=== PATIENT | female | born 1970 | race Hispanic/Latino ===

== ENCOUNTER 2017-01-06 12:18 | Emergency (ER) | payer MEDICAID ==
[2017-01-06 12:19] VITALS: BMI 35.2
[2017-01-06] MEDS ORDERED: Albuterol-Ipratrop 3 mg / 0.5 (3 ml) UD INH STA ×3 (13:53→16:44)
--- NOTE | 2017-01-06 13:58 | ED PDOC ---
HPI: Asthma Time Seen by Provider: 01/06/17 12:54 Chief Complaint (Nursing): Cough, Cold, Congestion History Per: Patient History/Exam Limitations: no limitations Onset/Duration Of Symptoms: Gradual Current Symptoms Are (Timing): Still Present Associated Symptoms: Dyspnea, Cough. denies: Fever, Hives, Chest Pain Severity: Moderate Additional History Per: Patient Additional Complaint(s): ED for evaluation of wheezing x a few days. Using spiriva and ventolin inhaler with minimal relief. Patient taking antibiotic for bronchitis. Patient c/o feeling dizzy no cp ot stauffer Past Medical History Reviewed: Historical Data, Nursing Documentation, Vital Signs Vital Signs: Last Vital Signs Temp 98.0 F 01/06/17 12:42 Pulse 81 01/06/17 12:42 Resp 16 01/06/17 12:42 BP 126/69 01/06/17 12:42 Pulse Ox 98 01/06/17 12:42 - Medical History PMH: Anxiety, Asthma, Bronchitis, CAD, Depression, Gastritis, GERD, Hypercholesterolemia, Migraine, Personality Disorder, Chronic Pain Denies: Chronic Kidney Disease - Family History Family History: States: Unknown Family Hx - Living Arrangements Living Arrangements: With Family - Social History Current smoker - smoking cessation education provided: No - Immunization History Hx Tetanus Toxoid Vaccination: No - Home Medications Home Medications: Ambulatory Orders Medication Instructions Recorded Lorazepam 1 mg PO DAILY #20 tab 05/21/14 Albuterol 0.5% [Albuterol 0.5% 2.5 mg IH Q6H PRN #3 neb 01/28/15 Inhal Bryanna (2.5 mg/0.5 ml) UD] Albuterol HFA [Ventolin HFA 90 2 puff IH Q4H #1 puff 12/08/15 mcg/actuation (8 g)] Albuterol 0.5% [Albuterol 0.5% 2.5 mg IH BID 03/26/16 Inhal Bryanna (2.5 mg/0.5 ml) UD] Aspirin [Adult Low Dose Aspirin EC] 81 mg PO DAILY 03/26/16 Cholecalciferol (Vitamin D3) 2,000 unit PO DAILY 03/26/16 [Vitamin D] Esomeprazole Magnesium [Nexium] 40 mg PO DAILY 03/26/16 Fexofenadine/Pseudoephedrine 1 each PO DAILY 06/29/16 [Yarelis-D 12 Hour Tablet] Ibuprofen [Motrin] 600 mg PO DAILY 03/26/16 Lorazepam 1 mg PO Q4 03/26/16 Montelukast [Singulair] 10 mg PO DAILY 03/26/16 Tiotropium [Spiriva] 18 mcg IH DAILY 03/26/16 Venlafaxine [Effexor XR] 150 mg PO DAILY 03/26/16 traZODone [trazODONE HYDROCHLORIDE] 50 mg PO HS 03/26/16 Ibuprofen [Motrin] 600 mg PO Q6H PRN #20 tab 04/12/16 Permethrin 5% [Permethrin] 5 g TP PRN PRN #1 tube 04/12/16 Cephalexin [cephalexin] 500 mg PO BID #20 cap 06/29/16 Ibuprofen [Motrin] 400 mg PO Q6 #30 tab 06/29/16 Methylprednisolone [Medrol Dose 4 mg PO DAILY #21 mg 06/29/16 Pack (21 tabs)] Amoxicillin 500 mg PO TID #15 tablet 07/26/16 Ibuprofen [Motrin Tab] 600 mg PO Q8 PRN #21 07/26/16 LORazepam [Ativan] 1 mg PO DAILY #5 tab 07/26/16 Albuterol 0.5% [Albuterol 0.5% 2.5 mg IH Q6H PRN #3 neb 10/25/16 Inhal Bryanna (2.5 mg/0.5 ml) UD] Montelukast [Singulair] 10 mg PO DAILY 5 Days 10/25/16 Tiotropium [place] [Spiriva 2.5 mcg IH DAILY PRN 5 Days 10/25/16 Respimat] predniSONE [predniSONE Tab] 20 mg PO BID 5 Days 10/25/16 Azithromycin [Zithromax] 250 mg PO DAILY #6 tab 10/30/16 Benzonatate 200 mg PO TID PRN #20 capsule 10/30/16 Albuterol HFA [Ventolin HFA 90 2 puff IH Q4 PRN #1 unit 11/05/16 mcg/actuation (8 g)] Benzonatate [Tessalon Perles] 100 mg PO TID PRN #20 cap 11/05/16 Methylprednisolone [Medrol Dose 4 mg PO DAILY #1 packet 11/05/16 Pack (21 tabs)] Triamcinolone Acetonide [Nasacort 1 spray NS DAILY #1 unit 11/05/16 Allergy 24Hr] Benzonatate [Tessalon Perle] 100 mg PO TID PRN #15 capsule 11/14/16 Ondansetron ODT [Zofran ODT] 4 mg PO Q6 PRN #16 odt 11/14/16 Oseltamivir [Tamiflu] 75 mg PO BID #9 cap 11/14/16 Albuterol HFA [Ventolin HFA 90 2 puff IH Q6 #200 puff 11/25/16 mcg/actuation (8 g)] Benzonatate [Tessalon Perles] 100 mg PO TID #20 sgl 11/25/16 Amoxicillin/Clavulanate [Augmentin 1 tab PO BID #20 tab 11/27/16 875 MG-125 MG] Benzonatate [Tessalon Perles] 200 mg PO TID #30 tab 11/27/16 Ibuprofen [Motrin] 600 mg PO BID #20 tab 11/27/16 Ibuprofen [Motrin] 600 mg PO Q6 #20 tab 12/08/16 Albuterol HFA [Ventolin HFA 90 2 puff IH [id number] PRN #1 bottle 12/20/16 mcg/actuation (8 g)] Amoxicillin/Clavulanate [Augmentin 1 tab PO BID #19 tab 12/20/16 875 MG-125 MG] Benzonatate [Tessalon Perle] 100 mg PO BID #12 capsule 12/20/16 - Allergies Allergies/Adverse Reactions: Allergies Allergy/AdvReac Type Severity Reaction Status Date / Time clarithromycin [From Biaxin] Allergy ANAPHYLAXIS Verified 01/06/17 12:42 cyclobenzaprine HCl Allergy RASH Verified 01/06/17 12:42 [From Flexeril] hydroxyzine HCl Allergy RASH Verified 01/06/17 12:42 [From Vistaril] hydroxyzine pamoate Allergy RASH Verified 01/06/17 12:42 [From Vistaril] latex Allergy RASH Verified 01/06/17 12:42 Sulfa (Sulfonamide Allergy RASH Verified 01/06/17 12:42 Antibiotics) bacitracin AdvReac RASH Verified 01/06/17 12:42 levofloxacin [From Levaquin] AdvReac VOMITING Verified 01/06/17 12:42 Review of Systems ROS Statement: Except As Marked, All Systems Reviewed And Found Negative Constitutional: Negative for: Fever, Chills Cardiovascular: Negative for: Chest Pain Respiratory: Positive for: Cough, Sputum (yellow), Wheezing. Negative for: Shortness of Breath Gastrointestinal: Negative for: Nausea, Vomiting, Abdominal Pain Physical Exam - Reviewed Nursing Documentation Reviewed: Yes Vital Signs Reviewed: Yes - Physical Exam Appears: Positive for: Well, No Acute Distress Head Exam: Positive for: ATRAUMATIC, NORMAL INSPECTION, NORMOCEPHALIC Eye Exam: Positive for: Normal appearance Neck: Positive for: Normal, Painless ROM, Supple Cardiovascular/Chest: Positive for: Regular Rate, Rhythm, Chest Non Tender. Negative for: Edema, Gallop, Murmur, Bradycardia, Tachycardia, Irregularly Irregular Respiratory: Positive for: Wheezing (mod scattered). Negative for: Decreased Breath Sounds, Accessory Muscle Use, Crackles, Rales, Rhonchi, Stridor, Respiratory Distress, Plerual Rub Pulses-Radial (L): 2+ Pulses-Radial (R): 2+ Gastrointestinal/Abdominal: Positive for: Normal Exam, Bowel Sounds, Soft. Negative for: Tenderness Extremity: Positive for: Normal ROM. Negative for: Tenderness, Pedal Edema, Calf Tenderness, Deformity, Swelling Neurologic/Psych: Positive for: Alert, cat hooker II-XII, Oriented, Mood/Affect (calm) , Gait (steady). Negative for: Motor/Sensory Deficits - Laboratory Results Result Diagrams: 01/06/17 14:40 01/06/17 14:40 - ECG ECG: Positive for: Interpreted By Al ECG Rhythm: Positive for: Normal QRS, Normal ST Segment, Sinus Rhythm. Negative for: ST/T Changes Interpretation Of Abn EKG: rate of 72, no evidence of ischemia O2 Sat by Pulse Oximetry: 98 Pulse Ox Interpretation: Normal - Radiology X-Ray: Interpreted by Al X-Ray Interpretation: No Acute Disease - Progress ED Course And Treament: moderate wheezing pt refused iv solumedrol will admit to fp Re-evaluation Time: 17:19 Condition: Improved Nebulizer Treatments/Peak Flow - Duonebs Number of Bronchodilator Doses given?: 3 - Steroid Treatment Steroid: Oral - Clinical Response Clinical Response: Improved Disposition - Clinical Impression Clinical Impression: Status asthmaticus - Patient ED Disposition Is Patient to be Admitted: Yes Counseled Patient/Family Regarding: Studies Performed, Diagnosis - Disposition Disposition Time: 17:20 Condition: STABLE - Pt Status Changed To: Hospital Disposition Of: Inpatient - Admit Certification Admit to Inpatient:: After my assessment, the patient will require hospitalization for at least two midnights. This is because of the severity of symptoms shown, intensity of services needed, and/or the medical risk in this patient being treated as an outpatient. - POA Present On Arrival: None
[2017-01-06] MEDS ORDERED: Albuterol-Ipratrop 3 mg / 0.5 (3 ml) UD ONE ×3 (14:21→16:49)
[2017-01-06 14:58] LABS: BASO # 0.1 K/uL (0.0-0.2); BASO % 2.2 % (0.0-2.0); EOS # 0.3 K/uL (0.0-0.7); EOS % 4.7 % (0.0-4.0); HEMATOCRIT 35.6 % (34.0-47.0); LYMPH # 2.5 K/uL (1.0-4.3); LYMPH % 42.6 % (20.0-40.0); MEAN CELL VOLUME 91.2 fl (81.0-99.0); MEAN CORPUSCULAR HEMOGLOBIN 30.1 pg (27.0-31.0); MEAN PLATELET VOLUME 8.1 fl (7.2-11.7); MONO # 0.5 K/uL (0.0-0.8); MONO % 7.9 % (0.0-10.0); NEUT # 2.5 K/uL (1.8-7.0); NEUT % 42.6 % (50.0-75.0); NRBC % 0.2 % (0.0-0.0); RED CELL DISTRIBUTION WIDTH 13.5 % (11.5-14.5); WHITE BLOOD COUNT 5.9 K/uL (4.8-10.8)
[2017-01-06 15:07] LABS: ALB/GLOB RATIO 1.1 (1.0-2.1); ALKALINE PHOSPHATASE 70 U/L (38-126); ALT/SGPT 18 U/L (9-52); AST/SGOT 34 U/L (14-36); BILIRUBIN,TOTAL 0.6 mg/dl (0.2-1.3); BLOOD UREA NITROGEN 14 mg/dl (7-17); CALCIUM 8.9 mg/dL (8.4-10.2); CARBON DIOXIDE 26 mmol/L (22-30); CHLORIDE 106 mmol/L (98-107); GFR AFRICAN-AMERICAN > 60; GLUCOSE,RANDOM 141 mg/dL (65-105); POTASSIUM 4.2 MMOL/L (3.6-5.0); SODIUM 144 mmol/l (132-148)
--- NOTE | 2017-01-06 15:20 | RAD ---
PROCEDURE: CHEST RADIOGRAPH, 1 VIEW HISTORY: sob COMPARISON: 12/20/2016 FINDINGS: LUNGS: Clear. PLEURA: No pneumothorax or pleural fluid seen. CARDIOVASCULAR: Normal. OSSEOUS STRUCTURES: No significant abnormalities. VISUALIZED UPPER ABDOMEN: Normal. OTHER FINDINGS: None. IMPRESSION: No active disease.
[2017-01-06 17:46] VITALS: BP 140/76; PULSE 78; RESP 18; TEMP 98; O2SAT 97
--- NOTE | 2017-01-06 20:05 | CARD ---
APPROVED REPORT EKG Measurement Heart [id number] <Conclusion> Normal sinus rhythm Normal ECG
== END 2017-01-06 17:48 | disposition left against medical advice (07) ==
LOC: H.ER 12:18 → UNDOADMIN 17:09 → H.ERHOLD 17:09 → UNDODISIN 17:40 → H.ER 17:48
DX: J45.902 Unspecified asthma with status asthmaticus (principal); F17.210 Nicotine dependence, cigarettes, uncomplicated; I25.10 Atherosclerotic heart disease of native coronary artery without angina pectoris; E78.00 Pure hypercholesterolemia, unspecified; Z79.82 Long term (current) use of aspirin

== ENCOUNTER 2017-01-29 09:43 | Emergency (ER) | payer MEDICAID ==
[2017-01-29 09:44] VITALS: BMI 36.3
--- NOTE | 2017-01-29 10:14 | ED PDOC ---
Lower Extremity Pain/Injury Time Seen by Provider: 01/29/17 09:58 Chief Complaint (Nursing): Lower Extremity Problem/Injury Chief Complaint (Provider): Lower Extremity Problem/Injury History Per: Patient History/Exam Limitations: no limitations Onset/Duration Of Symptoms: Days Additional Complaint(s): Patient is a 46 year old female who presents to ED for xray results. Patient was evaluated in ED yesterday, xrays performed but signed out AMA prior to receiving results. Notes ongoing left knee pain but denies any new symptoms. Past Medical History Reviewed: Historical Data, Nursing Documentation, Vital Signs - Medical History PMH: Anxiety, Asthma, Bronchitis, CAD, Depression, Gastritis, GERD, Hypercholesterolemia, Migraine, Personality Disorder, Chronic Pain Denies: Chronic Kidney Disease - Surgical History Surgical History: No Surg Hx - Family History Family History: States: Unknown Family Hx - Living Arrangements Living Arrangements: With Family - Social History Current smoker - smoking cessation education provided: Yes - Immunization History Hx Tetanus Toxoid Vaccination: No - Home Medications Home Medications: Ambulatory Orders Medication Instructions Recorded Lorazepam 1 mg PO DAILY #20 tab 05/21/14 Albuterol 0.5% [Albuterol 0.5% 2.5 mg IH Q6H PRN #3 neb 01/28/15 Inhal Bryanna (2.5 mg/0.5 ml) UD] Albuterol HFA [Ventolin HFA 90 2 puff IH Q4H #1 puff 12/08/15 mcg/actuation (8 g)] Albuterol 0.5% [Albuterol 0.5% 2.5 mg IH BID 03/26/16 Inhal Bryanna (2.5 mg/0.5 ml) UD] Aspirin [Adult Low Dose Aspirin EC] 81 mg PO DAILY 03/26/16 Cholecalciferol (Vitamin D3) 2,000 unit PO DAILY 03/26/16 [Vitamin D] Esomeprazole Magnesium [Nexium] 40 mg PO DAILY 03/26/16 Fexofenadine/Pseudoephedrine 1 each PO DAILY 03/26/16 [Yarelis-D 12 Hour Tablet] Ibuprofen [Motrin] 600 mg PO DAILY 03/26/16 Lorazepam 1 mg PO Q4 03/26/16 Montelukast [Singulair] 10 mg PO DAILY 03/26/16 Tiotropium [Spiriva] 18 mcg IH DAILY 03/26/16 Venlafaxine [Effexor XR] 150 mg PO DAILY 03/26/16 traZODone [trazODONE HYDROCHLORIDE] 50 mg PO HS 03/26/16 Ibuprofen [Motrin] 600 mg PO Q6H PRN #20 tab 04/12/16 Permethrin 5% [Permethrin] 5 g TP PRN PRN #1 tube 04/12/16 Cephalexin [cephalexin] 500 mg PO BID #20 cap 06/29/16 Ibuprofen [Motrin] 400 mg PO Q6 #30 tab 06/29/16 Methylprednisolone [Medrol Dose 4 mg PO DAILY #21 mg 06/29/16 Pack (21 tabs)] Amoxicillin 500 mg PO TID #15 tablet 07/26/16 Ibuprofen [Motrin Tab] 600 mg PO Q8 PRN #21 07/26/16 LORazepam [Ativan] 1 mg PO DAILY #5 tab 07/26/16 Albuterol 0.5% [Albuterol 0.5% 2.5 mg IH Q6H PRN #3 neb 10/25/16 Inhal [place]anna (2.5 mg/0.5 ml) UD] Montelukast [Singulair] 10 mg PO DAILY 5 Days 10/25/16 Tiotropium [place] [Spiriva 2.5 mcg IH DAILY PRN 5 Days 10/25/16 Respimat] predniSONE [predniSONE Tab] 20 mg PO BID 5 Days 10/25/16 Azithromycin [Zithromax] 250 mg PO DAILY #6 tab 10/30/16 Benzonatate 200 mg PO TID PRN #20 capsule 10/30/16 Albuterol HFA [Ventolin HFA 90 2 puff IH Q4 PRN #1 unit 11/05/16 mcg/actuation (8 g)] Benzonatate [Tessalon Perles] 100 mg PO TID PRN #20 cap 11/05/16 Methylprednisolone [Medrol Dose 4 mg PO DAILY #1 packet 11/05/16 Pack (21 tabs)] Triamcinolone Acetonide [Nasacort 1 spray NS DAILY #1 unit 11/05/16 Allergy 24Hr] Benzonatate [Tessalon Perle] 100 mg PO TID PRN #15 capsule 11/14/16 Ondansetron ODT [Zofran ODT] 4 mg PO Q6 PRN #16 odt 11/14/16 Oseltamivir [Tamiflu] 75 mg PO BID #9 cap 11/14/16 Albuterol HFA [Ventolin HFA 90 2 puff IH Q6 #200 puff 11/25/16 mcg/actuation (8 g)] Benzonatate [Tessalon Perles] 100 mg PO TID #20 sgl 11/25/16 Amoxicillin/Clavulanate [Augmentin 1 tab PO BID #20 tab 11/27/16 875 MG-125 MG] Benzonatate [Tessalon Perles] 200 mg PO TID #30 tab 11/27/16 Ibuprofen [Motrin] 600 mg PO BID #20 tab 11/27/16 Ibuprofen [Motrin] 600 mg PO Q6 #20 tab 12/08/16 Albuterol HFA [Ventolin HFA 90 2 puff IH [id number] PRN #1 bottle 12/20/16 mcg/actuation (8 g)] Amoxicillin/Clavulanate [Augmentin 1 tab PO BID #19 tab 12/20/16 875 MG-125 MG] Benzonatate [Tessalon Perle] 100 mg PO BID #12 capsule 12/20/16 Albuterol 0.083% [Albuterol 3 ml IH QID PRN #60 neb 01/06/17 Sulfate 3 Ml] Albuterol HFA [Ventolin HFA 90 2 puff IH [id number] PRN #60 puff 01/06/17 mcg/actuation (8 g)] Benzonatate [Tessalon Perles] 100 mg PO TID PRN #30 sgl 01/06/17 predniSONE [predniSONE Tab] 40 mg PO DAILY 4 Days 01/06/17 Clotrimazole 1% Cream [Lotrimin 1% 15 applic EXT BID #1 tube 01/27/17 CREAM] Ibuprofen [Motrin Tab] 600 mg PO Q6 PRN #15 tab 01/27/17 Compr.stocking,Knee,Reg,X-Lrg 1 each MC DAILY #2 each 01/29/17 [T.e.d. Anti-Embolism Stocking] - Allergies Allergies/Adverse Reactions: Allergies Allergy/AdvReac Type Severity Reaction Status Date / Time clarithromycin [From Biaxin] Allergy ANAPHYLAXIS Verified 01/28/17 09:31 cyclobenzaprine HCl Allergy RASH Verified 01/28/17 09:31 [From Flexeril] hydroxyzine HCl Allergy RASH Verified 01/28/17 09:31 [From Vistaril] hydroxyzine pamoate Allergy RASH Verified 01/28/17 09:31 [From Vistaril] latex Allergy RASH Verified 01/28/17 09:31 Sulfa (Sulfonamide Allergy RASH Verified 01/28/17 09:31 Antibiotics) bacitracin AdvReac RASH Verified 01/28/17 09:31 levofloxacin [From Levaquin] AdvReac VOMITING Verified 01/28/17 09:31 Review of Systems ROS Statement: Except As Marked, All Systems Reviewed And Found Negative Constitutional: Negative for: Fever, Weakness Respiratory: Negative for: Shortness of Breath Musculoskeletal: Positive for: Leg Pain. Negative for: Arm Pain, Foot Pain Skin: Negative for: Rash Neurological: Negative for: Weakness, Numbness Physical Exam - Reviewed Nursing Documentation Reviewed: Yes Vital Signs Reviewed: Yes - Physical Exam Appears: Positive for: Non-toxic, No Acute Distress Skin: Positive for: Normal Color, Warm Eye Exam: Positive for: Normal appearance Neck: Positive for: Normal Extremity: Positive for: Normal ROM, Tenderness (mild to left knee ), Pedal Edema (bilateral lower extremities ). Negative for: Calf Tenderness Neurologic/Psych: Positive for: Alert, Oriented Medical Decision Making Medical Decision Making: Time: 957 Initial impression: Acute on chronic knee pain Initial plan: Xray results: (+) degenerative joint disease James wrap placed on knee, discussed the importance of following up with the clinic. Prescription provided for compression socks as well. Scribe Attestation: Documented by Gabi Miramontes acting as a scribe for Toby Yañez DO MD Scribe Attestation: All medical record entries made by the Scribe were at my direction and personally dictated by me. I have reviewed the chart and agree that the record accurately reflects my personal performance of the history, physical exam, medical decision making, and the department course for this patient. I have also personally directed, reviewed, and agree with the discharge instructions and disposition. Disposition - Clinical Impression Clinical Impression: Arthritis of knee, Leg edema - Patient ED Disposition Is Patient to be Admitted: No Counseled Patient/Family Regarding: Studies Performed, Diagnosis - Disposition Referrals: Ender Geiger III, MD [Staff Provider] - Disposition: Routine/Home Disposition Time: 11:05 Condition: STABLE Prescriptions: Compr.stocking,Knee,Reg,X-Lrg [T.e.d. Anti-Embolism Stocking] 1 each MC DAILY # 2 each Instructions: Leg Edema (ED), Knee Pain (ED), Arthritis (ED)
== END 2017-01-29 11:09 | disposition home or self-care (01) ==
LOC: H.ER 09:43
DX: R60.0 Localized edema (principal); M17.9 Osteoarthritis of knee, unspecified; G89.29 Other chronic pain; E78.00 Pure hypercholesterolemia, unspecified; F41.9 Anxiety disorder, unspecified; I25.10 Atherosclerotic heart disease of native coronary artery without angina pectoris; K21.9 Gastro-esophageal reflux disease without esophagitis; Z79.82 Long term (current) use of aspirin; J45.909 Unspecified asthma, uncomplicated

== ENCOUNTER 2017-04-28 11:38 | Emergency (ER) | payer MEDICAID ==
[2017-04-28 11:39] VITALS: BMI 36.3
[2017-04-28 11:46] VITALS: BP 129/95; PULSE 106; RESP 18; TEMP 98.1; O2SAT 98
--- NOTE | 2017-04-28 13:21 | ED PDOC ---
Lower Extremity Pain/Injury Time Seen by Provider: 04/28/17 12:35 Chief Complaint (Nursing): Lower Extremity Problem/Injury Chief Complaint (Provider): Bilateral Leg Pain History Per: Patient History/Exam Limitations: no limitations Onset/Duration Of Symptoms: Days (x2 weeks) Current Symptoms Are (Timing): Still Present Additional Complaint(s): Jennifer Tariq is a 46 year old female that presents to the ED with a chief complaint of bilateral knee pain. Patient reports that she has a history of rheumatoid arthritis and has constant pain in her left knee, but reports that her right knee pain came as a result of a fall down a flight of stairs that occurred two weeks ago. Past Medical History Vital Signs: Last Vital Signs Temp 98.1 F 04/28/17 11:43 Pulse 106 H 04/28/17 11:43 Resp 18 04/28/17 11:43 BP 129/95 H 04/28/17 11:43 Pulse Ox 98 04/28/17 11:43 - Medical History PMH: Anxiety, Arthritis (rheumatoid), Asthma, Bronchitis, CAD, Depression, Gastritis, GERD, Hypercholesterolemia, Migraine, Personality Disorder, Chronic Pain Denies: Chronic Kidney Disease - Family History Family History: States: Unknown Family Hx - Immunization History Hx Tetanus Toxoid Vaccination: No - Home Medications Home Medications: Ambulatory Orders Medication Instructions Recorded Lorazepam 1 mg PO DAILY #20 tab 05/21/14 Albuterol 0.5% [Albuterol 0.5% 2.5 mg IH Q6H PRN #3 neb 01/28/15 Inhal [place]anna (2.5 mg/0.5 ml) UD] Albuterol HFA [Ventolin HFA 90 2 puff IH Q4H #1 puff 12/08/15 mcg/actuation (8 g)] Albuterol 0.5% [Albuterol 0.5% 2.5 mg IH BID 03/26/16 Inhal [place] (2.5 mg/0.5 ml) UD] Aspirin [Adult Low Dose Aspirin EC] 81 mg PO DAILY 03/26/16 Cholecalciferol (Vitamin D3) 2,000 unit PO DAILY 03/26/16 [Vitamin D] Esomeprazole Magnesium [Nexium] 40 mg PO DAILY 03/26/16 Fexofenadine/Pseudoephedrine 1 each PO DAILY 03/26/16 [Yarelis-D 12 Hour Tablet] Ibuprofen [Motrin] 600 mg PO DAILY 03/26/16 Lorazepam 1 mg PO Q4 03/26/16 Montelukast [Singulair] 10 mg PO DAILY 03/26/16 Tiotropium [Spiriva] 18 mcg IH DAILY 03/26/16 Venlafaxine [Effexor XR] 150 mg PO DAILY 03/26/16 traZODone [trazODONE HYDROCHLORIDE] 50 mg PO HS 03/26/16 Ibuprofen [Motrin] 600 mg PO Q6H PRN #20 tab 04/12/16 Permethrin 5% [Permethrin] 5 g TP PRN PRN #1 tube 04/12/16 Cephalexin [cephalexin] 500 mg PO BID #20 cap 06/29/16 Ibuprofen [Motrin] 400 mg PO Q6 #30 tab 06/29/16 Methylprednisolone [Medrol Dose 4 mg PO DAILY #21 mg 06/29/16 Pack (21 tabs)] Amoxicillin 500 mg PO TID #15 tablet 07/26/16 Ibuprofen [Motrin Tab] 600 mg PO Q8 PRN #21 07/26/16 LORazepam [Ativan] 1 mg PO DAILY #5 tab 07/26/16 Albuterol 0.5% [Albuterol 0.5% 2.5 mg IH Q6H PRN #3 neb 10/25/16 Inhal [place]anna (2.5 mg/0.5 ml) UD] Montelukast [Singulair] 10 mg PO DAILY 5 Days 10/25/16 Tiotropium [place] [Spiriva 2.5 mcg IH DAILY PRN 5 Days 10/25/16 Respimat] predniSONE [predniSONE Tab] 20 mg PO BID 5 Days 10/25/16 Azithromycin [Zithromax] 250 mg PO DAILY #6 tab 10/30/16 Benzonatate 200 mg PO TID PRN #20 capsule 10/30/16 Albuterol HFA [Ventolin HFA 90 2 puff IH Q4 PRN #1 unit 11/05/16 mcg/actuation (8 g)] Benzonatate [Tessalon Perles] 100 mg PO TID PRN #20 cap 11/05/16 Methylprednisolone [Medrol Dose 4 mg PO DAILY #1 packet 11/05/16 Pack (21 tabs)] Triamcinolone Acetonide [Nasacort 1 spray NS DAILY #1 unit 11/05/16 Allergy 24Hr] Benzonatate [Tessalon Perle] 100 mg PO TID PRN #15 capsule 11/14/16 Ondansetron ODT [Zofran ODT] 4 mg PO Q6 PRN #16 odt 11/14/16 Oseltamivir [Tamiflu] 75 mg PO BID #9 cap 11/14/16 Albuterol HFA [Ventolin HFA 90 2 puff IH Q6 #200 puff 11/25/16 mcg/actuation (8 g)] Benzonatate [Tessalon Perles] 100 mg PO TID #20 sgl 11/25/16 Amoxicillin/Clavulanate [Augmentin 1 tab PO BID #20 tab 11/27/16 875 MG-125 MG] Benzonatate [Tessalon Perles] 200 mg PO TID #30 tab 11/27/16 Ibuprofen [Motrin] 600 mg PO BID #20 tab 11/27/16 Ibuprofen [Motrin] 600 mg PO Q6 #20 tab 12/08/16 Albuterol HFA [Ventolin HFA 90 2 puff IH [id number] PRN #1 bottle 12/20/16 mcg/actuation (8 g)] Amoxicillin/Clavulanate [Augmentin 1 tab PO BID #19 tab 12/20/16 875 MG-125 MG] Benzonatate [Tessalon Perle] 100 mg PO BID #12 capsule 12/20/16 Albuterol 0.083% [Albuterol 3 ml IH QID PRN #60 neb 01/06/17 Sulfate 3 Ml] Albuterol HFA [Ventolin HFA 90 2 puff IH [id number] PRN #60 puff 01/06/17 mcg/actuation (8 g)] Benzonatate [Tessalon Perles] 100 mg PO TID PRN #30 sgl 01/06/17 predniSONE [predniSONE Tab] 40 mg PO DAILY 4 Days 01/06/17 Clotrimazole 1% Cream [Lotrimin 1% 15 applic EXT BID #1 tube 01/27/17 CREAM] Ibuprofen [Motrin Tab] 600 mg PO Q6 PRN #15 tab 01/27/17 Compr.stocking,Knee,Reg,X-Lrg 1 each MC DAILY #2 each 01/29/17 [T.e.d. Anti-Embolism Stocking] - Allergies Allergies/Adverse Reactions: Allergies Allergy/AdvReac Type Severity Reaction Status Date / Time clarithromycin [From Biaxin] Allergy ANAPHYLAXIS Verified 01/28/17 09:31 cyclobenzaprine HCl Allergy RASH Verified 01/28/17 09:31 [From Flexeril] hydroxyzine HCl Allergy RASH Verified 01/28/17 09:31 [From Vistaril] hydroxyzine pamoate Allergy RASH Verified 01/28/17 09:31 [From Vistaril] latex Allergy RASH Verified 01/28/17 09:31 Sulfa (Sulfonamide Allergy RASH Verified 01/28/17 09:31 Antibiotics) bacitracin AdvReac RASH Verified 01/28/17 09:31 levofloxacin [From Levaquin] AdvReac VOMITING Verified 01/28/17 09:31 Review of Systems Musculoskeletal: Positive for: Leg Pain (b/l knee pain) Physical Exam - Reviewed Nursing Documentation Reviewed: Yes Vital Signs Reviewed: Yes - Physical Exam Appears: Positive for: Non-toxic, No Acute Distress Head Exam: Positive for: ATRAUMATIC, NORMOCEPHALIC Skin: Positive for: Normal Color, Warm Pulses-Dorsalis Pedis (L): 2+ Pulses-Dorsalis Pedis (R): 2+ Pulses-Post. Tibialis (L): 2+ Pulses-Post. Tibialis (R): 2+ Extremity: Positive for: Tenderness (TTP bilateral knees), Other (fading ecchymosis present on anterior right knee and b/l shins) Neurologic/Psych: Positive for: Alert, Oriented. Negative for: Motor/Sensory Deficits - ECG O2 Sat by Pulse Oximetry: 98 (RA) Pulse Ox Interpretation: Normal - Progress ED Course And Treament: pateint left prior to xrys. Medical Decision Making Medical Decision Making: Impression: Bilateral Knee Pain Plan: * X-Ray Knees Bilateral * Reevaluation Scribe Attestation: Documented by Maribel Benson, acting as a scribe for Lianne Gonzalez PA-C. Provider Scribe Attestation: All medical record entries made by the Scribe were at my direction and personally dictated by me. I have reviewed the chart and agree that the record accurately reflects my personal performance of the history, physical exam, medical decision making, and the department course for this patient. I have also personally directed, reviewed, and agree with the discharge instructions and disposition. Disposition - Clinical Impression Clinical Impression: Knee injury - Patient ED Disposition Is Patient to be Admitted: No - Disposition Disposition: Left W/O Treatment Disposition Time: 13:33 Condition: FAIR Forms: wiMAN ([place])
== END 2017-04-28 14:11 | disposition home or self-care (01) ==
LOC: H.ER 11:38
DX: M25.569 Pain in unspecified knee (principal); E78.00 Pure hypercholesterolemia, unspecified; F41.9 Anxiety disorder, unspecified

== ENCOUNTER 2017-06-13 12:21 | Emergency (ER) | payer MEDICAID ==
[2017-06-13 12:22] VITALS: BMI 36.3
[2017-06-13 12:35] VITALS: BP 122/60; RESP 18; TEMP 98.6; O2SAT 100
--- NOTE | 2017-06-13 12:55 | ED PDOC ---
Lower Extremity Pain/Injury Time Seen by Provider: 06/13/17 12:36 Chief Complaint (Nursing): Lower Extremity Problem/Injury Chief Complaint (Provider): Lower Extremity Problem/Injury History Per: Patient History/Exam Limitations: no limitations Onset/Duration Of Symptoms: Days (x2 months) Current Symptoms Are (Timing): Still Present Additional Complaint(s): Jennifer Tariq is a 46 year old female presenting to the ED for an evaluation of an injury to both of her knees when she tripped and fell 2 months prior to arrival. The patient states experiencing swelling to bilateral knees and a painful numbing sensation to the patella of her right knee since then. She reports not seeking medical attention until today. The patient denies radiation of pain, fever, or calf pain. PMD: Provider TBRizwana Past Medical History Reviewed: Historical Data, Nursing Documentation, Vital Signs Vital Signs: Last Vital Signs Temp 98.6 F 06/13/17 12:32 Pulse 96 H 06/13/17 12:32 Resp 18 06/13/17 12:32 BP 122/60 06/13/17 12:32 Pulse Ox 100 06/13/17 12:32 - Medical History PMH: Anxiety, Arthritis (rheumatoid), Asthma, Bronchitis, CAD, Depression, Gastritis, GERD, Hypercholesterolemia, Migraine, Personality Disorder, Chronic Pain Denies: Chronic Kidney Disease - Family History Family History: States: No Known Family Hx - Social History Current smoker - smoking cessation education provided: Yes Alcohol: None Drugs: Prescription medications (hx of pain pill abuse (currently taking suboxone)) - Immunization History Hx Tetanus Toxoid Vaccination: No - Home Medications Home Medications: Ambulatory Orders Medication Instructions Recorded Lorazepam 1 mg PO DAILY #20 tab 05/21/14 Albuterol 0.5% [Albuterol 0.5% 2.5 mg IH Q6H PRN #3 neb 01/28/15 Inhal Bryanna (2.5 mg/0.5 ml) UD] Albuterol HFA [Ventolin HFA 90 2 puff IH Q4H #1 puff 12/08/15 mcg/actuation (8 g)] Albuterol 0.5% [Albuterol 0.5% 2.5 mg IH BID 03/26/16 Inhal Bryanna (2.5 mg/0.5 ml) UD] Aspirin [Adult Low Dose Aspirin EC] 81 mg PO DAILY 03/26/16 Cholecalciferol (Vitamin D3) 2,000 unit PO DAILY 03/26/16 [Vitamin D] Esomeprazole Magnesium [Nexium] 40 mg PO DAILY 03/26/16 Fexofenadine/Pseudoephedrine 1 each PO DAILY 03/26/16 [Yarelis-D 12 Hour Tablet] Ibuprofen [Motrin] 600 mg PO DAILY 03/26/16 Lorazepam 1 mg PO Q4 03/26/16 Montelukast [Singulair] 10 mg PO DAILY 03/26/16 Tiotropium [Spiriva] 18 mcg IH DAILY 03/26/16 Venlafaxine [Effexor XR] 150 mg PO DAILY 03/26/16 traZODone [trazODONE HYDROCHLORIDE] 50 mg PO HS 03/26/16 Ibuprofen [Motrin] 600 mg PO Q6H PRN #20 tab 04/12/16 Permethrin 5% [Permethrin] 5 g TP PRN PRN #1 tube 04/12/16 Cephalexin [cephalexin] 500 mg PO BID #20 cap 06/29/16 Ibuprofen [Motrin] 400 mg PO Q6 #30 tab 06/29/16 Methylprednisolone [Medrol Dose 4 mg PO DAILY #21 mg 06/29/16 Pack (21 tabs)] Amoxicillin 500 mg PO TID #15 tablet 07/26/16 Ibuprofen [Motrin Tab] 600 mg PO Q8 PRN #21 07/26/16 LORazepam [Ativan] 1 mg PO DAILY #5 tab 07/26/16 Albuterol 0.5% [Albuterol 0.5% 2.5 mg IH Q6H PRN #3 neb 10/25/16 Inhal Bryanna (2.5 mg/0.5 ml) UD] Montelukast [Singulair] 10 mg PO DAILY 5 Days 10/25/16 Tiotropium [place] [Spiriva 2.5 mcg IH DAILY PRN 5 Days 10/25/16 Respimat] predniSONE [predniSONE Tab] 20 mg PO BID 5 Days 10/25/16 Azithromycin [Zithromax] 250 mg PO DAILY #6 tab 10/30/16 Benzonatate 200 mg PO TID PRN #20 capsule 10/30/16 Albuterol HFA [Ventolin HFA 90 2 puff IH Q4 PRN #1 unit 11/05/16 mcg/actuation (8 g)] Benzonatate [Tessalon Perles] 100 mg PO TID PRN #20 cap 11/05/16 Methylprednisolone [Medrol Dose 4 mg PO DAILY #1 packet 11/05/16 Pack (21 tabs)] Triamcinolone Acetonide [Nasacort 1 spray NS DAILY #1 unit 11/05/16 Allergy 24Hr] Benzonatate [Tessalon Perle] 100 mg PO TID PRN #15 capsule 11/14/16 Ondansetron ODT [Zofran ODT] 4 mg PO Q6 PRN #16 odt 11/14/16 Oseltamivir [Tamiflu] 75 mg PO BID #9 cap 11/14/16 Albuterol HFA [Ventolin HFA 90 2 puff IH Q6 #200 puff 11/25/16 mcg/actuation (8 g)] Benzonatate [Tessalon Perles] 100 mg PO TID #20 sgl 11/25/16 Amoxicillin/Clavulanate [Augmentin 1 tab PO BID #20 tab 11/27/16 875 MG-125 MG] Benzonatate [Tessalon Perles] 200 mg PO TID #30 tab 11/27/16 Ibuprofen [Motrin] 600 mg PO BID #20 tab 11/27/16 Ibuprofen [Motrin] 600 mg PO Q6 #20 tab 12/08/16 Albuterol HFA [Ventolin HFA 90 2 puff IH [id number] PRN #1 bottle 12/20/16 mcg/actuation (8 g)] Amoxicillin/Clavulanate [Augmentin 1 tab PO BID #19 tab 12/20/16 875 MG-125 MG] Benzonatate [Tessalon Perle] 100 mg PO BID #12 capsule 12/20/16 Albuterol 0.083% [Albuterol 3 ml IH QID PRN #60 neb 01/06/17 Sulfate 3 Ml] Albuterol HFA [Ventolin HFA 90 2 puff IH [id number] PRN #60 puff 01/06/17 mcg/actuation (8 g)] Benzonatate [Tessalon Perles] 100 mg PO TID PRN #30 sgl 01/06/17 predniSONE [predniSONE Tab] 40 mg PO DAILY 4 Days 01/06/17 Clotrimazole 1% Cream [Lotrimin 1% 15 applic EXT BID #1 tube 01/27/17 CREAM] Ibuprofen [Motrin Tab] 600 mg PO Q6 PRN #15 tab 01/27/17 Compr.stocking,Knee,Reg,X-Lrg 1 each MC DAILY #2 each 01/29/17 [T.e.d. Anti-Embolism Stocking] Meloxicam [Mobic] 1 - 2 tab PO DAILY PRN #15 tab 06/13/17 - Allergies Allergies/Adverse Reactions: Allergies Allergy/AdvReac Type Severity Reaction Status Date / Time clarithromycin [From Biaxin] Allergy ANAPHYLAXIS Verified 01/28/17 09:31 cyclobenzaprine HCl Allergy RASH Verified 01/28/17 09:31 [From Flexeril] hydroxyzine HCl Allergy RASH Verified 01/28/17 09:31 [From Vistaril] hydroxyzine pamoate Allergy RASH Verified 01/28/17 09:31 [From Vistaril] latex Allergy RASH Verified 01/28/17 09:31 Sulfa (Sulfonamide Allergy RASH Verified 01/28/17 09:31 Antibiotics) bacitracin AdvReac RASH Verified 01/28/17 09:31 levofloxacin [From Levaquin] AdvReac VOMITING Verified 01/28/17 09:31 Review of Systems ROS Statement: Except As Marked, All Systems Reviewed And Found Negative Constitutional: Negative for: Fever Musculoskeletal: Positive for: Leg Pain (and bilateral knee swelling). Negative for: Other (no radiation of bilateral knee pain and no calf pain) Neurological: Positive for: Numbness (numbing sensation to right patella ) Physical Exam - Reviewed Nursing Documentation Reviewed: Yes Vital Signs Reviewed: Yes - Physical Exam Appears: Positive for: No Acute Distress Head Exam: Positive for: ATRAUMATIC, NORMOCEPHALIC Skin: Positive for: Normal Color. Negative for: Rash Pulses-Dorsalis Pedis (L): 2+ Pulses-Dorsalis Pedis (R): 2+ Back: Positive for: Normal Inspection Extremity: Positive for: Normal ROM (to bilateral knees), Tenderness (minimal tenderness to bilateral knees), Swelling (minimal swelling to left knee and to right knee ), Other (mild crepitus to right knee). Negative for: Calf Tenderness (bilaterally) Neurologic/Psych: Positive for: Alert, Oriented (x3) - ECG O2 Sat by Pulse Oximetry: 100 (RA) Pulse Ox Interpretation: Normal - Radiology X-Ray: Interpreted by Me (Knee x-rays b/l) X-Ray Interpretation: No Acute Disease - Progress ED Course And Treament: F/U with Dr. Beach for further evaluation. Medical Decision Making Medical Decision Making: Time: 12:36 Impression: Lower Extremity Problem/Injury Plan: * [RAD] Knee 3 Views LT * [RAD] Knee 3 Views RT * Motrin Tab 800 mg PO * Reevaluation Scribe Attestation: Documented by Vicki Diaz, acting as a scribe for Deyvi Huynh PA-C. Provider Scribe Attestation: All medical record entries made by the Scribe were at my direction and personally dictated by me. I have reviewed the chart and agree that the record accurately reflects my personal performance of the history, physical exam, medical decision making, and the department course for this patient. I have also personally directed, reviewed, and agree with the discharge instructions and disposition. Disposition - Clinical Impression Clinical Impression: Knee pain - Patient ED Disposition Is Patient to be Admitted: No - Disposition Referrals: Melonie Beach MD [Staff Provider] - [facility] [Outside] Disposition: Routine/Home Disposition Time: 13:06 Condition: STABLE Prescriptions: Meloxicam [Mobic] 1 - 2 tab PO DAILY PRN #15 tab PRN Reason: pain Instructions: Knee Pain (ED), RICE Therapy (ED) Forms: [facility] (Mauritian)
--- NOTE | 2017-06-13 13:03 | RAD ---
HISTORY: trauma COMPARISON: No prior FINDINGS: BONES: Normal. No fracture. JOINTS: Mild arthrosis of the left medial compartment. SOFT TISSUE: Normal. OTHER FINDINGS: None . IMPRESSION: Mild arthrosis of the left medial compartment.
--- NOTE | 2017-06-13 13:03 | RAD ---
PROCEDURE: Right Knee Radiographs. HISTORY: trauma COMPARISON: None. FINDINGS: BONES: Normal. No fracture. JOINTS: Normal. No osteoarthritis. JOINT EFFUSION: None. OTHER FINDINGS: None. IMPRESSION: Normal radiographs of the right knee.
[2017-06-13 13:19] VITALS: PULSE 84
== END 2017-06-13 13:18 | disposition home or self-care (01) ==
LOC: H.ER 12:21
DX: M25.569 Pain in unspecified knee (principal); E78.00 Pure hypercholesterolemia, unspecified; F32.9 Major depressive disorder, single episode, unspecified; F41.9 Anxiety disorder, unspecified; G89.29 Other chronic pain; I25.10 Atherosclerotic heart disease of native coronary artery without angina pectoris; K21.9 Gastro-esophageal reflux disease without esophagitis; M06.9 Rheumatoid arthritis, unspecified; Z79.82 Long term (current) use of aspirin

== ENCOUNTER 2017-07-14 16:01 | Emergency (ER) | payer MEDICAID ==
[2017-07-14 16:02] VITALS: BMI 36.3
[2017-07-14 17:00] VITALS: BP 145/82; PULSE 100; RESP 18; TEMP 99; O2SAT 99
--- NOTE | 2017-07-14 17:21 | ED PDOC ---
Lower Extremity Pain/Injury Time Seen by Provider: 07/14/17 17:05 Chief Complaint (Nursing): Lower Extremity Problem/Injury Chief Complaint (Provider): Right foot pain History Per: Patient History/Exam Limitations: no limitations Onset/Duration Of Symptoms: Hrs (x10) Current Symptoms Are (Timing): Still Present Additional Complaint(s): Jennifer is a 47 y/o female who presents to the ED complaining of right foot pain and swelling, onset approximately 10 hours ago. She states that while walking on some rocks, she fell and injured the right foot. Patient took Motrin this morning with minimal pain relief. Denies ankle pain. No weakness, numbness, or tingling. PMD: None Past Medical History Reviewed: Historical Data, Nursing Documentation, Vital Signs Vital Signs: Last Vital Signs Temp 99 F 07/14/17 16:58 Pulse 100 H 07/14/17 16:58 Resp 18 07/14/17 16:58 BP 145/82 07/14/17 16:58 Pulse Ox 99 07/14/17 16:58 - Medical History PMH: Anxiety, Arthritis (rheumatoid), Asthma, Bronchitis, CAD, Depression, Gastritis, GERD, Hypercholesterolemia, Migraine, Personality Disorder, Chronic Pain - Surgical History Surgical History: No Surg Hx - Family History Family History: States: No Known Family Hx - Living Arrangements Living Arrangements: Other (non-domiciled) - Social History Current smoker - smoking cessation education provided: Yes Alcohol: None Drugs: Denies - Home Medications Home Medications: Ambulatory Orders Medication Instructions Recorded Lorazepam 1 mg PO DAILY #20 tab 05/21/14 Albuterol 0.5% [Albuterol 0.5% 2.5 mg IH Q6H PRN #3 neb 01/28/15 Inhal Bryanna (2.5 mg/0.5 ml) UD] Albuterol HFA [Ventolin HFA 90 2 puff IH Q4H #1 puff 12/08/15 mcg/actuation (8 g)] Albuterol 0.5% [Albuterol 0.5% 2.5 mg IH BID 03/26/16 Inhal Bryanna (2.5 mg/0.5 ml) UD] Aspirin [Adult Low Dose Aspirin EC] 81 mg PO DAILY 03/26/16 Cholecalciferol (Vitamin D3) 2,000 unit PO DAILY 03/26/16 [Vitamin D] Esomeprazole Magnesium [Nexium] 40 mg PO DAILY 03/26/16 Fexofenadine/Pseudoephedrine 1 each PO DAILY 03/26/16 [Yarelis-D 12 Hour Tablet] Ibuprofen [Motrin] 600 mg PO DAILY 03/26/16 Lorazepam 1 mg PO Q4 03/26/16 Montelukast [Singulair] 10 mg PO DAILY 03/26/16 Tiotropium [Spiriva] 18 mcg IH DAILY 03/26/16 Venlafaxine [Effexor XR] 150 mg PO DAILY 03/26/16 traZODone [trazODONE HYDROCHLORIDE] 50 mg PO HS 03/26/16 Ibuprofen [Motrin] 600 mg PO Q6H PRN #20 tab 04/12/16 Permethrin 5% [Permethrin] 5 g TP PRN PRN #1 tube 04/12/16 Cephalexin [cephalexin] 500 mg PO BID #20 cap 06/29/16 Ibuprofen [Motrin] 400 mg PO Q6 #30 tab 06/29/16 Methylprednisolone [Medrol Dose 4 mg PO DAILY #21 mg 06/29/16 Pack (21 tabs)] Amoxicillin 500 mg PO TID #15 tablet 07/26/16 Ibuprofen [Motrin Tab] 600 mg PO Q8 PRN #21 07/26/16 LORazepam [Ativan] 1 mg PO DAILY #5 tab 07/26/16 Albuterol 0.5% [Albuterol 0.5% 2.5 mg IH Q6H PRN #3 neb 10/25/16 Inhal Bryanna (2.5 mg/0.5 ml) UD] Montelukast [Singulair] 10 mg PO DAILY 5 Days tab 10/25/16 Tiotropium [place] [Spiriva 2.5 mcg IH DAILY PRN 5 Days ml 10/25/16 Respimat] predniSONE [predniSONE Tab] 20 mg PO BID 5 Days tab 10/25/16 Azithromycin [Zithromax] 250 mg PO DAILY #6 tab 10/30/16 Benzonatate 200 mg PO TID PRN #20 capsule 10/30/16 Albuterol HFA [Ventolin HFA 90 2 puff IH Q4 PRN #1 unit 11/05/16 mcg/actuation (8 g)] Benzonatate [Tessalon Perles] 100 mg PO TID PRN #20 cap 11/05/16 Methylprednisolone [Medrol Dose 4 mg PO DAILY #1 packet 11/05/16 Pack (21 tabs)] Triamcinolone Acetonide [Nasacort 1 spray NS DAILY #1 unit 11/05/16 Allergy 24Hr] Benzonatate [Tessalon Perle] 100 mg PO TID PRN #15 capsule 11/14/16 Ondansetron ODT [Zofran ODT] 4 mg PO Q6 PRN #16 odt 11/14/16 Oseltamivir [Tamiflu] 75 mg PO BID #9 cap 11/14/16 Albuterol HFA [Ventolin HFA 90 2 puff IH Q6 #200 puff 11/25/16 mcg/actuation (8 g)] Benzonatate [Tessalon Perles] 100 mg PO TID #20 sgl 11/25/16 Amoxicillin/Clavulanate [Augmentin 1 tab PO BID #20 tab 11/27/16 875 MG-125 MG] Benzonatate [Tessalon Perles] 200 mg PO TID #30 tab 11/27/16 Ibuprofen [Motrin] 600 mg PO BID #20 tab 11/27/16 Ibuprofen [Motrin] 600 mg PO Q6 #20 tab 12/08/16 Albuterol HFA [Ventolin HFA 90 2 puff IH [id number] PRN #1 bottle 12/20/16 mcg/actuation (8 g)] Amoxicillin/Clavulanate [Augmentin 1 tab PO BID #19 tab 12/20/16 875 MG-125 MG] Benzonatate [Tessalon Perle] 100 mg PO BID #12 capsule 12/20/16 Albuterol 0.083% [Albuterol 3 ml IH QID PRN #60 neb 01/06/17 Sulfate 3 Ml] Albuterol HFA [Ventolin HFA 90 2 puff IH [id number] PRN #60 puff 01/06/17 mcg/actuation (8 g)] Benzonatate [Tessalon Perles] 100 mg PO TID PRN #30 sgl 01/06/17 predniSONE [predniSONE Tab] 40 mg PO DAILY 4 Days tab 01/06/17 Clotrimazole 1% Cream [Lotrimin 1% 15 applic EXT BID #1 tube 01/27/17 CREAM] Ibuprofen [Motrin Tab] 600 mg PO Q6 PRN #15 tab 01/27/17 Compr.stocking,Knee,Reg,X-Lrg 1 each MC DAILY #2 each 01/29/17 [T.e.d. Anti-Embolism Stocking] Meloxicam [Mobic] 1 - 2 tab PO DAILY PRN #15 tab 06/13/17 Ibuprofen [Motrin] 600 mg PO Q6 PRN #20 tab 07/14/17 - Allergies Allergies/Adverse Reactions: Allergies Allergy/AdvReac Type Severity Reaction Status Date / Time clarithromycin [From Biaxin] Allergy ANAPHYLAXIS Verified 01/28/17 09:31 cyclobenzaprine HCl Allergy RASH Verified 01/28/17 09:31 [From Flexeril] hydroxyzine HCl Allergy RASH Verified 01/28/17 09:31 [From Vistaril] hydroxyzine pamoate Allergy RASH Verified 01/28/17 09:31 [From Vistaril] latex Allergy RASH Verified 01/28/17 09:31 Sulfa (Sulfonamide Allergy RASH Verified 01/28/17 09:31 Antibiotics) bacitracin AdvReac RASH Verified 01/28/17 09:31 levofloxacin [From Levaquin] AdvReac VOMITING Verified 01/28/17 09:31 Review of Systems ROS Statement: Except As Marked, All Systems Reviewed And Found Negative Musculoskeletal: Positive for: Other (right foot injury) Neurological: Negative for: Weakness, Numbness Physical Exam - Reviewed Nursing Documentation Reviewed: Yes Vital Signs Reviewed: Yes - Physical Exam Appears: Positive for: Well, Non-toxic, No Acute Distress Head Exam: Positive for: ATRAUMATIC, NORMAL INSPECTION, NORMOCEPHALIC Skin: Positive for: Normal Color. Negative for: Rash Eye Exam: Positive for: Normal appearance Extremity: Positive for: Normal ROM, Tenderness (to the heel of right foot, with mild swelling and no ecchymosis). Negative for: Deformity Neurologic/Psych: Positive for: Alert, Oriented, Gait (steady) - ECG O2 Sat by Pulse Oximetry: 99 (RA) Pulse Ox Interpretation: Normal - Other Rad X-Ray Right Foot X-Ray: Viewed By Me, Read By Radiologist X-Ray Interpretation: No fx, no dis Medical Decision Making Medical Decision Making: Time: 17:18 Initial Plan: --Pending X-Ray Right Foot --Given Motrin 600 mg PO Patient is aware of x-ray results, all questions answered. Crutches given. Patient referred to podiatry clinic for follow-up, Motrin prescription provided. Scribe Attestation: Documented by Edelmira Xie, acting as a scribe for Mackenzie Shahid PA-C Provider Scribe Attestation: All medical record entries made by the Scribe were at my direction and personally dictated by me. I have reviewed the chart and agree that the record accurately reflects my personal performance of the history, physical exam, medical decision making, and the department course for this patient. I have also personally directed, reviewed, and agree with the discharge instructions and disposition. Procedures - Splinting Location: right foot Pre-Made Type: jayden wrap, ortho shoe Pre-Proc Neuro Vasc Exam: normal Post-Proc Neuro Vasc Exam: normal Disposition - Clinical Impression Clinical Impression: Foot sprain - Patient ED Disposition Is Patient to be Admitted: No Counseled Patient/Family Regarding: Diagnosis, Need For Followup, Rx Given - Disposition Referrals: Podiatry Clinic [Outside] Disposition: Routine/Home Disposition Time: 18:19 Condition: STABLE Additional Instructions: Ice and elevate affected area. Take prescription meds as directed as needed for pain. Follow-up with podiatry clinic. Prescriptions: Ibuprofen [Motrin] 600 mg PO Q6 PRN #20 tab PRN Reason: Pain, Moderate (4-7) Instructions: Crutch Instructions (ED), Foot Contusion (ED), Foot Sprain (ED) Forms: [employer] ([place])
--- NOTE | 2017-07-14 17:57 | RAD ---
PROCEDURE: Right Foot Radiographs. HISTORY: trauma COMPARISON: None. FINDINGS: BONES: Normal. No fracture. JOINTS: Normal. SOFT TISSUES: Normal. OTHER FINDINGS: None. IMPRESSION: No acute findings related to/accounting for the clinical presentation. Please note: No preliminary report/ innterpretation of this examination provided by emergency department personnel.
== END 2017-07-14 18:37 | disposition home or self-care (01) ==
LOC: H.ER 16:01
DX: S93.601A Unspecified sprain of right foot, initial encounter (principal); X50.9XXA Other and unspecified overexertion or strenuous movements or postures, initial encounter; Y92.89 Other specified places as the place of occurrence of the external cause; E78.00 Pure hypercholesterolemia, unspecified

== ENCOUNTER 2017-07-20 12:56 | Emergency (ER) | payer MEDICAID ==
[2017-07-20 12:56] VITALS: BMI 36.3
[2017-07-20 13:03] VITALS: BP 124/82; PULSE 99; RESP 18; TEMP 99.3; O2SAT 97
[2017-07-20] MEDS ORDERED: Albuterol 0.083% Inhal Sol (2.5 mg/3 mL) UD INH STA (13:57)
[2017-07-20] MEDS ORDERED: Albuterol-Ipratrop 3 mg / 0.5 (3 ml) UD INH STA ×2 (13:58→13:59)
--- NOTE | 2017-07-20 14:06 | ED PDOC ---
HPI: CCC, URI, Sore Throat Time Seen by Provider: 07/20/17 13:00 Chief Complaint (Nursing): Cough, Cold, Congestion Chief Complaint (Provider): Cough and congestion History Per: Patient History/Exam Limitations: no limitations Onset/Duration Of Symptoms: Days (x 2 weeks) Current Symptoms Are (Timing): Still Present Additional Complaint(s): Jennifer is a 47 year old with a past medical history of asthma, who presents to the ED complaining of cough and congestion for 2 weeks. Cough is productive of phlegm. No fever or chest pain. PMD: Skip Mark MD Past Medical History Reviewed: Historical Data, Nursing Documentation, Vital Signs Vital Signs: Last Vital Signs Temp 99.3 F 07/20/17 13:00 Pulse 99 H 07/20/17 13:00 Resp 18 07/20/17 13:00 BP 124/82 07/20/17 13:00 Pulse Ox 97 07/20/17 14:59 - Medical History PMH: Anxiety, Arthritis (rheumatoid), Asthma, Bronchitis, CAD, Depression, Gastritis, GERD, Hypercholesterolemia, Migraine, Personality Disorder, Chronic Pain Denies: Chronic Kidney Disease - Family History Family History: States: Unknown Family Hx - Social History Current smoker - smoking cessation education provided: Yes Alcohol: None Drugs: Denies - Immunization History Hx Tetanus Toxoid Vaccination: No - Home Medications Home Medications: Ambulatory Orders Medication Instructions Recorded Lorazepam 1 mg PO DAILY #20 tab 05/21/14 Albuterol 0.5% [Albuterol 0.5% 2.5 mg IH Q6H PRN #3 neb 01/28/15 Inhal Bryanna (2.5 mg/0.5 ml) UD] Albuterol HFA [Ventolin HFA 90 2 puff IH Q4H #1 puff 12/08/15 mcg/actuation (8 g)] Albuterol 0.5% [Albuterol 0.5% 2.5 mg IH BID 03/26/16 Inhal Bryanna (2.5 mg/0.5 ml) UD] Aspirin [Adult Low Dose Aspirin EC] 81 mg PO DAILY 03/26/16 Cholecalciferol (Vitamin D3) 2,000 unit PO DAILY 03/26/16 [Vitamin D] Esomeprazole Magnesium [Nexium] 40 mg PO DAILY 03/26/16 Fexofenadine/Pseudoephedrine 1 each PO DAILY 03/26/16 [Yarelis-D 12 Hour Tablet] Ibuprofen [Motrin] 600 mg PO DAILY 03/26/16 Lorazepam 1 mg PO Q4 03/26/16 Montelukast [Singulair] 10 mg PO DAILY 03/26/16 Tiotropium [Spiriva] 18 mcg IH DAILY 03/26/16 Venlafaxine [Effexor XR] 150 mg PO DAILY 03/26/16 traZODone [trazODONE HYDROCHLORIDE] 50 mg PO HS 03/26/16 Ibuprofen [Motrin] 600 mg PO Q6H PRN #20 tab 04/12/16 Permethrin 5% [Permethrin] 5 g TP PRN PRN #1 tube 04/12/16 Cephalexin [cephalexin] 500 mg PO BID #20 cap 06/29/16 Ibuprofen [Motrin] 400 mg PO Q6 #30 tab 06/29/16 Methylprednisolone [Medrol Dose 4 mg PO DAILY #21 mg 06/29/16 Pack (21 tabs)] Amoxicillin 500 mg PO TID #15 tablet 07/26/16 Ibuprofen [Motrin Tab] 600 mg PO Q8 PRN #21 07/26/16 LORazepam [Ativan] 1 mg PO DAILY #5 tab 07/26/16 Albuterol 0.5% [Albuterol 0.5% 2.5 mg IH Q6H PRN #3 neb 10/25/16 Inhal Bryanna (2.5 mg/0.5 ml) UD] Montelukast [Singulair] 10 mg PO DAILY 5 Days tab 10/25/16 Tiotropium [place] [Spiriva 2.5 mcg IH DAILY PRN 5 Days ml 10/25/16 Respimat] predniSONE [predniSONE Tab] 20 mg PO BID 5 Days tab 10/25/16 Azithromycin [Zithromax] 250 mg PO DAILY #6 tab 10/30/16 Benzonatate 200 mg PO TID PRN #20 capsule 10/30/16 Albuterol HFA [Ventolin HFA 90 2 puff IH Q4 PRN #1 unit 11/05/16 mcg/actuation (8 g)] Benzonatate [Tessalon Perles] 100 mg PO TID PRN #20 cap 11/05/16 Methylprednisolone [Medrol Dose 4 mg PO DAILY #1 packet 11/05/16 Pack (21 tabs)] Triamcinolone Acetonide [Nasacort 1 spray NS DAILY #1 unit 11/05/16 Allergy 24Hr] Benzonatate [Tessalon Perle] 100 mg PO TID PRN #15 capsule 11/14/16 Ondansetron ODT [Zofran ODT] 4 mg PO Q6 PRN #16 odt 11/14/16 Oseltamivir [Tamiflu] 75 mg PO BID #9 cap 11/14/16 Albuterol HFA [Ventolin HFA 90 2 puff IH Q6 #200 puff 11/25/16 mcg/actuation (8 g)] Benzonatate [Tessalon Perles] 100 mg PO TID #20 sgl 11/25/16 Amoxicillin/Clavulanate [Augmentin 1 tab PO BID #20 tab 11/27/16 875 MG-125 MG] Benzonatate [Tessalon Perles] 200 mg PO TID #30 tab 11/27/16 Ibuprofen [Motrin] 600 mg PO BID #20 tab 11/27/16 Ibuprofen [Motrin] 600 mg PO Q6 #20 tab 12/08/16 Albuterol HFA [Ventolin HFA 90 2 puff IH [id number] PRN #1 bottle 12/20/16 mcg/actuation (8 g)] Amoxicillin/Clavulanate [Augmentin 1 tab PO BID #19 tab 12/20/16 875 MG-125 MG] Benzonatate [Tessalon Perle] 100 mg PO BID #12 capsule 12/20/16 Albuterol 0.083% [Albuterol 3 ml IH QID PRN #60 neb 01/06/17 Sulfate 3 Ml] Albuterol HFA [Ventolin HFA 90 2 puff IH [id number] PRN #60 puff 01/06/17 mcg/actuation (8 g)] Benzonatate [Tessalon Perles] 100 mg PO TID PRN #30 sgl 01/06/17 predniSONE [predniSONE Tab] 40 mg PO DAILY 4 Days tab 01/06/17 Clotrimazole 1% Cream [Lotrimin 1% 15 applic EXT BID #1 tube 01/27/17 CREAM] Ibuprofen [Motrin Tab] 600 mg PO Q6 PRN #15 tab 01/27/17 Compr.stocking,Knee,Reg,X-Lrg 1 each MC DAILY #2 each 01/29/17 [T.e.d. Anti-Embolism Stocking] Meloxicam [Mobic] 1 - 2 tab PO DAILY PRN #15 tab 06/13/17 Ibuprofen [Motrin] 600 mg PO Q6 PRN #20 tab 07/14/17 Albuterol HFA [Ventolin HFA 90 1 puff IH BID PRN #1 unit 07/20/17 mcg/actuation (8 g)] Azithromycin 250 mg PO DAILY #6 tab 07/20/17 - Allergies Allergies/Adverse Reactions: Allergies Allergy/AdvReac Type Severity Reaction Status Date / Time clarithromycin [From Biaxin] Allergy ANAPHYLAXIS Verified 01/28/17 09:31 cyclobenzaprine HCl Allergy RASH Verified 01/28/17 09:31 [From Flexeril] hydroxyzine HCl Allergy RASH Verified 01/28/17 09:31 [From Vistaril] hydroxyzine pamoate Allergy RASH Verified 01/28/17 09:31 [From Vistaril] latex Allergy RASH Verified 01/28/17 09:31 Sulfa (Sulfonamide Allergy RASH Verified 01/28/17 09:31 Antibiotics) bacitracin AdvReac RASH Verified 01/28/17 09:31 levofloxacin [From Levaquin] AdvReac VOMITING Verified 01/28/17 09:31 Review of Systems ROS Statement: Except As Marked, All Systems Reviewed And Found Negative Constitutional: Negative for: Fever ENT: Positive for: Nose Congestion Respiratory: Positive for: Cough, Sputum Physical Exam - Reviewed Nursing Documentation Reviewed: Yes Vital Signs Reviewed: Yes - Physical Exam Appears: Positive for: Non-toxic, No Acute Distress Head Exam: Positive for: ATRAUMATIC, NORMAL INSPECTION, NORMOCEPHALIC Skin: Positive for: Normal Color, Warm, Dry Eye Exam: Positive for: Normal appearance Neck: Positive for: Normal Respiratory: Positive for: Rhonchi (Diffuse), Wheezing (Diffuse) Neurologic/Psych: Positive for: Alert, Oriented - ECG O2 Sat by Pulse Oximetry: 97 (RA) Pulse Ox Interpretation: Normal Medical Decision Making Medical Decision Making: Time: 13:53 Initial Plan: --Duoneb 3 ml INH x2 --Peak Flow pre/post treatment --Chest X-Ray --Pending reevaluation Patient reports improvement in symptoms after medications given. Chest X-Ray shows no acute findings. Patient is stable for discharge home. There is agreement to discharge plan. Return if symptoms persist or worsen. Scribe Attestation: Documented by Edelmira Xie, acting as a scribe for Rajni Edwards PA-C Provider Scribe Attestation: All medical record entries made by the Scribe were at my direction and personally dictated by me. I have reviewed the chart and agree that the record accurately reflects my personal performance of the history, physical exam, medical decision making, and the department course for this patient. I have also personally directed, reviewed, and agree with the discharge instructions and disposition. Disposition - Clinical Impression Clinical Impression: Acute bronchitis - Patient ED Disposition Is Patient to be Admitted: No Counseled Patient/Family Regarding: Diagnosis, Need For Followup, Rx Given - Disposition Disposition: Routine/Home Disposition Time: 15:07 Condition: GOOD Prescriptions: Albuterol HFA [Ventolin HFA 90 mcg/actuation (8 g)] 1 puff IH BID PRN #1 unit PRN Reason: Wheezing Azithromycin 250 mg PO DAILY #6 tab Instructions: Acute Bronchitis (ED) Forms: [employer] (Eth[place]ian)
[2017-07-20] MEDS ORDERED: Albuterol 0.083% Inhal Sol (2.5 mg/3 mL) UD ONE (14:14)
--- NOTE | 2017-07-20 15:58 | RAD ---
HISTORY: cough x 2 weeks COMPARISON: 01/06/2017 TECHNIQUE: Chest PA and lateral FINDINGS: LUNGS: No active pulmonary disease. PLEURA: No significant pleural effusion identified. No pneumothorax apparent. CARDIOVASCULAR: Normal. OSSEOUS STRUCTURES: No significant abnormalities. VISUALIZED UPPER ABDOMEN: Normal. OTHER FINDINGS: None. IMPRESSION: No active disease.
== END 2017-07-20 15:34 | disposition home or self-care (01) ==
LOC: H.ER 12:56
DX: J20.9 Acute bronchitis, unspecified (principal); E78.00 Pure hypercholesterolemia, unspecified; F17.200 Nicotine dependence, unspecified, uncomplicated; F32.9 Major depressive disorder, single episode, unspecified; F41.9 Anxiety disorder, unspecified; G89.29 Other chronic pain; I25.10 Atherosclerotic heart disease of native coronary artery without angina pectoris; J45.909 Unspecified asthma, uncomplicated; K21.9 Gastro-esophageal reflux disease without esophagitis; M06.9 Rheumatoid arthritis, unspecified; Z79.82 Long term (current) use of aspirin

== ENCOUNTER 2017-07-22 11:40 | Emergency (ER) | payer MEDICAID ==
[2017-07-22 11:40] VITALS: BMI 36.3
[2017-07-22 11:55] VITALS: RESP 20
[2017-07-22] MEDS ORDERED: Albuterol-Ipratrop 3 mg / 0.5 (3 ml) UD INH STA ×3 (12:00→14:55)
[2017-07-22] MEDS ORDERED: DiphenhydrAMINE 50 mg/ml Inj IVP STA (12:01)
[2017-07-22] MEDS ORDERED: DiphenhydrAMINE 50 mg/ml Inj ONE (12:11)
[2017-07-22] MEDS ORDERED: Albuterol-Ipratrop 3 mg / 0.5 (3 ml) UD ONE ×2 (12:12→13:38)
--- NOTE | 2017-07-22 12:28 | ED PDOC ---
HPI: Allergic Reaction Time Seen by Provider: 07/22/17 11:56 Chief Complaint (Nursing): Allergic Reaction History Per: Patient History/Exam Limitations: no limitations Onset/Duration Of Symptoms: Days (1), Gradual Current Symptoms Are (Timing): Still Present Possible Cause: Medication (augmentin) Associated Symptoms: Skin Rash, Dyspnea. denies: Trouble Swallowing, Dizziness , Itching Home/EMS Treatment: None Severity: Mild Additional History Per: Patient Additional Complaint(s): states hx of asthma in the past Past Medical History Reviewed: Historical Data, Nursing Documentation, Vital Signs Vital Signs: Last Vital Signs Temp 98.2 F 07/22/17 11:51 Pulse 78 07/22/17 11:51 Resp 20 07/22/17 11:51 BP 124/62 07/22/17 11:51 Pulse Ox 98 07/22/17 11:51 - Medical History PMH: Anxiety, Arthritis (rheumatoid), Asthma, Bronchitis, CAD, Depression, Gastritis, GERD, Hypercholesterolemia, Migraine, Personality Disorder, Chronic Pain Denies: Chronic Kidney Disease - Family History Family History: States: Unknown Family Hx - Living Arrangements Living Arrangements: With Family - Social History Current smoker - smoking cessation education provided: No - Immunization History Hx Tetanus Toxoid Vaccination: No - Home Medications Home Medications: Ambulatory Orders Medication Instructions Recorded Lorazepam 1 mg PO DAILY #20 tab 05/21/14 Albuterol 0.5% [Albuterol 0.5% 2.5 mg IH Q6H PRN #3 neb 01/28/15 Inhal Bryanna (2.5 mg/0.5 ml) UD] Albuterol HFA [Ventolin HFA 90 2 puff IH Q4H #1 puff 12/08/15 mcg/actuation (8 g)] Albuterol 0.5% [Albuterol 0.5% 2.5 mg IH BID 03/26/16 Inhal Bryanna (2.5 mg/0.5 ml) UD] Aspirin [Adult Low Dose Aspirin EC] 81 mg PO DAILY 03/26/16 Cholecalciferol (Vitamin D3) 2,000 unit PO DAILY 03/26/16 [Vitamin D] Esomeprazole Magnesium [Nexium] 40 mg PO DAILY 03/26/16 Fexofenadine/Pseudoephedrine 1 each PO DAILY 03/26/16 [Yarelis-D 12 Hour Tablet] Ibuprofen [Motrin] 600 mg PO DAILY 03/26/16 Lorazepam 1 mg PO Q4 03/26/16 Montelukast [Singulair] 10 mg PO DAILY 03/26/16 Tiotropium [Spiriva] 18 mcg IH DAILY 03/26/16 Venlafaxine [Effexor XR] 150 mg PO DAILY 03/26/16 traZODone [trazODONE HYDROCHLORIDE] 50 mg PO HS 03/26/16 Ibuprofen [Motrin] 600 mg PO Q6H PRN #20 tab 04/12/16 Permethrin 5% [Permethrin] 5 g TP PRN PRN #1 tube 04/12/16 Cephalexin [cephalexin] 500 mg PO BID #20 cap 06/29/16 Ibuprofen [Motrin] 400 mg PO Q6 #30 tab 06/29/16 Methylprednisolone [Medrol Dose 4 mg PO DAILY #21 mg 06/29/16 Pack (21 tabs)] Amoxicillin 500 mg PO TID #15 tablet 07/26/16 Ibuprofen [Motrin Tab] 600 mg PO Q8 PRN #21 07/26/16 LORazepam [Ativan] 1 mg PO DAILY #5 tab 07/26/16 Albuterol 0.5% [Albuterol 0.5% 2.5 mg IH Q6H PRN #3 neb 10/25/16 Inhal Bryanna (2.5 mg/0.5 ml) UD] Montelukast [Singulair] 10 mg PO DAILY 5 Days tab 10/25/16 Tiotropium [place] [Spiriva 2.5 mcg IH DAILY PRN 5 Days ml 10/25/16 Respimat] predniSONE [predniSONE Tab] 20 mg PO BID 5 Days tab 10/25/16 Azithromycin [Zithromax] 250 mg PO DAILY #6 tab 10/30/16 Benzonatate 200 mg PO TID PRN #20 capsule 10/30/16 Albuterol HFA [Ventolin HFA 90 2 puff IH Q4 PRN #1 unit 11/05/16 mcg/actuation (8 g)] Benzonatate [Tessalon Perles] 100 mg PO TID PRN #20 cap 11/05/16 Methylprednisolone [Medrol Dose 4 mg PO DAILY #1 packet 11/05/16 Pack (21 tabs)] Triamcinolone Acetonide [Nasacort 1 spray NS DAILY #1 unit 11/05/16 Allergy 24Hr] Benzonatate [Tessalon Perle] 100 mg PO TID PRN #15 capsule 11/14/16 Ondansetron ODT [Zofran ODT] 4 mg PO Q6 PRN #16 odt 11/14/16 Oseltamivir [Tamiflu] 75 mg PO BID #9 cap 11/14/16 Albuterol HFA [Ventolin HFA 90 2 puff IH Q6 #200 puff 11/25/16 mcg/actuation (8 g)] Benzonatate [Tessalon Perles] 100 mg PO TID #20 sgl 11/25/16 Amoxicillin/Clavulanate [Augmentin 1 tab PO BID #20 tab 11/27/16 875 MG-125 MG] Benzonatate [Tessalon Perles] 200 mg PO TID #30 tab 11/27/16 Ibuprofen [Motrin] 600 mg PO BID #20 tab 11/27/16 Ibuprofen [Motrin] 600 mg PO Q6 #20 tab 12/08/16 Albuterol HFA [Ventolin HFA 90 2 puff IH [id number] PRN #1 bottle 12/20/16 mcg/actuation (8 g)] Amoxicillin/Clavulanate [Augmentin 1 tab PO BID #19 tab 12/20/16 875 MG-125 MG] Benzonatate [Tessalon Perle] 100 mg PO BID #12 capsule 12/20/16 Albuterol 0.083% [Albuterol 3 ml IH QID PRN #60 neb 01/06/17 Sulfate 3 Ml] Albuterol HFA [Ventolin HFA 90 2 puff IH [id number] PRN #60 puff 01/06/17 mcg/actuation (8 g)] Benzonatate [Tessalon Perles] 100 mg PO TID PRN #30 sgl 01/06/17 predniSONE [predniSONE Tab] 40 mg PO DAILY 4 Days tab 01/06/17 Clotrimazole 1% Cream [Lotrimin 1% 15 applic EXT BID #1 tube 01/27/17 CREAM] Ibuprofen [Motrin Tab] 600 mg PO Q6 PRN #15 tab 01/27/17 Compr.stocking,Knee,Reg,X-Lrg 1 each MC DAILY #2 each 01/29/17 [T.e.d. Anti-Embolism Stocking] Meloxicam [Mobic] 1 - 2 tab PO DAILY PRN #15 tab 06/13/17 Ibuprofen [Motrin] 600 mg PO Q6 PRN #20 tab 07/14/17 Albuterol HFA [Ventolin HFA 90 1 puff IH BID PRN #1 unit 07/20/17 mcg/actuation (8 g)] Amoxicillin/Clavulanate [Augmentin 1 tab PO BID #20 tab 07/20/17 875 MG-125 MG] Azithromycin 250 mg PO DAILY #6 tab 07/20/17 Albuterol HFA [Ventolin HFA 90 2 puff IH [id number] PRN #60 puff 07/22/17 mcg/actuation (8 g)] predniSONE [predniSONE Tab] 40 mg PO DAILY #6 tab 07/22/17 - Allergies Allergies/Adverse Reactions: Allergies Allergy/AdvReac Type Severity Reaction Status Date / Time clarithromycin [From Biaxin] Allergy ANAPHYLAXIS Verified 07/22/17 11:51 cyclobenzaprine HCl Allergy RASH Verified 07/22/17 11:51 [From Flexeril] hydroxyzine HCl Allergy RASH Verified 07/22/17 11:51 [From Vistaril] hydroxyzine pamoate Allergy RASH Verified 07/22/17 11:51 [From Vistaril] latex Allergy RASH Verified 07/22/17 11:51 Sulfa (Sulfonamide Allergy RASH Verified 07/22/17 11:51 Antibiotics) bacitracin AdvReac RASH Verified 07/22/17 11:51 levofloxacin [From Levaquin] AdvReac VOMITING Verified 07/22/17 11:51 Review of Systems ROS Statement: Except As Marked, All Systems Reviewed And Found Negative Constitutional: Negative for: Fever, Chills Cardiovascular: Negative for: Chest Pain, Palpitations Respiratory: Positive for: Cough, Shortness of Breath, Wheezing Gastrointestinal: Negative for: Nausea, Vomiting, Abdominal Pain, Diarrhea Skin: Positive for: Rash Neurological: Negative for: Weakness, Numbness, Altered Mental Status Physical Exam - Reviewed Nursing Documentation Reviewed: Yes Vital Signs Reviewed: Yes - Physical Exam Appears: Positive for: No Acute Distress, Uncomfortable Head Exam: Positive for: ATRAUMATIC, NORMAL INSPECTION, NORMOCEPHALIC Skin: Positive for: Rash (erythema to forehead and face) Eye Exam: Positive for: Normal appearance, EOMI, PERRL ENT: Positive for: Pharynx Is (clear,mmm). Negative for: Nasal Congestion, Pharyngeal Erythema, Tonsillar Exudate, Tonsillar Swelling Neck: Positive for: Normal, Painless ROM, Supple. Negative for: Decreased ROM, Limited ROM, Trachea Midline Cardiovascular/Chest: Positive for: Regular Rate, Rhythm, Chest Non Tender. Negative for: Edema, Gallop, Murmur, Bradycardia, Tachycardia Respiratory: Positive for: Normal Breath Sounds. Negative for: Decreased Breath Sounds, Accessory Muscle Use, Crackles, Rales, Rhonchi, Stridor, Wheezing , Respiratory Distress Pulses-Radial (L): 2+ Pulses-Radial (R): 2+ Gastrointestinal/Abdominal: Positive for: Normal Exam, Bowel Sounds, Soft. Negative for: Tenderness Back: Positive for: Normal Inspection. Negative for: L CVA Tenderness, R CVA Tenderness Extremity: Positive for: Normal ROM. 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 Negative for: Motor/Sensory Deficits - Laboratory Results Result Diagrams: 07/22/17 13:37 07/22/17 13:37 - ECG ECG: Positive for: Interpreted By Me ECG Rhythm: Positive for: Normal QRS, Normal ST Segment, Sinus Rhythm. Negative for: ST/T Changes Interpretation Of Abn EKG: rate of 77, no evidence of ischemia O2 Sat by Pulse Oximetry: 98 Pulse Ox Interpretation: Normal - Radiology X-Ray: Interpreted by [place] X-Ray Interpretation: No Acute Disease - Progress ED Course And Treament: sx markedly improved after dubnebs rash resolved. advise albuterol and prednisone. pt agree's with plan and leaves in good spirits. Re-evaluation Time: 15:20 Condition: Improved Disposition - Clinical Impression Clinical Impression: Allergic reaction, COPD with acute exacerbation - Patient ED Disposition Is Patient to be Admitted: No Counseled Patient/Family Regarding: Diagnosis, Need For Followup, Rx Given - Disposition Referrals: [facility] [Outside] (2 to 3 days) Disposition: Routine/Home Disposition Time: 15:38 Condition: GOOD Prescriptions: Albuterol HFA [Ventolin HFA 90 mcg/actuation (8 g)] 2 puff IH [id number] PRN #60 puff PRN Reason: Cough predniSONE [predniSONE Tab] 40 mg PO DAILY #6 tab Instructions: COPD (Chronic Obstructive Pulmonary Disease) (ED), Urticaria (ED) Forms: [employer] (Greenlandic)
[2017-07-22 13:44] LABS: BASO # 0.1 K/uL (0.0-0.2); BASO % 1.1 % (0.0-2.0); EOS # 0.3 K/uL (0.0-0.7); EOS % 5.8 % (0.0-4.0); HEMATOCRIT 34.8 % (34.0-47.0); LYMPH # 1.9 K/uL (1.0-4.3); LYMPH % 32.1 % (20.0-40.0); MEAN CELL VOLUME 90.2 fl (81.0-99.0); MEAN CORPUSCULAR HEMOGLOBIN 30.5 pg (27.0-31.0); MEAN CORPUSCULAR HGB CONC 33.8 g/dL (33.0-37.0); MEAN PLATELET VOLUME 8.1 fl (7.2-11.7); MONO # 0.6 K/uL (0.0-0.8); MONO % 9.6 % (0.0-10.0); NEUT # 3.1 K/uL (1.8-7.0); NEUT % 51.4 % (50.0-75.0); NRBC % 0.2 % (0.0-0.0); RED CELL DISTRIBUTION WIDTH 12.9 % (11.5-14.5); WHITE BLOOD COUNT 5.9 K/uL (4.8-10.8)
--- NOTE | 2017-07-22 13:59 | RAD ---
PROCEDURE: CHEST RADIOGRAPH, 1 VIEW HISTORY: Shortness of breath COMPARISON: 07/20/2017 FINDINGS: LUNGS: Clear. PLEURA: No pneumothorax or pleural fluid seen. CARDIOVASCULAR: Normal. OSSEOUS STRUCTURES: No significant abnormalities. VISUALIZED UPPER ABDOMEN: Normal. OTHER FINDINGS: None. IMPRESSION: No active disease. No acute/significant interval changes. Please note: No preliminary interpretation of this examination rendered by emergency department personnel (Physician and/or PA declined to provide preliminary report of their findings/ observations).
[2017-07-22 14:01] LABS: ALB/GLOB RATIO 1.1 (1.0-2.1); ALKALINE PHOSPHATASE 65 U/L (38-126); ALT/SGPT 44 U/L (9-52); AST/SGOT 40 U/L (14-36); BILIRUBIN,TOTAL 0.6 mg/dl (0.2-1.3); BLOOD UREA NITROGEN 15 mg/dl (7-17); CALCIUM 9.1 mg/dL (8.4-10.2); CARBON DIOXIDE 28 mmol/L (22-30); CHLORIDE 107 mmol/L (98-107); GFR AFRICAN-AMERICAN > 60; GLUCOSE,RANDOM 88 mg/dL (65-105); POTASSIUM 4.5 MMOL/L (3.6-5.0); SODIUM 143 mmol/l (132-148); TOTAL PROTEIN 7.5 G/DL (6.3-8.2)
[2017-07-22 15:43] LABS: PARTIAL THROMBOPLASTIN TIME 29.5 Seconds (25.6-37.1)
[2017-07-22 16:05] VITALS: BP 119/75; PULSE 73; TEMP 98.9; O2SAT 95
== END 2017-07-22 16:15 | disposition home or self-care (01) ==
LOC: H.ER 11:40
DX: J44.1 Chronic obstructive pulmonary disease with (acute) exacerbation (principal); E78.00 Pure hypercholesterolemia, unspecified; F32.9 Major depressive disorder, single episode, unspecified; F41.9 Anxiety disorder, unspecified; G89.29 Other chronic pain; I25.10 Atherosclerotic heart disease of native coronary artery without angina pectoris; K21.9 Gastro-esophageal reflux disease without esophagitis; M06.9 Rheumatoid arthritis, unspecified; Z79.82 Long term (current) use of aspirin
CPT/HCPCS: 71010; 80053; 81025; 84484; 85025; 85610; 85730; 96374; 96375; 99282; J1200; J2930

== ENCOUNTER 2017-08-19 08:16 | Emergency (ER) | payer MEDICAID ==
[2017-08-19 08:21] VITALS: BP 112/76; PULSE 86; RESP 20; TEMP 98.5; O2SAT 96; BMI 33.6
--- NOTE | 2017-08-19 09:32 | ED PDOC ---
HPI: General Adult Chief Complaint (Nursing): Cough, Cold, Congestion Chief Complaint (Provider): Foot Pain/Cough History Per: Patient History/Exam Limitations: no limitations Additional Complaint(s): Jennifer Tariq is a 47 year old female with a history of asthma that presents to the ED with a chief complaint of right foot pain that she has been experiencing for the past 7 weeks, as well as a cough that she has been experiencing for the past 4 days. Patient reports that she sustained a foot injury 7 weeks ago after slipping, and that she came to the ED immediately after and had an X-Ray performed, which was negative. However, her pain has not resolved and her appointment will her medical office secretary will be on 09/09/17, which she feels is too far in the future for her to delay treatment; patient has been treating pain with Motrin. In regards to cough, patient reports that she has been experiencing for the past 4 days associated with yellow phlegm. She also states that she has a fever two days ago that has since resolved. Patient reports that her is sick. Flu vaccine UTD. Of Note: Patient uses Advair twice daily and has Ventolin for her emergency inhaler, which she reports she last used yesterday. Additional requests a refill of her Prilosec rx. PMD: Dr. Mark Past Medical History Reviewed: Historical Data, Nursing Documentation, Vital Signs Vital Signs: Last Vital Signs Temp 98.5 F 08/19/17 08:20 Pulse 86 08/19/17 08:20 Resp 20 08/19/17 08:20 BP 112/76 08/19/17 08:20 Pulse Ox 96 08/19/17 09:42 - Medical History PMH: Anxiety, Arthritis (rheumatoid), Asthma, Bronchitis, CAD, Depression, Gastritis, GERD, Hypercholesterolemia, Migraine, Personality Disorder, Chronic Pain Denies: Chronic Kidney Disease - Family History Family History: States: Unknown Family Hx - Social History Current smoker - smoking cessation education provided: Yes - Immunization History Hx Tetanus Toxoid Vaccination: No Hx Influenza Vaccination: Yes - Home Medications Home Medications: Ambulatory Orders Medication Instructions Recorded Lorazepam 1 mg PO DAILY #20 tab 05/21/14 Albuterol 0.5% [Albuterol 0.5% 2.5 mg IH Q6H PRN #3 neb 01/28/15 Inhal Bryanna (2.5 mg/0.5 ml) UD] Albuterol HFA [Ventolin HFA 90 2 puff IH Q4H #1 puff 12/08/15 mcg/actuation (8 g)] Albuterol 0.5% [Albuterol 0.5% 2.5 mg IH BID 03/26/16 Inhal Bryanna (2.5 mg/0.5 ml) UD] Aspirin [Adult Low Dose Aspirin EC] 81 mg PO DAILY 03/26/16 Cholecalciferol (Vitamin D3) 2,000 unit PO DAILY 03/26/16 [Vitamin D] Esomeprazole Magnesium [Nexium] 40 mg PO DAILY 03/26/16 Fexofenadine/Pseudoephedrine 1 each PO DAILY 03/26/16 [Yarelis-D 12 Hour Tablet] Ibuprofen [Motrin] 600 mg PO DAILY 03/26/16 Lorazepam 1 mg PO Q4 03/26/16 Montelukast [Singulair] 10 mg PO DAILY 03/26/16 Tiotropium [Spiriva] 18 mcg IH DAILY 03/26/16 Venlafaxine [Effexor XR] 150 mg PO DAILY 03/26/16 traZODone [trazODONE HYDROCHLORIDE] 50 mg PO HS 03/26/16 Ibuprofen [Motrin] 600 mg PO Q6H PRN #20 tab 04/12/16 Permethrin 5% [Permethrin] 5 g TP PRN PRN #1 tube 04/12/16 Cephalexin [cephalexin] 500 mg PO BID #20 cap 06/29/16 Ibuprofen [Motrin] 400 mg PO Q6 #30 tab 06/29/16 Methylprednisolone [Medrol Dose 4 mg PO DAILY #21 mg 06/29/16 Pack (21 tabs)] Amoxicillin 500 mg PO TID #15 tablet 07/26/16 Ibuprofen [Motrin Tab] 600 mg PO Q8 PRN #21 07/26/16 LORazepam [Ativan] 1 mg PO DAILY #5 tab 07/26/16 Albuterol 0.5% [Albuterol 0.5% 2.5 mg IH Q6H PRN #3 neb 10/25/16 Inhal Bryanna (2.5 mg/0.5 ml) UD] Montelukast [Singulair] 10 mg PO DAILY 5 Days tab 10/25/16 Tiotropium [place] [Spiriva 2.5 mcg IH DAILY PRN 5 Days ml 10/25/16 Respimat] predniSONE [predniSONE Tab] 20 mg PO BID 5 Days tab 10/25/16 Azithromycin [Zithromax] 250 mg PO DAILY #6 tab 10/30/16 Benzonatate 200 mg PO TID PRN #20 capsule 10/30/16 Albuterol HFA [Ventolin HFA 90 2 puff IH Q4 PRN #1 unit 11/05/16 mcg/actuation (8 g)] Benzonatate [Tessalon Perles] 100 mg PO TID PRN #20 cap 11/05/16 Methylprednisolone [Medrol Dose 4 mg PO DAILY #1 packet 11/05/16 Pack (21 tabs)] Triamcinolone Acetonide [Nasacort 1 spray NS DAILY #1 unit 11/05/16 Allergy 24Hr] Benzonatate [Tessalon Perle] 100 mg PO TID PRN #15 capsule 11/14/16 Ondansetron ODT [Zofran ODT] 4 mg PO Q6 PRN #16 odt 11/14/16 Oseltamivir [Tamiflu] 75 mg PO BID #9 cap 11/14/16 Albuterol HFA [Ventolin HFA 90 2 puff IH Q6 #200 puff 11/25/16 mcg/actuation (8 g)] Benzonatate [Tessalon Perles] 100 mg PO TID #20 sgl 11/25/16 Amoxicillin/Clavulanate [Augmentin 1 tab PO BID #20 tab 11/27/16 875 MG-125 MG] Benzonatate [Tessalon Perles] 200 mg PO TID #30 tab 11/27/16 Ibuprofen [Motrin] 600 mg PO BID #20 tab 11/27/16 Ibuprofen [Motrin] 600 mg PO Q6 #20 tab 12/08/16 Albuterol HFA [Ventolin HFA 90 2 puff IH [id number] PRN #1 bottle 12/20/16 mcg/actuation (8 g)] Amoxicillin/Clavulanate [Augmentin 1 tab PO BID #19 tab 12/20/16 875 MG-125 MG] Benzonatate [Tessalon Perle] 100 mg PO BID #12 capsule 12/20/16 Albuterol 0.083% [Albuterol 3 ml IH QID PRN #60 neb 01/06/17 Sulfate 3 Ml] Albuterol HFA [Ventolin HFA 90 2 puff IH [id number] PRN #60 puff 01/06/17 mcg/actuation (8 g)] Benzonatate [Tessalon Perles] 100 mg PO TID PRN #30 sgl 01/06/17 predniSONE [predniSONE Tab] 40 mg PO DAILY 4 Days tab 01/06/17 Clotrimazole 1% Cream [Lotrimin 1% 15 applic EXT BID #1 tube 01/27/17 CREAM] Ibuprofen [Motrin Tab] 600 mg PO Q6 PRN #15 tab 01/27/17 Compr.stocking,Knee,Reg,X-Lrg 1 each MC DAILY #2 each 01/29/17 [T.e.d. Anti-Embolism Stocking] Meloxicam [Mobic] 1 - 2 tab PO DAILY PRN #15 tab 06/13/17 Ibuprofen [Motrin] 600 mg PO Q6 PRN #20 tab 07/14/17 Albuterol HFA [Ventolin HFA 90 1 puff IH BID PRN #1 unit 07/20/17 mcg/actuation (8 g)] Amoxicillin/Clavulanate [Augmentin 1 tab PO BID #20 tab 07/20/17 875 MG-125 MG] Azithromycin 250 mg PO DAILY #6 tab 07/20/17 Albuterol HFA [Ventolin HFA 90 2 puff IH [id number] PRN #60 puff 07/22/17 mcg/actuation (8 g)] predniSONE [predniSONE Tab] 40 mg PO DAILY #6 tab 07/22/17 Albuterol HFA [Ventolin HFA 90 2 puff IH Q4H #1 puff 08/06/17 mcg/actuation (8 g)] Amoxicillin [Amoxil 500 mg Cap] 500 mg PO Q8 #30 cap 08/06/17 Ibuprofen [Motrin Tab] 600 mg PO Q8H PRN #30 tab 08/19/17 Omeprazole 40 mg PO DAILY #20 capsule. 08/19/17 - Allergies Allergies/Adverse Reactions: Allergies Allergy/AdvReac Type Severity Reaction Status Date / Time azithromycin Allergy RASH Verified 08/06/17 08:42 clarithromycin [From Biaxin] Allergy ANAPHYLAXIS Verified 07/22/17 11:51 cyclobenzaprine HCl Allergy RASH Verified 07/22/17 11:51 [From Flexeril] hydroxyzine HCl Allergy RASH Verified 07/22/17 11:51 [From Vistaril] hydroxyzine pamoate Allergy RASH Verified 07/22/17 11:51 [From Vistaril] latex Allergy RASH Verified 07/22/17 11:51 Sulfa (Sulfonamide Allergy RASH Verified 07/22/17 11:51 Antibiotics) bacitracin AdvReac RASH Verified 07/22/17 11:51 levofloxacin [From Levaquin] AdvReac VOMITING Verified 07/22/17 11:51 Review of Systems Respiratory: Positive for: Cough (productive) Musculoskeletal: Positive for: Foot Pain (right foot) Physical Exam - Reviewed Nursing Documentation Reviewed: Yes Vital Signs Reviewed: Yes - Physical Exam Appears: Positive for: Non-toxic, No Acute Distress Head Exam: Positive for: ATRAUMATIC, NORMOCEPHALIC Skin: Positive for: Normal Color, Warm Eye Exam: Positive for: Normal appearance, EOMI, PERRL ENT: Positive for: Normal ENT Inspection. Negative for: Pharyngeal Erythema Neck: Positive for: Normal, Supple Cardiovascular/Chest: Positive for: Regular Rate, Rhythm. Negative for: Murmur Respiratory: Positive for: Wheezing (b/l). Negative for: Normal Breath Sounds ( b/l prolonged expiratory phase) Pulses-Dorsalis Pedis (L): 2+ Pulses-Dorsalis Pedis (R): 2+ Extremity: Positive for: Tenderness (TTP bottom of plantar fascia of right foot) , Other (High arch with associated tightness of right foot.) Neurologic/Psych: Positive for: Alert, Oriented. Negative for: Motor/Sensory Deficits - ECG O2 Sat by Pulse Oximetry: 96 (RA) Pulse Ox Interpretation: Normal Medical Decision Making Medical Decision Making: Impression: URI/Foot Pain Plan: * Chest X-Ray * Duoneb 3 ml INH * Peak Flow Pre/Post Tx * Reevaluation Scribe Attestation: Documented by Maribel Benson, acting as a scribe for Sanjana Jain MD. Provider Scribe Attestation: All medical record entries made by the Scribe were at my direction and personally dictated by me. I have reviewed the chart and agree that the record accurately reflects my personal performance of the history, physical exam, medical decision making, and the department course for this patient. I have also personally directed, reviewed, and agree with the discharge instructions and disposition. Disposition - Clinical Impression Clinical Impression: Common cold - Patient ED Disposition Is Patient to be Admitted: No Doctor Will See Patient In The: Office Counseled Patient/Family Regarding: Diagnosis, Need For Followup, Rx Given - Disposition Referrals: Skip Mark DO [Family Provider] - Disposition: Routine/Home Disposition Time: 10:00 Condition: IMPROVED Prescriptions: Ibuprofen [Motrin Tab] 600 mg PO Q8H PRN #30 tab PRN Reason: Pain, Moderate (4-7) Omeprazole 40 mg PO DAILY #20 capsule. Instructions: Arthralgia (ED) Forms: [facility] (Khmer) - POA Present On Arrival: None
[2017-08-19] MEDS: Albuterol-Ipratrop 3 mg / 0.5 (3 ml) UD INH STA (09:34)
--- NOTE | 2017-08-19 09:37 | RAD ---
HISTORY: productive cough with fever COMPARISON: 08/06/2017 TECHNIQUE: Chest PA and lateral FINDINGS: LUNGS: No active pulmonary disease. PLEURA: No significant pleural effusion identified. No pneumothorax apparent. CARDIOVASCULAR: Normal. OSSEOUS STRUCTURES: No significant abnormalities. VISUALIZED UPPER ABDOMEN: Normal. OTHER FINDINGS: None. IMPRESSION: No active disease. Specifically no pulmonary consolidative infiltrate appreciated
== END 2017-08-19 11:04 | disposition home or self-care (01) ==
LOC: H.ER 08:16
DX: J00 Acute nasopharyngitis [common cold] (principal); R05 Cough; M79.671 Pain in right foot; J45.909 Unspecified asthma, uncomplicated; E78.00 Pure hypercholesterolemia, unspecified; F32.9 Major depressive disorder, single episode, unspecified; F41.9 Anxiety disorder, unspecified; G89.29 Other chronic pain; M06.9 Rheumatoid arthritis, unspecified; Z79.82 Long term (current) use of aspirin

== ENCOUNTER 2017-08-21 08:33 | Emergency (ER) | payer MEDICAID ==
[2017-08-21 08:33] VITALS: BMI 33.6
[2017-08-21 08:51] VITALS: BP 123/47; PULSE 74; RESP 16; TEMP 98.5; O2SAT 100
--- NOTE | 2017-08-21 09:12 | ED PDOC ---
HPI: Eye Injury/Pain Time Seen by Provider: 08/21/17 08:57 Chief Complaint (Nursing): Eye Problem Chief Complaint (Provider): Eye Problem History Per: Patient History/Exam Limitations: no limitations Onset/Duration Of Symptoms: Days (x1) Current Symptoms Are (Timing): Still Present Additional Complaint(s): Jennifer is a 47 y/o female who presents to the ED complaining of swelling to the left eye lid, upon waking up this morning. Denies any associated itchiness, redness, eye pain, foreign body sensation, vision changes or blurry vision, headache, dizziness, chest pain, shortness of breath, sore throat, or congestion. She reports having a cough on and off for 1 month, but is asymptomatic currently. No known injury or trauma to the eye. Patient states she had a sty once last year which resolved on its own. Took Motrin 600 mg 1 hour prior to arrival. PMD: [facility] Past Medical History Reviewed: Historical Data, Nursing Documentation, Vital Signs Vital Signs: Last Vital Signs Temp 98.5 F 08/21/17 08:47 Pulse 74 08/21/17 08:47 Resp 16 08/21/17 08:47 BP 123/47 L 08/21/17 08:47 Pulse Ox 100 08/21/17 08:47 - Medical History PMH: Anxiety, Arthritis, Asthma, Bronchitis, Depression, Migraine, Personality Disorder, Rheumatoid Arthritis, Chronic Pain Denies: Chronic Kidney Disease - Surgical History Other surgeries: D&C, Colonoscopy - Family History Family History: States: Unknown Family Hx - Social History Current smoker - smoking cessation education provided: Yes Alcohol: None Drugs: Other - Immunization History Hx Tetanus Toxoid Vaccination: No Hx Influenza Vaccination: Yes - Home Medications Home Medications: Ambulatory Orders Medication Instructions Recorded Lorazepam 1 mg PO DAILY #20 tab 05/21/14 Albuterol 0.5% [Albuterol 0.5% 2.5 mg IH Q6H PRN #3 neb 01/28/15 Inhal Bryanna (2.5 mg/0.5 ml) UD] Albuterol HFA [Ventolin HFA 90 2 puff IH Q4H #1 puff 12/08/15 mcg/actuation (8 g)] Albuterol 0.5% [Albuterol 0.5% 2.5 mg IH BID 03/26/16 Inhal Bryanna (2.5 mg/0.5 ml) UD] Aspirin [Adult Low Dose Aspirin EC] 81 mg PO DAILY 03/26/16 Cholecalciferol (Vitamin D3) 2,000 unit PO DAILY 03/26/16 [Vitamin D] Esomeprazole Magnesium [Nexium] 40 mg PO DAILY 03/26/16 Fexofenadine/Pseudoephedrine 1 each PO DAILY 03/26/16 [Yarelis-D 12 Hour Tablet] Ibuprofen [Motrin] 600 mg PO DAILY 03/26/16 Lorazepam 1 mg PO Q4 03/26/16 Montelukast [Singulair] 10 mg PO DAILY 03/26/16 Tiotropium [Spiriva] 18 mcg IH DAILY 03/26/16 Venlafaxine [Effexor XR] 150 mg PO DAILY 03/26/16 traZODone [trazODONE HYDROCHLORIDE] 50 mg PO HS 03/26/16 Ibuprofen [Motrin] 600 mg PO Q6H PRN #20 tab 04/12/16 Permethrin 5% [Permethrin] 5 g TP PRN PRN #1 tube 04/12/16 Cephalexin [cephalexin] 500 mg PO BID #20 cap 06/29/16 Ibuprofen [Motrin] 400 mg PO Q6 #30 tab 06/29/16 Methylprednisolone [Medrol Dose 4 mg PO DAILY #21 mg 06/29/16 Pack (21 tabs)] Amoxicillin 500 mg PO TID #15 tablet 07/26/16 Ibuprofen [Motrin Tab] 600 mg PO Q8 PRN #21 07/26/16 LORazepam [Ativan] 1 mg PO DAILY #5 tab 07/26/16 Albuterol 0.5% [Albuterol 0.5% 2.5 mg IH Q6H PRN #3 neb 10/25/16 Inhal Bryanna (2.5 mg/0.5 ml) UD] Montelukast [Singulair] 10 mg PO DAILY 5 Days tab 10/25/16 Tiotropium [place] [Spiriva 2.5 mcg IH DAILY PRN 5 Days ml 10/25/16 Respimat] predniSONE [predniSONE Tab] 20 mg PO BID 5 Days tab 10/25/16 Azithromycin [Zithromax] 250 mg PO DAILY #6 tab 10/30/16 Benzonatate 200 mg PO TID PRN #20 capsule 10/30/16 Albuterol HFA [Ventolin HFA 90 2 puff IH Q4 PRN #1 unit 11/05/16 mcg/actuation (8 g)] Benzonatate [Tessalon Perles] 100 mg PO TID PRN #20 cap 11/05/16 Methylprednisolone [Medrol Dose 4 mg PO DAILY #1 packet 11/05/16 Pack (21 tabs)] Triamcinolone Acetonide [Nasacort 1 spray NS DAILY #1 unit 11/05/16 Allergy 24Hr] Benzonatate [Tessalon Perle] 100 mg PO TID PRN #15 capsule 11/14/16 Ondansetron ODT [Zofran ODT] 4 mg PO Q6 PRN #16 odt 11/14/16 Oseltamivir [Tamiflu] 75 mg PO BID #9 cap 11/14/16 Albuterol HFA [Ventolin HFA 90 2 puff IH Q6 #200 puff 11/25/16 mcg/actuation (8 g)] Benzonatate [Tessalon Perles] 100 mg PO TID #20 sgl 11/25/16 Amoxicillin/Clavulanate [Augmentin 1 tab PO BID #20 tab 11/27/16 875 MG-125 MG] Benzonatate [Tessalon Perles] 200 mg PO TID #30 tab 11/27/16 Ibuprofen [Motrin] 600 mg PO BID #20 tab 11/27/16 Ibuprofen [Motrin] 600 mg PO Q6 #20 tab 12/08/16 Albuterol HFA [Ventolin HFA 90 2 puff IH [id number] PRN #1 bottle 12/20/16 mcg/actuation (8 g)] Amoxicillin/Clavulanate [Augmentin 1 tab PO BID #19 tab 12/20/16 875 MG-125 MG] Benzonatate [Tessalon Perle] 100 mg PO BID #12 capsule 12/20/16 Albuterol 0.083% [Albuterol 3 ml IH QID PRN #60 neb 01/06/17 Sulfate 3 Ml] Albuterol HFA [Ventolin HFA 90 2 puff IH [id number] PRN #60 puff 01/06/17 mcg/actuation (8 g)] Benzonatate [Tessalon Perles] 100 mg PO TID PRN #30 sgl 01/06/17 predniSONE [predniSONE Tab] 40 mg PO DAILY 4 Days tab 01/06/17 Clotrimazole 1% Cream [Lotrimin 1% 15 applic EXT BID #1 tube 01/27/17 CREAM] Ibuprofen [Motrin Tab] 600 mg PO Q6 PRN #15 tab 01/27/17 Compr.stocking,Knee,Reg,X-Lrg 1 each MC DAILY #2 each 01/29/17 [T.e.d. Anti-Embolism Stocking] Meloxicam [Mobic] 1 - 2 tab PO DAILY PRN #15 tab 06/13/17 Ibuprofen [Motrin] 600 mg PO Q6 PRN #20 tab 07/14/17 Albuterol HFA [Ventolin HFA 90 1 puff IH BID PRN #1 unit 07/20/17 mcg/actuation (8 g)] Amoxicillin/Clavulanate [Augmentin 1 tab PO BID #20 tab 07/20/17 875 MG-125 MG] Azithromycin 250 mg PO DAILY #6 tab 07/20/17 Albuterol HFA [Ventolin HFA 90 2 puff IH [id number] PRN #60 puff 07/22/17 mcg/actuation (8 g)] predniSONE [predniSONE Tab] 40 mg PO DAILY #6 tab 07/22/17 Albuterol HFA [Ventolin HFA 90 2 puff IH Q4H #1 puff 08/06/17 mcg/actuation (8 g)] Amoxicillin [Amoxil 500 mg Cap] 500 mg PO Q8 #30 cap 08/06/17 Ibuprofen [Motrin Tab] 600 mg PO Q8H PRN #30 tab 08/19/17 Omeprazole 40 mg PO DAILY #20 capsule. 08/19/17 - Allergies Allergies/Adverse Reactions: Allergies Allergy/AdvReac Type Severity Reaction Status Date / Time azithromycin Allergy RASH Verified 08/06/17 08:42 clarithromycin [From Biaxin] Allergy ANAPHYLAXIS Verified 07/22/17 11:51 cyclobenzaprine HCl Allergy RASH Verified 07/22/17 11:51 [From Flexeril] latex Allergy RASH Verified 07/22/17 11:51 Sulfa (Sulfonamide Allergy RASH Verified 07/22/17 11:51 Antibiotics) bacitracin AdvReac RASH Verified 07/22/17 11:51 Review of Systems Constitutional: Negative for: Fever, Chills Eyes: Positive for: Eyelid Inflammation. Negative for: Pain, Vision Change, Conjunctivae Inflammation, Redness, Other (foreign body) Cardiovascular: Negative for: Chest Pain Respiratory: Negative for: Cough, Shortness of Breath Neurological: Negative for: Weakness, Numbness, Headache, Dizziness Physical Exam - Reviewed Nursing Documentation Reviewed: Yes Vital Signs Reviewed: Yes - Physical Exam Appears: Positive for: Non-toxic, No Acute Distress Head Exam: Positive for: ATRAUMATIC, NORMAL INSPECTION, NORMOCEPHALIC Skin: Positive for: Normal Color, Warm, Dry. Negative for: Rash Eye Exam: Positive for: Normal appearance, EOMI, PERRL, Other (Mild tenderness to left upper medial eyelid, no swelling noted; no foreign body ). Negative for : Periorbital swelling, Periorbital tenderness, Conjunctival injection, Scleral icterus ENT: Positive for: Normal ENT Inspection Neck: Positive for: Normal, Painless ROM, Supple Cardiovascular/Chest: Positive for: Regular Rate, Rhythm Respiratory: Positive for: Normal Breath Sounds Neurologic/Psych: Positive for: Alert, Oriented (x3) - ECG O2 Sat by Pulse Oximetry: 100 (RA) Pulse Ox Interpretation: Normal - Progress ED Course And Treament: 933: Stable. AAOx3. Pain free. Tolerated PO. Medical Decision Making Medical Decision Making: Clinical Impression: Sty Time: 9:06 Initial Plan: Upon provider evaluation patient is medically stable, and requires no further treatment in the ED at this time. Patient will be discharged home, instructed to continue Motrin and apply warm compress. Counseling was provided and all questions were answered regarding diagnosis and need for follow up with PMD. There is agreement to discharge plan. Return if symptoms persist or worsen. Scribe Attestation: Documented by Edelmira Xie, acting as a scribe for Thee Dunn MD Provider Scribe Attestation: All medical record entries made by the Scribe were at my direction and personally dictated by me. I have reviewed the chart and agree that the record accurately reflects my personal performance of the history, physical exam, medical decision making, and the department course for this patient. I have also personally directed, reviewed, and agree with the discharge instructions and disposition. Disposition - Clinical Impression Clinical Impression: Sty - Patient ED Disposition Is Patient to be Admitted: No Counseled Patient/Family Regarding: Diagnosis, Need For Followup - Disposition Referrals: [facility] [Outside] - 08/24/17 Disposition: Routine/Home Disposition Time: 09:06 Condition: STABLE Additional Instructions: Return if not better in 3 days. Use warm compresses to the eye area for 5 days. Instructions: Mili (ED) Forms: [facility] (Armenian)
== END 2017-08-21 09:24 | disposition home or self-care (01) ==
LOC: H.ER 08:33
DX: H00.024 Hordeolum internum left upper eyelid (principal); F32.9 Major depressive disorder, single episode, unspecified; F41.9 Anxiety disorder, unspecified; G89.29 Other chronic pain; J45.909 Unspecified asthma, uncomplicated; M06.9 Rheumatoid arthritis, unspecified; Z79.82 Long term (current) use of aspirin

== ENCOUNTER 2017-08-22 10:10 | Emergency (ER) | payer MEDICAID ==
[2017-08-22 10:10] VITALS: BMI 33.6
--- NOTE | 2017-08-22 11:20 | ED PDOC ---
HPI: General Adult Time Seen by Provider: 08/22/17 10:17 Chief Complaint (Nursing): Med Refill History Per: Patient Additional Complaint(s): Pt. requesting refill for fluticasone, singulair, prilosec, and mucinex. Offers no complaints at this time. Pt. does not have an appointment with Dr. Mark ( PMD) till next month. Past Medical History Reviewed: Historical Data, Nursing Documentation, Vital Signs Vital Signs: Last Vital Signs Temp 97.5 F L 08/22/17 10:17 Pulse 73 08/22/17 10:17 Resp 16 08/22/17 10:17 BP 98/38 L 08/22/17 10:17 Pulse Ox 96 08/22/17 10:17 - Medical History PMH: Anxiety, Arthritis, Asthma, Bronchitis, CAD, Depression, Gastritis, GERD, Hypercholesterolemia, Migraine, Personality Disorder, Rheumatoid Arthritis, Chronic Pain Denies: Chronic Kidney Disease - Family History Family History: States: No Known Family Hx - Immunization History Hx Tetanus Toxoid Vaccination: No Hx Influenza Vaccination: Yes - Home Medications Home Medications: Ambulatory Orders Medication Instructions Recorded Lorazepam 1 mg PO DAILY #20 tab 05/21/14 Albuterol 0.5% [Albuterol 0.5% 2.5 mg IH Q6H PRN #3 neb 01/28/15 Inhal Bryanna (2.5 mg/0.5 ml) UD] Albuterol HFA [Ventolin HFA 90 2 puff IH Q4H #1 puff 12/08/15 mcg/actuation (8 g)] Albuterol 0.5% [Albuterol 0.5% 2.5 mg IH BID 03/26/16 Inhal Bryanna (2.5 mg/0.5 ml) UD] Aspirin [Adult Low Dose Aspirin EC] 81 mg PO DAILY 03/26/16 Cholecalciferol (Vitamin D3) 2,000 unit PO DAILY 03/26/16 [Vitamin D] Esomeprazole Magnesium [Nexium] 40 mg PO DAILY 03/26/16 Fexofenadine/Pseudoephedrine 1 each PO DAILY 03/26/16 [Yarelis-D 12 Hour Tablet] Ibuprofen [Motrin] 600 mg PO DAILY 03/26/16 Lorazepam 1 mg PO Q4 03/26/16 Montelukast [Singulair] 10 mg PO DAILY 03/26/16 Tiotropium [Spiriva] 18 mcg IH DAILY 03/26/16 Venlafaxine [Effexor XR] 150 mg PO DAILY 03/26/16 traZODone [trazODONE HYDROCHLORIDE] 50 mg PO HS 03/26/16 Ibuprofen [Motrin] 600 mg PO Q6H PRN #20 tab 04/12/16 Permethrin 5% [Permethrin] 5 g TP PRN PRN #1 tube 04/12/16 Cephalexin [cephalexin] 500 mg PO BID #20 cap 06/29/16 Ibuprofen [Motrin] 400 mg PO Q6 #30 tab 06/29/16 Methylprednisolone [Medrol Dose 4 mg PO DAILY #21 mg 06/29/16 Pack (21 tabs)] Amoxicillin 500 mg PO TID #15 tablet 07/26/16 Ibuprofen [Motrin Tab] 600 mg PO Q8 PRN #21 07/26/16 LORazepam [Ativan] 1 mg PO DAILY #5 tab 07/26/16 Albuterol 0.5% [Albuterol 0.5% 2.5 mg IH Q6H PRN #3 neb 10/25/16 Inhal Bryanna (2.5 mg/0.5 ml) UD] Montelukast [Singulair] 10 mg PO DAILY 5 Days tab 10/25/16 Tiotropium [place] [Spiriva 2.5 mcg IH DAILY PRN 5 Days ml 10/25/16 Respimat] predniSONE [predniSONE Tab] 20 mg PO BID 5 Days tab 10/25/16 Azithromycin [Zithromax] 250 mg PO DAILY #6 tab 10/30/16 Benzonatate 200 mg PO TID PRN #20 capsule 10/30/16 Albuterol HFA [Ventolin HFA 90 2 puff IH Q4 PRN #1 unit 11/05/16 mcg/actuation (8 g)] Benzonatate [Tessalon Perles] 100 mg PO TID PRN #20 cap 11/05/16 Methylprednisolone [Medrol Dose 4 mg PO DAILY #1 packet 11/05/16 Pack (21 tabs)] Triamcinolone Acetonide [Nasacort 1 spray NS DAILY #1 unit 11/05/16 Allergy 24Hr] Benzonatate [Tessalon Perle] 100 mg PO TID PRN #15 capsule 11/14/16 Ondansetron ODT [Zofran ODT] 4 mg PO Q6 PRN #16 odt 11/14/16 Oseltamivir [Tamiflu] 75 mg PO BID #9 cap 11/14/16 Albuterol HFA [Ventolin HFA 90 2 puff IH Q6 #200 puff 11/25/16 mcg/actuation (8 g)] Benzonatate [Tessalon Perles] 100 mg PO TID #20 sgl 11/25/16 Amoxicillin/Clavulanate [Augmentin 1 tab PO BID #20 tab 11/27/16 875 MG-125 MG] Benzonatate [Tessalon Perles] 200 mg PO TID #30 tab 11/27/16 Ibuprofen [Motrin] 600 mg PO BID #20 tab 11/27/16 Ibuprofen [Motrin] 600 mg PO Q6 #20 tab 12/08/16 Albuterol HFA [Ventolin HFA 90 2 puff IH [id number] PRN #1 bottle 12/20/16 mcg/actuation (8 g)] Amoxicillin/Clavulanate [Augmentin 1 tab PO BID #19 tab 12/20/16 875 MG-125 MG] Benzonatate [Tessalon Perle] 100 mg PO BID #12 capsule 12/20/16 Albuterol 0.083% [Albuterol 3 ml IH QID PRN #60 neb 01/06/17 Sulfate 3 Ml] Albuterol HFA [Ventolin HFA 90 2 puff IH [id number] PRN #60 puff 01/06/17 mcg/actuation (8 g)] Benzonatate [Tessalon Perles] 100 mg PO TID PRN #30 sgl 01/06/17 predniSONE [predniSONE Tab] 40 mg PO DAILY 4 Days tab 01/06/17 Clotrimazole 1% Cream [Lotrimin 1% 15 applic EXT BID #1 tube 01/27/17 CREAM] Ibuprofen [Motrin Tab] 600 mg PO Q6 PRN #15 tab 01/27/17 Compr.stocking,Knee,Reg,X-Lrg 1 each MC DAILY #2 each 01/29/17 [T.e.d. Anti-Embolism Stocking] Meloxicam [Mobic] 1 - 2 tab PO DAILY PRN #15 tab 06/13/17 Ibuprofen [Motrin] 600 mg PO Q6 PRN #20 tab 07/14/17 Albuterol HFA [Ventolin HFA 90 1 puff IH BID PRN #1 unit 07/20/17 mcg/actuation (8 g)] Amoxicillin/Clavulanate [Augmentin 1 tab PO BID #20 tab 07/20/17 875 MG-125 MG] Azithromycin 250 mg PO DAILY #6 tab 07/20/17 Albuterol HFA [Ventolin HFA 90 2 puff IH [id number] PRN #60 puff 07/22/17 mcg/actuation (8 g)] predniSONE [predniSONE Tab] 40 mg PO DAILY #6 tab 07/22/17 Albuterol HFA [Ventolin HFA 90 2 puff IH Q4H #1 puff 08/06/17 mcg/actuation (8 g)] Amoxicillin [Amoxil 500 mg Cap] 500 mg PO Q8 #30 cap 08/06/17 Ibuprofen [Motrin Tab] 600 mg PO Q8H PRN #30 tab 08/19/17 Omeprazole 40 mg PO DAILY #20 capsule. 08/19/17 Fluticasone/Salmeterol 250/50 1 puff IH DAILY #1 each 08/22/17 [Advair Diskus 250/50] Montelukast [Singulair] 10 mg PO DAILY #30 tab 08/22/17 Omeprazole Magnesium [Prilosec Otc] 40 mg PO DAILY #30 tablet. 08/22/17 guaiFENesin/Dextromethorphan 1 tab PO Q8 PRN #15 tab 08/22/17 [guaiFENesin/DM 600-30 mg] - Allergies Allergies/Adverse Reactions: Allergies Allergy/AdvReac Type Severity Reaction Status Date / Time azithromycin Allergy RASH Verified 08/06/17 08:42 clarithromycin [From Biaxin] Allergy ANAPHYLAXIS Verified 07/22/17 11:51 cyclobenzaprine HCl Allergy RASH Verified 07/22/17 11:51 [From Flexeril] latex Allergy RASH Verified 07/22/17 11:51 Sulfa (Sulfonamide Allergy RASH Verified 07/22/17 11:51 Antibiotics) bacitracin AdvReac RASH Verified 07/22/17 11:51 Review of Systems ROS Statement: Except As Marked, All Systems Reviewed And Found Negative Physical Exam - Physical Exam Appears: Positive for: Well, Non-toxic, No Acute Distress Head Exam: Positive for: ATRAUMATIC, NORMAL INSPECTION, NORMOCEPHALIC Skin: Positive for: Normal Color, Warm. Negative for: Rash Eye Exam: Positive for: Normal appearance ENT: Positive for: Normal ENT Inspection Neck: Positive for: Normal, Painless ROM Cardiovascular/Chest: Positive for: Regular Rate, Rhythm Respiratory: Positive for: CNT, Normal Breath Sounds Neurologic/Psych: Positive for: Alert, Oriented - ECG O2 Sat by Pulse Oximetry: 96 Disposition - Clinical Impression Clinical Impression: Medication refill - Patient ED Disposition Is Patient to be Admitted: No - Disposition Referrals: [facility] [Outside] Disposition: Routine/Home Disposition Time: 11:05 Condition: STABLE Prescriptions: Fluticasone/Salmeterol 250/50 [Advair Diskus 250/50] 1 puff IH DAILY #1 each guaiFENesin/Dextromethorphan [guaiFENesin/DM 600-30 mg] 1 tab PO Q8 PRN #15 tab PRN Reason: cough/congestion Montelukast [Singulair] 10 mg PO DAILY #30 tab Omeprazole Magnesium [Prilosec Otc] 40 mg PO DAILY #30 tablet. Instructions: Medicine Refill (ED) Print Language: MAORI
[2017-08-22 11:27] VITALS: PULSE 75; RESP 17
[2017-08-22 11:34] VITALS: BP 113/75; TEMP 98; O2SAT 98
== END 2017-08-22 11:37 | disposition home or self-care (01) ==
LOC: H.ER 10:10
DX: Z76.0 Encounter for issue of repeat prescription (principal)

== ENCOUNTER 2017-09-02 12:08 | Emergency (ER) | payer MEDICAID ==
[2017-09-02 12:08] VITALS: BMI 33.6
[2017-09-02] MEDS ORDERED: Albuterol-Ipratrop 3 mg / 0.5 (3 ml) UD INH STA ×4 (12:22→12:49)
[2017-09-02] MEDS ORDERED: Albuterol-Ipratrop 3 mg / 0.5 (3 ml) UD ONE ×3 (12:28→12:57)
--- NOTE | 2017-09-02 12:43 | ED PDOC ---
HPI: General Adult Time Seen by Provider: 09/02/17 12:21 Chief Complaint (Nursing): Cough, Cold, Congestion Chief Complaint (Provider): Cough, Cold, Congestion History Per: Patient Additional Complaint(s): Jennifer is a 47 year old female with a past medical history of asthma who presents to the Emergency Department complaining of coughing 3 days ago. Patient states she has been coughing with yellow sputum production. Patient reports body aches , rhinorrhea, night sweat and subjective fever. Admits to taking Albuterol and Advair. States no know sick contacts. PMD: [facility] Past Medical History Reviewed: Historical Data, Nursing Documentation, Vital Signs - Medical History PMH: Anxiety, Arthritis, Asthma, Bronchitis, CAD, Depression, Gastritis, GERD, Hypercholesterolemia, Migraine, Personality Disorder, Rheumatoid Arthritis, Chronic Pain Denies: Chronic Kidney Disease - Surgical History Other surgeries: D&C, Colonscopy - Family History Family History: States: No Known Family Hx - Immunization History Hx Tetanus Toxoid Vaccination: No Hx Influenza Vaccination: Yes - Home Medications Home Medications: Ambulatory Orders Medication Instructions Recorded Lorazepam 1 mg PO DAILY #20 tab 05/21/14 Albuterol 0.5% [Albuterol 0.5% 2.5 mg IH Q6H PRN #3 neb 01/28/15 Inhal Bryanna (2.5 mg/0.5 ml) UD] Albuterol HFA [Ventolin HFA 90 2 puff IH Q4H #1 puff 12/08/15 mcg/actuation (8 g)] Albuterol 0.5% [Albuterol 0.5% 2.5 mg IH BID 03/26/16 Inhal Bryanna (2.5 mg/0.5 ml) UD] Aspirin [Adult Low Dose Aspirin EC] 81 mg PO DAILY 03/26/16 Cholecalciferol (Vitamin D3) 2,000 unit PO DAILY 03/26/16 [Vitamin D] Esomeprazole Magnesium [Nexium] 40 mg PO DAILY 03/26/16 Fexofenadine/Pseudoephedrine 1 each PO DAILY 03/26/16 [Yarelis-D 12 Hour Tablet] Ibuprofen [Motrin] 600 mg PO DAILY 03/26/16 Lorazepam 1 mg PO Q4 03/26/16 Montelukast [Singulair] 10 mg PO DAILY 03/26/16 Tiotropium [Spiriva] 18 mcg IH DAILY 03/26/16 Venlafaxine [Effexor XR] 150 mg PO DAILY 03/26/16 traZODone [trazODONE HYDROCHLORIDE] 50 mg PO HS 03/26/16 Ibuprofen [Motrin] 600 mg PO Q6H PRN #20 tab 04/12/16 Permethrin 5% [Permethrin] 5 g TP PRN PRN #1 tube 04/12/16 Cephalexin [cephalexin] 500 mg PO BID #20 cap 06/29/16 Ibuprofen [Motrin] 400 mg PO Q6 #30 tab 06/29/16 Methylprednisolone [Medrol Dose 4 mg PO DAILY #21 mg 06/29/16 Pack (21 tabs)] Amoxicillin 500 mg PO TID #15 tablet 07/26/16 Ibuprofen [Motrin Tab] 600 mg PO Q8 PRN #21 07/26/16 LORazepam [Ativan] 1 mg PO DAILY #5 tab 07/26/16 Albuterol 0.5% [Albuterol 0.5% 2.5 mg IH Q6H PRN #3 neb 10/25/16 Inhal Bryanna (2.5 mg/0.5 ml) UD] Montelukast [Singulair] 10 mg PO DAILY 5 Days tab 10/25/16 Tiotropium [place] [Spiriva 2.5 mcg IH DAILY PRN 5 Days ml 10/25/16 Respimat] predniSONE [predniSONE Tab] 20 mg PO BID 5 Days tab 10/25/16 Azithromycin [Zithromax] 250 mg PO DAILY #6 tab 10/30/16 Benzonatate 200 mg PO TID PRN #20 capsule 10/30/16 Albuterol HFA [Ventolin HFA 90 2 puff IH Q4 PRN #1 unit 11/05/16 mcg/actuation (8 g)] Benzonatate [Tessalon Perles] 100 mg PO TID PRN #20 cap 11/05/16 Methylprednisolone [Medrol Dose 4 mg PO DAILY #1 packet 11/05/16 Pack (21 tabs)] Triamcinolone Acetonide [Nasacort 1 spray NS DAILY #1 unit 11/05/16 Allergy 24Hr] Benzonatate [Tessalon Perle] 100 mg PO TID PRN #15 capsule 11/14/16 Ondansetron ODT [Zofran ODT] 4 mg PO Q6 PRN #16 odt 11/14/16 Oseltamivir [Tamiflu] 75 mg PO BID #9 cap 11/14/16 Albuterol HFA [Ventolin HFA 90 2 puff IH Q6 #200 puff 11/25/16 mcg/actuation (8 g)] Benzonatate [Tessalon Perles] 100 mg PO TID #20 sgl 11/25/16 Amoxicillin/Clavulanate [Augmentin 1 tab PO BID #20 tab 11/27/16 875 MG-125 MG] Benzonatate [Tessalon Perles] 200 mg PO TID #30 tab 11/27/16 Ibuprofen [Motrin] 600 mg PO BID #20 tab 11/27/16 Ibuprofen [Motrin] 600 mg PO Q6 #20 tab 12/08/16 Albuterol HFA [Ventolin HFA 90 2 puff IH [id number] PRN #1 bottle 12/20/16 mcg/actuation (8 g)] Amoxicillin/Clavulanate [Augmentin 1 tab PO BID #19 tab 12/20/16 875 MG-125 MG] Benzonatate [Tessalon Perle] 100 mg PO BID #12 capsule 12/20/16 Albuterol 0.083% [Albuterol 3 ml IH QID PRN #60 neb 01/06/17 Sulfate 3 Ml] Albuterol HFA [Ventolin HFA 90 2 puff IH [id number] PRN #60 puff 01/06/17 mcg/actuation (8 g)] Benzonatate [Tessalon Perles] 100 mg PO TID PRN #30 sgl 01/06/17 predniSONE [predniSONE Tab] 40 mg PO DAILY 4 Days tab 01/06/17 Clotrimazole 1% Cream [Lotrimin 1% 15 applic EXT BID #1 tube 01/27/17 CREAM] Ibuprofen [Motrin Tab] 600 mg PO Q6 PRN #15 tab 01/27/17 Compr.stocking,Knee,Reg,X-Lrg 1 each MC DAILY #2 each 01/29/17 [T.e.d. Anti-Embolism Stocking] Meloxicam [Mobic] 1 - 2 tab PO DAILY PRN #15 tab 06/13/17 Ibuprofen [Motrin] 600 mg PO Q6 PRN #20 tab 07/14/17 Albuterol HFA [Ventolin HFA 90 1 puff IH BID PRN #1 unit 07/20/17 mcg/actuation (8 g)] Amoxicillin/Clavulanate [Augmentin 1 tab PO BID #20 tab 07/20/17 875 MG-125 MG] Azithromycin 250 mg PO DAILY #6 tab 07/20/17 Albuterol HFA [Ventolin HFA 90 2 puff IH [id number] PRN #60 puff 07/22/17 mcg/actuation (8 g)] predniSONE [predniSONE Tab] 40 mg PO DAILY #6 tab 07/22/17 Albuterol HFA [Ventolin HFA 90 2 puff IH Q4H #1 puff 08/06/17 mcg/actuation (8 g)] Amoxicillin [Amoxil 500 mg Cap] 500 mg PO Q8 #30 cap 08/06/17 Ibuprofen [Motrin Tab] 600 mg PO Q8H PRN #30 tab 08/19/17 Omeprazole 40 mg PO DAILY #20 capsule. 08/19/17 Fluticasone/Salmeterol 250/50 1 puff IH DAILY #1 each 08/22/17 [Advair Diskus 250/50] Montelukast [Singulair] 10 mg PO DAILY #30 tab 08/22/17 Omeprazole Magnesium [Prilosec Otc] 40 mg PO DAILY #30 tablet. 08/22/17 guaiFENesin/Dextromethorphan 1 tab PO Q8 PRN #15 tab 08/22/17 [guaiFENesin/DM 600-30 mg] Albuterol HFA [Ventolin HFA 90 2 puff IH Q6 #200 puff 09/02/17 mcg/actuation (8 g)] Levofloxacin [Levaquin] 500 mg PO BID #14 tablet 09/02/17 predniSONE [predniSONE Tab] 20 mg PO BID #8 tab 09/02/17 - Allergies Allergies/Adverse Reactions: Allergies Allergy/AdvReac Type Severity Reaction Status Date / Time azithromycin Allergy RASH Verified 08/06/17 08:42 clarithromycin [From Biaxin] Allergy ANAPHYLAXIS Verified 07/22/17 11:51 cyclobenzaprine HCl Allergy RASH Verified 07/22/17 11:51 [From Flexeril] latex Allergy RASH Verified 07/22/17 11:51 Sulfa (Sulfonamide Allergy RASH Verified 07/22/17 11:51 Antibiotics) bacitracin AdvReac RASH Verified 07/22/17 11:51 Review of Systems ROS Statement: Except As Marked, All Systems Reviewed And Found Negative Constitutional: Positive for: Fever (Subjective), Sweats (Night), Other (Body aches) Respiratory: Positive for: Cough, Sputum (Yellow sputum production), Other ( Rhinorrhea) Physical Exam - Reviewed Nursing Documentation Reviewed: Yes Vital Signs Reviewed: Yes - Physical Exam Appears: Positive for: Non-toxic Head Exam: Positive for: ATRAUMATIC, NORMAL INSPECTION, NORMOCEPHALIC ENT: Positive for: Normal ENT Inspection Neck: Positive for: Normal, Supple Cardiovascular/Chest: Positive for: Regular Rate, Rhythm Respiratory: Positive for: Crackles, Wheezing (Diffused), Other (Mild labor breathing) Neurologic/Psych: Positive for: Alert, Oriented (x 3), Other (Able to speak full sentences) Medical Decision Making Medical Decision Making: Time: 12:22 Impressions: Pneumonia, Asthma Exacerbating Plan: - Chest X-Ray - Duoneb 3 mg/0.5 mg (3ml) UD - PredniSONE tab - Nebulizer Treatment - Peak Flow Pre/Post TX Time: 12:31 - Peak Flow Pre/Post TX Time: 12:49 - Peak Flow Pre/Post TX PT with somewhat improved -states she feels better, breathing less labored. pt will be d/c with f.u with levaquin abx and prednisone PO with f.u with clinic. advised to make appt for this [place]. Scribe Attestation: Documented by Benjamin Campos, acting as a scribe for Aparna Holland PA-C Provider Scribe Attestation: All medical record entries made by the Scribe were at my direction and personally dictated by me. I have reviewed the chart and agree that the record accurately reflects my personal performance of the history, physical exam, medical decision making, and the department course for this patient. I have also personally directed, reviewed, and agree with the discharge instructions and disposition. Disposition - Clinical Impression Clinical Impression: Asthma exacerbation, Upper respiratory infection - Patient ED Disposition Is Patient to be Admitted: No Counseled Patient/Family Regarding: Studies Performed, Diagnosis, Need For Followup, Rx Given - Disposition Disposition: Routine/Home Disposition Time: 13:36 Condition: STABLE Prescriptions: Albuterol HFA [Ventolin HFA 90 mcg/actuation (8 g)] 2 puff IH Q6 #200 puff Levofloxacin [Levaquin] 500 mg PO BID #14 tablet predniSONE [predniSONE Tab] 20 mg PO BID #8 tab Instructions: Upper Respiratory Infection (ED) Forms: [facility] (Georgian)
--- NOTE | 2017-09-02 13:38 | RAD ---
HISTORY: cough COMPARISON: None available TECHNIQUE: Chest PA and lateral FINDINGS: Examination limited by habitus. LUNGS: No focal consolidation. Please note that chest x-ray has limited sensitivity for the detection of pulmonary masses. PLEURA: No significant pleural effusion identified. No definite pneumothorax . CARDIOVASCULAR: The cardiomediastinal silhouette appears within normal limits of size. OSSEOUS STRUCTURES: No acute osseous abnormality identified. VISUALIZED UPPER ABDOMEN: Unremarkable. OTHER FINDINGS: None. IMPRESSION: No focal consolidation, significant pleural effusion, or definite pneumothorax identified.
[2017-09-02 13:39] VITALS: BP 112/58; PULSE 71; RESP 18; TEMP 98.6; O2SAT 96
== END 2017-09-02 13:55 | disposition home or self-care (01) ==
LOC: H.ER 12:08
DX: J45.901 Unspecified asthma with (acute) exacerbation (principal); J06.9 Acute upper respiratory infection, unspecified; E78.00 Pure hypercholesterolemia, unspecified; F32.9 Major depressive disorder, single episode, unspecified; F41.9 Anxiety disorder, unspecified; Z79.82 Long term (current) use of aspirin; I25.10 Atherosclerotic heart disease of native coronary artery without angina pectoris

== ENCOUNTER 2017-09-17 12:09 | Emergency (ER) | payer MEDICAID ==
[2017-09-17 12:09] VITALS: BMI 33.6
[2017-09-17 12:18] VITALS: BP 120/61; PULSE 95; RESP 16; TEMP 96.7; O2SAT 100
[2017-09-17] MEDS ORDERED: Albuterol-Ipratrop 3 mg / 0.5 (3 ml) UD INH STA ×2 (12:23→12:25)
--- NOTE | 2017-09-17 12:35 | ED PDOC ---
HPI: General Adult Time Seen by Provider: 09/17/17 12:23 Chief Complaint (Nursing): Cough, Cold, Congestion Chief Complaint (Provider): Congestion History Per: Patient History/Exam Limitations: no limitations Onset/Duration Of Symptoms: Persistent Current Symptoms Are (Timing): Still Present Recently: Seen In ED Additional Complaint(s): 47 year old female presents to ED with complaints of persistent congestion and has a past medical history relevant for asthma and bronchitis. Patient notes that she was discharged from [facility] with Advair pump and that it has not mitigated her symptoms. Reports that she is smoking less. Patient admits to missing an appointment with PCP x9 days ago but states that she will reschedule. Patient requests her medication be changed from Advair to Symbicort , as she has received that medication in the past and had positive results. PCP: Dr. Mark Past Medical History Reviewed: Historical Data, Nursing Documentation, Vital Signs Vital Signs: Last Vital Signs Temp 96.7 F L 09/17/17 12:16 Pulse 95 H 09/17/17 12:16 Resp 16 09/17/17 12:16 BP 120/61 09/17/17 12:16 Pulse Ox 100 09/17/17 13:03 - Medical History PMH: Anxiety, Arthritis, Asthma, Bronchitis, CAD, Depression, Gastritis, GERD, Hypercholesterolemia, Migraine, Personality Disorder, Rheumatoid Arthritis, Chronic Pain Denies: Chronic Kidney Disease - Family History Family History: States: No Known Family Hx - Social History Current smoker - smoking cessation education provided: Yes Ex-Smoker (has not smoked in the last 12 months): No - Immunization History Hx Tetanus Toxoid Vaccination: No Hx Influenza Vaccination: Yes - Home Medications Home Medications: Ambulatory Orders Medication Instructions Recorded Lorazepam 1 mg PO DAILY #20 tab 05/21/14 Albuterol 0.5% [Albuterol 0.5% 2.5 mg IH Q6H PRN #3 neb 01/28/15 Inhal Bryanna (2.5 mg/0.5 ml) UD] Albuterol HFA [Ventolin HFA 90 2 puff IH Q4H #1 puff 12/08/15 mcg/actuation (8 g)] Albuterol 0.5% [Albuterol 0.5% 2.5 mg IH BID 03/26/16 Inhal Bryanna (2.5 mg/0.5 ml) UD] Aspirin [Adult Low Dose Aspirin EC] 81 mg PO DAILY 03/26/16 Cholecalciferol (Vitamin D3) 2,000 unit PO DAILY 03/26/16 [Vitamin D] Esomeprazole Magnesium [Nexium] 40 mg PO DAILY 03/26/16 Fexofenadine/Pseudoephedrine 1 each PO DAILY 03/26/16 [Yarelis-D 12 Hour Tablet] Ibuprofen [Motrin] 600 mg PO DAILY 03/26/16 Lorazepam 1 mg PO Q4 03/26/16 Montelukast [Singulair] 10 mg PO DAILY 03/26/16 Tiotropium [Spiriva] 18 mcg IH DAILY 03/26/16 Venlafaxine [Effexor XR] 150 mg PO DAILY 03/26/16 traZODone [trazODONE HYDROCHLORIDE] 50 mg PO HS 03/26/16 Ibuprofen [Motrin] 600 mg PO Q6H PRN #20 tab 04/12/16 Permethrin 5% [Permethrin] 5 g TP PRN PRN #1 tube 04/12/16 Cephalexin [cephalexin] 500 mg PO BID #20 cap 06/29/16 Ibuprofen [Motrin] 400 mg PO Q6 #30 tab 06/29/16 Methylprednisolone [Medrol Dose 4 mg PO DAILY #21 mg 06/29/16 Pack (21 tabs)] Amoxicillin 500 mg PO TID #15 tablet 07/26/16 Ibuprofen [Motrin Tab] 600 mg PO Q8 PRN #21 07/26/16 LORazepam [Ativan] 1 mg PO DAILY #5 tab 07/26/16 Albuterol 0.5% [Albuterol 0.5% 2.5 mg IH Q6H PRN #3 neb 10/25/16 Inhal Bryanna (2.5 mg/0.5 ml) UD] Montelukast [Singulair] 10 mg PO DAILY 5 Days tab 10/25/16 Tiotropium [place] [Spiriva 2.5 mcg IH DAILY PRN 5 Days ml 10/25/16 Respimat] predniSONE [predniSONE Tab] 20 mg PO BID 5 Days tab 10/25/16 Azithromycin [Zithromax] 250 mg PO DAILY #6 tab 10/30/16 Benzonatate 200 mg PO TID PRN #20 capsule 10/30/16 Albuterol HFA [Ventolin HFA 90 2 puff IH Q4 PRN #1 unit 11/05/16 mcg/actuation (8 g)] Benzonatate [Tessalon Perles] 100 mg PO TID PRN #20 cap 11/05/16 Methylprednisolone [Medrol Dose 4 mg PO DAILY #1 packet 11/05/16 Pack (21 tabs)] Triamcinolone Acetonide [Nasacort 1 spray NS DAILY #1 unit 11/05/16 Allergy 24Hr] Benzonatate [Tessalon Perle] 100 mg PO TID PRN #15 capsule 11/14/16 Ondansetron ODT [Zofran ODT] 4 mg PO Q6 PRN #16 odt 11/14/16 Oseltamivir [Tamiflu] 75 mg PO BID #9 cap 11/14/16 Albuterol HFA [Ventolin HFA 90 2 puff IH Q6 #200 puff 11/25/16 mcg/actuation (8 g)] Benzonatate [Tessalon Perles] 100 mg PO TID #20 sgl 11/25/16 Amoxicillin/Clavulanate [Augmentin 1 tab PO BID #20 tab 11/27/16 875 MG-125 MG] Benzonatate [Tessalon Perles] 200 mg PO TID #30 tab 11/27/16 Ibuprofen [Motrin] 600 mg PO BID #20 tab 11/27/16 Ibuprofen [Motrin] 600 mg PO Q6 #20 tab 12/08/16 Albuterol HFA [Ventolin HFA 90 2 puff IH [id number] PRN #1 bottle 12/20/16 mcg/actuation (8 g)] Amoxicillin/Clavulanate [Augmentin 1 tab PO BID #19 tab 12/20/16 875 MG-125 MG] Benzonatate [Tessalon Perle] 100 mg PO BID #12 capsule 12/20/16 Albuterol 0.083% [Albuterol 3 ml IH QID PRN #60 neb 01/06/17 Sulfate 3 Ml] Albuterol HFA [Ventolin HFA 90 2 puff IH [id number] PRN #60 puff 01/06/17 mcg/actuation (8 g)] Benzonatate [Tessalon Perles] 100 mg PO TID PRN #30 sgl 01/06/17 predniSONE [predniSONE Tab] 40 mg PO DAILY 4 Days tab 01/06/17 Clotrimazole 1% Cream [Lotrimin 1% 15 applic EXT BID #1 tube 01/27/17 CREAM] Ibuprofen [Motrin Tab] 600 mg PO Q6 PRN #15 tab 01/27/17 Compr.stocking,Knee,Reg,X-Lrg 1 each MC DAILY #2 each 01/29/17 [T.e.d. Anti-Embolism Stocking] Meloxicam [Mobic] 1 - 2 tab PO DAILY PRN #15 tab 06/13/17 Ibuprofen [Motrin] 600 mg PO Q6 PRN #20 tab 07/14/17 Albuterol HFA [Ventolin HFA 90 1 puff IH BID PRN #1 unit 07/20/17 mcg/actuation (8 g)] Amoxicillin/Clavulanate [Augmentin 1 tab PO BID #20 tab 07/20/17 875 MG-125 MG] Azithromycin 250 mg PO DAILY #6 tab 07/20/17 Albuterol HFA [Ventolin HFA 90 2 puff IH [id number] PRN #60 puff 07/22/17 mcg/actuation (8 g)] predniSONE [predniSONE Tab] 40 mg PO DAILY #6 tab 07/22/17 Albuterol HFA [Ventolin HFA 90 2 puff IH Q4H #1 puff 08/06/17 mcg/actuation (8 g)] Amoxicillin [Amoxil 500 mg Cap] 500 mg PO Q8 #30 cap 08/06/17 Ibuprofen [Motrin Tab] 600 mg PO Q8H PRN #30 tab 08/19/17 Omeprazole 40 mg PO DAILY #20 capsule. 08/19/17 Fluticasone/Salmeterol 250/50 1 puff IH DAILY #1 each 08/22/17 [Advair Diskus 250/50] Montelukast [Singulair] 10 mg PO DAILY #30 tab 08/22/17 Omeprazole Magnesium [Prilosec Otc] 40 mg PO DAILY #30 tablet. 08/22/17 guaiFENesin/Dextromethorphan 1 tab PO Q8 PRN #15 tab 08/22/17 [guaiFENesin/DM 600-30 mg] Albuterol HFA [Ventolin HFA 90 2 puff IH Q6 #200 puff 09/02/17 mcg/actuation (8 g)] Levofloxacin [Levaquin] 500 mg PO BID #14 tablet 09/02/17 predniSONE [predniSONE Tab] 20 mg PO BID #8 tab 09/02/17 Budesonide/Formoterol Fumarate 1 - 2 gm IH BID #1 hfa.aer.ad 09/17/17 [Symbicort 80-4.5 Mcg Inhaler] Dextromethorphan Polistirex 30 mg PO BID #80 megan.er.12h 09/17/17 [Delsym] Oseltamivir Phosphate [Tamiflu] 75 mg PO BID #10 capsule 09/17/17 - Allergies Allergies/Adverse Reactions: Allergies Allergy/AdvReac Type Severity Reaction Status Date / Time azithromycin Allergy RASH Verified 08/06/17 08:42 clarithromycin [From Biaxin] Allergy ANAPHYLAXIS Verified 07/22/17 11:51 cyclobenzaprine HCl Allergy RASH Verified 07/22/17 11:51 [From Flexeril] latex Allergy RASH Verified 07/22/17 11:51 Sulfa (Sulfonamide Allergy RASH Verified 07/22/17 11:51 Antibiotics) bacitracin AdvReac RASH Verified 07/22/17 11:51 Review of Systems ROS Statement: Except As Marked, All Systems Reviewed And Found Negative ENT: Positive for: Nose Congestion Physical Exam - Reviewed Nursing Documentation Reviewed: Yes Vital Signs Reviewed: Yes - Physical Exam Appears: Positive for: Non-toxic, No Acute Distress Skin: Positive for: Normal Color, Warm, Dry ENT: Positive for: Normal ENT Inspection, Pharynx Is (clear), TM Is/Are (clear) Neck: Positive for: Normal Respiratory: Positive for: Rales, Rhonchi, Wheezing. Negative for: Normal Breath Sounds, Respiratory Distress Lymphatic: Negative for: Adenopathy Neurologic/Psych: Positive for: Alert, Oriented. Negative for: Motor/Sensory Deficits - ECG O2 Sat by Pulse Oximetry: 100 (RA) Pulse Ox Interpretation: Normal Nebulizer Treatments/Peak Flow - Duonebs Number of Bronchodilator Doses given?: 3 - Steroid Treatment Steroid: Oral - Clinical Response Clinical Response: Improved Medical Decision Making Medical Decision Makin Initial impression: respiratory infection, asthma exacerbation Initial plan: * CXR * Duonebs 3mL INH x3 * Prednisone 60mg PO * Nebulizer Tx * Peak flow pre/post Tx x2 * Re-eval 1303 CXR: unchanged from previous. NAD. Scribe Attestation: Documented by Yessy Pal, acting as a scribe for Aparna Holland PA-C. Provider Scribe Attestation: All medical record entries made by the Scribe were at my direction and personally dictated by me. I have reviewed the chart and agree that the record accurately reflects my personal performance of the history, physical exam, medical decision making, and the department course for this patient. I have also personally directed, reviewed, and agree with the discharge instructions and disposition. Disposition - Clinical Impression Clinical Impression: Upper respiratory infection, Influenza-like symptoms, Asthma exacerbation - Patient ED Disposition Is Patient to be Admitted: No Counseled Patient/Family Regarding: Studies Performed, Diagnosis, Need For Followup, Rx Given - Disposition Disposition: Routine/Home Disposition Time: 13:43 Condition: IMPROVED Prescriptions: Budesonide/Formoterol Fumarate [Symbicort 80-4.5 Mcg Inhaler] 1 - 2 gm IH BID # 1 hfa.aer.ad Dextromethorphan Polistirex [Delsym] 30 mg PO BID #80 megan.er.12h Oseltamivir Phosphate [Tamiflu] 75 mg PO BID #10 capsule Instructions: Asthma (DC)
[2017-09-17] MEDS ORDERED: Albuterol-Ipratrop 3 mg / 0.5 (3 ml) UD ONE (12:40)
[2017-09-17] MEDS: Albuterol-Ipratrop 3 mg / 0.5 (3 ml) UD INH STA ×2 (12:52)
[2017-09-17] MEDS ORDERED: cefTRIAXone IV 1 gm in Dextros 50 ML IVPB STA (14:04)
[2017-09-17] MEDS ORDERED: Azithromycin 500 MG in Sodium Chloride 0.9% 250 ML IVPB STA (14:04)
[2017-09-17] MEDS ORDERED: Albuterol 0.083% Inhal Sol (2.5 mg/3 mL) UD INH STA (14:04)
[2017-09-17] MEDS ORDERED: MethylPREDNISolone 40 mg Vial IVP ONE (14:15)
[2017-09-17] MEDS ORDERED: MethylPREDNISolone 40 mg Vial ONE (14:28)
[2017-09-17] MEDS ORDERED: Albuterol 0.083% Inhal Sol (2.5 mg/3 mL) UD ONE (14:29)
[2017-09-17] MEDS ORDERED: cefTRIAXone IV 1 gm in Dextros 50 ML IVPB ONE (14:30)
[2017-09-17 14:39] LABS: BASO # 0.1 K/uL (0.0-0.2); BASO % 1.2 % (0.0-2.0); EOS # 0.3 K/uL (0.0-0.7); EOS % 3.5 % (0.0-4.0); HEMATOCRIT 38.9 % (34.0-47.0); LYMPH # 2.9 K/uL (1.0-4.3); LYMPH % 33.6 % (20.0-40.0); MEAN CELL VOLUME 88.8 fl (81.0-99.0); MEAN CORPUSCULAR HEMOGLOBIN 28.9 pg (27.0-31.0); MEAN CORPUSCULAR HGB CONC 32.5 g/dL (33.0-37.0); MONO # 0.7 K/uL (0.0-0.8); MONO % 8.2 % (0.0-10.0); NEUT # 4.5 K/uL (1.8-7.0); NEUT % 53.5 % (50.0-75.0); NRBC % 0.2 % (0.0-0.0); RED CELL DISTRIBUTION WIDTH 13.3 % (11.5-14.5); WHITE BLOOD COUNT 8.5 K/uL (4.8-10.8)
[2017-09-17 14:49] LABS: ALB/GLOB RATIO 1.1 (1.0-2.1); ALKALINE PHOSPHATASE 78 U/L (38-126); ALT/SGPT 38 U/L (9-52); AST/SGOT 22 U/L (14-36); BILIRUBIN,TOTAL 0.2 mg/dl (0.2-1.3); BLOOD UREA NITROGEN 17 mg/dl (7-17); CARBON DIOXIDE 27 mmol/L (22-30); CHLORIDE 106 mmol/L (98-107); GFR AFRICAN-AMERICAN > 60; GLUCOSE,RANDOM 112 mg/dL (65-105); POTASSIUM 4.1 MMOL/L (3.6-5.0); SODIUM 142 mmol/l (132-148)
--- NOTE | 2017-09-17 15:47 | RAD ---
HISTORY: cough COMPARISON: No prior. TECHNIQUE: Chest PA and lateral FINDINGS: LUNGS: No active pulmonary disease. PLEURA: No significant pleural effusion identified. No pneumothorax apparent. CARDIOVASCULAR: Normal. OSSEOUS STRUCTURES: No significant abnormalities. VISUALIZED UPPER ABDOMEN: Normal. OTHER FINDINGS: None. IMPRESSION: No interval acute cardiopulmonary disease appreciated.
== END 2017-09-17 16:19 | disposition left against medical advice (07) ==
LOC: H.ER 12:09
DX: J45.901 Unspecified asthma with (acute) exacerbation (principal); J06.9 Acute upper respiratory infection, unspecified; E78.00 Pure hypercholesterolemia, unspecified; F17.200 Nicotine dependence, unspecified, uncomplicated; F32.9 Major depressive disorder, single episode, unspecified; F41.9 Anxiety disorder, unspecified; G89.29 Other chronic pain; I25.10 Atherosclerotic heart disease of native coronary artery without angina pectoris; K21.9 Gastro-esophageal reflux disease without esophagitis; M06.9 Rheumatoid arthritis, unspecified; Z79.82 Long term (current) use of aspirin
CPT/HCPCS: 71020; 80053; 85025; 87040; 87804; 96374; 99281; J0696; J2920

== ENCOUNTER 2017-10-16 08:19 | Emergency (ER) | payer MEDICAID, OTHER ==
[2017-10-16 08:19] VITALS: BMI 33.6
[2017-10-16 08:24] VITALS: BP 135/62; PULSE 94; TEMP 98; O2SAT 97
[2017-10-16 08:34] VITALS: RESP 18
--- NOTE | 2017-10-16 08:37 | ED PDOC ---
Lower Extremity Pain/Injury Time Seen by Provider: 10/16/17 08:30 Chief Complaint (Nursing): Lower Extremity Problem/Injury History Per: Patient Current Symptoms Are (Timing): Still Present Severity: Moderate Pain Scale Rating Of: 3 Additional Complaint(s): Fell on left knee2 months ago and reinjured few weeks ago. Wiith pain and swelling left knee worse on ambulation Past Medical History Vital Signs: Last Vital Signs Temp 98.0 F 10/16/17 08:30 Pulse 94 H 10/16/17 08:30 Resp 18 10/16/17 08:30 BP 135/62 10/16/17 08:30 Pulse Ox 97 10/16/17 08:30 - Medical History PMH: Anxiety, Arthritis, Asthma, Bronchitis, CAD, Depression, Gastritis, GERD, Hypercholesterolemia, Migraine, Personality Disorder, Rheumatoid Arthritis, Chronic Pain Denies: Chronic Kidney Disease - Family History Family History: States: Unknown Family Hx - Immunization History Hx Tetanus Toxoid Vaccination: No Hx Influenza Vaccination: Yes - Home Medications Home Medications: Ambulatory Orders Medication Instructions Recorded Lorazepam 1 mg PO DAILY #20 tab 05/21/14 Albuterol 0.5% [Albuterol 0.5% 2.5 mg IH Q6H PRN #3 neb 01/28/15 Inhal Bryanna (2.5 mg/0.5 ml) UD] Albuterol HFA [Ventolin HFA 90 2 puff IH Q4H #1 puff 12/08/15 mcg/actuation (8 g)] Albuterol 0.5% [Albuterol 0.5% 2.5 mg IH BID 03/26/16 Inhal Bryanna (2.5 mg/0.5 ml) UD] Aspirin [Adult Low Dose Aspirin EC] 81 mg PO DAILY 03/26/16 Cholecalciferol (Vitamin D3) 2,000 unit PO DAILY 03/26/16 [Vitamin D] Esomeprazole Magnesium [Nexium] 40 mg PO DAILY 03/26/16 Fexofenadine/Pseudoephedrine 1 each PO DAILY 03/26/16 [Yarelis-D 12 Hour Tablet] Ibuprofen [Motrin] 600 mg PO DAILY 03/26/16 Lorazepam 1 mg PO Q4 03/26/16 Montelukast [Singulair] 10 mg PO DAILY 03/26/16 Tiotropium [Spiriva] 18 mcg IH DAILY 03/26/16 Venlafaxine [Effexor XR] 150 mg PO DAILY 03/26/16 traZODone [trazODONE HYDROCHLORIDE] 50 mg PO HS 03/26/16 Ibuprofen [Motrin] 600 mg PO Q6H PRN #20 tab 04/12/16 Permethrin 5% [Permethrin] 5 g TP PRN PRN #1 tube 04/12/16 Cephalexin [cephalexin] 500 mg PO BID #20 cap 06/29/16 Ibuprofen [Motrin] 400 mg PO Q6 #30 tab 06/29/16 Methylprednisolone [Medrol Dose 4 mg PO DAILY #21 mg 06/29/16 Pack (21 tabs)] Amoxicillin 500 mg PO TID #15 tablet 07/26/16 Ibuprofen [Motrin Tab] 600 mg PO Q8 PRN #21 07/26/16 LORazepam [Ativan] 1 mg PO DAILY #5 tab 07/26/16 Albuterol 0.5% [Albuterol 0.5% 2.5 mg IH Q6H PRN #3 neb 10/25/16 Inhal Bryanna (2.5 mg/0.5 ml) UD] Montelukast [Singulair] 10 mg PO DAILY 5 Days tab 10/25/16 Tiotropium [place] [Spiriva 2.5 mcg IH DAILY PRN 5 Days ml 10/25/16 Respimat] predniSONE [predniSONE Tab] 20 mg PO BID 5 Days tab 10/25/16 Azithromycin [Zithromax] 250 mg PO DAILY #6 tab 10/30/16 Benzonatate 200 mg PO TID PRN #20 capsule 10/30/16 Albuterol HFA [Ventolin HFA 90 2 puff IH Q4 PRN #1 unit 11/05/16 mcg/actuation (8 g)] Benzonatate [Tessalon Perles] 100 mg PO TID PRN #20 cap 11/05/16 Methylprednisolone [Medrol Dose 4 mg PO DAILY #1 packet 11/05/16 Pack (21 tabs)] Triamcinolone Acetonide [Nasacort 1 spray NS DAILY #1 unit 11/05/16 Allergy 24Hr] Benzonatate [Tessalon Perle] 100 mg PO TID PRN #15 capsule 11/14/16 Ondansetron ODT [Zofran ODT] 4 mg PO Q6 PRN #16 odt 11/14/16 Oseltamivir [Tamiflu] 75 mg PO BID #9 cap 11/14/16 Albuterol HFA [Ventolin HFA 90 2 puff IH Q6 #200 puff 11/25/16 mcg/actuation (8 g)] Benzonatate [Tessalon Perles] 100 mg PO TID #20 sgl 11/25/16 Amoxicillin/Clavulanate [Augmentin 1 tab PO BID #20 tab 11/27/16 875 MG-125 MG] Benzonatate [Tessalon Perles] 200 mg PO TID #30 tab 11/27/16 Ibuprofen [Motrin] 600 mg PO BID #20 tab 11/27/16 Ibuprofen [Motrin] 600 mg PO Q6 #20 tab 12/08/16 Albuterol HFA [Ventolin HFA 90 2 puff IH [id number] PRN #1 bottle 12/20/16 mcg/actuation (8 g)] Amoxicillin/Clavulanate [Augmentin 1 tab PO BID #19 tab 12/20/16 875 MG-125 MG] Benzonatate [Tessalon Perle] 100 mg PO BID #12 capsule 12/20/16 Albuterol 0.083% [Albuterol 3 ml IH QID PRN #60 neb 01/06/17 Sulfate 3 Ml] Albuterol HFA [Ventolin HFA 90 2 puff IH [id number] PRN #60 puff 01/06/17 mcg/actuation (8 g)] Benzonatate [Tessalon Perles] 100 mg PO TID PRN #30 sgl 01/06/17 predniSONE [predniSONE Tab] 40 mg PO DAILY 4 Days tab 01/06/17 Clotrimazole 1% Cream [Lotrimin 1% 15 applic EXT BID #1 tube 01/27/17 CREAM] Ibuprofen [Motrin Tab] 600 mg PO Q6 PRN #15 tab 01/27/17 Compr.stocking,Knee,Reg,X-Lrg 1 each MC DAILY #2 each 01/29/17 [T.e.d. Anti-Embolism Stocking] Meloxicam [Mobic] 1 - 2 tab PO DAILY PRN #15 tab 06/13/17 Ibuprofen [Motrin] 600 mg PO Q6 PRN #20 tab 07/14/17 Albuterol HFA [Ventolin HFA 90 1 puff IH BID PRN #1 unit 07/20/17 mcg/actuation (8 g)] Amoxicillin/Clavulanate [Augmentin 1 tab PO BID #20 tab 07/20/17 875 MG-125 MG] Azithromycin 250 mg PO DAILY #6 tab 07/20/17 Albuterol HFA [Ventolin HFA 90 2 puff IH [id number] PRN #60 puff 07/22/17 mcg/actuation (8 g)] predniSONE [predniSONE Tab] 40 mg PO DAILY #6 tab 07/22/17 Albuterol HFA [Ventolin HFA 90 2 puff IH Q4H #1 puff 08/06/17 mcg/actuation (8 g)] Amoxicillin [Amoxil 500 mg Cap] 500 mg PO Q8 #30 cap 08/06/17 Ibuprofen [Motrin Tab] 600 mg PO Q8H PRN #30 tab 08/19/17 Omeprazole 40 mg PO DAILY #20 capsule. 08/19/17 Fluticasone/Salmeterol 250/50 1 puff IH DAILY #1 each 08/22/17 [Advair Diskus 250/50] Montelukast [Singulair] 10 mg PO DAILY #30 tab 08/22/17 Omeprazole Magnesium [Prilosec Otc] 40 mg PO DAILY #30 tablet. 08/22/17 guaiFENesin/Dextromethorphan 1 tab PO Q8 PRN #15 tab 08/22/17 [guaiFENesin/DM 600-30 mg] Albuterol HFA [Ventolin HFA 90 2 puff IH Q6 #200 puff 09/02/17 mcg/actuation (8 g)] Levofloxacin [Levaquin] 500 mg PO BID #14 tablet 09/02/17 predniSONE [predniSONE Tab] 20 mg PO BID #8 tab 09/02/17 Budesonide/Formoterol Fumarate 1 - 2 gm IH BID #1 hfa.aer.ad 09/17/17 [Symbicort 80-4.5 Mcg Inhaler] Dextromethorphan Polistirex 30 mg PO BID #80 megan.er.12h 09/17/17 [Delsym] Omeprazole Magnesium [Prilosec Otc] 40 mg PO DAILY #30 tcp 09/17/17 Oseltamivir Phosphate [Tamiflu] 75 mg PO BID #10 capsule 09/17/17 Naproxen [Naprosyn] 500 mg PO Q12H #20 tab 10/16/17 traMADol [Ultram] 50 mg PO Q8 #10 tab 10/16/17 - Allergies Allergies/Adverse Reactions: Allergies Allergy/AdvReac Type Severity Reaction Status Date / Time azithromycin Allergy RASH Verified 10/16/17 08:29 cyclobenzaprine HCl Allergy RASH Verified 10/16/17 08:29 [From Flexeril] latex Allergy RASH Verified 10/16/17 08:29 Sulfa (Sulfonamide Allergy RASH Verified 10/16/17 08:29 Antibiotics) bacitracin AdvReac RASH Verified 10/16/17 08:29 Review of Systems Constitutional: Negative for: Fever Musculoskeletal: Positive for: Other (Knee pain and swelling) Skin: Negative for: Rash Neurological: Negative for: Weakness, Numbness Physical Exam - Physical Exam Appears: Positive for: Well, Non-toxic, No Acute Distress Extremity: Positive for: Normal ROM, Tenderness, Swelling (Mild swelling left knee). Negative for: Deformity Neurologic/Psych: Positive for: Alert, Oriented. Negative for: Motor/Sensory Deficits - ECG O2 Sat by Pulse Oximetry: 97 Disposition - Clinical Impression Clinical Impression: Knee sprain - Patient ED Disposition Is Patient to be Admitted: No Counseled Patient/Family Regarding: Studies Performed, Diagnosis, Need For Followup, Rx Given - Disposition Referrals: [facility] [Outside] Disposition: Routine/Home Disposition Time: 08:48 Condition: FAIR Prescriptions: Naproxen [Naprosyn] 500 mg PO Q12H #20 tab traMADol [Ultram] 50 mg PO Q8 #10 tab Instructions: Knee Sprain (ED) Forms: [employer] ([place])
--- NOTE | 2017-10-16 13:02 | RAD ---
PROCEDURE: Left Knee Radiographs. HISTORY: Pain. COMPARISON: None. FINDINGS: BONES: No acute fracture. JOINTS: Mild patellofemoral and medial tibial femoral compartment narrowing. JOINT EFFUSION: None. OTHER FINDINGS: None. IMPRESSION: No demonstrated fracture or dislocation. Mild degenerative changes.
== END 2017-10-16 09:30 | disposition home or self-care (01) ==
LOC: H.ER 08:19
DX: S83.92XA Sprain of unspecified site of left knee, initial encounter (principal); W19.XXXA Unspecified fall, initial encounter; Y92.89 Other specified places as the place of occurrence of the external cause; M17.12 Unilateral primary osteoarthritis, left knee

== ENCOUNTER 2017-11-26 07:41 | Emergency (ER) | payer MEDICAID, OTHER ==
[2017-11-26 07:47] VITALS: BP 134/83; PULSE 75; TEMP 97; O2SAT 95
[2017-11-26 07:48] VITALS: BMI 32.9
--- NOTE | 2017-11-26 09:04 | ED PDOC ---
HPI: CCC, URI, Sore Throat Time Seen by Provider: 11/26/17 08:42 Chief Complaint (Nursing): ENT Problem History Per: Patient Onset/Duration Of Symptoms: Other (x 1 week) Current Symptoms Are (Timing): Still Present Associated Symptoms: denies: Fever Additional Complaint(s): Ms. Rodriguez is a 47 year old female who presents to the emergency department with sore throat and cough for 1 week. Reports painful swallowing. No fever. (+) smoker. PMD: No Family Provider Past Medical History Reviewed: Historical Data, Nursing Documentation, Vital Signs Vital Signs: Last Vital Signs Temp 97 F L 11/26/17 07:46 Pulse 75 11/26/17 07:46 Resp BP 134/83 11/26/17 07:46 Pulse Ox 95 11/26/17 16:36 - Medical History PMH: Anxiety, Arthritis, Asthma, Bronchitis, CAD, Depression, Gastritis, GERD, Hypercholesterolemia, Migraine, Personality Disorder, Rheumatoid Arthritis, Chronic Pain Denies: Chronic Kidney Disease - Family History Family History: States: Unknown Family Hx - Immunization History Hx Tetanus Toxoid Vaccination: No Hx Influenza Vaccination: Yes - Home Medications Home Medications: Ambulatory Orders Medication Instructions Recorded Lorazepam 1 mg PO DAILY #20 tab 05/21/14 Albuterol 0.5% [Albuterol 0.5% 2.5 mg IH Q6H PRN #3 neb 01/28/15 Inhal Bryanna (2.5 mg/0.5 ml) UD] Albuterol HFA [Ventolin HFA 90 2 puff IH Q4H #1 puff 12/08/15 mcg/actuation (8 g)] Albuterol 0.5% [Albuterol 0.5% 2.5 mg IH BID 03/26/16 Inhal Bryanna (2.5 mg/0.5 ml) UD] Aspirin [Adult Low Dose Aspirin EC] 81 mg PO DAILY 03/26/16 Cholecalciferol (Vitamin D3) 2,000 unit PO DAILY 03/26/16 [Vitamin D] Esomeprazole Magnesium [Nexium] 40 mg PO DAILY 03/26/16 Fexofenadine/Pseudoephedrine 1 each PO DAILY 03/26/16 [Yarelis-D 12 Hour Tablet] Ibuprofen [Motrin] 600 mg PO DAILY 03/26/16 Lorazepam 1 mg PO Q4 03/26/16 Montelukast [Singulair] 10 mg PO DAILY 03/26/16 Tiotropium [Spiriva] 18 mcg IH DAILY 03/26/16 Venlafaxine [Effexor XR] 150 mg PO DAILY 03/26/16 traZODone [trazODONE HYDROCHLORIDE] 50 mg PO HS 03/26/16 Ibuprofen [Motrin] 600 mg PO Q6H PRN #20 tab 04/12/16 Permethrin 5% [Permethrin] 5 g TP PRN PRN #1 tube 04/12/16 Cephalexin [cephalexin] 500 mg PO BID #20 cap 06/29/16 Ibuprofen [Motrin] 400 mg PO Q6 #30 tab 06/29/16 Methylprednisolone [Medrol Dose 4 mg PO DAILY #21 mg 06/29/16 Pack (21 tabs)] Amoxicillin 500 mg PO TID #15 tablet 07/26/16 Ibuprofen [Motrin Tab] 600 mg PO Q8 PRN #21 07/26/16 LORazepam [Ativan] 1 mg PO DAILY #5 tab 07/26/16 Albuterol 0.5% [Albuterol 0.5% 2.5 mg IH Q6H PRN #3 neb 10/25/16 Inhal Bryanna (2.5 mg/0.5 ml) UD] Montelukast [Singulair] 10 mg PO DAILY 5 Days tab 10/25/16 Tiotropium [place] [Spiriva 2.5 mcg IH DAILY PRN 5 Days ml 10/25/16 Respimat] predniSONE [predniSONE Tab] 20 mg PO BID 5 Days tab 10/25/16 Azithromycin [Zithromax] 250 mg PO DAILY #6 tab 10/30/16 Benzonatate 200 mg PO TID PRN #20 capsule 10/30/16 Albuterol HFA [Ventolin HFA 90 2 puff IH Q4 PRN #1 unit 11/05/16 mcg/actuation (8 g)] Benzonatate [Tessalon Perles] 100 mg PO TID PRN #20 cap 11/05/16 Methylprednisolone [Medrol Dose 4 mg PO DAILY #1 packet 11/05/16 Pack (21 tabs)] Triamcinolone Acetonide [Nasacort 1 spray NS DAILY #1 unit 11/05/16 Allergy 24Hr] Benzonatate [Tessalon Perle] 100 mg PO TID PRN #15 capsule 11/14/16 Ondansetron ODT [Zofran ODT] 4 mg PO Q6 PRN #16 odt 11/14/16 Oseltamivir [Tamiflu] 75 mg PO BID #9 cap 11/14/16 Albuterol HFA [Ventolin HFA 90 2 puff IH Q6 #200 puff 11/25/16 mcg/actuation (8 g)] Benzonatate [Tessalon Perles] 100 mg PO TID #20 sgl 11/25/16 Amoxicillin/Clavulanate [Augmentin 1 tab PO BID #20 tab 11/27/16 875 MG-125 MG] Benzonatate [Tessalon Perles] 200 mg PO TID #30 tab 11/27/16 Ibuprofen [Motrin] 600 mg PO BID #20 tab 11/27/16 Ibuprofen [Motrin] 600 mg PO Q6 #20 tab 12/08/16 Albuterol HFA [Ventolin HFA 90 2 puff IH [id number] PRN #1 bottle 12/20/16 mcg/actuation (8 g)] Amoxicillin/Clavulanate [Augmentin 1 tab PO BID #19 tab 12/20/16 875 MG-125 MG] Benzonatate [Tessalon Perle] 100 mg PO BID #12 capsule 12/20/16 Albuterol 0.083% [Albuterol 3 ml IH QID PRN #60 neb 01/06/17 Sulfate 3 Ml] Albuterol HFA [Ventolin HFA 90 2 puff IH [id number] PRN #60 puff 01/06/17 mcg/actuation (8 g)] Benzonatate [Tessalon Perles] 100 mg PO TID PRN #30 sgl 01/06/17 predniSONE [predniSONE Tab] 40 mg PO DAILY 4 Days tab 01/06/17 Clotrimazole 1% Cream [Lotrimin 1% 15 applic EXT BID #1 tube 01/27/17 CREAM] Ibuprofen [Motrin Tab] 600 mg PO Q6 PRN #15 tab 01/27/17 Compr.stocking,Knee,Reg,X-Lrg 1 each MC DAILY #2 each 01/29/17 [T.e.d. Anti-Embolism Stocking] Meloxicam [Mobic] 1 - 2 tab PO DAILY PRN #15 tab 06/13/17 Ibuprofen [Motrin] 600 mg PO Q6 PRN #20 tab 07/14/17 Albuterol HFA [Ventolin HFA 90 1 puff IH BID PRN #1 unit 07/20/17 mcg/actuation (8 g)] Amoxicillin/Clavulanate [Augmentin 1 tab PO BID #20 tab 07/20/17 875 MG-125 MG] Azithromycin 250 mg PO DAILY #6 tab 07/20/17 Albuterol HFA [Ventolin HFA 90 2 puff IH [id number] PRN #60 puff 07/22/17 mcg/actuation (8 g)] predniSONE [predniSONE Tab] 40 mg PO DAILY #6 tab 07/22/17 Albuterol HFA [Ventolin HFA 90 2 puff IH Q4H #1 puff 08/06/17 mcg/actuation (8 g)] Amoxicillin [Amoxil 500 mg Cap] 500 mg PO Q8 #30 cap 08/06/17 Ibuprofen [Motrin Tab] 600 mg PO Q8H PRN #30 tab 08/19/17 Omeprazole 40 mg PO DAILY #20 capsule. 08/19/17 Fluticasone/Salmeterol 250/50 1 puff IH DAILY #1 each 08/22/17 [Advair Diskus 250/50] Montelukast [Singulair] 10 mg PO DAILY #30 tab 08/22/17 Omeprazole Magnesium [Prilosec Otc] 40 mg PO DAILY #30 tablet. 08/22/17 guaiFENesin/Dextromethorphan 1 tab PO Q8 PRN #15 tab 08/22/17 [guaiFENesin/DM 600-30 mg] Albuterol HFA [Ventolin HFA 90 2 puff IH Q6 #200 puff 09/02/17 mcg/actuation (8 g)] Levofloxacin [Levaquin] 500 mg PO BID #14 tablet 09/02/17 predniSONE [predniSONE Tab] 20 mg PO BID #8 tab 09/02/17 Budesonide/Formoterol Fumarate 1 - 2 gm IH BID #1 hfa.aer.ad 09/17/17 [Symbicort 80-4.5 Mcg Inhaler] Dextromethorphan Polistirex 30 mg PO BID #80 megan.er.12h 09/17/17 [Delsym] Omeprazole Magnesium [Prilosec Otc] 40 mg PO DAILY #30 tcp 09/17/17 Oseltamivir Phosphate [Tamiflu] 75 mg PO BID #10 capsule 09/17/17 Naproxen [Naprosyn] 500 mg PO Q12H #20 tab 10/16/17 traMADol [Ultram] 50 mg PO Q8 #10 tab 10/16/17 Albuterol HFA [Ventolin HFA 90 2 puff IH [id number] PRN #1 bottle 11/26/17 mcg/actuation (8 g)] Amoxicillin/Clavulanate [Augmentin 1 tab PO BID #14 tab 11/26/17 875 MG-125 MG] Fluticasone/Salmeterol 1 each IH DAILY #1 aer.pow.ba 11/26/17 [Fluticasone-Salmeterol 232-14] - Allergies Allergies/Adverse Reactions: Allergies Allergy/AdvReac Type Severity Reaction Status Date / Time azithromycin Allergy RASH Verified 11/26/17 08:05 cyclobenzaprine HCl Allergy RASH Verified 11/26/17 08:05 [From Flexeril] latex Allergy RASH Verified 11/26/17 08:05 Sulfa (Sulfonamide Allergy RASH Verified 11/26/17 08:05 Antibiotics) bacitracin AdvReac RASH Verified 11/26/17 08:05 Review of Systems ROS Statement: Except As Marked, All Systems Reviewed And Found Negative Constitutional: Negative for: Fever ENT: Positive for: Throat Pain, Other (Painful swallowing) Respiratory: Positive for: Cough Physical Exam - Reviewed Nursing Documentation Reviewed: Yes Vital Signs Reviewed: Yes - Physical Exam Appears: Positive for: Well (Speaking full sentences), Non-toxic Head Exam: Positive for: ATRAUMATIC, NORMAL INSPECTION, NORMOCEPHALIC Skin: Positive for: Normal Color, Warm, Dry Eye Exam: Positive for: Normal appearance, EOMI, PERRL ENT: Positive for: Normal ENT Inspection Neck: Positive for: Normal Cardiovascular/Chest: Positive for: Regular Rate, Rhythm Respiratory: Positive for: Normal Breath Sounds. Negative for: Accessory Muscle Use, Respiratory Distress Gastrointestinal/Abdominal: Positive for: Normal Exam Back: Positive for: Normal Inspection Extremity: Positive for: Normal ROM. Negative for: Deformity Neurologic/Psych: Positive for: Alert, hand picker II-XII, Oriented (x 3). Negative for : Motor/Sensory Deficits - Laboratory Results Urine POC: Negative - ECG O2 Sat by Pulse Oximetry: 95 (RA) Medical Decision Making Medical Decision Making: Time: :57 Impression(s): URI, Pharyngitis, Bronchitis Plan: - ED Urine - Chest X-Ray (-) ED Urine Time: : Chest X-Ray FINDINGS: LUNGS: No active pulmonary disease. PLEURA: No significant pleural effusion identified. No pneumothorax apparent. CARDIOVASCULAR: Normal. OSSEOUS STRUCTURES: No significant abnormalities. VISUALIZED UPPER ABDOMEN: Normal. OTHER FINDINGS: None. IMPRESSION: No active disease. Upon provider evaluation patient is medically stable, and requires no further treatment in the ED at this time. Patient will be discharged with Rx for Fluticasone-Salmeterol, Augmentin and Ventolin HFA. Counseling was provided and all questions were answered regarding diagnosis. There is agreement to discharge plan. Return if symptoms persist or worsen. Scribe Attestation: Documented by Benjamin Campos, acting as a scribe for Michelle Sands MD. Provider Scribe Attestation: All medical record entries made by the Scribe were at my direction and personally dictated by me. I have reviewed the chart and agree that the record accurately reflects my personal performance of the history, physical exam, medical decision making, and the department course for this patient. I have also personally directed, reviewed, and agree with the discharge instructions and disposition. Disposition - Clinical Impression Clinical Impression: URI (upper respiratory infection) - Patient ED Disposition Is Patient to be Admitted: No - Disposition Referrals: [facility] [Outside] Disposition: Routine/Home Disposition Time: 10:09 Condition: STABLE Prescriptions: Albuterol HFA [Ventolin HFA 90 mcg/actuation (8 g)] 2 puff IH [id number] PRN #1 bottle PRN Reason: Shortness Of Breath Amoxicillin/Clavulanate [Augmentin 875 MG-125 MG] 1 tab PO BID #14 tab Fluticasone/Salmeterol [Fluticasone-Salmeterol 232-14] 1 each IH DAILY #1 aer.bryson Instructions: Bacterial Upper Respiratory Infection, Adult Forms: [facility] ([place])
--- NOTE | 2017-11-26 09:59 | RAD ---
HISTORY: Cough COMPARISON: 09/17/2017 TECHNIQUE: Chest PA and lateral FINDINGS: LUNGS: No active pulmonary disease. PLEURA: No significant pleural effusion identified. No pneumothorax apparent. CARDIOVASCULAR: Normal. OSSEOUS STRUCTURES: No significant abnormalities. VISUALIZED UPPER ABDOMEN: Normal. OTHER FINDINGS: None. IMPRESSION: No active disease.
== END 2017-11-26 10:35 | disposition home or self-care (01) ==
LOC: H.ER 07:41
DX: J06.9 Acute upper respiratory infection, unspecified (principal); F17.210 Nicotine dependence, cigarettes, uncomplicated; E78.00 Pure hypercholesterolemia, unspecified; J45.909 Unspecified asthma, uncomplicated; I25.10 Atherosclerotic heart disease of native coronary artery without angina pectoris

== ENCOUNTER 2017-12-03 07:46 | Emergency (ER) | payer MEDICAID, SELFPAY ==
[2017-12-03 07:47] VITALS: BMI 32.9
[2017-12-03 08:14] VITALS: BP 126/68; PULSE 76; RESP 16; TEMP 97; O2SAT 97
--- NOTE | 2017-12-03 09:06 | ED PDOC ---
HPI: CCC, URI, Sore Throat Time Seen by Provider: 12/03/17 08:54 Chief Complaint (Nursing): ENT Problem Chief Complaint (Provider): ENT Problem History Per: Patient History/Exam Limitations: no limitations Onset/Duration Of Symptoms: Days (3) Additional Complaint(s): 47 year old female presents to the emergency department with a complaint of a sore throat and yellow sputum for a 3 days. States her threw away her antibiotics after taking it for 3 days. Denies fever or chills. Reports she has asthma and is a light smoker. Past Medical History Reviewed: Historical Data, Nursing Documentation, Vital Signs Vital Signs: Last Vital Signs Temp 97.0 F L 12/03/17 08:08 Pulse 76 12/03/17 08:08 Resp 16 12/03/17 08:08 BP 126/68 12/03/17 08:08 Pulse Ox 97 12/03/17 09:08 - Medical History PMH: Anxiety, Arthritis, Asthma, Bronchitis, CAD, Depression, Gastritis, GERD, Hypercholesterolemia, Migraine, Personality Disorder, Rheumatoid Arthritis, Chronic Pain Denies: Chronic Kidney Disease - Family History Family History: States: Unknown Family Hx - Immunization History Hx Tetanus Toxoid Vaccination: No Hx Influenza Vaccination: Yes - Home Medications Home Medications: Ambulatory Orders Medication Instructions Recorded Lorazepam 1 mg PO DAILY #20 tab 05/21/14 Albuterol 0.5% [Albuterol 0.5% 2.5 mg IH Q6H PRN #3 neb 01/28/15 Inhal Bryanna (2.5 mg/0.5 ml) UD] Albuterol HFA [Ventolin HFA 90 2 puff IH Q4H #1 puff 12/08/15 mcg/actuation (8 g)] Albuterol 0.5% [Albuterol 0.5% 2.5 mg IH BID 03/26/16 Inhal Bryanna (2.5 mg/0.5 ml) UD] Aspirin [Adult Low Dose Aspirin EC] 81 mg PO DAILY 03/26/16 Cholecalciferol (Vitamin D3) 2,000 unit PO DAILY 03/26/16 [Vitamin D] Esomeprazole Magnesium [Nexium] 40 mg PO DAILY 03/26/16 Fexofenadine/Pseudoephedrine 1 each PO DAILY 03/26/16 [Yarelis-D 12 Hour Tablet] Ibuprofen [Motrin] 600 mg PO DAILY 03/26/16 Lorazepam 1 mg PO Q4 03/26/16 Montelukast [Singulair] 10 mg PO DAILY 03/26/16 Tiotropium [Spiriva] 18 mcg IH DAILY 03/26/16 Venlafaxine [Effexor XR] 150 mg PO DAILY 03/26/16 traZODone [trazODONE HYDROCHLORIDE] 50 mg PO HS 03/26/16 Ibuprofen [Motrin] 600 mg PO Q6H PRN #20 tab 04/12/16 Permethrin 5% [Permethrin] 5 g TP PRN PRN #1 tube 04/12/16 Cephalexin [cephalexin] 500 mg PO BID #20 cap 06/29/16 Ibuprofen [Motrin] 400 mg PO Q6 #30 tab 06/29/16 Methylprednisolone [Medrol Dose 4 mg PO DAILY #21 mg 06/29/16 Pack (21 tabs)] Amoxicillin 500 mg PO TID #15 tablet 07/26/16 Ibuprofen [Motrin Tab] 600 mg PO Q8 PRN #21 07/26/16 LORazepam [Ativan] 1 mg PO DAILY #5 tab 07/26/16 Albuterol 0.5% [Albuterol 0.5% 2.5 mg IH Q6H PRN #3 neb 10/25/16 Inhal Bryanna (2.5 mg/0.5 ml) UD] Montelukast [Singulair] 10 mg PO DAILY 5 Days tab 10/25/16 Tiotropium [place] [Spiriva 2.5 mcg IH DAILY PRN 5 Days ml 10/25/16 Respimat] predniSONE [predniSONE Tab] 20 mg PO BID 5 Days tab 10/25/16 Azithromycin [Zithromax] 250 mg PO DAILY #6 tab 10/30/16 Benzonatate 200 mg PO TID PRN #20 capsule 10/30/16 Albuterol HFA [Ventolin HFA 90 2 puff IH Q4 PRN #1 unit 11/05/16 mcg/actuation (8 g)] Benzonatate [Tessalon Perles] 100 mg PO TID PRN #20 cap 11/05/16 Methylprednisolone [Medrol Dose 4 mg PO DAILY #1 packet 11/05/16 Pack (21 tabs)] Triamcinolone Acetonide [Nasacort 1 spray NS DAILY #1 unit 11/05/16 Allergy 24Hr] Benzonatate [Tessalon Perle] 100 mg PO TID PRN #15 capsule 11/14/16 Ondansetron ODT [Zofran ODT] 4 mg PO Q6 PRN #16 odt 11/14/16 Oseltamivir [Tamiflu] 75 mg PO BID #9 cap 11/14/16 Albuterol HFA [Ventolin HFA 90 2 puff IH Q6 #200 puff 11/25/16 mcg/actuation (8 g)] Benzonatate [Tessalon Perles] 100 mg PO TID #20 sgl 11/25/16 Amoxicillin/Clavulanate [Augmentin 1 tab PO BID #20 tab 11/27/16 875 MG-125 MG] Benzonatate [Tessalon Perles] 200 mg PO TID #30 tab 11/27/16 Ibuprofen [Motrin] 600 mg PO BID #20 tab 11/27/16 Ibuprofen [Motrin] 600 mg PO Q6 #20 tab 12/08/16 Albuterol HFA [Ventolin HFA 90 2 puff IH [id number] PRN #1 bottle 12/20/16 mcg/actuation (8 g)] Amoxicillin/Clavulanate [Augmentin 1 tab PO BID #19 tab 12/20/16 875 MG-125 MG] Benzonatate [Tessalon Perle] 100 mg PO BID #12 capsule 12/20/16 Albuterol 0.083% [Albuterol 3 ml IH QID PRN #60 neb 01/06/17 Sulfate 3 Ml] Albuterol HFA [Ventolin HFA 90 2 puff IH [id number] PRN #60 puff 01/06/17 mcg/actuation (8 g)] Benzonatate [Tessalon Perles] 100 mg PO TID PRN #30 sgl 01/06/17 predniSONE [predniSONE Tab] 40 mg PO DAILY 4 Days tab 01/06/17 Clotrimazole 1% Cream [Lotrimin 1% 15 applic EXT BID #1 tube 01/27/17 CREAM] Ibuprofen [Motrin Tab] 600 mg PO Q6 PRN #15 tab 01/27/17 Compr.stocking,Knee,Reg,X-Lrg 1 each MC DAILY #2 each 01/29/17 [T.e.d. Anti-Embolism Stocking] Meloxicam [Mobic] 1 - 2 tab PO DAILY PRN #15 tab 06/13/17 Ibuprofen [Motrin] 600 mg PO Q6 PRN #20 tab 07/14/17 Albuterol HFA [Ventolin HFA 90 1 puff IH BID PRN #1 unit 07/20/17 mcg/actuation (8 g)] Amoxicillin/Clavulanate [Augmentin 1 tab PO BID #20 tab 07/20/17 875 MG-125 MG] Azithromycin 250 mg PO DAILY #6 tab 07/20/17 Albuterol HFA [Ventolin HFA 90 2 puff IH [id number] PRN #60 puff 07/22/17 mcg/actuation (8 g)] predniSONE [predniSONE Tab] 40 mg PO DAILY #6 tab 07/22/17 Albuterol HFA [Ventolin HFA 90 2 puff IH Q4H #1 puff 08/06/17 mcg/actuation (8 g)] Amoxicillin [Amoxil 500 mg Cap] 500 mg PO Q8 #30 cap 08/06/17 Ibuprofen [Motrin Tab] 600 mg PO Q8H PRN #30 tab 08/19/17 Omeprazole 40 mg PO DAILY #20 capsule. 08/19/17 Fluticasone/Salmeterol 250/50 1 puff IH DAILY #1 each 08/22/17 [Advair Diskus 250/50] Montelukast [Singulair] 10 mg PO DAILY #30 tab 08/22/17 Omeprazole Magnesium [Prilosec Otc] 40 mg PO DAILY #30 tablet. 08/22/17 guaiFENesin/Dextromethorphan 1 tab PO Q8 PRN #15 tab 08/22/17 [guaiFENesin/DM 600-30 mg] Albuterol HFA [Ventolin HFA 90 2 puff IH Q6 #200 puff 09/02/17 mcg/actuation (8 g)] Levofloxacin [Levaquin] 500 mg PO BID #14 tablet 09/02/17 predniSONE [predniSONE Tab] 20 mg PO BID #8 tab 09/02/17 Budesonide/Formoterol Fumarate 1 - 2 gm IH BID #1 hfa.aer.ad 09/17/17 [Symbicort 80-4.5 Mcg Inhaler] Dextromethorphan Polistirex 30 mg PO BID #80 megan.er.12h 09/17/17 [Delsym] Omeprazole Magnesium [Prilosec Otc] 40 mg PO DAILY #30 tcp 09/17/17 Oseltamivir Phosphate [Tamiflu] 75 mg PO BID #10 capsule 09/17/17 Naproxen [Naprosyn] 500 mg PO Q12H #20 tab 10/16/17 traMADol [Ultram] 50 mg PO Q8 #10 tab 10/16/17 Albuterol HFA [Ventolin HFA 90 2 puff IH [id number] PRN #1 bottle 11/26/17 mcg/actuation (8 g)] Amoxicillin/Clavulanate [Augmentin 1 tab PO BID #14 tab 11/26/17 875 MG-125 MG] Fluticasone/Salmeterol 1 each IH DAILY #1 aer.pow.ba 11/26/17 [Fluticasone-Salmeterol 232-14] Loratadine [Claritin] 10 mg PO DAILY PRN #5 tab 12/03/17 - Allergies Allergies/Adverse Reactions: Allergies Allergy/AdvReac Type Severity Reaction Status Date / Time azithromycin Allergy RASH Verified 11/26/17 08:05 cyclobenzaprine HCl Allergy RASH Verified 11/26/17 08:05 [From Flexeril] latex Allergy RASH Verified 11/26/17 08:05 Sulfa (Sulfonamide Allergy RASH Verified 11/26/17 08:05 Antibiotics) bacitracin AdvReac RASH Verified 11/26/17 08:05 Review of Systems ROS Statement: Except As Marked, All Systems Reviewed And Found Negative (As per HPI, otherwise negative) Constitutional: Negative for: Fever, Chills ENT: Positive for: Throat Pain Respiratory: Positive for: Sputum (yellow) Physical Exam - Reviewed Nursing Documentation Reviewed: Yes Vital Signs Reviewed: Yes - Physical Exam Appears: Positive for: Well, No Acute Distress Head Exam: Positive for: NORMAL INSPECTION Skin: Positive for: Normal Color, Warm, Dry ENT: Positive for: Normal ENT Inspection, Pharynx Is (Clear). Negative for: Sinus Pain/Drainage, Nasal Congestion, Pharyngeal Erythema, Tonsillar Exudate, Tonsillar Swelling Cardiovascular/Chest: Positive for: Regular Rate, Rhythm. Negative for: Murmur Respiratory: Positive for: Normal Breath Sounds. Negative for: Accessory Muscle Use, Wheezing, Respiratory Distress Neurologic/Psych: Positive for: Alert, Oriented (x3) - ECG O2 Sat by Pulse Oximetry: 97 (RA) Pulse Ox Interpretation: Normal Medical Decision Making Medical Decision Making: Time: 899 Initial Impression: Upper respiratory infection Initial Plan: --Evaluation of patient Time: 904 --Patient is medically stable for discharge. Given Rx for Claritin 10 mg PO. Scribe Attestation: Documented by Soraya Buck, acting as a scribe for Michelle Sands MD. Provider Scribe Attestation: All medical record entries made by the Scribe were at my direction and personally dictated by me. I have reviewed the chart and agree that the record accurately reflects my personal performance of the history, physical exam, medical decision making, and the department course for this patient. I have also personally directed, reviewed, and agree with the discharge instructions and disposition. Disposition - Clinical Impression Clinical Impression: Upper respiratory infection - Patient ED Disposition Is Patient to be Admitted: No Counseled Patient/Family Regarding: Diagnosis, Need For Followup, Rx Given - Disposition Referrals: [facility] [Outside] Disposition: Routine/Home Disposition Time: 09:05 Condition: STABLE Prescriptions: Loratadine [Claritin] 10 mg PO DAILY PRN #5 tab PRN Reason: Allergy Symptoms Instructions: Viral Upper Respiratory Infection, Adult (DC) Forms: [employer] ([place])
== END 2017-12-03 09:31 | disposition home or self-care (01) ==
LOC: H.ER 07:46
DX: J06.9 Acute upper respiratory infection, unspecified (principal)

== ENCOUNTER 2018-02-02 07:56 | Emergency (ER) | payer MEDICAID ==
[2018-02-02 07:56] VITALS: BMI 32.9
[2018-02-02 08:02] VITALS: BP 122/74; PULSE 82; RESP 18; TEMP 98.7; O2SAT 96
--- NOTE | 2018-02-02 08:42 | ED PDOC ---
History of Present Illness History of Present Illness: Jennifer Tariq is a 47 year old female, with a past medical history of asthma, who presents to the emergency department complaining of productive cough, headache and congestion onset for x5 days. Patient reports a yellowish-green sputum. Patient has been taking Robitussin. She denies any fever, chills or shortness of breath. No further medical complaints. PMD: None provided. HPI: Influenza Time Seen by Provider: 02/02/18 08:04 Chief Complaint: Cough, Cold, Congestion Chief Complaint (Provider): Cough, congestion History Per: Patient Exam Limitations: no limitations Onset/Duration Of Symptoms: Days (x5) Symptoms include: cough, nasal congestion, other (headache). denies: fever, difficulty breathing Past Medical History Reviewed: Historical Data, Nursing Documentation, Vital Signs Vital Signs: Last Vital Signs Temp 98.7 F 02/02/18 08:01 Pulse 82 02/02/18 08:01 Resp 18 02/02/18 08:01 BP 122/74 02/02/18 08:01 Pulse Ox 96 02/02/18 08:01 - Medical History PMH: Anxiety, Arthritis, Asthma, Bronchitis, CAD, Depression, Gastritis, GERD, Hypercholesterolemia, Migraine, Personality Disorder, Rheumatoid Arthritis, Chronic Pain Denies: Chronic Kidney Disease - Surgical History Surgical History: No Surg Hx - Family History Family History: States: Unknown Family Hx - Social History Current smoker - smoking cessation education provided: Yes (Light smoker <10 cigarettes daily) - Immunization History Hx Tetanus Toxoid Vaccination: No Hx Influenza Vaccination: Yes - Home Medications Home Medications: Ambulatory Orders Medication Instructions Recorded Lorazepam 1 mg PO DAILY #20 tab 05/21/14 Albuterol 0.5% [Albuterol 0.5% 2.5 mg IH Q6H PRN #3 neb 01/28/15 Inhal Bryanna (2.5 mg/0.5 ml) UD] Albuterol HFA [Ventolin HFA 90 2 puff IH Q4H #1 puff 12/08/15 mcg/actuation (8 g)] Albuterol 0.5% [Albuterol 0.5% 2.5 mg IH BID 03/26/16 Inhal Bryanna (2.5 mg/0.5 ml) UD] Aspirin [Adult Low Dose Aspirin EC] 81 mg PO DAILY 03/26/16 Cholecalciferol (Vitamin D3) 2,000 unit PO DAILY 03/26/16 [Vitamin D] Esomeprazole Magnesium [Nexium] 40 mg PO DAILY 03/26/16 Fexofenadine/Pseudoephedrine 1 each PO DAILY 03/26/16 [Yarelis-D 12 Hour Tablet] Ibuprofen [Motrin] 600 mg PO DAILY 03/26/16 Lorazepam 1 mg PO Q4 03/26/16 Montelukast [Singulair] 10 mg PO DAILY 03/26/16 Tiotropium [Spiriva] 18 mcg IH DAILY 03/26/16 Venlafaxine [Effexor XR] 150 mg PO DAILY 03/26/16 traZODone [trazODONE HYDROCHLORIDE] 50 mg PO HS 03/26/16 Ibuprofen [Motrin] 600 mg PO Q6H PRN #20 tab 04/12/16 Permethrin 5% [Permethrin] 5 g TP PRN PRN #1 tube 04/12/16 Cephalexin [cephalexin] 500 mg PO BID #20 cap 06/29/16 Ibuprofen [Motrin] 400 mg PO Q6 #30 tab 06/29/16 Methylprednisolone [Medrol Dose 4 mg PO DAILY #21 mg 06/29/16 Pack (21 tabs)] Amoxicillin 500 mg PO TID #15 tablet 07/26/16 Ibuprofen [Motrin Tab] 600 mg PO Q8 PRN #21 07/26/16 LORazepam [Ativan] 1 mg PO DAILY #5 tab 07/26/16 Albuterol 0.5% [Albuterol 0.5% 2.5 mg IH Q6H PRN #3 neb 10/25/16 Inhal Bryanna (2.5 mg/0.5 ml) UD] Montelukast [Singulair] 10 mg PO DAILY 5 Days tab 10/25/16 Tiotropium [place] [Spiriva 2.5 mcg IH DAILY PRN 5 Days ml 10/25/16 Respimat] predniSONE [predniSONE Tab] 20 mg PO BID 5 Days tab 10/25/16 Azithromycin [Zithromax] 250 mg PO DAILY #6 tab 10/30/16 Benzonatate 200 mg PO TID PRN #20 capsule 10/30/16 Albuterol HFA [Ventolin HFA 90 2 puff IH Q4 PRN #1 unit 11/05/16 mcg/actuation (8 g)] Benzonatate [Tessalon Perles] 100 mg PO TID PRN #20 cap 11/05/16 Methylprednisolone [Medrol Dose 4 mg PO DAILY #1 packet 11/05/16 Pack (21 tabs)] Triamcinolone Acetonide [Nasacort 1 spray NS DAILY #1 unit 11/05/16 Allergy 24Hr] Benzonatate [Tessalon Perle] 100 mg PO TID PRN #15 capsule 11/14/16 Ondansetron ODT [Zofran ODT] 4 mg PO Q6 PRN #16 odt 11/14/16 Oseltamivir [Tamiflu] 75 mg PO BID #9 cap 11/14/16 Albuterol HFA [Ventolin HFA 90 2 puff IH Q6 #200 puff 11/25/16 mcg/actuation (8 g)] Benzonatate [Tessalon Perles] 100 mg PO TID #20 sgl 11/25/16 Amoxicillin/Clavulanate [Augmentin 1 tab PO BID #20 tab 11/27/16 875 MG-125 MG] Benzonatate [Tessalon Perles] 200 mg PO TID #30 tab 11/27/16 Ibuprofen [Motrin] 600 mg PO BID #20 tab 11/27/16 Ibuprofen [Motrin] 600 mg PO Q6 #20 tab 12/08/16 Albuterol HFA [Ventolin HFA 90 2 puff IH [id number] PRN #1 bottle 12/20/16 mcg/actuation (8 g)] Amoxicillin/Clavulanate [Augmentin 1 tab PO BID #19 tab 12/20/16 875 MG-125 MG] Benzonatate [Tessalon Perle] 100 mg PO BID #12 capsule 12/20/16 Albuterol 0.083% [Albuterol 3 ml IH QID PRN #60 neb 01/06/17 Sulfate 3 Ml] Albuterol HFA [Ventolin HFA 90 2 puff IH [id number] PRN #60 puff 01/06/17 mcg/actuation (8 g)] Benzonatate [Tessalon Perles] 100 mg PO TID PRN #30 sgl 01/06/17 predniSONE [predniSONE Tab] 40 mg PO DAILY 4 Days tab 01/06/17 Clotrimazole 1% Cream [Lotrimin 1% 15 applic EXT BID #1 tube 01/27/17 CREAM] Ibuprofen [Motrin Tab] 600 mg PO Q6 PRN #15 tab 01/27/17 Compr.stocking,Knee,Reg,X-Lrg 1 each MC DAILY #2 each 01/29/17 [T.e.d. Anti-Embolism Stocking] Meloxicam [Mobic] 1 - 2 tab PO DAILY PRN #15 tab 06/13/17 Ibuprofen [Motrin] 600 mg PO Q6 PRN #20 tab 07/14/17 Albuterol HFA [Ventolin HFA 90 1 puff IH BID PRN #1 unit 07/20/17 mcg/actuation (8 g)] Amoxicillin/Clavulanate [Augmentin 1 tab PO BID #20 tab 07/20/17 875 MG-125 MG] Azithromycin 250 mg PO DAILY #6 tab 07/20/17 Albuterol HFA [Ventolin HFA 90 2 puff IH [id number] PRN #60 puff 07/22/17 mcg/actuation (8 g)] predniSONE [predniSONE Tab] 40 mg PO DAILY #6 tab 07/22/17 Albuterol HFA [Ventolin HFA 90 2 puff IH Q4H #1 puff 08/06/17 mcg/actuation (8 g)] Amoxicillin [Amoxil 500 mg Cap] 500 mg PO Q8 #30 cap 08/06/17 Ibuprofen [Motrin Tab] 600 mg PO Q8H PRN #30 tab 08/19/17 Omeprazole 40 mg PO DAILY #20 capsule. 08/19/17 Fluticasone/Salmeterol 250/50 1 puff IH DAILY #1 each 08/22/17 [Advair Diskus 250/50] Montelukast [Singulair] 10 mg PO DAILY #30 tab 08/22/17 Omeprazole Magnesium [Prilosec Otc] 40 mg PO DAILY #30 tablet. 08/22/17 guaiFENesin/Dextromethorphan 1 tab PO Q8 PRN #15 tab 08/22/17 [guaiFENesin/DM 600-30 mg] Albuterol HFA [Ventolin HFA 90 2 puff IH Q6 #200 puff 09/02/17 mcg/actuation (8 g)] Levofloxacin [Levaquin] 500 mg PO BID #14 tablet 09/02/17 predniSONE [predniSONE Tab] 20 mg PO BID #8 tab 09/02/17 Budesonide/Formoterol Fumarate 1 - 2 gm IH BID #1 hfa.aer.ad 09/17/17 [Symbicort 80-4.5 Mcg Inhaler] Dextromethorphan Polistirex 30 mg PO BID #80 megan.er.12h 09/17/17 [Delsym] Omeprazole Magnesium [Prilosec Otc] 40 mg PO DAILY #30 tcp 09/17/17 Oseltamivir Phosphate [Tamiflu] 75 mg PO BID #10 capsule 09/17/17 Naproxen [Naprosyn] 500 mg PO Q12H #20 tab 10/16/17 traMADol [Ultram] 50 mg PO Q8 #10 tab 10/16/17 Albuterol HFA [Ventolin HFA 90 2 puff IH [id number] PRN #1 bottle 11/26/17 mcg/actuation (8 g)] Amoxicillin/Clavulanate [Augmentin 1 tab PO BID #14 tab 11/26/17 875 MG-125 MG] Fluticasone/Salmeterol 1 each IH DAILY #1 aer.pow.ba 11/26/17 [Fluticasone-Salmeterol 232-14] Loratadine [Claritin] 10 mg PO DAILY PRN #5 tab 12/03/17 Loratadine [Claritin] 10 mg PO DAILY #5 tab 02/02/18 - Allergies Allergies/Adverse Reactions: Allergies Allergy/AdvReac Type Severity Reaction Status Date / Time azithromycin Allergy RASH Verified 11/26/17 08:05 cyclobenzaprine HCl Allergy RASH Verified 11/26/17 08:05 [From Flexeril] latex Allergy RASH Verified 11/26/17 08:05 Sulfa (Sulfonamide Allergy RASH Verified 11/26/17 08:05 Antibiotics) bacitracin AdvReac RASH Verified 11/26/17 08:05 Review of Systems ROS Statement: Except As Marked, All Systems Reviewed And Found Negative Constitutional: Negative for: Fever, Chills ENT: Positive for: Nose Congestion Respiratory: Positive for: Cough. Negative for: Shortness of Breath Neurological: Positive for: Headache Physical Exam - Reviewed Nursing Documentation Reviewed: Yes Vital Signs Reviewed: Yes - Physical Exam Appears: Positive for: Non-toxic, No Acute Distress Head Exam: Positive for: ATRAUMATIC, NORMOCEPHALIC Skin: Positive for: Normal Color, Warm, Dry Eye Exam: Positive for: Normal appearance ENT: Positive for: Normal ENT Inspection Neck: Positive for: Painless ROM, Supple Cardiovascular/Chest: Positive for: Regular Rate, Rhythm. Negative for: Murmur Respiratory: Positive for: Normal Breath Sounds. Negative for: Respiratory Distress Gastrointestinal/Abdominal: Positive for: Normal Exam, Soft. Negative for: Tenderness Extremity: Positive for: Normal ROM (upper and lower extremities). Negative for : Deformity, Swelling Neurologic/Psych: Positive for: Alert, Oriented. Negative for: Motor/Sensory Deficits Medical Decision Making Medical Decision Making: Initial Impression: congestion Initial Plan: --Urine --Reevaluation Scribe Attestation: Documented by Sean Key, acting as a scribe for Michelle Sands MD Provider Scribe Attestation: All medical record entries made by the Scribe were at my direction and personally dictated by me. I have reviewed the chart and agree that the record accurately reflects my personal performance of the history, physical exam, medical decision making, and the department course for this patient. I have also personally directed, reviewed, and agree with the discharge instructions and disposition. - ECG O2 Sat by Pulse Oximetry: 96 Disposition - Clinical Impression Clinical Impression: URI (upper respiratory infection) - Disposition Referrals: [facility] [Outside] Condition: GOOD Prescriptions: Loratadine [Claritin] 10 mg PO DAILY #5 tab Instructions: Viral Upper Respiratory Infection, Adult (DC) Forms: [employer] (Kyrgyz)
== END 2018-02-02 08:52 | disposition home or self-care (01) ==
LOC: H.ER 07:56
DX: J06.9 Acute upper respiratory infection, unspecified (principal); J45.909 Unspecified asthma, uncomplicated; E78.00 Pure hypercholesterolemia, unspecified; F17.210 Nicotine dependence, cigarettes, uncomplicated; F32.9 Major depressive disorder, single episode, unspecified; F41.9 Anxiety disorder, unspecified; G89.29 Other chronic pain; I25.10 Atherosclerotic heart disease of native coronary artery without angina pectoris; K21.9 Gastro-esophageal reflux disease without esophagitis; M06.9 Rheumatoid arthritis, unspecified; Z79.82 Long term (current) use of aspirin

== ENCOUNTER 2018-03-12 07:45 | Emergency (ER) | payer MEDICAID ==
[2018-03-12 07:49] VITALS: BMI 43.3
[2018-03-12 07:51] VITALS: BP 110/62; PULSE 68; RESP 20; TEMP 98.4; O2SAT 97
--- NOTE | 2018-03-12 08:10 | ED PDOC ---
HPI: General Adult Time Seen by Provider: 03/12/18 07:55 Chief Complaint (Nursing): Med Refill Chief Complaint (Provider): Cough Onset/Duration Of Symptoms: Other (x2 weeks) Current Symptoms Are (Timing): Still Present Additional Complaint(s): 47 year old female, with a past medical history of asthma, presented to the ED complaining of a intermittent cough with yellow sputum with onset of 2 weeks. Patient also wants prescription refill. She states she took robitussin for the cough with no relief. Patient denies fever, SOB, and chills. Of note, patient has an appointment with her PCP during the 3rd week of March. PCP: none provided Past Medical History Reviewed: Historical Data, Nursing Documentation, Vital Signs Vital Signs: Last Vital Signs Temp 98.4 F 03/12/18 07:50 Pulse 68 03/12/18 07:50 Resp 20 03/12/18 07:50 BP 110/62 03/12/18 07:50 Pulse Ox 97 03/12/18 08:40 - Medical History PMH: Anxiety, Arthritis, Asthma, Bronchitis, CAD, Depression, Gastritis, GERD, HTN, Hypercholesterolemia, Migraine, Personality Disorder, Rheumatoid Arthritis , Chronic Pain Denies: Chronic Kidney Disease - Surgical History Surgical History: No Surg Hx, - Family History Family History: States: CAD, Other Other Family History: Asthma - Social History Current smoker - smoking cessation education provided: Yes Alcohol: None - Immunization History Hx Tetanus Toxoid Vaccination: No Hx Influenza Vaccination: Yes - Home Medications Home Medications: Ambulatory Orders Medication Instructions Recorded Lorazepam 1 mg PO DAILY #20 tab 05/21/14 Albuterol 0.5% [Albuterol 0.5% 2.5 mg IH Q6H PRN #3 neb 01/28/15 Inhal Bryanna (2.5 mg/0.5 ml) UD] Albuterol HFA [Ventolin HFA 90 2 puff IH Q4H #1 puff 12/08/15 mcg/actuation (8 g)] Albuterol 0.5% [Albuterol 0.5% 2.5 mg IH BID 03/26/16 Inhal Bryanna (2.5 mg/0.5 ml) UD] Aspirin [Adult Low Dose Aspirin EC] 81 mg PO DAILY 03/26/16 Cholecalciferol (Vitamin D3) 2,000 unit PO DAILY 03/26/16 [Vitamin D] Esomeprazole Magnesium [Nexium] 40 mg PO DAILY 03/26/16 Fexofenadine/Pseudoephedrine 1 each PO DAILY 03/26/16 [Yarelis-D 12 Hour Tablet] Ibuprofen [Motrin] 600 mg PO DAILY 03/26/16 Lorazepam 1 mg PO Q4 03/26/16 Montelukast [Singulair] 10 mg PO DAILY 03/26/16 Tiotropium [Spiriva] 18 mcg IH DAILY 03/26/16 Venlafaxine [Effexor XR] 150 mg PO DAILY 03/26/16 traZODone [trazODONE HYDROCHLORIDE] 50 mg PO HS 03/26/16 Ibuprofen [Motrin] 600 mg PO Q6H PRN #20 tab 04/12/16 Permethrin 5% [Permethrin] 5 g TP PRN PRN #1 tube 04/12/16 Cephalexin [cephalexin] 500 mg PO BID #20 cap 06/29/16 Ibuprofen [Motrin] 400 mg PO Q6 #30 tab 06/29/16 Methylprednisolone [Medrol Dose 4 mg PO DAILY #21 mg 06/29/16 Pack (21 tabs)] Amoxicillin 500 mg PO TID #15 tablet 07/26/16 Ibuprofen [Motrin Tab] 600 mg PO Q8 PRN #21 07/26/16 LORazepam [Ativan] 1 mg PO DAILY #5 tab 07/26/16 Albuterol 0.5% [Albuterol 0.5% 2.5 mg IH Q6H PRN #3 neb 10/25/16 Inhal Bryanna (2.5 mg/0.5 ml) UD] Montelukast [Singulair] 10 mg PO DAILY 5 Days tab 10/25/16 Tiotropium [place] [Spiriva 2.5 mcg IH DAILY PRN 5 Days ml 10/25/16 Respimat] predniSONE [predniSONE Tab] 20 mg PO BID 5 Days tab 10/25/16 Azithromycin [Zithromax] 250 mg PO DAILY #6 tab 10/30/16 Benzonatate 200 mg PO TID PRN #20 capsule 10/30/16 Albuterol HFA [Ventolin HFA 90 2 puff IH Q4 PRN #1 unit 11/05/16 mcg/actuation (8 g)] Benzonatate [Tessalon Perles] 100 mg PO TID PRN #20 cap 11/05/16 Methylprednisolone [Medrol Dose 4 mg PO DAILY #1 packet 11/05/16 Pack (21 tabs)] Triamcinolone Acetonide [Nasacort 1 spray NS DAILY #1 unit 11/05/16 Allergy 24Hr] Benzonatate [Tessalon Perle] 100 mg PO TID PRN #15 capsule 11/14/16 Ondansetron ODT [Zofran ODT] 4 mg PO Q6 PRN #16 odt 11/14/16 Oseltamivir [Tamiflu] 75 mg PO BID #9 cap 11/14/16 Albuterol HFA [Ventolin HFA 90 2 puff IH Q6 #200 puff 11/25/16 mcg/actuation (8 g)] Benzonatate [Tessalon Perles] 100 mg PO TID #20 sgl 11/25/16 Amoxicillin/Clavulanate [Augmentin 1 tab PO BID #20 tab 11/27/16 875 MG-125 MG] Benzonatate [Tessalon Perles] 200 mg PO TID #30 tab 11/27/16 Ibuprofen [Motrin] 600 mg PO BID #20 tab 11/27/16 Albuterol HFA [Ventolin HFA 90 2 puff IH [id number] PRN #1 bottle 12/20/16 mcg/actuation (8 g)] Amoxicillin/Clavulanate [Augmentin 1 tab PO BID #19 tab 12/20/16 875 MG-125 MG] Benzonatate [Tessalon Perle] 100 mg PO BID #12 capsule 12/20/16 Albuterol 0.083% [Albuterol 3 ml IH QID PRN #60 neb 01/06/17 Sulfate 3 Ml] Albuterol HFA [Ventolin HFA 90 2 puff IH [id number] PRN #60 puff 01/06/17 mcg/actuation (8 g)] Benzonatate [Tessalon Perles] 100 mg PO TID PRN #30 sgl 01/06/17 Clotrimazole 1% Cream [Lotrimin 1% 15 applic EXT BID #1 tube 01/27/17 CREAM] Ibuprofen [Motrin Tab] 600 mg PO Q6 PRN #15 tab 01/27/17 Compr.stocking,Knee,Reg,X-Lrg 1 each MC DAILY #2 each 01/29/17 [T.e.d. Anti-Embolism Stocking] Meloxicam [Mobic] 1 - 2 tab PO DAILY PRN #15 tab 06/13/17 Ibuprofen [Motrin] 600 mg PO Q6 PRN #20 tab 07/14/17 Albuterol HFA [Ventolin HFA 90 1 puff IH BID PRN #1 unit 07/20/17 mcg/actuation (8 g)] Amoxicillin/Clavulanate [Augmentin 1 tab PO BID #20 tab 07/20/17 875 MG-125 MG] Azithromycin 250 mg PO DAILY #6 tab 07/20/17 Albuterol HFA [Ventolin HFA 90 2 puff IH [id number] PRN #60 puff 07/22/17 mcg/actuation (8 g)] predniSONE [predniSONE Tab] 40 mg PO DAILY #6 tab 07/22/17 Albuterol HFA [Ventolin HFA 90 2 puff IH Q4H #1 puff 08/06/17 mcg/actuation (8 g)] Amoxicillin [Amoxil 500 mg Cap] 500 mg PO Q8 #30 cap 08/06/17 Ibuprofen [Motrin Tab] 600 mg PO Q8H PRN #30 tab 08/19/17 Montelukast [Singulair] 10 mg PO DAILY #30 tab 08/22/17 Omeprazole Magnesium [Prilosec Otc] 40 mg PO DAILY #30 tablet. 08/22/17 guaiFENesin/Dextromethorphan 1 tab PO Q8 PRN #15 tab 08/22/17 [guaiFENesin/DM 600-30 mg] Albuterol HFA [Ventolin HFA 90 2 puff IH Q6 #200 puff 09/02/17 mcg/actuation (8 g)] Levofloxacin [Levaquin] 500 mg PO BID #14 tablet 09/02/17 predniSONE [predniSONE Tab] 20 mg PO BID #8 tab 09/02/17 Budesonide/Formoterol Fumarate 1 - 2 gm IH BID #1 hfa.aer.ad 09/17/17 [Symbicort 80-4.5 Mcg Inhaler] Dextromethorphan Polistirex 30 mg PO BID #80 megan.er.12h 09/17/17 [Delsym] Omeprazole Magnesium [Prilosec Otc] 40 mg PO DAILY #30 tcp 09/17/17 Oseltamivir Phosphate [Tamiflu] 75 mg PO BID #10 capsule 09/17/17 Naproxen [Naprosyn] 500 mg PO Q12H #20 tab 10/16/17 traMADol [Ultram] 50 mg PO Q8 #10 tab 10/16/17 Albuterol HFA [Ventolin HFA 90 2 puff IH [id number] PRN #1 bottle 11/26/17 mcg/actuation (8 g)] Amoxicillin/Clavulanate [Augmentin 1 tab PO BID #14 tab 11/26/17 875 MG-125 MG] Fluticasone/Salmeterol 1 each IH DAILY #1 aer.pow.ba 11/26/17 [Fluticasone-Salmeterol 232-14] Loratadine [Claritin] 10 mg PO DAILY PRN #5 tab 12/03/17 Ibuprofen [Motrin] 600 mg PO Q6H PRN #20 tab 02/02/18 Loratadine [Claritin] 10 mg PO DAILY #5 tab 02/02/18 Polyethylene Glycol 3350 [Miralax] 1 tbs PO DAILY PRN #1 bottle 02/02/18 Fluticasone/Salmeterol 250/50 1 puff IH DAILY #1 each 02/09/18 [Advair Diskus 250/50] Ibuprofen [Motrin] 600 mg PO Q6 #20 tab 02/09/18 Omeprazole 40 mg PO DAILY #30 capsule. 02/09/18 predniSONE [predniSONE Tab] 40 mg PO DAILY 4 Days tab 02/09/18 Azithromycin [Zithromax] 250 mg PO DAILY #6 tab 03/12/18 Budesonide/Formoterol Fumarate 2 puff IH Q12H #1 hfa.aer.ad 03/12/18 [Symbicort 160-4.5 Mcg Inhaler] Ibuprofen [Motrin Tab] 600 mg PO TID PRN #30 tab 03/12/18 Omeprazole 40 mg PO DAILY #30 capsule. 03/12/18 - Allergies Allergies/Adverse Reactions: Allergies Allergy/AdvReac Type Severity Reaction Status Date / Time azithromycin Allergy RASH Verified 11/26/17 08:05 cyclobenzaprine HCl Allergy RASH Verified 11/26/17 08:05 [From Flexeril] latex Allergy RASH Verified 11/26/17 08:05 Sulfa (Sulfonamide Allergy RASH Verified 11/26/17 08:05 Antibiotics) bacitracin AdvReac RASH Verified 11/26/17 08:05 Review of Systems ROS Statement: Except As Marked, All Systems Reviewed And Found Negative Constitutional: Negative for: Fever, Chills Respiratory: Positive for: Cough (with yellow sputum). Negative for: Shortness of Breath Physical Exam - Reviewed Nursing Documentation Reviewed: Yes Vital Signs Reviewed: Yes - Physical Exam Appears: Positive for: Non-toxic, No Acute Distress Head Exam: Positive for: ATRAUMATIC, NORMOCEPHALIC Skin: Positive for: Normal Color, Warm, Dry Eye Exam: Positive for: Normal appearance Neck: Positive for: Normal, Painless ROM Cardiovascular/Chest: Positive for: Regular Rate, Rhythm. Negative for: Murmur Respiratory: Positive for: Normal Breath Sounds. Negative for: Wheezing, Respiratory Distress Extremity: Positive for: Normal ROM Neurologic/Psych: Positive for: Alert, Oriented. Negative for: Motor/Sensory Deficits - ECG O2 Sat by Pulse Oximetry: 97 (RA) Pulse Ox Interpretation: Normal Medical Decision Making Medical Decision Making: Initial Impression: Upper respiratory tract infection, bronchitis Initial Plan: Scribe Attestation: Documented by Edilberto Diaz acting as a scribe for Sanjana Jain MD. Provider Scribe Attestation: All medical record entries made by the Scribe were at my direction and personally dictated by me. I have reviewed the chart and agree that the record accurately reflects my personal performance of the history, physical exam, medical decision making, and the department course for this patient. I have also personally directed, reviewed, and agree with the discharge instructions and disposition. Patient not in distress. Due to history of smoking, asthma, prolonged cough and recent ER visit, will treat for atypical infection with macrolide antibiotic. Disposition - Clinical Impression Clinical Impression: Cough in adult - Patient ED Disposition Is Patient to be Admitted: No Doctor Will See Patient In The: Office Counseled Patient/Family Regarding: Diagnosis, Need For Followup, Rx Given - Disposition Referrals: Non [facility] Provider, [Primary Care Provider] - [facility] [Outside] Disposition: Routine/Home Disposition Time: 08:49 Condition: STABLE Prescriptions: Azithromycin [Zithromax] 250 mg PO DAILY #6 tab Budesonide/Formoterol Fumarate [Symbicort 160-4.5 Mcg Inhaler] 2 puff IH Q12H # 1 hfa.aer.ad Ibuprofen [Motrin Tab] 600 mg PO TID PRN #30 tab PRN Reason: Pain, Moderate (4-7) Omeprazole 40 mg PO DAILY #30 capsule. Instructions: Cough in Adults Forms: [facility] (Polish) - POA Present On Arrival: None
== END 2018-03-12 09:28 | disposition home or self-care (01) ==
LOC: H.ER 07:45 → SUPCPDRO 07:45 → H.ER 09:28
DX: R05 Cough (principal); I10 Essential (primary) hypertension; J45.909 Unspecified asthma, uncomplicated; Z76.0 Encounter for issue of repeat prescription; Z79.82 Long term (current) use of aspirin; Z82.49 Family history of ischemic heart disease and other diseases of the circulatory system; F17.200 Nicotine dependence, unspecified, uncomplicated; G89.29 Other chronic pain

== ENCOUNTER 2018-03-18 07:23 | Emergency (ER) | payer MEDICAID ==
[2018-03-18 07:26] VITALS: BMI 38.0
[2018-03-18 07:27] VITALS: BP 125/83; PULSE 72; RESP 16; TEMP 98.6; O2SAT 97
--- NOTE | 2018-03-18 09:49 | ED PDOC ---
HPI: General Adult Time Seen by Provider: 03/18/18 08:03 Chief Complaint (Nursing): Back Pain Chief Complaint (Provider): Neck Pain History Per: Patient History/Exam Limitations: no limitations Additional Complaint(s): 47 year old female with a history of asthma presents to the ED for evaluation of neck pain onset yesterday. Patient reports she didn't sleep right and now has right neck pain that worsens with movement. She states she took Motrin earlier that night with improvement. Patient denies headache, chest pain, abdominal pain, back pain or any other medical complaints. PMD: [facility] Past Medical History Vital Signs: Last Vital Signs Temp 98.6 F 03/18/18 07:26 Pulse 72 03/18/18 07:26 Resp 16 03/18/18 07:26 BP 125/83 03/18/18 07:26 Pulse Ox 97 03/18/18 10:44 - Medical History PMH: Anxiety, Arthritis, Asthma, Bronchitis, CAD, Depression, Gastritis, GERD, HTN, Hypercholesterolemia, Migraine, Personality Disorder, Rheumatoid Arthritis , Chronic Pain Denies: Chronic Kidney Disease - Surgical History Surgical History: - Family History Family History: States: Unknown Family Hx, CAD - Social History Current smoker - smoking cessation education provided: Yes Ex-Smoker (has not smoked in the last 12 months): No Alcohol: None - Immunization History Hx Tetanus Toxoid Vaccination: No Hx Influenza Vaccination: Yes - Home Medications Home Medications: Ambulatory Orders Medication Instructions Recorded Lorazepam 1 mg PO DAILY #20 tab 05/21/14 Albuterol 0.5% [Albuterol 0.5% 2.5 mg IH Q6H PRN #3 neb 01/28/15 Inhal Bryanna (2.5 mg/0.5 ml) UD] Albuterol HFA [Ventolin HFA 90 2 puff IH Q4H #1 puff 12/08/15 mcg/actuation (8 g)] Albuterol 0.5% [Albuterol 0.5% 2.5 mg IH BID 03/26/16 Inhal Bryanna (2.5 mg/0.5 ml) UD] Aspirin [Adult Low Dose Aspirin EC] 81 mg PO DAILY 03/26/16 Cholecalciferol (Vitamin D3) 2,000 unit PO DAILY 03/26/16 [Vitamin D] Esomeprazole Magnesium [Nexium] 40 mg PO DAILY 03/26/16 Fexofenadine/Pseudoephedrine 1 each PO DAILY 03/26/16 [Yarelis-D 12 Hour Tablet] Ibuprofen [Motrin] 600 mg PO DAILY 03/26/16 Lorazepam 1 mg PO Q4 03/26/16 Montelukast [Singulair] 10 mg PO DAILY 03/26/16 Tiotropium [Spiriva] 18 mcg IH DAILY 03/26/16 Venlafaxine [Effexor XR] 150 mg PO DAILY 03/26/16 traZODone [trazODONE HYDROCHLORIDE] 50 mg PO HS 03/26/16 Ibuprofen [Motrin] 600 mg PO Q6H PRN #20 tab 04/12/16 Permethrin 5% [Permethrin] 5 g TP PRN PRN #1 tube 04/12/16 Cephalexin [cephalexin] 500 mg PO BID #20 cap 06/29/16 Ibuprofen [Motrin] 400 mg PO Q6 #30 tab 06/29/16 Methylprednisolone [Medrol Dose 4 mg PO DAILY #21 mg 06/29/16 Pack (21 tabs)] Amoxicillin 500 mg PO TID #15 tablet 07/26/16 Ibuprofen [Motrin Tab] 600 mg PO Q8 PRN #21 07/26/16 LORazepam [Ativan] 1 mg PO DAILY #5 tab 07/26/16 Albuterol 0.5% [Albuterol 0.5% 2.5 mg IH Q6H PRN #3 neb 10/25/16 Inhal Bryanna (2.5 mg/0.5 ml) UD] Montelukast [Singulair] 10 mg PO DAILY 5 Days tab 10/25/16 Tiotropium [place] [Spiriva 2.5 mcg IH DAILY PRN 5 Days ml 10/25/16 Respimat] predniSONE [predniSONE Tab] 20 mg PO BID 5 Days tab 10/25/16 Azithromycin [Zithromax] 250 mg PO DAILY #6 tab 10/30/16 Benzonatate 200 mg PO TID PRN #20 capsule 10/30/16 Albuterol HFA [Ventolin HFA 90 2 puff IH Q4 PRN #1 unit 11/05/16 mcg/actuation (8 g)] Benzonatate [Tessalon Perles] 100 mg PO TID PRN #20 cap 11/05/16 Methylprednisolone [Medrol Dose 4 mg PO DAILY #1 packet 11/05/16 Pack (21 tabs)] Triamcinolone Acetonide [Nasacort 1 spray NS DAILY #1 unit 11/05/16 Allergy 24Hr] Benzonatate [Tessalon Perle] 100 mg PO TID PRN #15 capsule 11/14/16 Ondansetron ODT [Zofran ODT] 4 mg PO Q6 PRN #16 odt 11/14/16 Oseltamivir [Tamiflu] 75 mg PO BID #9 cap 11/14/16 Albuterol HFA [Ventolin HFA 90 2 puff IH Q6 #200 puff 11/25/16 mcg/actuation (8 g)] Benzonatate [Tessalon Perles] 100 mg PO TID #20 sgl 11/25/16 Amoxicillin/Clavulanate [Augmentin 1 tab PO BID #20 tab 11/27/16 875 MG-125 MG] Benzonatate [Tessalon Perles] 200 mg PO TID #30 tab 11/27/16 Ibuprofen [Motrin] 600 mg PO BID #20 tab 11/27/16 Albuterol HFA [Ventolin HFA 90 2 puff IH [id number] PRN #1 bottle 12/20/16 mcg/actuation (8 g)] Amoxicillin/Clavulanate [Augmentin 1 tab PO BID #19 tab 12/20/16 875 MG-125 MG] Benzonatate [Tessalon Perle] 100 mg PO BID #12 capsule 12/20/16 Albuterol 0.083% [Albuterol 3 ml IH QID PRN #60 neb 01/06/17 Sulfate 3 Ml] Albuterol HFA [Ventolin HFA 90 2 puff IH [id number] PRN #60 puff 01/06/17 mcg/actuation (8 g)] Benzonatate [Tessalon Perles] 100 mg PO TID PRN #30 sgl 01/06/17 Clotrimazole 1% Cream [Lotrimin 1% 15 applic EXT BID #1 tube 01/27/17 CREAM] Ibuprofen [Motrin Tab] 600 mg PO Q6 PRN #15 tab 01/27/17 Compr.stocking,Knee,Reg,X-Lrg 1 each MC DAILY #2 each 01/29/17 [T.e.d. Anti-Embolism Stocking] Meloxicam [Mobic] 1 - 2 tab PO DAILY PRN #15 tab 06/13/17 Ibuprofen [Motrin] 600 mg PO Q6 PRN #20 tab 07/14/17 Albuterol HFA [Ventolin HFA 90 1 puff IH BID PRN #1 unit 07/20/17 mcg/actuation (8 g)] Amoxicillin/Clavulanate [Augmentin 1 tab PO BID #20 tab 07/20/17 875 MG-125 MG] Azithromycin 250 mg PO DAILY #6 tab 07/20/17 Albuterol HFA [Ventolin HFA 90 2 puff IH [id number] PRN #60 puff 07/22/17 mcg/actuation (8 g)] predniSONE [predniSONE Tab] 40 mg PO DAILY #6 tab 07/22/17 Albuterol HFA [Ventolin HFA 90 2 puff IH Q4H #1 puff 08/06/17 mcg/actuation (8 g)] Amoxicillin [Amoxil 500 mg Cap] 500 mg PO Q8 #30 cap 08/06/17 Ibuprofen [Motrin Tab] 600 mg PO Q8H PRN #30 tab 08/19/17 Montelukast [Singulair] 10 mg PO DAILY #30 tab 08/22/17 Omeprazole Magnesium [Prilosec Otc] 40 mg PO DAILY #30 tablet. 08/22/17 guaiFENesin/Dextromethorphan 1 tab PO Q8 PRN #15 tab 08/22/17 [guaiFENesin/DM 600-30 mg] Albuterol HFA [Ventolin HFA 90 2 puff IH Q6 #200 puff 09/02/17 mcg/actuation (8 g)] Levofloxacin [Levaquin] 500 mg PO BID #14 tablet 09/02/17 predniSONE [predniSONE Tab] 20 mg PO BID #8 tab 09/02/17 Budesonide/Formoterol Fumarate 1 - 2 gm IH BID #1 hfa.aer.ad 09/17/17 [Symbicort 80-4.5 Mcg Inhaler] Dextromethorphan Polistirex 30 mg PO BID #80 megan.er.12h 09/17/17 [Delsym] Omeprazole Magnesium [Prilosec Otc] 40 mg PO DAILY #30 tcp 09/17/17 Oseltamivir Phosphate [Tamiflu] 75 mg PO BID #10 capsule 09/17/17 Naproxen [Naprosyn] 500 mg PO Q12H #20 tab 10/16/17 traMADol [Ultram] 50 mg PO Q8 #10 tab 10/16/17 Albuterol HFA [Ventolin HFA 90 2 puff IH [id number] PRN #1 bottle 11/26/17 mcg/actuation (8 g)] Amoxicillin/Clavulanate [Augmentin 1 tab PO BID #14 tab 11/26/17 875 MG-125 MG] Fluticasone/Salmeterol 1 each IH DAILY #1 aer.pow.ba 11/26/17 [Fluticasone-Salmeterol 232-14] Loratadine [Claritin] 10 mg PO DAILY PRN #5 tab 12/03/17 Ibuprofen [Motrin] 600 mg PO Q6H PRN #20 tab 02/02/18 Loratadine [Claritin] 10 mg PO DAILY #5 tab 02/02/18 Polyethylene Glycol 3350 [Miralax] 1 tbs PO DAILY PRN #1 bottle 02/02/18 Fluticasone/Salmeterol 250/50 1 puff IH DAILY #1 each 02/09/18 [Advair Diskus 250/50] Ibuprofen [Motrin] 600 mg PO Q6 #20 tab 02/09/18 Omeprazole 40 mg PO DAILY #30 capsule. 02/09/18 predniSONE [predniSONE Tab] 40 mg PO DAILY 4 Days tab 02/09/18 Budesonide/Formoterol Fumarate 2 puff IH Q12H #1 hfa.aer.ad 03/12/18 [Symbicort 160-4.5 Mcg Inhaler] Doxycycline Monohydrate 100 mg PO BID #14 capsule 03/12/18 Omeprazole 40 mg PO DAILY #30 capsule. 03/12/18 Ibuprofen [Motrin Tab] 600 mg PO TID PRN #30 tab 03/18/18 - Allergies Allergies/Adverse Reactions: Allergies Allergy/AdvReac Type Severity Reaction Status Date / Time azithromycin Allergy RASH Verified 03/18/18 07:29 cyclobenzaprine HCl Allergy RASH Verified 03/18/18 07:29 [From Flexeril] latex Allergy RASH Verified 03/18/18 07:29 Sulfa (Sulfonamide Allergy RASH Verified 03/18/18 07:29 Antibiotics) bacitracin AdvReac RASH Verified 03/18/18 07:29 Review of Systems ROS Statement: Except As Marked, All Systems Reviewed And Found Negative Musculoskeletal: Positive for: Neck Pain (right) Physical Exam - Reviewed Nursing Documentation Reviewed: Yes Vital Signs Reviewed: Yes - Physical Exam Appears: Positive for: Non-toxic, No Acute Distress Head Exam: Positive for: ATRAUMATIC, NORMAL INSPECTION, NORMOCEPHALIC Skin: Positive for: Normal Color, Warm, Dry Eye Exam: Positive for: EOMI, Normal appearance, PERRL Neck: Positive for: Normal, Painless ROM, Supple Neurologic/Psych: Positive for: Alert, Oriented (x3), Gait (steady). Negative for: Motor/Sensory Deficits - ECG O2 Sat by Pulse Oximetry: 97 (RA) Pulse Ox Interpretation: Normal Medical Decision Making Medical Decision Making: Time: 8:19 Initial Impression: Intial Plan: neck pain, neck spasm, and musculoskeletal pain --Motrin 80 mg PO Time: 9:46 --Re-evaluation. Patient feels better. She was prescribed Motrin. Discussed results and plan with patient who expresses understanding. Counseling was provided regarding the diagnosis and prognosis. All questions answered and there is agreement with the plan to discharge home with instructions. Patient stable for discharge. Return if symptoms persist or worsen. Scribe Attestation: Documented by Mar Diaz, acting as a scribe for Almas Herrmann MD Provider Scribe Attestation: All medical record entries made by the Scribe were at my direction and personally dictated by me. I have reviewed the chart and agree that the record accurately reflects my personal performance of the history, physical exam, medical decision making, and the department course for this patient. I have also personally directed, reviewed, and agree with the discharge instructions and disposition. Disposition - Clinical Impression Clinical Impression: Back pain, Neck pain - Disposition Referrals: [facility] [Outside] Disposition Time: 09:46 Condition: GOOD Additional Instructions: Follow up with your PCP in 2-3 days. Prescriptions: Ibuprofen [Motrin Tab] 600 mg PO TID PRN #30 tab PRN Reason: Pain, Moderate (4-7) Instructions: Neck Pain Forms: [employer] (American)
== END 2018-03-18 09:47 | disposition home or self-care (01) ==
LOC: H.ER 07:23
DX: M54.2 Cervicalgia (principal); M54.9 Dorsalgia, unspecified

== ENCOUNTER 2018-03-23 07:48 | Emergency (ER) | payer MEDICAID ==
[2018-03-23 07:49] VITALS: BMI 38.0
[2018-03-23] MEDS ORDERED: Dexamethasone 4 mg/1 ml IM ONE (08:24)
[2018-03-23 08:28] VITALS: TEMP 98.2
[2018-03-23] MEDS ORDERED: Dexamethasone 4 mg/1 ml ONE (08:34)
--- NOTE | 2018-03-23 08:59 | ED PDOC ---
Upper Extremity Pain/Injury Time Seen by Provider: 03/23/18 08:02 Chief Complaint (Nursing): Weakness/Neurological Deficit Chief Complaint (Provider): Neck pain and Right Arm Numbness History Per: Patient History/Exam Limitations: no limitations Onset/Duration Of Symptoms: Other (1 week) Current Symptoms Are (Timing): Still Present Quality: "Pain" Additional Complaint(s): 47 year old female with a history of asthma and arthritis presents to the ED complaining of neck pain and right arm numbness for one week. Patient states she slept in the "wrong way" one week ago and developed neck pain and numbness to the right upper arm. She is taking Motrin for the pain and states the medication does not help her asthma. Patient denies weakness, tingling, or any other complaints. PMD: [facility] Past Medical History Reviewed: Historical Data, Nursing Documentation, Vital Signs Vital Signs: Last Vital Signs Temp 98.2 F 03/23/18 08:17 Pulse 55 L 03/23/18 08:17 Resp 18 03/23/18 08:17 BP 129/74 03/23/18 08:17 Pulse Ox - Medical History PMH: Anxiety, Arthritis, Asthma, Bronchitis, CAD, Depression, Gastritis, GERD, HTN, Hypercholesterolemia, Migraine, Personality Disorder, Rheumatoid Arthritis , Chronic Pain Denies: Chronic Kidney Disease - Surgical History Surgical History: - Family History Family History: States: Unknown Family Hx, CAD - Social History Current smoker - smoking cessation education provided: Yes (Light Smoker < 10 Cigarettes Daily) Alcohol: None Drugs: Cannabis - Immunization History Hx Tetanus Toxoid Vaccination: No Hx Influenza Vaccination: Yes - Home Medications Home Medications: Ambulatory Orders Medication Instructions Recorded Lorazepam 1 mg PO DAILY #20 tab 05/21/14 Albuterol 0.5% [Albuterol 0.5% 2.5 mg IH Q6H PRN #3 neb 01/28/15 Inhal Bryanna (2.5 mg/0.5 ml) UD] Albuterol HFA [Ventolin HFA 90 2 puff IH Q4H #1 puff 12/08/15 mcg/actuation (8 g)] Albuterol 0.5% [Albuterol 0.5% 2.5 mg IH BID 03/26/16 Inhal Bryanna (2.5 mg/0.5 ml) UD] Aspirin [Adult Low Dose Aspirin EC] 81 mg PO DAILY 03/26/16 Cholecalciferol (Vitamin D3) 2,000 unit PO DAILY 03/26/16 [Vitamin D] Esomeprazole Magnesium [Nexium] 40 mg PO DAILY 03/26/16 Fexofenadine/Pseudoephedrine 1 each PO DAILY 03/26/16 [Yarelis-D 12 Hour Tablet] Ibuprofen [Motrin] 600 mg PO DAILY 03/26/16 Lorazepam 1 mg PO Q4 03/26/16 Montelukast [Singulair] 10 mg PO DAILY 03/26/16 Tiotropium [Spiriva] 18 mcg IH DAILY 03/26/16 Venlafaxine [Effexor XR] 150 mg PO DAILY 03/26/16 traZODone [trazODONE HYDROCHLORIDE] 50 mg PO HS 03/26/16 Ibuprofen [Motrin] 600 mg PO Q6H PRN #20 tab 04/12/16 Permethrin 5% [Permethrin] 5 g TP PRN PRN #1 tube 04/12/16 Cephalexin [cephalexin] 500 mg PO BID #20 cap 06/29/16 Ibuprofen [Motrin] 400 mg PO Q6 #30 tab 06/29/16 Methylprednisolone [Medrol Dose 4 mg PO DAILY #21 mg 06/29/16 Pack (21 tabs)] Amoxicillin 500 mg PO TID #15 tablet 07/26/16 Ibuprofen [Motrin Tab] 600 mg PO Q8 PRN #21 07/26/16 LORazepam [Ativan] 1 mg PO DAILY #5 tab 07/26/16 Albuterol 0.5% [Albuterol 0.5% 2.5 mg IH Q6H PRN #3 neb 10/25/16 Inhal Bryanna (2.5 mg/0.5 ml) UD] Montelukast [Singulair] 10 mg PO DAILY 5 Days tab 10/25/16 Tiotropium [place] [Spiriva 2.5 mcg IH DAILY PRN 5 Days ml 10/25/16 Respimat] predniSONE [predniSONE Tab] 20 mg PO BID 5 Days tab 10/25/16 Azithromycin [Zithromax] 250 mg PO DAILY #6 tab 10/30/16 Benzonatate 200 mg PO TID PRN #20 capsule 10/30/16 Albuterol HFA [Ventolin HFA 90 2 puff IH Q4 PRN #1 unit 11/05/16 mcg/actuation (8 g)] Benzonatate [Tessalon Perles] 100 mg PO TID PRN #20 cap 11/05/16 Methylprednisolone [Medrol Dose 4 mg PO DAILY #1 packet 11/05/16 Pack (21 tabs)] Triamcinolone Acetonide [Nasacort 1 spray NS DAILY #1 unit 11/05/16 Allergy 24Hr] Benzonatate [Tessalon Perle] 100 mg PO TID PRN #15 capsule 11/14/16 Ondansetron ODT [Zofran ODT] 4 mg PO Q6 PRN #16 odt 11/14/16 Oseltamivir [Tamiflu] 75 mg PO BID #9 cap 11/14/16 Albuterol HFA [Ventolin HFA 90 2 puff IH Q6 #200 puff 11/25/16 mcg/actuation (8 g)] Benzonatate [Tessalon Perles] 100 mg PO TID #20 sgl 11/25/16 Amoxicillin/Clavulanate [Augmentin 1 tab PO BID #20 tab 11/27/16 875 MG-125 MG] Benzonatate [Tessalon Perles] 200 mg PO TID #30 tab 11/27/16 Ibuprofen [Motrin] 600 mg PO BID #20 tab 11/27/16 Albuterol HFA [Ventolin HFA 90 2 puff IH [id number] PRN #1 bottle 12/20/16 mcg/actuation (8 g)] Amoxicillin/Clavulanate [Augmentin 1 tab PO BID #19 tab 12/20/16 875 MG-125 MG] Benzonatate [Tessalon Perle] 100 mg PO BID #12 capsule 12/20/16 Albuterol 0.083% [Albuterol 3 ml IH QID PRN #60 neb 01/06/17 Sulfate 3 Ml] Albuterol HFA [Ventolin HFA 90 2 puff IH [id number] PRN #60 puff 01/06/17 mcg/actuation (8 g)] Benzonatate [Tessalon Perles] 100 mg PO TID PRN #30 sgl 01/06/17 Clotrimazole 1% Cream [Lotrimin 1% 15 applic EXT BID #1 tube 01/27/17 CREAM] Ibuprofen [Motrin Tab] 600 mg PO Q6 PRN #15 tab 01/27/17 Compr.stocking,Knee,Reg,X-Lrg 1 each MC DAILY #2 each 01/29/17 [T.e.d. Anti-Embolism Stocking] Meloxicam [Mobic] 1 - 2 tab PO DAILY PRN #15 tab 06/13/17 Ibuprofen [Motrin] 600 mg PO Q6 PRN #20 tab 07/14/17 Albuterol HFA [Ventolin HFA 90 1 puff IH BID PRN #1 unit 07/20/17 mcg/actuation (8 g)] Amoxicillin/Clavulanate [Augmentin 1 tab PO BID #20 tab 07/20/17 875 MG-125 MG] Azithromycin 250 mg PO DAILY #6 tab 07/20/17 Albuterol HFA [Ventolin HFA 90 2 puff IH [id number] PRN #60 puff 07/22/17 mcg/actuation (8 g)] predniSONE [predniSONE Tab] 40 mg PO DAILY #6 tab 07/22/17 Albuterol HFA [Ventolin HFA 90 2 puff IH Q4H #1 puff 08/06/17 mcg/actuation (8 g)] Amoxicillin [Amoxil 500 mg Cap] 500 mg PO Q8 #30 cap 08/06/17 Ibuprofen [Motrin Tab] 600 mg PO Q8H PRN #30 tab 08/19/17 Montelukast [Singulair] 10 mg PO DAILY #30 tab 08/22/17 Omeprazole Magnesium [Prilosec Otc] 40 mg PO DAILY #30 tablet. 08/22/17 guaiFENesin/Dextromethorphan 1 tab PO Q8 PRN #15 tab 08/22/17 [guaiFENesin/DM 600-30 mg] Albuterol HFA [Ventolin HFA 90 2 puff IH Q6 #200 puff 09/02/17 mcg/actuation (8 g)] Levofloxacin [Levaquin] 500 mg PO BID #14 tablet 09/02/17 predniSONE [predniSONE Tab] 20 mg PO BID #8 tab 09/02/17 Budesonide/Formoterol Fumarate 1 - 2 gm IH BID #1 hfa.aer.ad 09/17/17 [Symbicort 80-4.5 Mcg Inhaler] Dextromethorphan Polistirex 30 mg PO BID #80 megan.er.12h 09/17/17 [Delsym] Omeprazole Magnesium [Prilosec Otc] 40 mg PO DAILY #30 tcp 09/17/17 Oseltamivir Phosphate [Tamiflu] 75 mg PO BID #10 capsule 09/17/17 Naproxen [Naprosyn] 500 mg PO Q12H #20 tab 10/16/17 traMADol [Ultram] 50 mg PO Q8 #10 tab 10/16/17 Albuterol HFA [Ventolin HFA 90 2 puff IH [id number] PRN #1 bottle 11/26/17 mcg/actuation (8 g)] Amoxicillin/Clavulanate [Augmentin 1 tab PO BID #14 tab 11/26/17 875 MG-125 MG] Fluticasone/Salmeterol 1 each IH DAILY #1 aer.pow.ba 11/26/17 [Fluticasone-Salmeterol 232-14] Loratadine [Claritin] 10 mg PO DAILY PRN #5 tab 12/03/17 Ibuprofen [Motrin] 600 mg PO Q6H PRN #20 tab 02/02/18 Loratadine [Claritin] 10 mg PO DAILY #5 tab 02/02/18 Polyethylene Glycol 3350 [Miralax] 1 tbs PO DAILY PRN #1 bottle 02/02/18 Fluticasone/Salmeterol 250/50 1 puff IH DAILY #1 each 02/09/18 [Advair Diskus 250/50] Ibuprofen [Motrin] 600 mg PO Q6 #20 tab 02/09/18 Omeprazole 40 mg PO DAILY #30 capsule. 02/09/18 predniSONE [predniSONE Tab] 40 mg PO DAILY 4 Days tab 02/09/18 Budesonide/Formoterol Fumarate 2 puff IH Q12H #1 hfa.aer.ad 03/12/18 [Symbicort 160-4.5 Mcg Inhaler] Doxycycline Monohydrate 100 mg PO BID #14 capsule 03/12/18 Omeprazole 40 mg PO DAILY #30 capsule. 03/12/18 Ibuprofen [Motrin Tab] 600 mg PO TID PRN #30 tab 03/18/18 Gabapentin 300 mg PO HS #30 capsule 03/23/18 Methylprednisolone [Medrol Dose 4 mg PO ASDIR #21 mg 03/23/18 Pack (21 tabs)] - Allergies Allergies/Adverse Reactions: Allergies Allergy/AdvReac Type Severity Reaction Status Date / Time azithromycin Allergy RASH Verified 03/18/18 07:29 cyclobenzaprine HCl Allergy RASH Verified 03/18/18 07:29 [From Flexeril] latex Allergy RASH Verified 03/18/18 07:29 Sulfa (Sulfonamide Allergy RASH Verified 03/18/18 07:29 Antibiotics) bacitracin AdvReac RASH Verified 03/18/18 07:29 Review of Systems ROS Statement: Except As Marked, All Systems Reviewed And Found Negative Musculoskeletal: Positive for: Neck Pain, Other (right upper arm numbness) Neurological: Negative for: Weakness, Other (tingling) Psych: Negative for: Suicidal ideation (homicidal ideation) Physical Exam - Reviewed Nursing Documentation Reviewed: Yes Vital Signs Reviewed: Yes - Physical Exam Appears: Positive for: Non-toxic, No Acute Distress Head Exam: Positive for: ATRAUMATIC, NORMAL INSPECTION, NORMOCEPHALIC Skin: Positive for: Normal Color, Warm, Dry Eye Exam: Positive for: EOMI, Normal appearance, PERRL ENT: Positive for: Normal ENT Inspection Neck: Positive for: Trachea Midline, Pain On Movement Of Neck (cervical spine tenderness) Cardiovascular/Chest: Positive for: Regular Rate, Rhythm. Negative for: Murmur Respiratory: Positive for: Normal Breath Sounds. Negative for: Decreased Breath Sounds, Accessory Muscle Use, Respiratory Distress Gastrointestinal/Abdominal: Positive for: Normal Exam, Bowel Sounds, Soft. Negative for: Tenderness, Guarding, Rebound Back: Positive for: Normal Inspection. Negative for: L CVA Tenderness, R CVA Tenderness Extremity: Positive for: Normal ROM. Negative for: Tenderness, Pedal Edema, Deformity Neurologic/Psych: Positive for: Alert, Oriented (x3). Negative for: Motor/ Sensory Deficits - ECG Pulse Ox Interpretation: Normal - Progress Re-evaluation Time: 10:50 Condition: Re-examined, Improved Medical Decision Making Medical Decision Making: Time: 822 Initial Impression: neck pain and right arm numbness Differential Diagnosis includes but is not limited to: cervical radiculopathy, herniated disk Initial Plan: --Cervical spine w/o contrast CT --Decadron Inj --Reevaluation Time: 1009 PROCEDURE: CT Cervical Spine without contrast HISTORY: Neck pain right arm numbness COMPARISON: None available. TECHNIQUE: Axial computed tomography images were obtained of the cervical spine without the use of intravenous contrast. Coronal and sagittal reformatted images were created and reviewed. Radiation dose: Total exam DLP = 573.35 mGy-cm. This CT exam was performed using one or more of the following dose reduction techniques: Automated exposure control, adjustment of the mA and/or kV according to patient size, and/or use of iterative reconstruction technique. . FINDINGS: VERTEBRAE: No acute compression fractures no retropulsed fragments. Vertebral bodies exhibit relatively normal stature. There is mild reversal of the normal cervical lordosis which could be due to patient positioning gantry however underlying element of mild muscle spasm may contribute. DISCS/SPINAL CANAL/NEURAL FORAMINA: Mild multilevel degenerative spondylosis. At the C2-C3 level, there is small central and bilateral disc bulge that flattens the ventral surface of the thecal sac though does not cause any significant canal compromise nor cord compression. The uncovertebral and facet joints are slightly overgrown. Exit foramina are narrowed on the left and marginal to adequate on the right. At the C3-C4 level, there is adequate disc height. No disc herniation or significant disc bulge. Facets are hypertrophic left greater than right. Minimal degenerative squaring of the uncovertebral joints. Central canal appears adequate. Exit foramina are narrowed bilaterally. At the C4-C5 level, there is also adequate disc height. No disc herniation or significant disc bulge. Facets are slightly hypertrophic left greater than right. Minimal degenerative squaring of the uncovertebral joints. Central canal adequate. Exit foramina are minimally narrowed on the left and adequate on the right. At the C5-C6 level, there is disc space narrowing more so along the anterior disc margin. Minimal degenerative squaring of the uncovertebral joints. Facets also prominent. Central canal is marginal to adequate. Exit foramina appear narrowed on the left and marginal to minimally narrowed on the right. At the C6-C7 level, there is disc space narrowing. No disc herniation or significant disc bulge. Minimal overgrowth of the uncovertebral facets. Exit foramina narrowed. PARASPINAL SOFT TISSUES: Unremarkable. OTHER FINDINGS: None. IMPRESSION: No acute fractures. Mild mild reversal of the normal cervical lordosis could be due to patient positioning gantry however underlying element of muscle spasm may contribute. Minor multilevel degenerative spondylosis as described. Scribe Attestation: Documented by Sean Casey, acting as a scribe for Almas Herrmann MD Provider Scribe Attestation: All medical record entries made by the Scribe were at my direction and personally dictated by me. I have reviewed the chart and agree that the record accurately reflects my personal performance of the history, physical exam, medical decision making, and the department course for this patient. I have also personally directed, reviewed, and agree with the discharge instructions and disposition. Disposition - Clinical Impression Clinical Impression: Cervical radiculopathy - Patient ED Disposition Is Patient to be Admitted: No Doctor Will See Patient In The: Office Counseled Patient/Family Regarding: Studies Performed, Diagnosis, Need For Followup - Disposition Referrals: [facility] [Outside] Disposition: Routine/Home Disposition Time: 11:00 Condition: GOOD Additional Instructions: Take your medications as instructed. Follow up with your PCP in 2-3 days. Prescriptions: Gabapentin 300 mg PO HS #30 capsule Methylprednisolone [Medrol Dose Pack (21 tabs)] 4 mg PO ASDIR #21 mg Instructions: Radiculopathy (DC)
--- NOTE | 2018-03-23 10:12 | CT ---
PROCEDURE: CT Cervical Spine without contrast HISTORY: Neck pain right arm numbness COMPARISON: None available. TECHNIQUE: Axial computed tomography images were obtained of the cervical spine without the use of intravenous contrast. Coronal and sagittal reformatted images were created and reviewed. Radiation dose: Total exam DLP = 573.35 mGy-cm. This CT exam was performed using one or more of the following dose reduction techniques: Automated exposure control, adjustment of the mA and/or kV according to patient size, and/or use of iterative reconstruction technique. . FINDINGS: VERTEBRAE: No acute compression fractures no retropulsed fragments. Vertebral bodies exhibit relatively normal stature. There is mild reversal of the normal cervical lordosis which could be due to patient positioning gantry however underlying element of mild muscle spasm may contribute. DISCS/SPINAL CANAL/NEURAL FORAMINA: Mild multilevel degenerative spondylosis. At the C2-C3 level, there is small central and bilateral disc bulge that flattens the ventral surface of the thecal sac though does not cause any significant canal compromise nor cord compression. The uncovertebral and facet joints are slightly overgrown. Exit foramina are narrowed on the left and marginal to adequate on the right. At the C3-C4 level, there is adequate disc height. No disc herniation or significant disc bulge. Facets are hypertrophic left greater than right. Minimal degenerative squaring of the uncovertebral joints. Central canal appears adequate. Exit foramina are narrowed bilaterally. At the C4-C5 level, there is also adequate disc height. No disc herniation or significant disc bulge. Facets are slightly hypertrophic left greater than right. Minimal degenerative squaring of the uncovertebral joints. Central canal adequate. Exit foramina are minimally narrowed on the left and adequate on the right. At the C5-C6 level, there is disc space narrowing more so along the anterior disc margin. Minimal degenerative squaring of the uncovertebral joints. Facets also prominent. Central canal is marginal to adequate. Exit foramina appear narrowed on the left and marginal to minimally narrowed on the right. At the C6-C7 level, there is disc space narrowing. No disc herniation or significant disc bulge. Minimal overgrowth of the uncovertebral facets. Exit foramina narrowed. PARASPINAL SOFT TISSUES: Unremarkable. OTHER FINDINGS: None. IMPRESSION: No acute fractures. Mild mild reversal of the normal cervical lordosis could be due to patient positioning gantry however underlying element of muscle spasm may contribute. Minor multilevel degenerative spondylosis as described.
[2018-03-23 10:56] VITALS: BP 122/77; PULSE 81; RESP 14; O2SAT 97
== END 2018-03-23 11:17 | disposition home or self-care (01) ==
LOC: H.ER 07:48
DX: M54.12 Radiculopathy, cervical region (principal); E78.00 Pure hypercholesterolemia, unspecified; F32.9 Major depressive disorder, single episode, unspecified; F41.9 Anxiety disorder, unspecified; G89.29 Other chronic pain; I10 Essential (primary) hypertension; M06.9 Rheumatoid arthritis, unspecified; Z79.82 Long term (current) use of aspirin; I25.10 Atherosclerotic heart disease of native coronary artery without angina pectoris
CPT/HCPCS: 72125; 81025; 82948; 96372; 99284; J1100

== ENCOUNTER 2018-04-09 07:52 | Emergency (ER) | payer MEDICAID ==
[2018-04-09 07:52] VITALS: BMI 38.0
[2018-04-09 08:34] VITALS: BP 124/80; PULSE 78; RESP 19; TEMP 97.6
[2018-04-09 08:39] VITALS: O2SAT 96
--- NOTE | 2018-04-09 08:39 | ED PDOC ---
HPI: General Adult History Per: Patient History/Exam Limitations: no limitations <Ashlyn Duke - Last Filed: 04/09/18 08:31> <Toby Yañez III - Last Filed: 04/09/18 13:48> Chief Complaint (Nursing): Med Refill Additional Complaint(s): CC: med refill HPI: 47 YO Female with PMHx of gastritis, GERD, depression, anxiety, asthma presents to [facility] ED for med refill. Pt states that her PMD is Dr. Washburn in [facility] and her apt with him is in 05/02/18, in the meantime she ran out of her meds. Pt called clinic for an earlier apt but there was no availability. Pt requesting refill of simbicort, singular, motrin, miralax and prilosac. Denies chest pain, palpatations, dyspnea, abdominal pain, n/v/d/c chills and fever. PMD: Dr. Winslow, [facility] PMHx: anxiety, GERD, gastritis, Asthma, depression SurgHx: SH: smoking (15+yrs), denies ETOH and illicit drug use FH: hx of asthma, CAD Allergies: Macrolides, sulfa, latex- hives (Ashlyn Duke) Supervising Attending Note <Ashlyn Duke - Last Filed: 04/09/18 08:31> - Attestation: I have personally seen and examined this patient.: Yes I have fully participated in the care of the patient.: Yes I have reviewed all pertinent clinical information, including history, physical exam and plan: Yes <Toby Yañez III - Last Filed: 04/09/18 13:48> - Notes: Notes:: seen/examined, discussed refills need to be obtained via PMD. 15 day supply provided. (Toby Yañez III) Past Medical History - Medical History PMH: Anxiety, Arthritis, Asthma, Bronchitis, CAD, Depression, Gastritis, GERD, HTN, Hypercholesterolemia, Migraine, Personality Disorder, Rheumatoid Arthritis , Chronic Pain Denies: Chronic Kidney Disease - Surgical History Surgical History: - Family History Family History: States: Unknown Family Hx, CAD - Living Arrangements Living Arrangements: With Family - Immunization History Hx Tetanus Toxoid Vaccination: No Hx Influenza Vaccination: Yes <Ashlyn Duke - Last Filed: 04/09/18 08:31> <Toby Yañez III - Last Filed: 04/09/18 13:48> Vital Signs: Last Vital Signs Temp 97.6 F 04/09/18 08:33 Pulse 78 04/09/18 08:33 Resp 19 04/09/18 08:33 BP 124/80 04/09/18 08:33 Pulse Ox 96 04/09/18 08:42 - Home Medications Home Medications: Ambulatory Orders Medication Instructions Recorded Lorazepam 1 mg PO DAILY #20 tab 05/21/14 Albuterol 0.5% [Albuterol 0.5% 2.5 mg IH Q6H PRN #3 neb 01/28/15 Inhal Bryanna (2.5 mg/0.5 ml) UD] Albuterol HFA [Ventolin HFA 90 2 puff IH Q4H #1 puff 12/08/15 mcg/actuation (8 g)] Albuterol 0.5% [Albuterol 0.5% 2.5 mg IH BID 03/26/16 Inhal Bryanna (2.5 mg/0.5 ml) UD] Aspirin [Adult Low Dose Aspirin EC] 81 mg PO DAILY 03/26/16 Cholecalciferol (Vitamin D3) 2,000 unit PO DAILY 03/26/16 [Vitamin D] Esomeprazole Magnesium [Nexium] 40 mg PO DAILY 03/26/16 Fexofenadine/Pseudoephedrine 1 each PO DAILY 03/26/16 [Yarelis-D 12 Hour Tablet] Ibuprofen [Motrin] 600 mg PO DAILY 03/26/16 Lorazepam 1 mg PO Q4 03/26/16 Montelukast [Singulair] 10 mg PO DAILY 03/26/16 Tiotropium [Spiriva] 18 mcg IH DAILY 03/26/16 Venlafaxine [Effexor XR] 150 mg PO DAILY 03/26/16 traZODone [trazODONE HYDROCHLORIDE] 50 mg PO HS 03/26/16 Ibuprofen [Motrin] 600 mg PO Q6H PRN #20 tab 04/12/16 Permethrin 5% [Permethrin] 5 g TP PRN PRN #1 tube 04/12/16 Cephalexin [cephalexin] 500 mg PO BID #20 cap 06/29/16 Ibuprofen [Motrin] 400 mg PO Q6 #30 tab 06/29/16 Methylprednisolone [Medrol Dose 4 mg PO DAILY #21 mg 06/29/16 Pack (21 tabs)] Amoxicillin 500 mg PO TID #15 tablet 07/26/16 Ibuprofen [Motrin Tab] 600 mg PO Q8 PRN #21 07/26/16 LORazepam [Ativan] 1 mg PO DAILY #5 tab 07/26/16 Albuterol 0.5% [Albuterol 0.5% 2.5 mg IH Q6H PRN #3 neb 10/25/16 Inhal Bryanna (2.5 mg/0.5 ml) UD] Montelukast [Singulair] 10 mg PO DAILY 5 Days tab 10/25/16 Tiotropium [place] [Spiriva 2.5 mcg IH DAILY PRN 5 Days ml 10/25/16 Respimat] predniSONE [predniSONE Tab] 20 mg PO BID 5 Days tab 10/25/16 Azithromycin [Zithromax] 250 mg PO DAILY #6 tab 10/30/16 Benzonatate 200 mg PO TID PRN #20 capsule 10/30/16 Albuterol HFA [Ventolin HFA 90 2 puff IH Q4 PRN #1 unit 11/05/16 mcg/actuation (8 g)] Benzonatate [Tessalon Perles] 100 mg PO TID PRN #20 cap 11/05/16 Methylprednisolone [Medrol Dose 4 mg PO DAILY #1 packet 11/05/16 Pack (21 tabs)] Triamcinolone Acetonide [Nasacort 1 spray NS DAILY #1 unit 11/05/16 Allergy 24Hr] Benzonatate [Tessalon Perle] 100 mg PO TID PRN #15 capsule 11/14/16 Ondansetron ODT [Zofran ODT] 4 mg PO Q6 PRN #16 odt 11/14/16 Oseltamivir [Tamiflu] 75 mg PO BID #9 cap 11/14/16 Albuterol HFA [Ventolin HFA 90 2 puff IH Q6 #200 puff 11/25/16 mcg/actuation (8 g)] Benzonatate [Tessalon Perles] 100 mg PO TID #20 sgl 11/25/16 Amoxicillin/Clavulanate [Augmentin 1 tab PO BID #20 tab 11/27/16 875 MG-125 MG] Benzonatate [Tessalon Perles] 200 mg PO TID #30 tab 11/27/16 Ibuprofen [Motrin] 600 mg PO BID #20 tab 11/27/16 Albuterol HFA [Ventolin HFA 90 2 puff IH [id number] PRN #1 bottle 12/20/16 mcg/actuation (8 g)] Amoxicillin/Clavulanate [Augmentin 1 tab PO BID #19 tab 12/20/16 875 MG-125 MG] Benzonatate [Tessalon Perle] 100 mg PO BID #12 capsule 12/20/16 Albuterol 0.083% [Albuterol 3 ml IH QID PRN #60 neb 01/06/17 Sulfate 3 Ml] Albuterol HFA [Ventolin HFA 90 2 puff IH [id number] PRN #60 puff 01/06/17 mcg/actuation (8 g)] Benzonatate [Tessalon Perles] 100 mg PO TID PRN #30 sgl 01/06/17 Clotrimazole 1% Cream [Lotrimin 1% 15 applic EXT BID #1 tube 01/27/17 CREAM] Ibuprofen [Motrin Tab] 600 mg PO Q6 PRN #15 tab 01/27/17 Compr.stocking,Knee,Reg,X-Lrg 1 each MC DAILY #2 each 01/29/17 [T.e.d. Anti-Embolism Stocking] Meloxicam [Mobic] 1 - 2 tab PO DAILY PRN #15 tab 06/13/17 Ibuprofen [Motrin] 600 mg PO Q6 PRN #20 tab 07/14/17 Albuterol HFA [Ventolin HFA 90 1 puff IH BID PRN #1 unit 07/20/17 mcg/actuation (8 g)] Amoxicillin/Clavulanate [Augmentin 1 tab PO BID #20 tab 07/20/17 875 MG-125 MG] Azithromycin 250 mg PO DAILY #6 tab 07/20/17 Albuterol HFA [Ventolin HFA 90 2 puff IH [id number] PRN #60 puff 07/22/17 mcg/actuation (8 g)] predniSONE [predniSONE Tab] 40 mg PO DAILY #6 tab 07/22/17 Albuterol HFA [Ventolin HFA 90 2 puff IH Q4H #1 puff 08/06/17 mcg/actuation (8 g)] Amoxicillin [Amoxil 500 mg Cap] 500 mg PO Q8 #30 cap 08/06/17 Ibuprofen [Motrin Tab] 600 mg PO Q8H PRN #30 tab 08/19/17 Montelukast [Singulair] 10 mg PO DAILY #30 tab 08/22/17 Omeprazole Magnesium [Prilosec Otc] 40 mg PO DAILY #30 tablet.dr 08/22/17 guaiFENesin/Dextromethorphan 1 tab PO Q8 PRN #15 tab 08/22/17 [guaiFENesin/DM 600-30 mg] Albuterol HFA [Ventolin HFA 90 2 puff IH Q6 #200 puff 09/02/17 mcg/actuation (8 g)] Levofloxacin [Levaquin] 500 mg PO BID #14 tablet 09/02/17 predniSONE [predniSONE Tab] 20 mg PO BID #8 tab 09/02/17 Budesonide/Formoterol Fumarate 1 - 2 gm IH BID #1 hfa.aer.ad 09/17/17 [Symbicort 80-4.5 Mcg Inhaler] Dextromethorphan Polistirex 30 mg PO BID #80 megan.er.12h 09/17/17 [Delsym] Omeprazole Magnesium [Prilosec Otc] 40 mg PO DAILY #30 tcp 09/17/17 Oseltamivir Phosphate [Tamiflu] 75 mg PO BID #10 capsule 09/17/17 Naproxen [Naprosyn] 500 mg PO Q12H #20 tab 10/16/17 traMADol [Ultram] 50 mg PO Q8 #10 tab 10/16/17 Albuterol HFA [Ventolin HFA 90 2 puff IH [id number] PRN #1 bottle 11/26/17 mcg/actuation (8 g)] Amoxicillin/Clavulanate [Augmentin 1 tab PO BID #14 tab 11/26/17 875 MG-125 MG] Fluticasone/Salmeterol 1 each IH DAILY #1 aer.pow.ba 11/26/17 [Fluticasone-Salmeterol 232-14] Loratadine [Claritin] 10 mg PO DAILY PRN #5 tab 12/03/17 Ibuprofen [Motrin] 600 mg PO Q6H PRN #20 tab 02/02/18 Loratadine [Claritin] 10 mg PO DAILY #5 tab 02/02/18 Polyethylene Glycol 3350 [Miralax] 1 tbs PO DAILY PRN #1 bottle 02/02/18 Fluticasone/Salmeterol 250/50 1 puff IH DAILY #1 each 02/09/18 [Advair Diskus 250/50] Ibuprofen [Motrin] 600 mg PO Q6 #20 tab 02/09/18 Omeprazole 40 mg PO DAILY #30 capsule.dr 02/09/18 predniSONE [predniSONE Tab] 40 mg PO DAILY 4 Days tab 02/09/18 Budesonide/Formoterol Fumarate 2 puff IH Q12H #1 hfa.aer.ad 03/12/18 [Symbicort 160-4.5 Mcg Inhaler] Doxycycline Monohydrate 100 mg PO BID #14 capsule 03/12/18 Omeprazole 40 mg PO DAILY #30 capsule. 03/12/18 Ibuprofen [Motrin Tab] 600 mg PO TID PRN #30 tab 03/18/18 Gabapentin 300 mg PO HS #30 capsule 03/23/18 Methylprednisolone [Medrol Dose 4 mg PO ASDIR #21 mg 03/23/18 Pack (21 tabs)] Budesonide/Formoterol Fumarate 6.9 gm IH BID #1 hfa.aer.ad 04/09/18 [Symbicort 80-4.5 Mcg Inhaler] Ibuprofen [Motrin Tab] 600 mg PO Q6 PRN #15 tab 04/09/18 Montelukast [Singulair] 10 mg PO DAILY #15 tab 04/09/18 Omeprazole Magnesium [Prilosec Otc] 40 mg PO DAILY #15 tab 04/09/18 Polyethylene Glycol 3350 [Miralax] 17 gm PO DAILY PRN #1 powd.pack 04/09/18 - Allergies Allergies/Adverse Reactions: Allergies Allergy/AdvReac Type Severity Reaction Status Date / Time azithromycin Allergy RASH Verified 04/09/18 08:08 cyclobenzaprine HCl Allergy RASH Verified 04/09/18 08:08 [From Flexeril] latex Allergy RASH Verified 04/09/18 08:08 Sulfa (Sulfonamide Allergy RASH Verified 04/09/18 08:08 Antibiotics) bacitracin AdvReac RASH Verified 04/09/18 08:08 Review of Systems Constitutional: Negative for: Fever, Chills Cardiovascular: Negative for: Chest Pain, Palpitations Respiratory: Negative for: Cough, Shortness of Breath Gastrointestinal: Negative for: Nausea, Vomiting Genitourinary Female: Negative for: Dysuria, Frequency Neurological: Negative for: Weakness, Numbness <Ashlyn Duke - Last Filed: 04/09/18 08:31> Physical Exam - Physical Exam Appears: Positive for: No Acute Distress Skin: Positive for: Normal Color Cardiovascular/Chest: Positive for: Regular Rate, Rhythm. Negative for: Murmur Respiratory: Positive for: Normal Breath Sounds, Wheezing (mild expiratory wheezing in lower lobes ). Negative for: Accessory Muscle Use, Crackles, Rhonchi Gastrointestinal/Abdominal: Positive for: Normal Exam, Bowel Sounds, Soft. Negative for: Tenderness Back: Positive for: Normal Inspection Extremity: Positive for: Normal ROM. Negative for: Tenderness, Pedal Edema Neurologic/Psych: Positive for: Alert <Ashlyn Duke - Last Filed: 04/09/18 08:31> - ECG O2 Sat by Pulse Oximetry: 96 <Ashlyn Duke - Last Filed: 04/09/18 08:31> <Toby Yañez III - Last Filed: 04/09/18 13:48> - Progress ED Course And Treament: 47 YO female seen for med refill. -Meds refilled as request -pt encouraged to see MD for a follow up earlier -ER precautions given for asthma (Ashlyn Duke) Disposition - Disposition Disposition Time: 08:42 <Ashlyn Duke - Last Filed: 04/09/18 08:31> <Toby Yañez III - Last Filed: 04/09/18 13:48> - Clinical Impression Clinical Impression: Encounter for medication refill - Disposition Referrals: [facility] [Outside] Condition: STABLE Additional Instructions: See your primary doctor for future refills of your maintenance medications. Prescriptions: Budesonide/Formoterol Fumarate [Symbicort 80-4.5 Mcg Inhaler] 6.9 gm IH BID #1 hfa.aer.ad Ibuprofen [Motrin Tab] 600 mg PO Q6 PRN #15 tab PRN Reason: Pain, Moderate (4-7) Montelukast [Singulair] 10 mg PO DAILY #15 tab Omeprazole Magnesium [Prilosec Otc] 40 mg PO DAILY #15 tab Polyethylene Glycol 3350 [Miralax] 17 gm PO DAILY PRN #1 powd.pack PRN Reason: Constipation Instructions: Asthma in Adults, Medicines for Asthma Forms: [facility] ([place])
== END 2018-04-09 08:56 | disposition home or self-care (01) ==
LOC: H.ER 07:52
DX: Z76.0 Encounter for issue of repeat prescription (principal); I10 Essential (primary) hypertension; F17.210 Nicotine dependence, cigarettes, uncomplicated

== ENCOUNTER 2018-07-08 08:24 | Emergency (ER) | payer MEDICAID ==
[2018-07-08 08:26] VITALS: BMI 37.4
[2018-07-08 08:27] VITALS: TEMP 98.7
[2018-07-08] MEDS ORDERED: Albuterol-Ipratrop 3 mg / 0.5 (3 ml) UD INH STA (09:17)
--- NOTE | 2018-07-08 09:39 | ED PDOC ---
HPI: Asthma Time Seen by Provider: 07/08/18 09:07 Chief Complaint (Nursing): Cough, Cold, Congestion Chief Complaint (Provider): cough, SOB History Per: Patient History/Exam Limitations: no limitations Onset/Duration Of Symptoms: Gradual Current Symptoms Are (Timing): Still Present Associated Symptoms: Cough, Sputum Production Precipitating Factors: Weather Change, URI Symptoms Severity: Moderate Additional Complaint(s): 48yo female c/o cough w productive clear sputum w/ SOB and wheeze, taking albuterol at home without much relief. Ongoing 3-4 days, denies fever, orthopnea. Also requesting refill of prilosec medication. Denies recent steroid use. Past Medical History Reviewed: Historical Data, Nursing Documentation, Vital Signs Vital Signs: Last Vital Signs Temp 98.7 F 07/08/18 08:26 Pulse 83 07/08/18 08:26 Resp 17 07/08/18 08:26 BP 130/79 07/08/18 08:26 Pulse Ox 95 07/08/18 08:26 - Medical History PMH: Anxiety, Arthritis, Asthma, Bronchitis, CAD, Depression, Gastritis, GERD, HTN, Hypercholesterolemia, Migraine, Personality Disorder, Rheumatoid Arthritis, Chronic Pain Denies: Chronic Kidney Disease - Surgical History Surgical History: - Family History Family History: States: Unknown Family Hx, CAD - Social History Current smoker - smoking cessation education provided: Yes Drugs: Denies - Immunization History Hx Tetanus Toxoid Vaccination: No Hx Influenza Vaccination: Yes - Home Medications Home Medications: Ambulatory Orders Medication Instructions Recorded Lorazepam 1 mg PO DAILY #20 tab 05/21/14 Albuterol 0.5% [Albuterol 0.5% 2.5 mg IH Q6H PRN #3 neb 01/28/15 Inhal Bryanna (2.5 mg/0.5 ml) UD] Albuterol HFA [Ventolin HFA 90 2 puff IH Q4H #1 puff 12/08/15 mcg/actuation (8 g)] Albuterol 0.5% [Albuterol 0.5% 2.5 mg IH BID 03/26/16 Inhal Bryanna (2.5 mg/0.5 ml) UD] Aspirin [Adult Low Dose Aspirin EC] 81 mg PO DAILY 03/26/16 Cholecalciferol (Vitamin D3) 2,000 unit PO DAILY 03/26/16 [Vitamin D] Esomeprazole Magnesium [Nexium] 40 mg PO DAILY 03/26/16 Fexofenadine/Pseudoephedrine 1 each PO DAILY 03/26/16 [Yarelis-D 12 Hour Tablet] Ibuprofen [Motrin] 600 mg PO DAILY 03/26/16 Lorazepam 1 mg PO Q4 03/26/16 Montelukast [Singulair] 10 mg PO DAILY 03/26/16 Tiotropium [Spiriva] 18 mcg IH DAILY 03/26/16 Venlafaxine [Effexor XR] 150 mg PO DAILY 03/26/16 traZODone [trazODONE HYDROCHLORIDE] 50 mg PO HS 03/26/16 Ibuprofen [Motrin] 600 mg PO Q6H PRN #20 tab 04/12/16 Permethrin 5% [Permethrin] 5 g TP PRN PRN #1 tube 04/12/16 Cephalexin [cephalexin] 500 mg PO BID #20 cap 06/29/16 Ibuprofen [Motrin] 400 mg PO Q6 #30 tab 06/29/16 Methylprednisolone [Medrol Dose 4 mg PO DAILY #21 mg 06/29/16 Pack (21 tabs)] Amoxicillin 500 mg PO TID #15 tablet 07/26/16 Ibuprofen [Motrin Tab] 600 mg PO Q8 PRN #21 07/26/16 LORazepam [Ativan] 1 mg PO DAILY #5 tab 07/26/16 Albuterol 0.5% [Albuterol 0.5% 2.5 mg IH Q6H PRN #3 neb 10/25/16 Inhal Bryanna (2.5 mg/0.5 ml) UD] Montelukast [Singulair] 10 mg PO DAILY 5 Days tab 10/25/16 Tiotropium [place] [Spiriva 2.5 mcg IH DAILY PRN 5 Days ml 10/25/16 Respimat] predniSONE [predniSONE Tab] 20 mg PO BID 5 Days tab 10/25/16 Azithromycin [Zithromax] 250 mg PO DAILY #6 tab 10/30/16 Benzonatate 200 mg PO TID PRN #20 capsule 10/30/16 Albuterol HFA [Ventolin HFA 90 2 puff IH Q4 PRN #1 unit 11/05/16 mcg/actuation (8 g)] Benzonatate [Tessalon Perles] 100 mg PO TID PRN #20 cap 11/05/16 Methylprednisolone [Medrol Dose 4 mg PO DAILY #1 packet 11/05/16 Pack (21 tabs)] Triamcinolone Acetonide [Nasacort 1 spray NS DAILY #1 unit 11/05/16 Allergy 24Hr] Benzonatate [Tessalon Perle] 100 mg PO TID PRN #15 capsule 11/14/16 Ondansetron ODT [Zofran ODT] 4 mg PO Q6 PRN #16 odt 11/14/16 Oseltamivir [Tamiflu] 75 mg PO BID #9 cap 11/14/16 Albuterol HFA [Ventolin HFA 90 2 puff IH Q6 #200 puff 11/25/16 mcg/actuation (8 g)] Benzonatate [Tessalon Perles] 100 mg PO TID #20 sgl 11/25/16 Amoxicillin/Clavulanate [Augmentin 1 tab PO BID #20 tab 11/27/16 875 MG-125 MG] Benzonatate [Tessalon Perles] 200 mg PO TID #30 tab 11/27/16 Ibuprofen [Motrin] 600 mg PO BID #20 tab 11/27/16 Albuterol HFA [Ventolin HFA 90 2 puff IH [id number] PRN #1 bottle 12/20/16 mcg/actuation (8 g)] Amoxicillin/Clavulanate [Augmentin 1 tab PO BID #19 tab 12/20/16 875 MG-125 MG] Benzonatate [Tessalon Perle] 100 mg PO BID #12 capsule 12/20/16 Albuterol 0.083% [Albuterol 3 ml IH QID PRN #60 neb 01/06/17 Sulfate 3 Ml] Albuterol HFA [Ventolin HFA 90 2 puff IH [id number] PRN #60 puff 01/06/17 mcg/actuation (8 g)] Benzonatate [Tessalon Perles] 100 mg PO TID PRN #30 sgl 01/06/17 Clotrimazole 1% Cream [Lotrimin 1% 15 applic EXT BID #1 tube 01/27/17 CREAM] Ibuprofen [Motrin Tab] 600 mg PO Q6 PRN #15 tab 01/27/17 Jad.stocking,Knee,Reg,Xlrg 1 each MC DAILY #2 each 01/29/17 [T.e.d. Anti-Embolism Stocking] Meloxicam [Mobic] 1 - 2 tab PO DAILY PRN #15 tab 06/13/17 Ibuprofen [Motrin] 600 mg PO Q6 PRN #20 tab 07/14/17 Albuterol HFA [Ventolin HFA 90 1 puff IH BID PRN #1 unit 07/20/17 mcg/actuation (8 g)] Amoxicillin/Clavulanate [Augmentin 1 tab PO BID #20 tab 07/20/17 875 MG-125 MG] Azithromycin 250 mg PO DAILY #6 tab 07/20/17 Albuterol HFA [Ventolin HFA 90 2 puff IH [id number] PRN #60 puff 07/22/17 mcg/actuation (8 g)] predniSONE [predniSONE Tab] 40 mg PO DAILY #6 tab 07/22/17 Albuterol HFA [Ventolin HFA 90 2 puff IH Q4H #1 puff 08/06/17 mcg/actuation (8 g)] Amoxicillin [Amoxil 500 mg Cap] 500 mg PO Q8 #30 cap 08/06/17 Ibuprofen [Motrin Tab] 600 mg PO Q8H PRN #30 tab 08/19/17 Montelukast [Singulair] 10 mg PO DAILY #30 tab 08/22/17 Omeprazole Magnesium [Prilosec Otc] 40 mg PO DAILY #30 tablet. 08/22/17 guaiFENesin/Dextromethorphan 1 tab PO Q8 PRN #15 tab 08/22/17 [guaiFENesin/DM 600-30 mg] Albuterol HFA [Ventolin HFA 90 2 puff IH Q6 #200 puff 09/02/17 mcg/actuation (8 g)] Levofloxacin [Levaquin] 500 mg PO BID #14 tablet 09/02/17 predniSONE [predniSONE Tab] 20 mg PO BID #8 tab 09/02/17 Budesonide/Formoterol Fumarate 1 - 2 gm IH BID #1 hfa.aer.ad 09/17/17 [Symbicort 80-4.5 Mcg Inhaler] Dextromethorphan Polistirex 30 mg PO BID #80 megan.er.12h 09/17/17 [Delsym] Omeprazole Magnesium [Prilosec Otc] 40 mg PO DAILY #30 tcp 09/17/17 Oseltamivir Phosphate [Tamiflu] 75 mg PO BID #10 capsule 09/17/17 Naproxen [Naprosyn] 500 mg PO Q12H #20 tab 10/16/17 traMADol [Ultram] 50 mg PO Q8 #10 tab 10/16/17 Albuterol HFA [Ventolin HFA 90 2 puff IH [id number] PRN #1 bottle 11/26/17 mcg/actuation (8 g)] Amoxicillin/Clavulanate [Augmentin 1 tab PO BID #14 tab 11/26/17 875 MG-125 MG] Fluticasone/Salmeterol 1 each IH DAILY #1 aer.pow.ba 11/26/17 [Fluticasone-Salmeterol 232-14] Loratadine [Claritin] 10 mg PO DAILY PRN #5 tab 12/03/17 Ibuprofen [Motrin] 600 mg PO Q6H PRN #20 tab 02/02/18 Loratadine [Claritin] 10 mg PO DAILY #5 tab 02/02/18 Polyethylene Glycol 3350 [Miralax] 1 tbs PO DAILY PRN #1 bottle 02/02/18 Fluticasone/Salmeterol 250/50 1 puff IH DAILY #1 each 02/09/18 [Advair Diskus 250/50] Ibuprofen [Motrin] 600 mg PO Q6 #20 tab 02/09/18 Omeprazole 40 mg PO DAILY #30 capsule. 02/09/18 predniSONE [predniSONE Tab] 40 mg PO DAILY 4 Days tab 02/09/18 Budesonide/Formoterol Fumarate 2 puff IH Q12H #1 hfa.aer.ad 03/12/18 [Symbicort 160-4.5 Mcg Inhaler] Doxycycline Monohydrate 100 mg PO BID #14 capsule 03/12/18 Omeprazole 40 mg PO DAILY #30 capsule. 03/12/18 Ibuprofen [Motrin Tab] 600 mg PO TID PRN #30 tab 03/18/18 Gabapentin 300 mg PO HS #30 capsule 03/23/18 Methylprednisolone [Medrol Dose 4 mg PO ASDIR #21 mg 03/23/18 Pack (21 tabs)] Budesonide/Formoterol Fumarate 6.9 gm IH BID #1 hfa.aer.ad 04/09/18 [Symbicort 80-4.5 Mcg Inhaler] Ibuprofen [Motrin Tab] 600 mg PO Q6 PRN #15 tab 04/09/18 Montelukast [Singulair] 10 mg PO DAILY #15 tab 04/09/18 Omeprazole Magnesium [Prilosec Otc] 40 mg PO DAILY #15 tab 04/09/18 Polyethylene Glycol 3350 [Miralax] 17 gm PO DAILY PRN #1 powd.pack 04/09/18 Albuterol 0.083% [Albuterol 0.083% 2.5 mg IH Q4 PRN #20 neb 07/08/18 Inhal Bryanna (2.5 mg/3 ml) UD] Albuterol HFA [Ventolin HFA 90 1 - 2 puff IH Q4 PRN #1 inhaler 07/08/18 mcg/actuation (8 g)] Amoxicillin/Clavulanate [Augmentin 1 tab PO BID #14 tab 07/08/18 875 MG-125 MG] Omeprazole Magnesium [Prilosec Otc] 20 mg PO DAILY #20 tab 07/08/18 Prednisone 50 mg PO DAILY #4 tab 07/08/18 - Allergies Allergies/Adverse Reactions: Allergies Allergy/AdvReac Type Severity Reaction Status Date / Time azithromycin Allergy RASH Verified 07/08/18 08:45 cyclobenzaprine HCl Allergy RASH Verified 07/08/18 08:45 [From Flexeril] latex Allergy RASH Verified 07/08/18 08:45 Sulfa (Sulfonamide Allergy RASH Verified 07/08/18 08:45 Antibiotics) bacitracin AdvReac RASH Verified 07/08/18 08:45 Review of Systems Constitutional: Negative for: Fever Eyes: Negative for: Vision Change, Eyelid Inflammation ENT: Negative for: Ear Pain Cardiovascular: Negative for: Chest Pain Respiratory: Positive for: Cough, Shortness of Breath, SOB with Exertion, Sputum, Wheezing Gastrointestinal: Negative for: Vomiting, Abdominal Pain Genitourinary Female: Negative for: Dysuria Musculoskeletal: Negative for: Neck Pain, Back Pain Skin: Negative for: Rash, Lesions Neurological: Negative for: Weakness, Numbness, Change in Speech Psych: Negative for: Suicidal ideation Physical Exam - Reviewed Nursing Documentation Reviewed: Yes Vital Signs Reviewed: Yes - Physical Exam Appears: Positive for: Well, Non-toxic, No Acute Distress Head Exam: Positive for: ATRAUMATIC, NORMAL INSPECTION, NORMOCEPHALIC Skin: Positive for: Normal Color, Warm, DRY Eye Exam: Positive for: EOMI, Normal appearance, PERRL ENT: Positive for: Normal ENT Inspection Neck: Positive for: Normal, Painless ROM Cardiovascular/Chest: Positive for: Regular Rate, Rhythm Respiratory: Positive for: Wheezing. Negative for: Rhonchi, Respiratory Distress Gastrointestinal/Abdominal: Positive for: Normal Exam, Soft Back: Positive for: Normal Inspection Extremity: Positive for: Normal ROM Neurologic/Psych: Positive for: Alert, Oriented - ECG O2 Sat by Pulse Oximetry: 95 Pulse Ox Interpretation: Normal - Radiology X-Ray: Interpreted by Me X-Ray Interpretation: Infiltrates (? small infiltrate RLL ) Medical Decision Making Medical Decision Making: workup for URI w asthma exacerbation initiated check CXR, nebulizer, solumedrol 125mg IM and re-eval re-eval showed improved auscultation. normal respiratory pattern. DC w Abx given smoking w cough and bronchitic symptoms confirmed not allergic PCN has appt w clinic in 2 weeks smoking cessation discussed at length refill prilosec on pt request, also indicated given now on prednisone/ Disposition - Clinical Impression Clinical Impression: Asthma attack, Bronchitis - Patient ED Disposition Is Patient to be Admitted: No Counseled Patient/Family Regarding: Studies Performed, Diagnosis, Need For Followup, Rx Given - Disposition Referrals: LTAC, [facility] [Outside] Disposition: Routine/Home Disposition Time: 10:25 Condition: STABLE Additional Instructions: Return to ER for any difficulty breathing. Take medications as directed. STOP smoking. Prescriptions: Albuterol 0.083% [Albuterol 0.083% Inhal Bryanna (2.5 mg/3 ml) UD] 2.5 mg IH Q4 PRN #20 neb PRN Reason: Wheezing Albuterol HFA [Ventolin HFA 90 mcg/actuation (8 g)] 1 - 2 puff IH Q4 PRN #1 inhaler PRN Reason: Shortness Of Breath Amoxicillin/Clavulanate [Augmentin 875 MG-125 MG] 1 tab PO BID #14 tab Omeprazole Magnesium [Prilosec Otc] 20 mg PO DAILY #20 tab Prednisone 50 mg PO DAILY #4 tab Instructions: Asthma, Adult (DC), Acute Bronchitis Forms: [facility] [facility] ([place])
[2018-07-08 10:37] VITALS: BP 126/69; PULSE 78; RESP 18
[2018-07-08 13:05] VITALS: O2SAT 95
--- NOTE | 2018-07-08 13:32 | RAD ---
Date of service: 07/08/2018 HISTORY: cough SOB COMPARISON: 11/26/2017. TECHNIQUE: Chest PA and lateral FINDINGS: LUNGS: No active pulmonary disease. PLEURA: No significant pleural effusion identified. No pneumothorax apparent. CARDIOVASCULAR: No radiographic findings to suggest acute or significant cardiovascular disease. OSSEOUS STRUCTURES: No significant abnormalities. VISUALIZED UPPER ABDOMEN: Normal. OTHER FINDINGS: None. IMPRESSION: No active disease. No significant interval change compared to the prior examination(s).
== END 2018-07-08 10:38 | disposition home or self-care (01) ==
LOC: H.ER 08:24
DX: J45.909 Unspecified asthma, uncomplicated (principal); J40 Bronchitis, not specified as acute or chronic; Z82.49 Family history of ischemic heart disease and other diseases of the circulatory system
CPT/HCPCS: 71046; 94640; 96372; 99282; J2930

== ENCOUNTER 2018-07-20 11:28 | Emergency (ER) | payer MEDICAID ==
[2018-07-20 11:28] VITALS: BMI 37.4
--- NOTE | 2018-07-20 12:13 | ED PDOC ---
Lower Extremity Pain/Injury Time Seen by Provider: 07/20/18 11:49 Chief Complaint (Provider): Lower Extremity Problem History Per: Patient History/Exam Limitations: no limitations Onset/Duration Of Symptoms: Other (Many months) Additional Complaint(s): 48 years old female with history of bipolar disease presents to ER after she was referred from [facility] for evaluation of redness and swelling of lower extremity bilaterally ongoing for many months. Patient denies any fever, chest pain, shortness of breath or any injury. PMD: non provided Past Medical History Reviewed: Historical Data, Nursing Documentation, Vital Signs Vital Signs: Last Vital Signs Temp 97.9 F 07/20/18 11:30 Pulse 76 07/20/18 11:30 Resp 20 07/20/18 11:30 BP 110/51 L 07/20/18 11:30 Pulse Ox 96 07/20/18 11:30 - Medical History PMH: Anxiety, Arthritis, Asthma, Bipolar Disorder, Bronchitis, CAD, Depression, Gastritis, GERD, HTN, Hypercholesterolemia, Migraine, Personality Disorder, Rheumatoid Arthritis, Chronic Pain Denies: Chronic Kidney Disease - Surgical History Surgical History: No Surg Hx, - Family History Family History: States: Unknown Family Hx, CAD - Immunization History Hx Tetanus Toxoid Vaccination: No Hx Influenza Vaccination: Yes - Home Medications Home Medications: Ambulatory Orders Medication Instructions Recorded Aspirin [Adult Low Dose Aspirin EC] 81 mg PO DAILY 03/26/16 Cholecalciferol (Vitamin D3) 2,000 unit PO DAILY 03/26/16 [Vitamin D] Montelukast [Singulair] 10 mg PO DAILY 03/26/16 Tiotropium [Spiriva] 18 mcg IH DAILY 03/26/16 Venlafaxine [Effexor XR] 150 mg PO DAILY 03/26/16 traZODone [trazODONE HYDROCHLORIDE] 50 mg PO HS 03/26/16 Gabapentin 300 mg PO HS #30 capsule 03/23/18 Albuterol 0.083% [Albuterol 0.083% 2.5 mg IH Q4 PRN #20 neb 07/08/18 Inhal Bryanna (2.5 mg/3 ml) UD] Albuterol HFA [Ventolin HFA 90 1 - 2 puff IH Q4 PRN #1 inhaler 07/08/18 mcg/actuation (8 g)] Omeprazole Magnesium [Prilosec Otc] 20 mg PO DAILY #20 tab 07/08/18 Prednisone 50 mg PO DAILY #4 tab 07/08/18 Clindamycin [Cleocin] 300 mg PO TID #30 cap 07/20/18 Naproxen [Naprosyn] 500 mg PO Q12H #20 tab 07/20/18 - Allergies Allergies/Adverse Reactions: Allergies Allergy/AdvReac Type Severity Reaction Status Date / Time azithromycin Allergy RASH Verified 07/08/18 08:45 cyclobenzaprine HCl Allergy RASH Verified 07/08/18 08:45 [From Flexeril] latex Allergy RASH Verified 07/08/18 08:45 Sulfa (Sulfonamide Allergy RASH Verified 07/08/18 08:45 Antibiotics) bacitracin AdvReac RASH Verified 07/08/18 08:45 Review of Systems ROS Statement: Except As Marked, All Systems Reviewed And Found Negative Constitutional: Negative for: Fever Cardiovascular: Negative for: Chest Pain Respiratory: Negative for: Shortness of Breath Musculoskeletal: Positive for: Other (lower extremity with redness and swelling bilaterally) Physical Exam - Reviewed Nursing Documentation Reviewed: Yes Vital Signs Reviewed: Yes - Physical Exam Appears: Positive for: Non-toxic, No Acute Distress Head Exam: Positive for: ATRAUMATIC, NORMOCEPHALIC Cardiovascular/Chest: Positive for: Regular Rate, Rhythm. Negative for: Murmur Respiratory: Positive for: Normal Breath Sounds. Negative for: Wheezing Extremity: Positive for: Normal ROM, Swelling (with erythema and warmth pretibial bilaterally, right greater than left.). Negative for: Calf Tenderness, Other (Hubert sign) Neurologic/Psych: Positive for: Alert, Oriented (x3) - Laboratory Results Result Diagrams: 07/20/18 15:58 07/20/18 13:52 - ECG O2 Sat by Pulse Oximetry: 96 (RA) Pulse Ox Interpretation: Normal Medical Decision Making Medical Decision Making: Time: 1156 Initial Plan: --VBG --CMP --CBC --Blood Culture --US Duplex Lower Extremity Vein Bilaterally 1323 Extremity US FINDINGS: COMMON FEMORAL VEIN: Right CFV: Unremarkable. Left CFV: Unremarkable. SUPERFICIAL FEMORAL VEIN: Right SFV: Unremarkable. Left SFV: Unremarkable. POPLITEAL VEIN: Right Popliteal: Unremarkable. Left Popliteal: Unremarkable. POSTERIOR TIBIAL VEIN: Right PTV: Unremarkable. Left PTV: Unremarkable. OTHER FINDINGS: None. IMPRESSION: No evidence of deep venous thrombosis in the right or left lower extremity. Scribe Attestation: Documented by Hannah Washington, acting as a scribe for Abhishek Bashir MD. Provider Scribe Attestation: All medical record entries made by the Scribe were at my direction and personally dictated by me. I have reviewed the chart and agree that the record accurately reflects my personal performance of the history, physical exam, medical decision making, and the department course for this patient. I have also personally directed, reviewed, and agree with the discharge instructions and di sposition. Disposition - Clinical Impression Clinical Impression: Cellulitis - Patient ED Disposition Is Patient to be Admitted: No Counseled Patient/Family Regarding: Studies Performed, Diagnosis, Need For Followup, Rx Given - Disposition Referrals: [facility] [Outside] Disposition: Routine/Home Disposition Time: 16:25 Condition: FAIR Prescriptions: Clindamycin [Cleocin] 300 mg PO TID #30 cap Naproxen [Naprosyn] 500 mg PO Q12H #20 tab Instructions: Cellulitis (Skin Infection), Adult (DC)
[2018-07-20 12:36] VITALS: RESP 16
--- NOTE | 2018-07-20 13:26 | US ---
Date of service: 07/20/2018 PROCEDURE: Bilateral lower extremity venous duplex Doppler. HISTORY: Redness and swelling bilat COMPARISON: None available. TECHNIQUE: Bilateral common femoral, superficial femoral, popliteal and posterior tibial veins were evaluated. Flow was assessed with color Doppler, compressibility, assessment of phasic flow and augmentation response. FINDINGS: COMMON FEMORAL VEIN: Right CFV: Unremarkable. Left CFV: Unremarkable. SUPERFICIAL FEMORAL VEIN: Right SFV: Unremarkable. Left SFV: Unremarkable. POPLITEAL VEIN: Right Popliteal: Unremarkable. Left Popliteal: Unremarkable. POSTERIOR TIBIAL VEIN: Right PTV: Unremarkable. Left PTV: Unremarkable. OTHER FINDINGS: None. IMPRESSION: No evidence of deep venous thrombosis in the right or left lower extremity.
[2018-07-20 14:24] LABS: ALBUMIN 3.7 g/dL (3.5-5.0); ALT/SGPT 21 U/L (9-52); AST/SGOT 23 U/L (14-36); BLOOD UREA NITROGEN 14 mg/dl (7-17); GFR NON-AFRICAN AMERICAN > 60
[2018-07-20 15:00] LABS: VENOUS BLOOD GAS BASE EXCESS 2.5 mmol/L (0.0-2.0); VENOUS BLOOD GAS PCO2 48 mmHg (40-60); VENOUS BLOOD GAS PO2 50 mm/Hg (30-55); VENOUS BLOOD PH 7.38 (7.32-7.43)
[2018-07-20 16:10] LABS: BASO # 0.1 K/uL (0.0-0.2); BASO % 1.1 % (0.0-2.0); EOS # 0.2 K/uL (0.0-0.7); EOS % 2.4 % (0.0-4.0); HEMOGLOBIN 12.3 g/dL (12.0-16.0); LYMPH # 2.8 K/uL (1.0-4.3); LYMPH % 32.4 % (20.0-40.0); MEAN CELL VOLUME 90.1 fl (81.0-99.0); MEAN CORPUSCULAR HEMOGLOBIN 30.1 pg (27.0-31.0); MEAN CORPUSCULAR HGB CONC 33.4 g/dL (33.0-37.0); MONO # 0.6 K/uL (0.0-0.8); MONO % 7.3 % (0.0-10.0); NEUT # 4.9 K/uL (1.8-7.0); NEUT % 56.8 % (50.0-75.0); NRBC % 0.1 % (0.0-0.0); RBC 4.1 Mil/uL (3.80-5.20); RED CELL DISTRIBUTION WIDTH 13.3 % (11.5-14.5); WHITE BLOOD COUNT 8.5 K/uL (4.8-10.8)
[2018-07-20 16:43] VITALS: BP 101/62; PULSE 79; TEMP 98.1; O2SAT 97
== END 2018-07-20 16:41 | disposition home or self-care (01) ==
LOC: H.ER 11:28
DX: L03.116 Cellulitis of left lower limb (principal); L03.115 Cellulitis of right lower limb; E78.00 Pure hypercholesterolemia, unspecified; G89.29 Other chronic pain; I10 Essential (primary) hypertension; I25.10 Atherosclerotic heart disease of native coronary artery without angina pectoris; M06.9 Rheumatoid arthritis, unspecified

== ENCOUNTER 2018-08-16 13:18 | Emergency (ER) | payer MEDICAID ==
[2018-08-16] MEDS ORDERED: DiphenhydrAMINE 50 mg/ml Inj IVP STA (14:27)
[2018-08-16] MEDS ORDERED: Sodium Chloride 0.9% 1,000 ML IV ONE (14:28)
--- NOTE | 2018-08-16 14:45 | ED PDOC ---
Lower Extremity Pain/Injury Time Seen by Provider: 08/16/18 13:44 Chief Complaint (Nursing): Lower Extremity Problem/Injury Chief Complaint (Provider): lower extremity cellulitis History Per: Patient History/Exam Limitations: no limitations Onset/Duration Of Symptoms: Days (3-4 months) Additional Complaint(s): Jennifer Tariq, a 48 year old female with past medical history of bipolar disorder, presents to the ED for an evaluation of cellulitis to the right lower extremity ongoing for 3-4 months. Patient was seen at the end of June in [facility] ED for the same symptoms and got an ultrasound, which came back normal, and she also completed a course of Clindamycin with temporary improvement. She reports itching and continues to scratch the area, which has worsened her symptoms prompting a repeat evaluation. Patient's main complaint is itchiness and denies prolonged immobility, fever, chills, shortness of breath, chest pain, nausea, vomiting, abdominal pain, calf pain, pedal edema, or night sweats. Tetanus is up to date. No further medical complaints. PMD: Clinic Past Medical History Reviewed: Historical Data, Nursing Documentation, Vital Signs Vital Signs: Last Vital Signs Temp 98.2 F 08/16/18 13:38 Pulse 82 08/16/18 13:38 Resp 20 08/16/18 13:38 BP 128/77 08/16/18 13:38 Pulse Ox 97 08/16/18 13:38 - Medical History PMH: Anxiety, Arthritis, Asthma, Bipolar Disorder, Bronchitis, CAD, Depression, Gastritis, GERD, HTN, Hypercholesterolemia, Migraine, Personality Disorder, Rheumatoid Arthritis, Chronic Pain - Surgical History Surgical History: - Family History Family History: States: CAD - Immunization History Hx Tetanus Toxoid Vaccination: Yes (UTD) - Home Medications Home Medications: Ambulatory Orders Medication Instructions Recorded Aspirin [Adult Low Dose Aspirin EC] 81 mg PO DAILY 03/26/16 Cholecalciferol (Vitamin D3) 2,000 unit PO DAILY 03/26/16 [Vitamin D] Montelukast [Singulair] 10 mg PO DAILY 03/26/16 Tiotropium [Spiriva] 18 mcg IH DAILY 03/26/16 Venlafaxine [Effexor XR] 150 mg PO DAILY 03/26/16 traZODone [trazODONE HYDROCHLORIDE] 50 mg PO HS 03/26/16 RX: Gabapentin 300 mg PO HS #30 capsule 03/23/18 Omeprazole Magnesium [Prilosec Otc] 20 mg PO DAILY #20 tab 07/08/18 RX: Albuterol 0.083% [Albuterol 2.5 mg IH Q4 PRN #20 neb 07/08/18 0.083% Inhal Bryanna (2.5 mg/3 ml) UD] RX: Albuterol HFA [Ventolin HFA 90 1 - 2 puff IH Q4 PRN #1 inhaler 07/08/18 mcg/actuation (8 g)] RX: Prednisone 50 mg PO DAILY #4 tab 07/08/18 Naproxen [Naprosyn] 500 mg PO Q12H #20 tab 07/20/18 RX: Clindamycin [Cleocin] 300 mg PO TID #30 cap 07/20/18 - Allergies Allergies/Adverse Reactions: Allergies Allergy/AdvReac Type Severity Reaction Status Date / Time azithromycin Allergy RASH Verified 07/08/18 08:45 cyclobenzaprine HCl Allergy RASH Verified 07/08/18 08:45 [From Flexeril] latex Allergy RASH Verified 07/08/18 08:45 Sulfa (Sulfonamide Allergy RASH Verified 07/08/18 08:45 Antibiotics) bacitracin AdvReac RASH Verified 07/08/18 08:45 Review of Systems ROS Statement: Except As Marked, All Systems Reviewed And Found Negative Constitutional: Negative for: Fever, Chills Cardiovascular: Negative for: Chest Pain Respiratory: Negative for: Shortness of Breath Gastrointestinal: Negative for: Nausea, Vomiting, Abdominal Pain Musculoskeletal: Positive for: Leg Pain (right leg itching) Neurological: Negative for: Other (prolonged immobility) Physical Exam - Reviewed Nursing Documentation Reviewed: Yes Vital Signs Reviewed: Yes - Physical Exam Comments: GENERAL APPEARANCE: Patient is awake, alert, oriented x 3, in no acute distress; poor hygiene noted. SKIN: Warm, dry; (-) cyanosis. NECK: Supple, FROM ENT: Mucus membranes moist. Airway patent, (-) stridor. CHEST AND RESPIRATORY: (-) rales, (-) rhonchi, (-) wheezes; breath sounds equal bilaterally. Respirations even and nonlabored. HEART AND CARDIOVASCULAR: (-) irregularity LOWER EXTREMITY: (+) erythematous, scaling/scabbed patches to right anterior lower extremity (+) warmth (+) minimal tenderness and edema (+) venous stasis dermatitis, (-) calf tenderness, (-) ecchymosis (-) distal neurovascular deficit (+) sensation intact throughout (+) pulses. FROM throughout. NEURO AND PSYCH: Mental status as above. Gait: steady. Speech: clear. (-) facial asymmetry - ECG O2 Sat by Pulse Oximetry: 97 (RA) Pulse Ox Interpretation: Normal Medical Decision Making Medical Decision Making: Time: 13:40 Initial Impression: chronic cellulitis to right lower extremity Initial Plan: --BMP --CBC w. differential --Benadryl 50 mg IVP --Clindamycin 300 mg in 50 ml IV --Sodium chloride 1000 ml IV --Toradol 30 mg IVP --Blood culture --Re-evaluation 150 Patient arguing with significant other on the phone after significant other was asked to wait in the waiting room by security for using foul language in exam room. Patient exited ED stating she had to go and that she would follow up with her doctor. Patient unwilling to sign out AMA or wait for discharge papers. IV access and labs were not obtained. Patient received no medications prior to exiting ED. Scribe Attestation: Documented by Allison Ibarra, acting as a scribe for Bibi Melendez PA-C. Provider Scribe Attestation: All medical record entries made by the Scribe were at my direction and pers onally dictated by me. I have reviewed the chart and agree that the record accurately reflects my personal performance of the history, physical exam, medical decision making, and the department course for this patient. I have also personally directed, reviewed, and agree with the discharge instructions and disposition. Disposition - Clinical Impression Clinical Impression: Chronic cellulitis, Left before treatment completed - Patient ED Disposition Is Patient to be Admitted: No - Disposition Disposition Time: 15:05 Condition: UNKNOWN - POA Present On Arrival: None
[2018-08-16] MEDS ORDERED: Clindamycin in NS 300 MG/50 ML BAG IV ONE (15:00)
[2018-08-17 00:21] VITALS: BP 128/77; PULSE 82; RESP 20; TEMP 98.2; O2SAT 97; BMI 38.2
== END 2018-08-16 15:16 | disposition left against medical advice (07) ==
LOC: H.ER 13:18
DX: L03.115 Cellulitis of right lower limb (principal)

== ENCOUNTER 2018-08-20 09:31 | Inpatient (IN) | payer MEDICAID ==
[2018-08-20 09:48] VITALS: BMI 42.4
[2018-08-20] MEDS ORDERED: Piperacillin/Tazobact 3.375 GM in Sodium Chloride 0.9% 100 ML IV STA (10:13)
[2018-08-20] MEDS ORDERED: Sodium Chloride 0.9% 1,000 ML IV STA (10:13)
--- NOTE | 2018-08-20 10:21 | ED PDOC ---
Lower Extremity Pain/Injury Time Seen by Provider: 08/20/18 09:58 Chief Complaint (Nursing): Abnormal Skin Integrity Chief Complaint (Provider): Skin infection History Per: Patient History/Exam Limitations: no limitations Onset/Duration Of Symptoms: Days (1.5 months) Current Symptoms Are (Timing): Still Present Additional Complaint(s): Pt. with right leg infection on going for 1.5 months. 3 weeks ago got antibiotics for it (clinda) and finished it. States pain in the zendejas area and dc coming from it. No numbness, tingles, weakness. No calf pain. No chest pain, dyspnea, fever, cough. No back pain. Seen in ER 2 other times. Past Medical History Reviewed: Nursing Documentation, Vital Signs Vital Signs: Last Vital Signs Temp 99 F 08/20/18 09:48 Pulse 83 08/20/18 09:48 Resp 20 08/20/18 09:48 BP 136/79 08/20/18 09:48 Pulse Ox 97 08/20/18 09:48 - Medical History PMH: Anxiety, Arthritis, Asthma, Bipolar Disorder, Bronchitis, CAD, Depression, Gastritis, GERD, HTN, Hypercholesterolemia, Migraine, Personality Disorder, Rheumatoid Arthritis, Chronic Pain Denies: Chronic Kidney Disease - Surgical History Surgical History: - Family History Family History: States: Unknown Family Hx, CAD - Immunization History Hx Tetanus Toxoid Vaccination: Yes (UTD) Hx Influenza Vaccination: Yes Hx Pneumococcal Vaccination: Yes (Not sure when she received it) - Home Medications Home Medications: Ambulatory Orders Medication Instructions Recorded Montelukast [Singulair] 10 mg PO DAILY 03/26/16 Gabapentin 300 mg PO HS #30 capsule 03/23/18 ARIPiprazole [Abilify] 10 mg PO DAILY 08/20/18 Buprenorphine HCl/Naloxone HCl 1 each SL DAILY 08/20/18 [Suboxone 8 mg-2 mg Sl Film] Cholecalciferol [Vitamin D] 1,000 iu PO DAILY 08/20/18 Escitalopram [Lexapro] 40 mg PO DAILY 08/20/18 Fluticasone/Salmeterol 2 puff IH DAILY 08/20/18 [Fluticasone-Salmeterol 232-14] Ibuprofen [Motrin] 600 mg PO DAILY 08/20/18 Omeprazole Magnesium [Prilosec Otc] 40 mg PO DAILY 08/20/18 - Allergies Allergies/Adverse Reactions: Allergies Allergy/AdvReac Type Severity Reaction Status Date / Time azithromycin Allergy RASH Verified 08/20/18 10:12 cyclobenzaprine HCl Allergy RASH Verified 08/20/18 10:12 [From Flexeril] latex Allergy RASH Verified 08/20/18 10:12 Sulfa (Sulfonamide Allergy RASH Verified 08/20/18 10:12 Antibiotics) bacitracin AdvReac RASH Verified 08/20/18 10:12 Review of Systems ROS Statement: Except As Marked, All Systems Reviewed And Found Negative Musculoskeletal: Positive for: Leg Pain Skin: Positive for: Rash Physical Exam - Reviewed Nursing Documentation Reviewed: Yes Vital Signs Reviewed: Yes - Physical Exam Appears: Positive for: Non-toxic, No Acute Distress Head Exam: Positive for: ATRAUMATIC, NORMAL INSPECTION, NORMOCEPHALIC Skin: Positive for: Normal Color, Warm, DRY Eye Exam: Positive for: EOMI, Normal appearance, PERRL ENT: Positive for: Normal ENT Inspection Neck: Positive for: Normal, Painless ROM Cardiovascular/Chest: Positive for: Regular Rate, Rhythm Respiratory: Positive for: CNT, Normal Breath Sounds Pulses-Dorsalis Pedis (R): 2+ Pulses-Post. Tibialis (R): 2+ Gastrointestinal/Abdominal: Positive for: Normal Exam, Soft. Negative for: Tenderness Back: Positive for: Normal Inspection. Negative for: L CVA Tenderness, R CVA Tenderness Extremity: Positive for: Normal ROM, Tenderness (R zendejas with yellow dc and erythema covering entire zendejas), Swelling (around zendejas; no calf swelling). Negative for: Calf Tenderness Neurologic/Psych: Positive for: Alert, Oriented - Laboratory Results Result Diagrams: 08/20/18 10:50 08/20/18 10:50 Interpretation Of Abn Labs: NO ACUTE - ECG ECG: Positive for: Interpreted By Me, Viewed By Me ECG Rhythm: Positive for: Sinus Rhythm O2 Sat by Pulse Oximetry: 97 Pulse Ox Interpretation: Normal - Radiology X-Ray: Read By Radiologist X-Ray Interpretation: Other (cellulitis) - Progress ED Course And Treament: 1035: Had recent US for dvt that was neg. 1200: Dr. Robles will admit. Disposition - Clinical Impression Clinical Impression: Cellulitis - Patient ED Disposition Is Patient to be Admitted: Yes Counseled Patient/Family Regarding: Studies Performed, Diagnosis - Disposition Disposition Time: 13:30 Condition: FAIR - Pt Status Changed To: Hospital Disposition Of: Inpatient - Admit Certification Admit to Inpatient:: After my assessment, the patient will require hospitalization for at least two midnights. This is because of the severity of symptoms shown, intensity of services needed, and/or the medical risk in this patient being treated as an outpatient. - POA Present On Arrival: None
[2018-08-20 11:03] LABS: VENOUS BLOOD GAS BASE EXCESS 4.4 mmol/L (0.0-2.0); VENOUS BLOOD GAS PCO2 52 mmHg (40-60); VENOUS BLOOD GAS PO2 24 mm/Hg (30-55); VENOUS BLOOD PH 7.38 (7.32-7.43)
[2018-08-20 11:18] LABS: BASO # 0.1 K/uL (0.0-0.2); BASO % 1.1 % (0.0-2.0); EOS # 0.2 K/uL (0.0-0.7); EOS % 3.3 % (0.0-4.0); HEMOGLOBIN 11.6 g/dL (12.0-16.0); LYMPH # 1.7 K/uL (1.0-4.3); LYMPH % 22.8 % (20.0-40.0); MEAN CELL VOLUME 90.8 fl (81.0-99.0); MEAN CORPUSCULAR HGB CONC 33.1 g/dL (33.0-37.0); MEAN PLATELET VOLUME 7.9 fl (7.2-11.7); MONO # 0.6 K/uL (0.0-0.8); NEUT # 4.7 K/uL (1.8-7.0); NEUT % 64.8 % (50.0-75.0); RBC 3.86 Mil/uL (3.80-5.20); RED CELL DISTRIBUTION WIDTH 13.6 % (11.5-14.5); WHITE BLOOD COUNT 7.2 K/uL (4.8-10.8)
--- NOTE | 2018-08-20 11:29 | RAD ---
Date of service: 08/20/2018 PROCEDURE: Radiographs of the right tibia and fibula. HISTORY: cellulitis COMPARISON: None available TECHNIQUE: Frontal and lateral views obtained. FINDINGS: BONES: No fracture dislocation is identified of the right tibia or fibula. No destructive bony lesion appreciable. No periosteal reaction or erosion. No sclerotic lesion appreciable throughout. JOINT SPACES: Unremarkable. OTHER FINDINGS: Diffusely abnormal increased reticular markings are seen throughout the subcutaneous fat throughout the right leg suspicious for cellulitis, concordant with clinical presentation. IMPRESSION: Diffuse cellulitis throughout the right leg is suggested. No emphysema soft tissue changes or retained radiodense foreign body is associated. No overt osteomyelitis pattern throughout the right tibia or fibula. No fracture or dislocation.
[2018-08-20 11:32] LABS: ALB/GLOB RATIO 1.1 (1.0-2.1); ALBUMIN 3.8 g/dL (3.5-5.0); ALT/SGPT 32 U/L (9-52); AST/SGOT 28 U/L (14-36); BLOOD UREA NITROGEN 11 mg/dl (7-17); CALCIUM 8.7 mg/dL (8.4-10.2); GFR NON-AFRICAN AMERICAN > 60
[2018-08-20] MEDS ORDERED: Albuterol-Ipratrop 3 mg / 0.5 (3 ml) UD INH PRN (12:08)
[2018-08-20] MEDS ORDERED: Albuterol-Ipratrop 3 mg / 0.5 (3 ml) UD ONE (12:44)
--- NOTE | 2018-08-20 13:10 | CP.PCM.HP ---
<Celia Cordoba - Last Filed: 08/20/18 17:25> History of Present Illness - History of Present Illness History of Present Illness: HPI: HPI: 47 YO Female with PMHx of gastritis, GERD, depression, anxiety, asthma presents to [facility] ED with complaints of right lower extremity swelling, pain, and redness associated with discharge for 1 month. She states she was seen and eval uated by her PMD who gave her Clindamcyin but the pain and swelling has failed to improve. She denies fevers but reports occasional chills. She does admit to being more sedentary the past few months which has caused her to gain weight and increased the amount of swelling in both her legs. She was evaluated in ED on 07/20 (records reviewed) and right leg was negative for DVT on BL Venous Doppler. Denies chest pain, palpitations, dyspnea, abdominal pain, n/v/d/c. PMD: Dr. Pelletier PMHx: anxiety, GERD, gastritis, Asthma, depression SurgHx: SH: smoking (15+yrs), denies ETOH and illicit drug use FH: hx of asthma, CAD Allergies: Macrolides, sulfa, latex- hives ED Course: BP:97.8, HR 66, BP 107/58, RR 18, O2 sat 97 on rm air CBC- no leukocytosis CMP wnl Tibia/Fibula Xray: Diffuse cellulitis, no osteomylelitis pattern S/P Vancomycin and Zosyn Diagnosis: Cellulites, complicated Present on Admission - Present on Admission Any Indicators Present on Admission: No Past Patient History - Infectious Disease Hx of Infectious Diseases: None - Past Social History Smoking Status: Light Smoker < 10 Cigarettes Daily - CARDIAC Hx Cardiac Disorders: Yes - PULMONARY Hx Respiratory Disorders: Yes - NEUROLOGICAL Hx Neurological Disorder: Yes - HEENT Hx HEENT Problems: No - RENAL Hx Chronic Kidney Disease: No - ENDOCRINE/METABOLIC Hx Endocrine Disorders: Yes - INTEGUMENTARY Hx Dermatological Problems: Yes - MUSCULOSKELETAL/RHEUMATOLOGICAL Hx Arthritis: Yes Hx Rheumatoid Arthritis: Yes - GASTROINTESTINAL Hx Gastritis: Yes - PSYCHIATRIC Hx Psychophysiologic Disorder: Yes - SURGICAL HISTORY Hx Surgeries: No Other/Comment: D&C. Colonoscopy - ANESTHESIA Hx Anesthesia: Yes Hx Anesthesia Reactions: No Hx Malignant Hyperthermia: No Meds Allergies/Adverse Reactions: Allergies Allergy/AdvReac Type Severity Reaction Status Date / Time azithromycin Allergy RASH Verified 08/20/18 10:12 cyclobenzaprine HCl Allergy RASH Verified 08/20/18 10:12 [From Flexeril] latex Allergy RASH Verified 08/20/18 10:12 Sulfa (Sulfonamide Allergy RASH Verified 08/20/18 10:12 Antibiotics) bacitracin AdvReac RASH Verified 08/20/18 10:12 Physical Exam - Constitutional Appears: Well, Non-toxic, No Acute Distress Additional comments: Obese female - Head Exam Head Exam: ATRAUMATIC - Eye Exam Eye Exam: Normal appearance - ENT Exam ENT Exam: Mucous Membranes Moist - Neck Exam Neck exam: Positive for: Full Rom - Respiratory Exam Respiratory Exam: Clear to Auscultation Bilateral, Wheezes (scattered). absent: Rales - Cardiovascular Exam Cardiovascular Exam: REGULAR RHYTHM, +S1, +S2. absent: Systolic Murmur - GI/Abdominal Exam GI & Abdominal Exam: Normal Bowel Sounds, Soft. absent: Tenderness - Extremities Exam Extremities exam: Positive for: normal capillary refill, pedal pulses present. Negative for: calf tenderness, joint swelling Additional comments: Right lower extremity- erythema up to mid zendejas, circumferential, purulent disch arge seen over zendejas, no areas of fluctuance, no foul odor, no palpable veins. Both LE extremities are mildly swollen but symmetrical. - Neurological Exam Neurological exam: Alert, Normal Gait - Psychiatric Exam Psychiatric exam: Normal Affect - Skin Skin Exam: Normal Color Results - Vital Signs Recent Vital Signs: Last Vital Signs Temp 99 F 08/20/18 09:48 Pulse 83 08/20/18 09:48 Resp 20 08/20/18 09:48 BP 136/79 08/20/18 09:48 Pulse Ox 97 08/20/18 10:36 - Labs Result Diagrams: 08/20/18 10:50 08/20/18 10:50 Labs: Laboratory Results - last 24 hr 08/20/18 08/20/18 08/20/18 10:24 10:50 10:50 WBC 7.2 RBC 3.86 Hgb 11.6 L Hct 35.0 MCV 90.8 MCH 30.0 MCHC 33.1 RDW 13.6 Plt Count 192 MPV 7.9 Neut % (Auto) 64.8 Lymph % (Auto) 22.8 [place] % (Auto) 8.0 Eos % (Auto) 3.3 Baso % (Auto) 1.1 Neut # (Auto) 4.7 Lymph # (Auto) 1.7 [place] # (Auto) 0.6 Eos # (Auto) 0.2 Baso # (Auto) 0.1 pO2 VBG pH VBG pCO2 VBG HCO3 VBG Total CO2 VBG O2 Sat (Calc) VBG Base Excess VBG Potassium Glucose Lactate FiO2 Sodium 140 Potassium 4.3 Chloride 103 Carbon Dioxide 30 Anion Gap 11 BUN 11 Creatinine 0.8 Est GFR ( Amer) > 60 Est GFR (Non-Af Amer) > 60 POC Glucose (mg/dL) 72 Random Glucose 96 Calcium 8.7 Total Bilirubin 0.6 AST 28 ALT 32 Alkaline Phosphatase 80 Total Protein 7.2 Albumin 3.8 Globulin 3.4 Albumin/Globulin Ratio 1.1 Venous Blood Potassium 08/20/18 10:57 WBC RBC Hgb Hct MCV MCH MCHC RDW Plt Count MPV Neut % (Auto) Lymph % (Auto) [place] % (Auto) Eos % (Auto) Baso % (Auto) Neut # (Auto) Lymph # (Auto) [place] # (Auto) Eos # (Auto) Baso # (Auto) pO2 24 L VBG pH 7.38 VBG pCO2 52 VBG HCO3 26.8 VBG Total CO2 32.4 H VBG O2 Sat (Calc) 49.5 VBG Base Excess 4.4 H VBG Potassium 4.1 Glucose 94 Lactate 1.0 FiO2 21.0 Sodium 138.0 Potassium Chloride 104.0 Carbon Dioxide Anion Gap BUN Creatinine Est GFR ( Amer) Est GFR (Non-Af Amer) POC Glucose (mg/dL) Random Glucose Calcium Total Bilirubin AST ALT Alkaline Phosphatase Total Protein Albumin Globulin Albumin/Globulin Ratio Venous Blood Potassium 4.1 Assessment & Plan - Assessment and Plan (Free Text) Assessment: 47 YO Female with PMHx of gastritis, GERD, depression, anxiety, asthma admitted for purulent cellulites failing outpatient treatment po antibiotics. Cellulitis, purulent -No signs of sepsis: afebrile, no leukocytosis -Bcx and Wcx sent -IV Vanco and Zosyn; f/u Vanco Trough -Wound Care Asthma -Duonebs prn -Fluticasone inhaler -Monteleukast Depression -C/W home psych meds Obesity -Hga1c sent DVT ppx -Lovenox 40mg SC Diet -Regular <Robles,Orlando D - Last Filed: 08/20/18 18:17> Results - Vital Signs Recent Vital Signs: Last Vital Signs Temp 98.5 F 08/20/18 17:08 Pulse 62 08/20/18 17:08 Resp 18 08/20/18 17:08 BP 103/65 08/20/18 17:08 Pulse Ox 97 08/20/18 17:08 - Labs Result Diagrams: 08/20/18 10:50 08/20/18 10:50 Labs: Laboratory Results - last 24 hr 08/20/18 08/20/18 08/20/18 10:24 10:50 10:50 WBC 7.2 RBC 3.86 Hgb 11.6 L Hct 35.0 MCV 90.8 MCH 30.0 MCHC 33.1 RDW 13.6 Plt Count 192 MPV 7.9 Neut % (Auto) 64.8 Lymph % (Auto) 22.8 [place] % (Auto) 8.0 Eos % (Auto) 3.3 Baso % (Auto) 1.1 Neut # (Auto) 4.7 Lymph # (Auto) 1.7 [place] # (Auto) 0.6 Eos # (Auto) 0.2 Baso # (Auto) 0.1 pO2 VBG pH VBG pCO2 VBG HCO3 VBG Total CO2 VBG O2 Sat (Calc) VBG Base Excess VBG Potassium Glucose Lactate FiO2 Sodium 140 Potassium 4.3 Chloride 103 Carbon Dioxide 30 Anion Gap 11 BUN 11 Creatinine 0.8 Est GFR ( Amer) > 60 Est GFR (Non-Af Amer) > 60 POC Glucose (mg/dL) 72 Random Glucose 96 Calcium 8.7 Total Bilirubin 0.6 AST 28 ALT 32 Alkaline Phosphatase 80 Total Protein 7.2 Albumin 3.8 Globulin 3.4 Albumin/Globulin Ratio 1.1 Venous Blood Potassium 08/20/18 10:57 WBC RBC Hgb Hct MCV MCH MCHC RDW Plt Count MPV Neut % (Auto) Lymph % (Auto) [place] % (Auto) Eos % (Auto) Baso % (Auto) Neut # (Auto) Lymph # (Auto) [place] # (Auto) Eos # (Auto) Baso # (Auto) pO2 24 L VBG pH 7.38 VBG pCO2 52 VBG HCO3 26.8 VBG Total CO2 32.4 H VBG O2 Sat (Calc) 49.5 VBG Base Excess 4.4 H VBG Potassium 4.1 Glucose 94 Lactate 1.0 FiO2 21.0 Sodium 138.0 Potassium Chloride 104.0 Carbon Dioxide Anion Gap BUN Creatinine Est GFR ( Amer) Est GFR (Non-Af Amer) POC Glucose (mg/dL) Random Glucose Calcium Total Bilirubin AST ALT Alkaline Phosphatase Total Protein Albumin Globulin Albumin/Globulin Ratio Venous Blood Potassium 4.1 Attending/Attestation - Attestation I have personally seen and examined this patient.: Yes I have fully participated in the care of the patient.: Yes I have reviewed all pertinent clinical information: Yes Notes (Text): 08/20/18 18:16 Patient seen and examined with resident. Case discussed and agreed with assessm ent and plan of management.
[2018-08-20] MEDS: Piperacillin/Tazobact 3.375 GM in Sodium Chloride 0.9% 100 ML IVPB SCH ×2 (16:37→21:49)
--- NOTE | 2018-08-20 18:40 | CARD ---
APPROVED REPORT Date of service: 08/20/2018 EKG Measurement Heart [id number] <Conclusion> Normal sinus rhythm Normal ECG
[2018-08-20] MEDS ORDERED: Influenza Vaccine 60 MCG/0.5 ML SYR (3 yr & up) IM ONE (18:43)
[2018-08-20] MEDS: Fluticasone-Salmeterol 250-50mcg Diskus IH SCH (21:49)
[2018-08-21] MEDS ORDERED: Vancomycin 500 mg Inj IVPB SCH (00:01)
[2018-08-21] MEDS: Piperacillin/Tazobact 3.375 GM in Sodium Chloride 0.9% 100 ML IVPB SCH ×2 (03:42→11:15)
[2018-08-21 08:46] VITALS: BP 105/68; PULSE 82; RESP 18; TEMP 97.9; O2SAT 96
[2018-08-21] MEDS ORDERED: Tiotropium 18 mcg Cap For Inhalation IH SCH (09:00)
[2018-08-21] MEDS ORDERED: Cholecalciferol 1,000 INTLU TAB PO SCH (09:00)
[2018-08-21] MEDS ORDERED: Patient's Own Med (Buprenorphine Hcl/Naloxone Hcl [Suboxone 8 Mg-2 Mg Sl Film] 1 EACH) SL SCH (09:00)
[2018-08-21] MEDS ORDERED: Enoxaparin 40 mg Syringe SC SCH (09:00)
[2018-08-21] MEDS ORDERED: Pantoprazole 40 mg EC Tab PO SCH (09:00)
[2018-08-21] MEDS ORDERED: Venlafaxine 150 mg ER Cap PO SCH (09:00)
[2018-08-21] MEDS: Fluticasone-Salmeterol 250-50mcg Diskus IH SCH (09:28)
--- NOTE | 2018-08-21 12:21 | CP.PCM.DIS ---
<JanfaithramirezAloa - Last Filed: 08/21/18 12:11> Provider - Provider Date of Admission: 08/20/18 11:31 Attending physician: Orlando Robles MD Primary care physician: [facility] Time Spent in preparation of Discharge (in minutes): 30 Diagnosis - Discharge Diagnosis (1) Cellulitis Status: Acute Hospital Course - Lab Results Lab Results: Micro Results 08/20/18 11:17 Blood-Venous Blood Culture - Preliminary NO GROWTH AFTER 24 HOURS 08/20/18 10:50 Blood-Venous Blood Culture - Preliminary NO GROWTH AFTER 24 HOURS 08/20/18 11:17 Leg - Right Gram Stain - Final Most Recent Lab Values WBC 7.2 K/uL (4.8-10.8) 08/20/18 10:50 RBC 3.86 Mil/uL (3.80-5.20) 08/20/18 10:50 Hgb 11.6 g/dL (12.0-16.0) L 08/20/18 10:50 Hct 35.0 % (34.0-47.0) 08/20/18 10:50 MCV 90.8 fl (81.0-99.0) 08/20/18 10:50 MCH 30.0 pg (27.0-31.0) 08/20/18 10:50 MCHC 33.1 g/dL (33.0-37.0) 08/20/18 10:50 RDW 13.6 % (11.5-14.5) 08/20/18 10:50 Plt Count 192 K/uL (130-400) 08/20/18 10:50 MPV 7.9 fl (7.2-11.7) 08/20/18 10:50 Neut % (Auto) 64.8 % (50.0-75.0) 08/20/18 10:50 Lymph % (Auto) 22.8 % (20.0-40.0) 08/20/18 10:50 [place] % (Auto) 8.0 % (0.0-10.0) 08/20/18 10:50 Eos % (Auto) 3.3 % (0.0-4.0) 08/20/18 10:50 Baso % (Auto) 1.1 % (0.0-2.0) 08/20/18 10:50 Neut # (Auto) 4.7 K/uL (1.8-7.0) 08/20/18 10:50 Lymph # (Auto) 1.7 K/uL (1.0-4.3) 08/20/18 10:50 [place]urt # (Auto) 0.6 K/uL (0.0-0.8) 08/20/18 10:50 Eos # (Auto) 0.2 K/uL (0.0-0.7) 08/20/18 10:50 Baso # (Auto) 0.1 K/uL (0.0-0.2) 08/20/18 10:50 pO2 24 mm/Hg (30-55) L 08/20/18 10:57 VBG pH 7.38 (7.32-7.43) 08/20/18 10:57 VBG pCO2 52 mmHg (40-60) 08/20/18 10:57 VBG HCO3 26.8 mmol/L 08/20/18 10:57 VBG Total CO2 32.4 mmol/L (22-28) H 08/20/18 10:57 VBG O2 Sat (Calc) 49.5 % (40-65) 08/20/18 10:57 VBG Base Excess 4.4 mmol/L (0.0-2.0) H 08/20/18 10:57 VBG Potassium 4.1 mmol/L (3.6-5.2) 08/20/18 10:57 Sodium 138.0 mmol/L (132-148) 08/20/18 10:57 Chloride 104.0 mmol/L (98-107) 08/20/18 10:57 Glucose 94 mg/dL (65-105) 08/20/18 10:57 Lactate 1.0 mmol/L (0.7-2.1) 08/20/18 10:57 FiO2 21.0 % 08/20/18 10:57 Sodium 140 mmol/l (132-148) 08/20/18 10:50 Potassium 4.3 MMOL/L (3.6-5.0) 08/20/18 10:50 Chloride 103 mmol/L (98-107) 08/20/18 10:50 Carbon Dioxide 30 mmol/L (22-30) 08/20/18 10:50 Anion Gap 11 (10-20) 08/20/18 10:50 BUN 11 mg/dl (7-17) 08/20/18 10:50 Creatinine 0.8 mg/dl (0.7-1.2) 08/20/18 10:50 Est GFR ( Amer) > 60 08/20/18 10:50 Est GFR (Non-Af Amer) > 60 08/20/18 10:50 POC Glucose (mg/dL) 99 mg/dL (65-110) 08/21/18 07:23 Random Glucose 96 mg/dL (65-105) 08/20/18 10:50 Calcium 8.7 mg/dL (8.4-10.2) 08/20/18 10:50 Total Bilirubin 0.6 mg/dl (0.2-1.3) 08/20/18 10:50 AST 28 U/L (14-36) 08/20/18 10:50 ALT 32 U/L (9-52) 08/20/18 10:50 Alkaline Phosphatase 80 U/L (38-126) 08/20/18 10:50 Total Protein 7.2 G/DL (6.3-8.2) 08/20/18 10:50 Albumin 3.8 g/dL (3.5-5.0) 08/20/18 10:50 Globulin 3.4 gm/dL (2.2-3.9) 08/20/18 10:50 Albumin/Globulin Ratio 1.1 (1.0-2.1) 08/20/18 10:50 Venous Blood Potassium 4.1 mmol/L (3.6-5.2) 08/20/18 10:57 Vancomycin Trough 10.3 ug/mL (5.0-10.0) H 08/21/18 09:31 - Hospital Course Hospital Course: 47 yo F with history of gastritis, GERD, depression, anxiety, asthma , who was admitted for purulent cellulitis of the leg. Pt stated that she had gotten clindamycin in the past and issue did not resolve. No leukocytosis, afebrile. Blood and wound cultures were taken, and she received IV vanco/zosyn. Tibia/fibula xray: diffuse cellulitis, no osteomylelitis pattern. This morning redness improving, patient feels like her leg is better. She feels better and is stable for discharge with PO augmentin and close followup with PM D. Discharge Exam - Head Exam Head Exam: ATRAUMATIC - Eye Exam Eye Exam: Normal appearance - Respiratory Exam Respiratory Exam: Clear to PA & Lateral, NORMAL BREATHING PATTERN. absent: Wheezes, Respiratory Distress - Cardiovascular Exam Cardiovascular Exam: REGULAR RHYTHM, +S1, +S2 - GI/Abdominal Exam GI & Abdominal Exam: Soft Additional comments: obese - Extremities Exam Additional comments: Right lower extremity- erythema up to mid zendejas, circumferential, no oozing discharge seen and area appears dry now. No areas of fluctuance, no foul odor, no palpable veins. Both LE extremities are mildly swollen but symmetrical. - Back Exam Back exam: NORMAL INSPECTION - Neurological Exam Neurological exam: Alert, Oriented x3 - Psychiatric Exam Psychiatric exam: Normal Affect, Normal Mood - Skin Skin Exam: Dry, Warm Additional comments: right LE as above Discharge Plan - Discharge Medications Prescriptions: Amoxicillin/Clavulanate [Augmentin 875 MG-125 MG] 1 tab PO BID #20 tab - Follow Up Plan Condition: FAIR Disposition: HOME/ ROUTINE Instructions: Cellulitis (DC), Cellulitis (GEN) Referrals: [facility] [Provider Group] (Pt has previously scheduled appointment on 08/30.) <Orlando Robles - Last Filed: 08/21/18 14:20> Provider - Provider Date of Admission: 08/20/18 11:31 Attending physician: Orlando Robles MD Hospital Course - Lab Results Lab Results: Micro Results 08/20/18 11:17 Blood-Venous Blood Culture - Preliminary NO GROWTH AFTER 24 HOURS 08/20/18 10:50 Blood-Venous Blood Culture - Preliminary NO GROWTH AFTER 24 HOURS 08/20/18 11:17 Leg - Right Gram Stain - Final Most Recent Lab Values WBC 7.2 K/uL (4.8-10.8) 08/20/18 10:50 RBC 3.86 Mil/uL (3.80-5.20) 08/20/18 10:50 Hgb 11.6 g/dL (12.0-16.0) L 08/20/18 10:50 Hct 35.0 % (34.0-47.0) 08/20/18 10:50 MCV 90.8 fl (81.0-99.0) 08/20/18 10:50 MCH 30.0 pg (27.0-31.0) 08/20/18 10:50 MCHC 33.1 g/dL (33.0-37.0) 08/20/18 10:50 RDW 13.6 % (11.5-14.5) 08/20/18 10:50 Plt Count 192 K/uL (130-400) 08/20/18 10:50 MPV 7.9 fl (7.2-11.7) 08/20/18 10:50 Neut % (Auto) 64.8 % (50.0-75.0) 08/20/18 10:50 Lymph % (Auto) 22.8 % (20.0-40.0) 08/20/18 10:50 Burt % (Auto) 8.0 % (0.0-10.0) 08/20/18 10:50 Eos % (Auto) 3.3 % (0.0-4.0) 08/20/18 10:50 Baso % (Auto) 1.1 % (0.0-2.0) 08/20/18 10:50 Neut # (Auto) 4.7 K/uL (1.8-7.0) 08/20/18 10:50 Lymph # (Auto) 1.7 K/uL (1.0-4.3) 08/20/18 10:50 Burt # (Auto) 0.6 K/uL (0.0-0.8) 08/20/18 10:50 Eos # (Auto) 0.2 K/uL (0.0-0.7) 08/20/18 10:50 Baso # (Auto) 0.1 K/uL (0.0-0.2) 08/20/18 10:50 pO2 24 mm/Hg (30-55) L 08/20/18 10:57 VBG pH 7.38 (7.32-7.43) 08/20/18 10:57 VBG pCO2 52 mmHg (40-60) 08/20/18 10:57 VBG HCO3 26.8 mmol/L 08/20/18 10:57 VBG Total CO2 32.4 mmol/L (22-28) H 08/20/18 10:57 VBG O2 Sat (Calc) 49.5 % (40-65) 08/20/18 10:57 VBG Base Excess 4.4 mmol/L (0.0-2.0) H 08/20/18 10:57 VBG Potassium 4.1 mmol/L (3.6-5.2) 08/20/18 10:57 Sodium 138.0 mmol/L (132-148) 08/20/18 10:57 Chloride 104.0 mmol/L (98-107) 08/20/18 10:57 Glucose 94 mg/dL (65-105) 08/20/18 10:57 Lactate 1.0 mmol/L (0.7-2.1) 08/20/18 10:57 FiO2 21.0 % 08/20/18 10:57 Sodium 140 mmol/l (132-148) 08/20/18 10:50 Potassium 4.3 MMOL/L (3.6-5.0) 08/20/18 10:50 Chloride 103 mmol/L (98-107) 08/20/18 10:50 Carbon Dioxide 30 mmol/L (22-30) 08/20/18 10:50 Anion Gap 11 (10-20) 08/20/18 10:50 BUN 11 mg/dl (7-17) 08/20/18 10:50 Creatinine 0.8 mg/dl (0.7-1.2) 08/20/18 10:50 Est GFR ( Amer) > 60 08/20/18 10:50 Est GFR (Non-Af Amer) > 60 08/20/18 10:50 POC Glucose (mg/dL) 99 mg/dL (65-110) 08/21/18 07:23 Random Glucose 96 mg/dL (65-105) 08/20/18 10:50 Calcium 8.7 mg/dL (8.4-10.2) 08/20/18 10:50 Total Bilirubin 0.6 mg/dl (0.2-1.3) 08/20/18 10:50 AST 28 U/L (14-36) 08/20/18 10:50 ALT 32 U/L (9-52) 08/20/18 10:50 Alkaline Phosphatase 80 U/L (38-126) 08/20/18 10:50 Total Protein 7.2 G/DL (6.3-8.2) 08/20/18 10:50 Albumin 3.8 g/dL (3.5-5.0) 08/20/18 10:50 Globulin 3.4 gm/dL (2.2-3.9) 08/20/18 10:50 Albumin/Globulin Ratio 1.1 (1.0-2.1) 08/20/18 10:50 Venous Blood Potassium 4.1 mmol/L (3.6-5.2) 08/20/18 10:57 Vancomycin Trough 10.3 ug/mL (5.0-10.0) H 08/21/18 09:31 Attending/Attestation - Attestation I have personally seen and examined this patient.: Yes I have fully participated in the care of the patient.: Yes I have reviewed all pertinent clinical information, including history, physical exam and plan: Yes Notes (Text): 08/21/18 14:19 Patient seen and examined with resident. Case discussed and agreed with assessment. Inflammation was noted to be clearing up. Patient to continue Augmentin at home.
--- NOTE | 2018-08-27 14:28 | PQF ---
PROVIDER RESPONSE TEXT: BMI: 42.43 REVIEWER QUERY TEXT: Documentation Clarification Your help is requested in clarifying the following clinical documentation, if you can please further specify in the medical record and discharge summary. Obesity is documented in the medical record. Would you please clarify the BMI. EMR: 5' 5", weight of 255 pounds with a BMI of 42.4. HGBA1C ordered The patient's Clinical Indicators include: Patient admits to being more sedentary the past few months which has caused her to gain weight. + swe lling of lower extremities. EMR: 5' 5", weight of 255 pounds with a BMI of 42.4. HGBA1C ordered Query created by: Myriam Jay on 08/24/2018 6:33 AM Electronically signed by: Orlando Robles MD 08/27/2018 2:25 PM
--- NOTE | 2018-08-27 14:28 | PQF ---
PROVIDER RESPONSE TEXT: Patient has mild, intermittent asthma REVIEWER QUERY TEXT: Asthma Specificity and Type History of Asthma is documented in the Medical Record. Please specify the type and severity of asthm a if known Such as: -- Mild intermittent -- Mild persistent -- Moderate persistent -- Severe persistent -- Exercise induced bronchospasm -- Cough variant asthma -- Other, please specify The patient's Clinical Indicators include: History of Asthma. Medication: Prednisone, Advair Diskus, Singulair, Spiriva, Duonebs prn, Query created by: Myriam Jay on 08/24/2018 6:30 AM Electronically signed by: Orlando Robles MD 08/27/2018 2:25 PM
== END 2018-08-21 11:40 | disposition home or self-care (01) | DRG 278 ==
LOC: H.ER 09:31 → H.ERHOLD 11:31 → H.MEDSURG1 13:36
DX: L03.115 Cellulitis of right lower limb (principal); E66.9 Obesity, unspecified; E78.00 Pure hypercholesterolemia, unspecified; F31.9 Bipolar disorder, unspecified; F60.9 Personality disorder, unspecified; M06.9 Rheumatoid arthritis, unspecified; I10 Essential (primary) hypertension; G89.29 Other chronic pain; I25.10 Atherosclerotic heart disease of native coronary artery without angina pectoris; K21.9 Gastro-esophageal reflux disease without esophagitis; Z88.1 Allergy status to other antibiotic agents; Z91.040 Latex allergy status; Z23 Encounter for immunization; F41.9 Anxiety disorder, unspecified; K29.70 Gastritis, unspecified, without bleeding; F17.210 Nicotine dependence, cigarettes, uncomplicated; Z68.41 Body mass index [BMI] 40.0-44.9, adult; J45.20 Mild intermittent asthma, uncomplicated

== ENCOUNTER 2018-08-25 11:40 | Observation (INO) | payer MEDICAID ==
[2018-08-25 11:41] VITALS: BMI 42.4
--- NOTE | 2018-08-25 13:35 | ED PDOC ---
Lower Extremity Pain/Injury Time Seen by Provider: 08/25/18 12:58 Chief Complaint (Nursing): Lower Extremity Problem/Injury Chief Complaint (Provider): Right leg pain, redness History Per: Patient History/Exam Limitations: no limitations Onset/Duration Of Symptoms: Days Current Symptoms Are (Timing): Still Present Additional Complaint(s): 48 yo female with HTN, high cholesterol and anxiety/depression presents for evaluation of right lower leg pain and redness. Pt states she was admitted for infection a few days ago and on discharge there was no drainage from the leg. Pt states over the last few days she is having more pain, redness and drainage from the site. Pt was sent home on augmentin and reports taking them as prescribed. No fever/chills. Past Medical History Reviewed: Historical Data, Nursing Documentation, Vital Signs Vital Signs: Last Vital Signs Temp 98.4 F 08/25/18 12:20 Pulse 86 08/25/18 12:20 Resp 16 08/25/18 12:20 BP 122/74 08/25/18 12:20 Pulse Ox 95 08/25/18 12:20 - Medical History PMH: Anxiety, Arthritis, Asthma, Bipolar Disorder, Bronchitis, CAD, Depression, Gastritis, GERD, HTN, Hypercholesterolemia, Hyperlipidemia, Migraine, Personality Disorder, Rheumatoid Arthritis, Chronic Pain Denies: Chronic Kidney Disease - Surgical History Surgical History: - Family History Family History: States: Unknown Family Hx, CAD - Immunization History Hx Tetanus Toxoid Vaccination: Yes (UTD) Hx Influenza Vaccination: Yes Hx Pneumococcal Vaccination: Yes (Not sure when she received it) - Home Medications Home Medications: Ambulatory Orders Medication Instructions Recorded ARIPiprazole [Abilify] 10 mg PO DAILY 08/20/18 Cholecalciferol [Vitamin D 1000 IU] 1,000 units PO DAILY 08/20/18 Escitalopram [Lexapro] 20 mg PO DAILY 08/20/18 Buprenorphine HCl/Naloxone HCl 1 tab SL DAILY 08/25/18 [Buprenorphin-Naloxon 8-2 mg Sl] Fluticasone/Salmeterol [Airduo 1 puff IH Q12 08/25/18 Respiclick 232-14 Mcg] Gabapentin 300 mg PO Q12 08/25/18 Ibuprofen [Motrin Tab] 600 mg PO Q8 PRN 08/25/18 Montelukast [Singulair] 10 mg PO DAILY 08/25/18 Omeprazole 40 mg PO DAILY 08/25/18 Acetaminophen [Tylenol 325mg tab] 650 mg PO Q6 PRN tab 08/27/18 Ammonium Lactate 12% [Lac-Hydrin 12 % TOP BID tube 08/27/18 12% Cream (140 g)] DiphenhydrAMINE [Benadryl] 25 mg PO Q6 PRN cap 08/27/18 Enoxaparin [Lovenox] 40 mg SC DAILY syr 08/27/18 Hydrocortisone 1% Cream [Cortizone 1 applic TOP BID tube 08/27/18 1% Cream] Lactobacillus Acidophilus [Bacid 1 cap PO Q12H 10 Days cap 08/27/18 Acidophilus] Loratadine [Claritin] 10 mg PO DAILY tab 08/27/18 Piperacillin/Tazobact 3.375 gm 3.375 gm IVPB Q8 9 Days bag 08/27/18 [Zosyn 3.375 in NS 100ml] Vancomycin/0.9 % Sod Chloride 1 gm IV Q12 9 Days plast..bag 08/27/18 [Vancomycin 1 G/100Ml-0.9% NaCl] raNITIdine [Zantac Soln 5ml] 150 mg PO BID ml 08/27/18 - Allergies Allergies/Adverse Reactions: Allergies Allergy/AdvReac Type Severity Reaction Status Date / Time azithromycin Allergy RASH Verified 08/20/18 10:12 cyclobenzaprine HCl Allergy RASH Verified 08/20/18 10:12 [From Flexeril] latex Allergy RASH Verified 08/20/18 10:12 Sulfa (Sulfonamide Allergy RASH Verified 08/20/18 10:12 Antibiotics) bacitracin AdvReac RASH Verified 08/20/18 10:12 Review of Systems ROS Statement: Except As Marked, All Systems Reviewed And Found Negative Constitutional: Negative for: Fever, Chills Respiratory: Negative for: Cough Gastrointestinal: Negative for: Nausea, Vomiting, Abdominal Pain Genitourinary Female: Negative for: Dysuria, Frequency Musculoskeletal: Positive for: Leg Pain Skin: Positive for: Rash, Other Physical Exam - Reviewed Nursing Documentation Reviewed: Yes Vital Signs Reviewed: Yes - Physical Exam Appears: Positive for: Well, Non-toxic, No Acute Distress Head Exam: Positive for: ATRAUMATIC, NORMAL INSPECTION, NORMOCEPHALIC Skin: Positive for: Warm. Negative for: Normal Color ((+) non-blanching erythema on the right lower leg, circumfrential ) Eye Exam: Positive for: Normal appearance ENT: Positive for: Normal ENT Inspection Neck: Positive for: Normal, Painless ROM Cardiovascular/Chest: Positive for: Regular Rate, Rhythm. Negative for: Bradycardia, Tachycardia Respiratory: Positive for: Normal Breath Sounds. Negative for: Accessory Muscle Use, Respiratory Distress Gastrointestinal/Abdominal: Positive for: Normal Exam, Soft Back: Positive for: Normal Inspection Extremity: Positive for: Normal ROM. Negative for: Deformity Neurologic/Psych: Positive for: Alert, Oriented. Negative for: Gait (Unable to walk due to leg pain) - Laboratory Results Result Diagrams: 08/27/18 05:30 08/27/18 05:30 - ECG O2 Sat by Pulse Oximetry: 95 Pulse Ox Interpretation: Normal Medical Decision Making Medical Decision Making: Pt seen and evaluated by Dr. Sands and medical office receptionist assistant. Admission for failed out-patient treatment and cellulitis. Disposition - Clinical Impression Clinical Impression: Cellulitis, Failure of outpatient treatment - Patient ED Disposition Is Patient to be Admitted: Yes - Disposition Disposition Time: 16:30 Condition: GOOD
[2018-08-25 13:53] LABS: BASO # 0.1 K/uL (0.0-0.2); BASO % 1.2 % (0.0-2.0); EOS # 0.4 K/uL (0.0-0.7); EOS % 5.2 % (0.0-4.0); LYMPH % 28.4 % (20.0-40.0); MEAN CORPUSCULAR HEMOGLOBIN 29.6 pg (27.0-31.0); MEAN CORPUSCULAR HGB CONC 31.9 g/dL (33.0-37.0); MEAN PLATELET VOLUME 7.7 fl (7.2-11.7); MONO # 0.6 K/uL (0.0-0.8); MONO % 7.9 % (0.0-10.0); NEUT # 4.1 K/uL (1.8-7.0); NEUT % 57.3 % (50.0-75.0); NRBC % 0.1 % (0.0-0.0); RBC 4.05 Mil/uL (3.80-5.20); RED CELL DISTRIBUTION WIDTH 13.7 % (11.5-14.5); WHITE BLOOD COUNT 7.1 K/uL (4.8-10.8)
[2018-08-25 14:23] LABS: ALBUMIN 3.8 g/dL (3.5-5.0); ALT/SGPT 28 U/L (9-52); AST/SGOT 32 U/L (14-36); BLOOD UREA NITROGEN 17 mg/dl (7-17); CALCIUM 8.9 mg/dL (8.4-10.2); GFR NON-AFRICAN AMERICAN > 60
--- NOTE | 2018-08-25 16:14 | US ---
Date of service: 08/25/2018 PROCEDURE: Bilateral lower extremity venous duplex Doppler. HISTORY: lower extremity calf pain, edema COMPARISON: None available. TECHNIQUE: Bilateral common femoral, superficial femoral, popliteal and posterior tibial veins were evaluated. Flow was assessed with color Doppler, compressibility, assessment of phasic flow and augmentation response. FINDINGS: COMMON FEMORAL VEIN: Right CFV: Unremarkable. Left CFV: Unremarkable. SUPERFICIAL FEMORAL VEIN: Right SFV: Unremarkable. Left SFV: Unremarkable. POPLITEAL VEIN: Right Popliteal: Unremarkable. Left Popliteal: Unremarkable. POSTERIOR TIBIAL VEIN: Right PTV: Unremarkable. Left PTV: Unremarkable. OTHER FINDINGS: Right inguinal lymph node 1.2 x 1.6 x 2.2 cm. IMPRESSION: No evidence of deep venous thrombosis. Atypical appearing solitary right inguinal lymph node.
[2018-08-25] MEDS ORDERED: Piperacillin/Tazobact 3.375 GM in Sodium Chloride 0.9% 100 ML IV ONE (17:30)
[2018-08-25] MEDS ORDERED: Vancomycin 1 g Inj ONE (17:47)
[2018-08-25] MEDS ORDERED: Piperacillin/Tazobact 3.375 gm Inj IVPB ONE (17:47)
--- NOTE | 2018-08-25 17:56 | CP.PCM.HP ---
History of Present Illness - History of Present Illness History of Present Illness: HPI: 47 yo F with history of gastritis, GERD, depression, anxiety, asthma, who was recently discharged 4 days ago for purulent cellulites of the right leg. Pt stated that she was discharged on PO augmentin which she has been taking but reports that her right leg redness, swelling, and discharge has worsened. Additionally, she reports that she has developed worsening generalized pruritus extending over all her extremities and including back. Of note, prior admission patient had wound cx completed that was positive for Pseudomonas and Group C Strep (resulted after discharge). She was treated with 2 days of Vanco and Zosyn and discharged on Augmentin. ROS: + Chills. Denies fever, cough, sob, n/v/d, calf pain. MD: Dr. Pelletier PMHx: Anxiety, Depression, Depression, OA, Hep B and Hep C (reports that it is inactive) SurgHx: x1 SH: [facility], staying with friends, current smoker (15+yrs) smokes 5 cigarettes daily, denies ETOH, smokes canniboids, denies injection drug use FH: Grandmother- "heart condition" Allergies: Sulfa drugs, Azithromycin, Bacitracin, latex- hives ED Course: Vitals: T 97.9, HR 67, BP 111/62, RR 18, O2 sat 96 CBC- no leukocytosis CMP wnl S/P Vancomycin and Zosyn S/P Morphine for pain Next of Kin (Parents) Brittany Marciano Too Tariq Present on Admission - Present on Admission Any Indicators Present on Admission: No Past Patient History - Infectious Disease Hx of Infectious Diseases: None - Past Medical History & Family History Past Medical History?: Yes - Past Social History Smoking Status: Light Smoker < 10 Cigarettes Daily - CARDIAC Hx Hypercholesterolemia: Yes Hx Hypertension: Yes - PULMONARY Hx Asthma: Yes Hx Bronchitis: Yes - NEUROLOGICAL Hx Migraine: Yes - HEENT Hx HEENT Problems: No - RENAL Hx Chronic Kidney Disease: No - ENDOCRINE/METABOLIC Hx Endocrine Disorders: Yes - INTEGUMENTARY Hx Dermatological Problems: Yes - MUSCULOSKELETAL/RHEUMATOLOGICAL Hx Arthritis: Yes Hx Rheumatoid Arthritis: Yes - GASTROINTESTINAL Hx Gastritis: Yes - PSYCHIATRIC Hx Anxiety: Yes Hx Bipolar Disorder: Yes Hx Depression: Yes - SURGICAL HISTORY Hx Surgeries: No Other/Comment: D&C. Colonoscopy - ANESTHESIA Hx Anesthesia: Yes Hx Anesthesia Reactions: No Hx Malignant Hyperthermia: No Meds Allergies/Adverse Reactions: Allergies Allergy/AdvReac Type Severity Reaction Status Date / Time azithromycin Allergy RASH Verified 08/20/18 10:12 cyclobenzaprine HCl Allergy RASH Verified 08/20/18 10:12 [From Flexeril] latex Allergy RASH Verified 08/20/18 10:12 Sulfa (Sulfonamide Allergy RASH Verified 08/20/18 10:12 Antibiotics) bacitracin AdvReac RASH Verified 08/20/18 10:12 Physical Exam - Constitutional Appears: No Acute Distress - Head Exam Head Exam: NORMAL INSPECTION - Eye Exam Eye Exam: Normal appearance - ENT Exam ENT Exam: Mucous Membranes Moist - Respiratory Exam Respiratory Exam: Clear to Auscultation Bilateral. absent: Rales, Wheezes - Cardiovascular Exam Cardiovascular Exam: REGULAR RHYTHM, +S1, +S2. absent: Systolic Murmur - GI/Abdominal Exam GI & Abdominal Exam: Normal Bowel Sounds, Soft. absent: Tenderness - Extremities Exam Extremities exam: Positive for: normal capillary refill, pedal edema (BL (R>L)), pedal pulses present. Negative for: calf tenderness - Neurological Exam Neurological exam: Alert, Oriented x3 - Psychiatric Exam Psychiatric exam: Anxious - Skin Skin Exam: Dry Additional comments: Both LE extremities are mildly swollen (R>L) Right lower extremity- erythema up to mid zendejas (worse than prior admission), circumferential, minimal yellow oozing, mostly dried yellow crusting, seen and area appears dry now. No areas of fluctuance, no foul odor, no palpable veins. Skin: Dry skin w/ excoriations, pin point erythematous papules over upper extremities (webs of fingers and trunk spared) Results - Vital Signs Recent Vital Signs: Last Vital Signs Temp 98.4 F 08/25/18 12:20 Pulse 86 08/25/18 12:20 Resp 16 08/25/18 12:20 BP 122/74 08/25/18 12:20 Pulse Ox 95 08/25/18 13:35 - Labs Result Diagrams: 08/25/18 13:30 08/25/18 13:30 Labs: Laboratory Results - last 24 hr 08/25/18 08/25/18 13:30 13:30 WBC 7.1 RBC 4.05 Hgb 12.0 Hct 37.6 MCV 93.0 D MCH 29.6 MCHC 31.9 L RDW 13.7 Plt Count 258 MPV 7.7 Neut % (Auto) 57.3 Lymph % (Auto) 28.4 [place] % (Auto) 7.9 Eos % (Auto) 5.2 H Baso % (Auto) 1.2 Neut # (Auto) 4.1 Lymph # (Auto) 2.0 [place] # (Auto) 0.6 Eos # (Auto) 0.4 Baso # (Auto) 0.1 Sodium 139 Potassium 4.8 Chloride 107 Carbon Dioxide 28 Anion Gap 9 L BUN 17 Creatinine 0.9 Est GFR ( Amer) > 60 Est GFR (Non-Af Amer) > 60 Random Glucose 92 Calcium 8.9 Total Bilirubin 0.7 AST 32 ALT 28 Alkaline Phosphatase 66 Total Protein 7.6 Albumin 3.8 Globulin 3.8 Albumin/Globulin Ratio 1.0 Assessment & Plan - Assessment and Plan (Free Text) Assessment: 47 YO Female with PMHx of gastritis, GERD, depression, anxiety, asthma admitted for purulent cellulites with wound cx growing Pseudominas and Group C Strep. Cellulitis, purulent -No signs of sepsis: afebrile, no leukocytosis -c/p Vanco and ZOsyn in ED -Podiatry consulted -c/w Zosyn Generalized Pruritis - May be allergic reaction vs drug reaction - s/p Benadryl - Lac Hydrin 12% ordered Asthma -Duonebs prn -Fluticasone inhaler -Monteleukast Depression -C/W home psych meds Obesity -prediabetic, Hga1c 6.0 DVT ppx -Lovenox 40mg SC Diet -Regular
[2018-08-25] MEDS ORDERED: Naproxen 500 MG TAB PO PRN (18:11)
[2018-08-25] MEDS ORDERED: Ammonium Lactate 12% Cream (140 g) TOP SCH (18:15)
[2018-08-26] MEDS: Piperacillin/Tazobact 3.375 GM in Sodium Chloride 0.9% 100 ML IVPB SCH ×3 (01:30→16:29)
[2018-08-26 06:16] LABS: HEMOGLOBIN 11.8 g/dL (12.0-16.0); MEAN CELL VOLUME 92.8 fl (81.0-99.0); MEAN CORPUSCULAR HEMOGLOBIN 30.2 pg (27.0-31.0); MEAN CORPUSCULAR HGB CONC 32.6 g/dL (33.0-37.0); RBC 3.89 Mil/uL (3.80-5.20); RED CELL DISTRIBUTION WIDTH 13.8 % (11.5-14.5); WHITE BLOOD COUNT 6.2 K/uL (4.8-10.8)
[2018-08-26] MEDS ORDERED: Povidone Iodine Topical 10% Sol ONE (06:29)
[2018-08-26 06:33] LABS: BLOOD UREA NITROGEN 16 mg/dl (7-17); CALCIUM 8.7 mg/dL (8.4-10.2); GFR NON-AFRICAN AMERICAN 59
--- NOTE | 2018-08-26 06:44 | CP.PCM.CON ---
History of Present Illness - History of Present Illness History of Present Illness: Podiatry Progress Note: Dr. Mahoney 48F patients, with PMHx of depression, anxiety, Hep B, Hep C, seen and examined for RLE cellulitis and ulceration. Patient was previously discharged from [facility] 5 days ago and was given antibiotics. Patient states that she developed the wound after scratching a mosquito bite about a month ago and it has been getting worse. She reports new onset rash with itchiness to her both arms and legs. She denies any other pedal complaints at this time. Denies N/V/F/SOB/. PMHx: Anxiety, depression, Hep B, Hep C SHx: Social Hx: Tobacco use (5 cigarettes a day), denies alcohol use, Review of Systems - Review of Systems Review of Systems: As per HPI Past Patient History - Infectious Disease Hx of Infectious Diseases: None - Past Medical History & Family History Past Medical History?: Yes - Past Social History Smoking Status: Light Smoker < 10 Cigarettes Daily - CARDIAC Hx Hypercholesterolemia: Yes Hx Hypertension: Yes - PULMONARY Hx Asthma: Yes Hx Bronchitis: Yes - NEUROLOGICAL Hx Migraine: Yes - HEENT Hx HEENT Problems: No - RENAL Hx Chronic Kidney Disease: No - ENDOCRINE/METABOLIC Hx Endocrine Disorders: Yes - INTEGUMENTARY Hx Dermatological Problems: Yes - MUSCULOSKELETAL/RHEUMATOLOGICAL Hx Falls: Yes (1 year ago) - GASTROINTESTINAL Hx Gastritis: Yes - PSYCHIATRIC Hx Substance Use: No - SURGICAL HISTORY Hx Surgeries: No Other/Comment: D&C. Colonoscopy - ANESTHESIA Hx Anesthesia: Yes Hx Anesthesia Reactions: No Hx Malignant Hyperthermia: No Meds Allergies/Adverse Reactions: Allergies Allergy/AdvReac Type Severity Reaction Status Date / Time azithromycin Allergy RASH Verified 08/20/18 10:12 cyclobenzaprine HCl Allergy RASH Verified 08/20/18 10:12 [From Flexeril] latex Allergy RASH Verified 08/20/18 10:12 Sulfa (Sulfonamide Allergy RASH Verified 08/20/18 10:12 Antibiotics) bacitracin AdvReac RASH Verified 08/20/18 10:12 - Medications Medications: Current Medications Acetaminophen (Tylenol 325mg Tab) 650 mg PO Q6 PRN PRN Reason: Pain, Mild (1-3) Aripiprazole (Abilify) 10 mg PO DAILY [facility] Cholecalciferol (Vitamin D) 1,000 intlu PO DAILY [facility] Enoxaparin Sodium (Lovenox) 40 mg SC DAILY [facility]; Protocol Escitalopram Oxalate (Lexapro) 20 mg PO DAILY [facility] Gabapentin (Neurontin) 300 mg PO Q12 [facility] Last Admin: 08/25/18 22:29 Dose: 300 mg Home Med (Fluticasone/Salmeterol [Airduo Respiclick 232-14 Mcg]) 1 puff IH Q12 [facility] Piperacillin Sod/Tazobactam (Sod 3.375 gm/ Sodium Chloride) 100 mls @ 100 mls/hr IVPB Q8 [facility]; Protocol Last Admin: 08/26/18 01:30 Dose: 100 mls/hr Ibuprofen (Motrin Tab) 600 mg PO Q8 PRN PRN Reason: Pain, Mild (1-3) Ketorolac Tromethamine (Toradol) 15 mg IVP Q6 PRN PRN Reason: Pain, moderate (4-7) Last Admin: 08/25/18 22:29 Dose: 15 mg Lactic Acid (Lac-Hydrin 12% Cream (140 G)) 0 ea TOP BID [facility] Montelukast Sodium (Singulair) 10 mg PO DAILY [facility] Naproxen (Naproxen) 500 mg PO Q12 PRN PRN Reason: Pain, moderate (4-7) Pantoprazole Sodium (Protonix Ec Tab) 40 mg PO DAILY [facility] Physical Exam - Constitutional Appears: Non-toxic, No Acute Distress - Extremities Exam Additional comments: Vascular: DP/PT palpable, CFT < 3 seconds to all digits, TG warm to warm with increase warmth to R lower extremity, +1 pitting edema to RLE Ortho: Tenderness to palpation to anterior aspect of R leg, MMT 5/5 in all compartments Neuro: Gross sensation intact, protective sensation diminished bilaterally Derm: Significant xerosis noted circumfrentially to RLE. Linear ulceration appreciated to anterior aspect of R leg, cellulitis noted circumfrentially to R ulceration, no malodor appreciated, mild serous drainage, no purulence appreciated. - Neurological Exam Neurological exam: Alert, Oriented x3 - Psychiatric Exam Psychiatric exam: Normal Affect, Normal Mood - Skin Skin Exam: Warm Results - Vital Signs Recent Vital Signs: Last Vital Signs Temp 98.2 F 08/25/18 21:35 Pulse 66 08/25/18 21:35 Resp 20 08/25/18 21:35 BP 143/83 08/25/18 21:35 Pulse Ox 100 08/25/18 21:35 - Labs Result Diagrams: 08/26/18 05:35 08/26/18 05:35 Labs: Laboratory Results - last 24 hr 08/25/18 08/25/18 08/26/18 13:30 13:30 05:35 WBC 7.1 6.2 RBC 4.05 3.89 Hgb 12.0 11.8 L Hct 37.6 36.1 MCV 93.0 D 92.8 MCH 29.6 30.2 MCHC 31.9 L 32.6 L RDW 13.7 13.8 Plt Count 258 233 MPV 7.7 Neut % (Auto) 57.3 Lymph % (Auto) 28.4 [place] % (Auto) 7.9 Eos % (Auto) 5.2 H Baso % (Auto) 1.2 Neut # (Auto) 4.1 Lymph # (Auto) 2.0 [place] # (Auto) 0.6 Eos # (Auto) 0.4 Baso # (Auto) 0.1 Sodium 139 Potassium 4.8 Chloride 107 Carbon Dioxide 28 Anion Gap 9 L BUN 17 Creatinine 0.9 Est GFR ( Amer) > 60 Est GFR (Non-Af Amer) > 60 Random Glucose 92 Calcium 8.9 Total Bilirubin 0.7 AST 32 ALT 28 Alkaline Phosphatase 66 Total Protein 7.6 Albumin 3.8 Globulin 3.8 Albumin/Globulin Ratio 1.0 08/26/18 05:35 WBC RBC Hgb Hct MCV MCH MCHC RDW Plt Count MPV Neut % (Auto) Lymph % (Auto) [place] % (Auto) Eos % (Auto) Baso % (Auto) Neut # (Auto) Lymph # (Auto) [place] # (Auto) Eos # (Auto) Baso # (Auto) Sodium 140 Potassium 4.4 Chloride 109 H Carbon Dioxide 28 Anion Gap 7 L BUN 16 Creatinine 1.0 Est GFR ( Amer) > 60 Est GFR (Non-Af Amer) 59 Random Glucose 108 H Calcium 8.7 Total Bilirubin AST ALT Alkaline Phosphatase Total Protein Albumin Globulin Albumin/Globulin Ratio Assessment & Plan - Assessment and Plan (Free Text) Assessment: 48F patients, with PMHx of depression, anxiety, Hep B, Hep C, seen and examined for RLE cellulitis and ulceration. Plan: Patient seen and evaluated, discussed with Dr. Mahoney WBC 6.2, VSS Wound cultures from previous admission (08/20); Pseudo, Group C strep New wound cultures pending F/u with blood cultures; results pending ID Consulted; reccs appreciated C/w Zosyn 3.375 Local wound care to RLE; betadine, adapatic, DSD ABD Will continue to follow patient while in house Thank you for the consult - Date & Time Date: 08/26/18 Time: 06:54
[2018-08-26] MEDS: Pantoprazole 40 mg EC Tab PO SCH (08:38)
[2018-08-26] MEDS: Cholecalciferol 1,000 INTLU TAB PO SCH (08:38)
[2018-08-26] MEDS: Enoxaparin 40 mg Syringe SC SCH (08:38)
[2018-08-26] MEDS: Ammonium Lactate 12% Cream (140 g) TOP SCH ×2 (08:39→16:29)
[2018-08-26] MEDS ORDERED: NALOXONE HCL SL SCH (09:00)
[2018-08-26] MEDS ORDERED: [UNRECOGNIZED DRUG - OTHER] SL SCH (09:00)
[2018-08-26] MEDS ORDERED: BUPRENORPHINE HCL SL SCH (09:00)
[2018-08-26] MEDS: Fluticasone-Salmeterol 250-50mcg Diskus IH SCH ×2 (10:06→21:39)
--- NOTE | 2018-08-26 10:11 | CP.PCM.PN ---
Subjective - Date & Time of Evaluation Date of Evaluation: 08/26/18 Time of Evaluation: 10:07 - Subjective Subjective: 39F patient, seen and examined at bedside. Patient is resting comfortably and in NAD. She denies any acute events overnight. Patient states that her L leg ulcer hurts minimally, however she is bothered by the itchiness on her arms and legs. She states that it hasn't resolved since she presented to the ED. Patient denies N/V/F/SOB/CP. Objective - Vital Signs/Intake and Output Vital Signs (last 24 hours): Temp Pulse Resp BP Pulse Ox 98.6 F 63 20 110/72 96 08/26/18 08:20 08/26/18 08:20 08/26/18 08:20 08/26/18 08:20 08/26/18 08:20 - Medications Medications: Current Medications Acetaminophen (Tylenol 325mg Tab) 650 mg PO Q6 PRN PRN Reason: Pain, Mild (1-3) Aripiprazole (Abilify) 10 mg PO HS [facility] Cholecalciferol (Vitamin D) 1,000 intlu PO DAILY [facility] Last Admin: 08/26/18 08:38 Dose: 1,000 intlu Enoxaparin Sodium (Lovenox) 40 mg SC DAILY [facility]; Protocol Last Admin: 08/26/18 08:38 Dose: 40 mg Escitalopram Oxalate (Lexapro) 20 mg PO DAILY [facility] Last Admin: 08/26/18 08:39 Dose: 20 mg Gabapentin (Neurontin) 300 mg PO Q12 [facility] Last Admin: 08/26/18 08:38 Dose: 300 mg Piperacillin Sod/Tazobactam (Sod 3.375 gm/ Sodium Chloride) 100 mls @ 100 mls/hr IVPB Q8 [facility]; Protocol Last Admin: 08/26/18 08:37 Dose: 100 mls/hr Ibuprofen (Motrin Tab) 600 mg PO Q8 PRN PRN Reason: Pain, Mild (1-3) Last Admin: 08/26/18 08:40 Dose: 600 mg Ketorolac Tromethamine (Toradol) 15 mg IVP Q6 PRN PRN Reason: Pain, moderate (4-7) Last Admin: 08/25/18 22:29 Dose: 15 mg Lactic Acid (Lac-Hydrin 12% Cream (140 G)) 0 ea TOP BID [facility] Last Admin: 08/26/18 08:39 Dose: 1 applic Montelukast Sodium (Singulair) 10 mg PO DAILY [facility] Last Admin: 08/26/18 08:38 Dose: 10 mg Naproxen (Naproxen) 500 mg PO Q12 PRN PRN Reason: Pain, moderate (4-7) Pantoprazole Sodium (Protonix Ec Tab) 40 mg PO DAILY [facility] Last Admin: 08/26/18 08:38 Dose: 40 mg Fluticasone/Salmeterol (Advair Diskus 250/50) 1 puff IH Q12 [facility] Last Admin: 08/26/18 10:06 Dose: Not Given - Labs Labs: 08/26/18 05:35 08/26/18 05:35 - Constitutional Appears: Well, Non-toxic, No Acute Distress - Head Exam Head Exam: ATRAUMATIC, NORMOCEPHALIC - Eye Exam Eye Exam: Normal appearance Pupil Exam: NORMAL ACCOMODATION - Respiratory Exam Respiratory Exam: Clear to Ausculation Bilateral, NORMAL BREATHING PATTERN - Cardiovascular Exam Cardiovascular Exam: REGULAR RHYTHM - GI/Abdominal Exam GI & Abdominal Exam: Soft, Normal Bowel Sounds - Extremities Exam Extremities Exam: absent: Calf Tenderness Additional comments: RLE cellulitis with ulceration noted to anterior tibia, no purulence appreciated Mildly erythematous dermatitis appreciated on b/l lower extremities and arms - Neurological Exam Neurological Exam: Alert, Awake - Psychiatric Exam Psychiatric exam: Normal Affect, Normal Mood - Skin Skin Exam: Warm Assessment and Plan - Assessment and Plan (Free Text) Assessment: 47F with PMHx of gastritis, GERD, depression, anxiety, asthma admitted for cellulitis with RLE ulceration, wound cx growing Pseudo and Group C strep Plan: 1) Cellulitis, RLE ulceration - afebrile, absent leukocytosis - ID consulted, Dr. Kirby, reccs appreciated - Wound cx from previous admission; pseudomonas, group C strep - C/w Zosyn in ED - Avoid narcotics, hx of opiod abuse - Podiatry on board, Dr. Mahoney 2) Generalized Pruritis - Allergic reaction vs drug reaction - s/p Benadryl - Lac Hydrin 12% ordered, to be applied daily 3) Asthma - Duonebs prn - Fluticasone inhaler - Monteleukast 4) Depression -C/W home psych meds 5) Obesity -Prediabetic, Hga1c 6.0 6) DVT ppx -Lovenox 40mg SC 7) Diet -Regular Code status: Full code
--- NOTE | 2018-08-26 18:35 | CP.PCM.CON ---
History of Present Illness - History of Present Illness History of Present Illness: 47 yo F was recently discharged 4 days ago for purulent cellulitis of the right leg. Pt stated that she was discharged on PO augmentin which she has been taking but reports that her right leg redness, swelling, and discharge has worsened. ROS: + Chills. Denies fever, cough, sob, n/v/d, calf pain. PMH obesity gastritis, GERD, depression, anxiety, asthma, Past Patient History - Infectious Disease Hx of Infectious Diseases: None - Past Medical History & Family History Past Medical History?: Yes - Past Social History Smoking Status: Light Smoker < 10 Cigarettes Daily - CARDIAC Hx Hypercholesterolemia: Yes Hx Hypertension: Yes - PULMONARY Hx Asthma: Yes Hx Bronchitis: Yes - NEUROLOGICAL Hx Migraine: Yes - HEENT Hx HEENT Problems: No - RENAL Hx Chronic Kidney Disease: No - ENDOCRINE/METABOLIC Hx Endocrine Disorders: Yes - INTEGUMENTARY Hx Dermatological Problems: Yes - MUSCULOSKELETAL/RHEUMATOLOGICAL Hx Falls: Yes (1 year ago) - GASTROINTESTINAL Hx Gastritis: Yes - PSYCHIATRIC Hx Substance Use: No - SURGICAL HISTORY Hx Surgeries: No Other/Comment: D&C. Colonoscopy - ANESTHESIA Hx Anesthesia: Yes Hx Anesthesia Reactions: No Hx Malignant Hyperthermia: No Meds Allergies/Adverse Reactions: Allergies Allergy/AdvReac Type Severity Reaction Status Date / Time azithromycin Allergy RASH Verified 08/20/18 10:12 cyclobenzaprine HCl Allergy RASH Verified 08/20/18 10:12 [From Flexeril] latex Allergy RASH Verified 08/20/18 10:12 Sulfa (Sulfonamide Allergy RASH Verified 08/20/18 10:12 Antibiotics) bacitracin AdvReac RASH Verified 08/20/18 10:12 - Medications Medications: Current Medications Acetaminophen (Tylenol 325mg Tab) 650 mg PO Q6 PRN PRN Reason: Pain, Mild (1-3) Aripiprazole (Abilify) 10 mg PO [facility] Cholecalciferol (Vitamin D) 1,000 intlu PO DAILY [facility] Last Admin: 08/26/18 08:38 Dose: 1,000 intlu Enoxaparin Sodium (Lovenox) 40 mg SC DAILY [facility]; Protocol Last Admin: 08/26/18 08:38 Dose: 40 mg Escitalopram Oxalate (Lexapro) 20 mg PO DAILY [facility] Last Admin: 08/26/18 08:39 Dose: 20 mg Gabapentin (Neurontin) 300 mg PO Q12 [facility] Last Admin: 08/26/18 08:38 Dose: 300 mg Piperacillin Sod/Tazobactam (Sod 3.375 gm/ Sodium Chloride) 100 mls @ 100 m ls/hr IVPB Q8 [facility]; Protocol Last Admin: 08/26/18 16:29 Dose: 100 mls/hr Ibuprofen (Motrin Tab) 600 mg PO Q8 PRN PRN Reason: Pain, Mild (1-3) Last Admin: 08/26/18 08:40 Dose: 600 mg Ketorolac Tromethamine (Toradol) 15 mg IVP Q6 PRN PRN Reason: Pain, moderate (4-7) Last Admin: 08/25/18 22:29 Dose: 15 mg Lactic Acid (Lac-Hydrin 12% Cream (140 G)) 0 ea TOP BID [facility] Last Admin: 08/26/18 16:29 Dose: 1 applic Montelukast Sodium (Singulair) 10 mg PO DAILY [facility] Last Admin: 08/26/18 08:38 Dose: 10 mg Naproxen (Naproxen) 500 mg PO Q12 PRN PRN Reason: Pain, moderate (4-7) Pantoprazole Sodium (Protonix Ec Tab) 40 mg PO DAILY [facility] Last Admin: 08/26/18 08:38 Dose: 40 mg Fluticasone/Salmeterol (Advair Diskus 250/50) 1 puff IH Q12 [facility] Last Admin: 08/26/18 10:06 Dose: Not Given Results - Vital Signs Recent Vital Signs: Last Vital Signs Temp 97.8 F 08/26/18 16:35 Pulse 65 08/26/18 16:35 Resp 18 08/26/18 16:35 BP 103/62 08/26/18 16:35 Pulse Ox 95 08/26/18 16:35 - Labs Result Diagrams: 08/26/18 05:35 08/26/18 05:35 Labs: Laboratory Results - last 24 hr 08/26/18 08/26/18 05:35 05:35 WBC 6.2 RBC 3.89 Hgb 11.8 L Hct 36.1 MCV 92.8 MCH 30.2 MCHC 32.6 L RDW 13.8 Plt Count 233 ESR 95 H Sodium 140 Potassium 4.4 Chloride 109 H Carbon Dioxide 28 Anion Gap 7 L BUN 16 Creatinine 1.0 Est GFR ( Amer) > 60 Est GFR (Non-Af Amer) 59 Random Glucose 108 H Calcium 8.7
[2018-08-27] MEDS: Piperacillin/Tazobact 3.375 GM in Sodium Chloride 0.9% 100 ML IVPB SCH ×3 (01:00→16:25)
[2018-08-27 06:04] LABS: MEAN CELL VOLUME 93.6 fl (81.0-99.0); RBC 4.01 Mil/uL (3.80-5.20); RED CELL DISTRIBUTION WIDTH 13.5 % (11.5-14.5); WHITE BLOOD COUNT 5.9 K/uL (4.8-10.8)
[2018-08-27 06:21] LABS: BLOOD UREA NITROGEN 13 mg/dl (7-17); CALCIUM 8.5 mg/dL (8.4-10.2); GFR NON-AFRICAN AMERICAN 53
[2018-08-27] MEDS ORDERED: Povidone Iodine Topical 10% Sol ONE (07:10)
--- NOTE | 2018-08-27 08:28 | CP.PCM.PN ---
Subjective - Date & Time of Evaluation Date of Evaluation: 08/27/18 Time of Evaluation: 08:25 - Subjective Subjective: Podiatry progress note for Dr. Jones 48F seen at bedside. Resting comfortably. Reports mild pain to the right lower leg. States she had trouble sleeping last night as a rash has developed on her upper arms that is causing itching and burning. States medicine is aware and that she was checked on her back and chest and there is no rash. Denies N/V/F/C/SOB/CP and has no other pedal complaints. Objective - Vital Signs/Intake and Output Vital Signs (last 24 hours): Temp Pulse Resp BP Pulse Ox 97.8 F 66 19 103/61 96 08/27/18 07:57 08/27/18 07:57 08/27/18 07:57 08/27/18 07:57 08/27/18 07:57 - Medications Medications: Current Medications Acetaminophen (Tylenol 325mg Tab) 650 mg PO Q6 PRN PRN Reason: Pain, Mild (1-3) Aripiprazole (Abilify) 10 mg PO HS [facility] Last Admin: 08/26/18 21:40 Dose: 10 mg Cholecalciferol (Vitamin D) 1,000 intlu PO DAILY [facility] Last Admin: 08/26/18 08:38 Dose: 1,000 intlu Diphenhydramine HCl (Benadryl) 25 mg PO Q6 PRN PRN Reason: Allergy symptoms Enoxaparin Sodium (Lovenox) 40 mg SC DAILY [facility]; Protocol Last Admin: 08/26/18 08:38 Dose: 40 mg Escitalopram Oxalate (Lexapro) 20 mg PO DAILY [facility] Last Admin: 08/26/18 08:39 Dose: 20 mg Gabapentin (Neurontin) 300 mg PO Q12 [facility] Last Admin: 08/26/18 21:40 Dose: 300 mg Piperacillin Sod/Tazobactam (Sod 3.375 gm/ Sodium Chloride) 100 mls @ 100 mls/hr IVPB Q8 [facility]; Protocol Last Admin: 08/27/18 01:00 Dose: 100 mls/hr Vancomycin HCl 1 gm/ Sodium (Chloride) 250 mls @ 166.667 mls/hr IVPB Q12@1000,2200 [facility]; Protocol Last Admin: 08/26/18 21:40 Dose: 166.667 mls/hr Ibuprofen (Motrin Tab) 600 mg PO Q8 PRN PRN Reason: Pain, Mild (1-3) Last Admin: 08/26/18 08:40 Dose: 600 mg Ketorolac Tromethamine (Toradol) 15 mg IVP Q6 PRN PRN Reason: Pain, moderate (4-7) Last Admin: 08/25/18 22:29 Dose: 15 mg Lactic Acid (Lac-Hydrin 12% Cream (140 G)) 0 ea TOP BID [facility] Last Admin: 08/26/18 16:29 Dose: 1 applic Montelukast Sodium (Singulair) 10 mg PO DAILY [facility] Last Admin: 08/26/18 08:38 Dose: 10 mg Naproxen (Naproxen) 500 mg PO Q12 PRN PRN Reason: Pain, moderate (4-7) Pantoprazole Sodium (Protonix Ec Tab) 40 mg PO DAILY [facility] Last Admin: 08/26/18 08:38 Dose: 40 mg Fluticasone/Salmeterol (Advair Diskus 250/50) 1 puff IH Q12 [facility] Last Admin: 08/26/18 21:39 Dose: 1 puff - Labs Labs: 08/27/18 05:30 08/27/18 05:30 - Constitutional Appears: Well, Non-toxic, No Acute Distress - Head Exam Head Exam: ATRAUMATIC, NORMOCEPHALIC - Extremities Exam Additional comments: Vascular: DP/PT palpable, CFT < 3 seconds to all digits, TG warm to warm with increase warmth to R lower extremity, +1 pitting edema to RLE Ortho: Tenderness to palpation to anterior aspect of R leg, MMT 5/5 in all compartments Neuro: Gross sensation intact, protective sensation diminished bilaterally Derm: Significant xerosis noted circumfrentially to RLE. Linear ulceration appreciated to anterior aspect of R leg, cellulitis noted circumfrentially to R ulceration, no malodor appreciated, mild serous drainage, no purulence appreciated. - Neurological Exam Neurological Exam: Alert, Awake, Oriented x3 - Psychiatric Exam Psychiatric exam: Normal Affect, Normal Mood Assessment and Plan - Assessment and Plan (Free Text) Assessment: 48F patients, with PMHx of depression, anxiety, Hep B, Hep C, seen and examined for RLE cellulitis and ulceration. Plan: Patient seen and evaluated, discussed with Dr. Maru Afebrile, absent leukocytosis Wound cultures from previous admission (08/20); Pseudo, Group C strep New wound cultures pending F/u with blood cultures; results pending ID Consulted; reccs appreciated C/w Zosyn 3.375 Local wound care to RLE; betadine, adapatic, DSD ABD Will continue to follow patient while in house
[2018-08-27] MEDS: Fluticasone-Salmeterol 250-50mcg Diskus IH SCH (08:39)
[2018-08-27] MEDS: Ammonium Lactate 12% Cream (140 g) TOP SCH ×2 (08:40→16:23)
[2018-08-27] MEDS: Enoxaparin 40 mg Syringe SC SCH (08:40)
[2018-08-27] MEDS: Cholecalciferol 1,000 INTLU TAB PO SCH (08:41)
[2018-08-27] MEDS: Pantoprazole 40 mg EC Tab PO SCH (08:41)
--- NOTE | 2018-08-27 09:32 | CP.PCM.PN ---
Subjective - Date & Time of Evaluation Date of Evaluation: 08/27/18 Time of Evaluation: 09:29 Objective - Vital Signs/Intake and Output Vital Signs (last 24 hours): Temp Pulse Resp BP Pulse Ox 97.8 F 66 19 103/61 96 08/27/18 07:57 08/27/18 07:57 08/27/18 07:57 08/27/18 07:57 08/27/18 07:57 - Medications Medications: Current Medications Acetaminophen (Tylenol 325mg Tab) 650 mg PO Q6 PRN PRN Reason: Pain, Mild (1-3) Aripiprazole (Abilify) 10 mg PO HS [facility] Last Admin: 08/26/18 21:40 Dose: 10 mg Cholecalciferol (Vitamin D) 1,000 intlu PO DAILY [facility] Last Admin: 08/27/18 08:41 Dose: 1,000 intlu Diphenhydramine HCl (Benadryl) 25 mg PO Q6 PRN PRN Reason: Allergy symptoms Last Admin: 08/27/18 08:39 Dose: 25 mg Enoxaparin Sodium (Lovenox) 40 mg SC DAILY [facility]; Protocol Last Admin: 08/27/18 08:40 Dose: 40 mg Escitalopram Oxalate (Lexapro) 20 mg PO DAILY [facility] Last Admin: 08/27/18 08:40 Dose: 20 mg Gabapentin (Neurontin) 300 mg PO Q12 [facility] Last Admin: 08/27/18 08:41 Dose: 300 mg Hydrocortisone (Cortizone 1% Cream) 1 applic TOP BID [facility] Piperacillin Sod/Tazobactam (Sod 3.375 gm/ Sodium Chloride) 100 mls @ 100 mls/hr IVPB Q8 [facility]; Protocol Last Admin: 08/27/18 08:42 Dose: 100 mls/hr Vancomycin HCl 1 gm/ Sodium (Chloride) 250 mls @ 166.667 mls/hr IVPB Q12@1000,2200 [facility]; Protocol Last Admin: 08/26/18 21:40 Dose: 166.667 mls/hr Ibuprofen (Motrin Tab) 600 mg PO Q8 PRN PRN Reason: Pain, Mild (1-3) Last Admin: 08/26/18 08:40 Dose: 600 mg Ketorolac Tromethamine (Toradol) 15 mg IVP Q6 PRN PRN Reason: Pain, moderate (4-7) Last Admin: 08/25/18 22:29 Dose: 15 mg Lactic Acid (Lac-Hydrin 12% Cream (140 G)) 0 ea TOP BID [facility] Last Admin: 08/27/18 08:40 Dose: 1 applic Loratadine (Claritin) 10 mg PO DAILY [facility] Montelukast Sodium (Singulair) 10 mg PO DAILY [facility] Last Admin: 08/27/18 08:41 Dose: 10 mg Naproxen (Naproxen) 500 mg PO Q12 PRN PRN Reason: Pain, moderate (4-7) Pantoprazole Sodium (Protonix Ec Tab) 40 mg PO DAILY [facility] Last Admin: 08/27/18 08:41 Dose: 40 mg Ranitidine HCl (Zantac Soln 5ml) 150 mg PO BID [facility] Fluticasone/Salmeterol (Advair Diskus 250/50) 1 puff IH Q12 [facility] Last Admin: 08/27/18 08:39 Dose: 1 puff - Labs Labs: 08/27/18 05:30 08/27/18 05:30
[2018-08-27] MEDS: raNITIdine HCl 150 mg/10 ml Soln Cup PO SCH ×2 (09:46→16:24)
--- NOTE | 2018-08-27 10:49 | CP.PCM.DIS ---
Provider - Provider Date of Admission: 08/25/18 17:30 Attending physician: Dustin Sands MD Consults: 08/25/18 18:03 Podiatry Consult Stat Comment: Consulting Provider: Toby Jones Consulting Physician: Toby Jones Reason for Consult: R. LE purulent cellulitis 08/25/18 18:05 Wound Care [Nursing Referral for Wound Care] Routine Comment: Physician Instructions: Reason For Exam: purulent cellulitis 08/26/18 08:25 Physician Consult Routine Comment: Consulting Provider: Javed Kirby Consulting Physician: Javed Kirby Reason for Consult: right LE cellulitis and infected wound Time Spent in preparation of Discharge (in minutes): 30 Hospital Course - Lab Results Lab Results: Micro Results 08/26/18 10:44 Leg - Right Gram Stain - Final 08/25/18 13:30 Blood Blood Culture - Preliminary NO GROWTH AFTER 24 HOURS 08/25/18 13:45 Blood Blood Culture - Preliminary NO GROWTH AFTER 24 HOURS Most Recent Lab Values WBC 5.9 K/uL (4.8-10.8) 08/27/18 05:30 RBC 4.01 Mil/uL (3.80-5.20) 08/27/18 05:30 Hgb 12.0 g/dL (12.0-16.0) 08/27/18 05:30 Hct 37.5 % (34.0-47.0) 08/27/18 05:30 MCV 93.6 fl (81.0-99.0) 08/27/18 05:30 MCH 30.0 pg (27.0-31.0) 08/27/18 05:30 MCHC 32.0 g/dL (33.0-37.0) L 08/27/18 05:30 RDW 13.5 % (11.5-14.5) 08/27/18 05:30 Plt Count 238 K/uL (130-400) 08/27/18 05:30 MPV 7.7 fl (7.2-11.7) 08/25/18 13:30 Neut % (Auto) 57.3 % (50.0-75.0) 08/25/18 13:30 Lymph % (Auto) 28.4 % (20.0-40.0) 08/25/18 13:30 [place] % (Auto) 7.9 % (0.0-10.0) 08/25/18 13:30 Eos % (Auto) 5.2 % (0.0-4.0) H 08/25/18 13:30 Baso % (Auto) 1.2 % (0.0-2.0) 08/25/18 13:30 Neut # (Auto) 4.1 K/uL (1.8-7.0) 08/25/18 13:30 Lymph # (Auto) 2.0 K/uL (1.0-4.3) 08/25/18 13:30 [place] # (Auto) 0.6 K/uL (0.0-0.8) 08/25/18 13:30 Eos # (Auto) 0.4 K/uL (0.0-0.7) 08/25/18 13:30 Baso # (Auto) 0.1 K/uL (0.0-0.2) 08/25/18 13:30 ESR 95 mm/hr (0-20) H 08/26/18 05:35 Sodium 141 mmol/l (132-148) 08/27/18 05:30 Potassium 4.3 MMOL/L (3.6-5.0) 08/27/18 05:30 Chloride 107 mmol/L (98-107) 08/27/18 05:30 Carbon Dioxide 29 mmol/L (22-30) 08/27/18 05:30 Anion Gap 9 (10-20) L 08/27/18 05:30 BUN 13 mg/dl (7-17) 08/27/18 05:30 Creatinine 1.1 mg/dl (0.7-1.2) 08/27/18 05:30 Est GFR ( Amer) > 60 08/27/18 05:30 Est GFR (Non-Af Amer) 53 08/27/18 05:30 Random Glucose 98 mg/dL (65-105) 08/27/18 05:30 Calcium 8.5 mg/dL (8.4-10.2) 08/27/18 05:30 Total Bilirubin 0.7 mg/dl (0.2-1.3) 08/25/18 13:30 AST 32 U/L (14-36) 08/25/18 13:30 ALT 28 U/L (9-52) 08/25/18 13:30 Alkaline Phosphatase 66 U/L (38-126) 08/25/18 13:30 Total Protein 7.6 G/DL (6.3-8.2) 08/25/18 13:30 Albumin 3.8 g/dL (3.5-5.0) 08/25/18 13:30 Globulin 3.8 gm/dL (2.2-3.9) 08/25/18 13:30 Albumin/Globulin Ratio 1.0 (1.0-2.1) 08/25/18 13:30 - Hospital Course Hospital Course: 1) Cellulitis, RLE ulceration - afebrile, absent leukocytosis - ID consulted, Dr. Kirby, reccs appreciated - Wound cx from previous admission; pseudomonas, group C strep - C/w Zosyn in ED - Avoid narcotics, hx of opiod abuse - Podiatry on board, Dr. Jones 2) Generalized Pruritis - Allergic reaction vs drug reaction - s/p Benadryl - Lac Hydrin 12% ordered, to be applied daily 47F with PMHx of gastritis, GERD, depression, anxiety, asthma admitted for cellulitis with RLE ulceration. Wound cultures from previous admission showed Pseudomonas and Group C strep. Patient was immediately started on IV antibiotics. Podiatry was consulted. Chart reviewed, patient stable for discharge to subacute rehab facility for continued IV abx of Vanc/Zosyn for 7-10 days and physical therapy. Patient to follow up with vascular for evaluation of LE circulation and with Dr. Jones, Podiatry, in the wound care center for RLE wound. - Date & Time of H&P Date of H&P: 08/27/18 Time of H&P: 10:46 Discharge Exam - Head Exam Head Exam: ATRAUMATIC, NORMOCEPHALIC - Eye Exam Eye Exam: Normal appearance - Respiratory Exam Respiratory Exam: Clear to PA & Lateral, NORMAL BREATHING PATTERN - Cardiovascular Exam Cardiovascular Exam: REGULAR RHYTHM - GI/Abdominal Exam GI & Abdominal Exam: Normal Bowel Sounds, Unremarkable - Extremities Exam Extremities exam: normal capillary refill Additional comments: RLE ulceration dressing C/D/I Dermatitis appreciated on bilateral arms - Neurological Exam Neurological exam: Alert, Oriented x3 - Psychiatric Exam Psychiatric exam: Normal Affect, Normal Mood - Skin Skin Exam: Warm Discharge Plan - Follow Up Plan Condition: STABLE Disposition: HOME/ ROUTINE Instructions: Cellulitis (DC), Cellulitis (GEN)
--- NOTE | 2018-08-27 13:12 | CP.PCM.PN ---
Subjective - Date & Time of Evaluation Date of Evaluation: 08/27/18 Time of Evaluation: 09:00 - Subjective Subjective: afeb on IV rx for d/c to [facility] vascular surgery eval pending Objective - Vital Signs/Intake and Output Vital Signs (last 24 hours): Temp Pulse Resp BP Pulse Ox 97.8 F 66 19 103/61 96 08/27/18 07:57 08/27/18 07:57 08/27/18 07:57 08/27/18 07:57 08/27/18 07:57 - Medications Medications: Current Medications Acetaminophen (Tylenol 325mg Tab) 650 mg PO Q6 PRN PRN Reason: Pain, Mild (1-3) Aripiprazole (Abilify) 10 mg PO HS [facility] Last Admin: 08/26/18 21:40 Dose: 10 mg Cholecalciferol (Vitamin D) 1,000 intlu PO DAILY [facility] Last Admin: 08/27/18 08:41 Dose: 1,000 intlu Diphenhydramine HCl (Benadryl) 25 mg PO Q6 PRN PRN Reason: Allergy symptoms Last Admin: 08/27/18 08:39 Dose: 25 mg Enoxaparin Sodium (Lovenox) 40 mg SC DAILY [facility]; Protocol Last Admin: 08/27/18 08:40 Dose: 40 mg Escitalopram Oxalate (Lexapro) 20 mg PO DAILY [facility] Last Admin: 08/27/18 08:40 Dose: 20 mg Gabapentin (Neurontin) 300 mg PO Q12 [facility] Last Admin: 08/27/18 08:41 Dose: 300 mg Hydrocortisone (Cortizone 1% Cream) 1 applic TOP BID [facility] Last Admin: 08/27/18 09:45 Dose: 1 applic Piperacillin Sod/Tazobactam (Sod 3.375 gm/ Sodium Chloride) 100 mls @ 100 mls/hr IVPB Q8 [facility]; Protocol Last Admin: 08/27/18 08:42 Dose: 100 mls/hr Vancomycin HCl 1 gm/ Sodium (Chloride) 250 mls @ 166.667 mls/hr IVPB Q12@1000,2 200 [facility]; Protocol Last Admin: 08/27/18 09:47 Dose: 166.667 mls/hr Ibuprofen (Motrin Tab) 600 mg PO Q8 PRN PRN Reason: Pain, Mild (1-3) Last Admin: 08/26/18 08:40 Dose: 600 mg Ketorolac Tromethamine (Toradol) 15 mg IVP Q6 PRN PRN Reason: Pain, moderate (4-7) Last Admin: 08/25/18 22:29 Dose: 15 mg Lactic Acid (Lac-Hydrin 12% Cream (140 G)) 0 ea TOP BID [facility] Last Admin: 08/27/18 08:40 Dose: 1 applic Loratadine (Claritin) 10 mg PO DAILY [facility] Last Admin: 08/27/18 09:45 Dose: 10 mg Montelukast Sodium (Singulair) 10 mg PO DAILY [facility] Last Admin: 08/27/18 08:41 Dose: 10 mg Naproxen (Naproxen) 500 mg PO Q12 PRN PRN Reason: Pain, moderate (4-7) Last Admin: 08/27/18 09:57 Dose: 500 mg Pantoprazole Sodium (Protonix Ec Tab) 40 mg PO DAILY [facility] Last Admin: 08/27/18 08:41 Dose: 40 mg Ranitidine HCl (Zantac Soln 5ml) 150 mg PO BID [facility] Last Admin: 08/27/18 09:46 Dose: 150 mg Fluticasone/Salmeterol (Advair Diskus 250/50) 1 puff IH Q12 [facility] Last Admin: 08/27/18 08:39 Dose: 1 puff - Labs Labs: 08/27/18 05:30 08/27/18 05:30 - Constitutional Appears: Non-toxic, Chronically Ill - Head Exam Head Exam: NORMOCEPHALIC - Eye Exam Eye Exam: absent: Scleral icterus - ENT Exam ENT Exam: Mucous Membranes Dry - Neck Exam Neck Exam: absent: Lymphadenopathy - Respiratory Exam Respiratory Exam: Decreased Breath Sounds - Cardiovascular Exam Cardiovascular Exam: REGULAR RHYTHM - GI/Abdominal Exam GI & Abdominal Exam: Distended, Soft - Rectal Exam Rectal Exam: Deferred - Extremities Exam Extremities Exam: Calf Tenderness, Pedal Edema, Tenderness - Back Exam Back Exam: absent: CVA tenderness (L), CVA tenderness (R) - Neurological Exam Neurological Exam: Alert, Awake, Oriented x3 Assessment and Plan (1) Cellulitis Status: Acute - Assessment and Plan (Free Text) Assessment: recc vascular eval cont iv antibiotics min 7-10 days
--- NOTE | 2018-08-27 14:17 | RAD ---
Date of service: 08/27/2018 HISTORY: PICC Insertion COMPARISON: 07/14/2018 FINDINGS: LUNGS: No active pulmonary disease. PLEURA: No significant pleural effusion identified, no pneumothorax apparent. CARDIOVASCULAR: No atherosclerotic calcification present Normal. OSSEOUS STRUCTURES: No significant abnormalities. VISUALIZED UPPER ABDOMEN: Normal. OTHER FINDINGS: None. IMPRESSION: No active disease. No significant interval change compared to the prior examination(s).
[2018-08-27 14:46] LABS: INR 1.1; PROTHROMBIN TIME 12.6 Seconds (9.8-13.1)
--- NOTE | 2018-08-27 15:53 | RAD ---
Date of service: 08/27/2018 HISTORY: PICC Correction COMPARISON: Portable chest 08/27/2018 1:27 p.m.. FINDINGS: LUNGS: No active pulmonary disease. PLEURA: No significant pleural effusion identified, no pneumothorax apparent. CARDIOVASCULAR: Right PICC insertion terminates now at the right subclavian vein junction with superior vena cava, which is indicate an adequate for total parenteral nutrition delivery but otherwise acceptable. No aortic atherosclerotic calcification present. Normal cardiac size. No pulmonary vascular congestion. OSSEOUS STRUCTURES: No significant abnormalities. VISUALIZED UPPER ABDOMEN: Normal. OTHER FINDINGS: None. IMPRESSION: No acute interval cardiopulmonary disease appreciated. PICC insertion terminates at right subclavian vein/SVC junction as discussed above.
[2018-08-27 16:16] VITALS: BP 141/68; PULSE 72; RESP 18; TEMP 98.6
[2018-08-28 21:35] VITALS: O2SAT 95
== END 2018-08-27 18:00 ==
LOC: H.ER 11:40 → H.ERHOLD 17:30 → H.MEDSURG1 21:25
PROVIDERS: ADMIT Hospitalist; ATTEND Hospitalist
DX: L03.116 Cellulitis of left lower limb (principal); L03.115 Cellulitis of right lower limb; L97.919 Non-pressure chronic ulcer of unspecified part of right lower leg with unspecified severity; L97.929 Non-pressure chronic ulcer of unspecified part of left lower leg with unspecified severity; E66.01 Morbid (severe) obesity due to excess calories; Z68.41 Body mass index [BMI] 40.0-44.9, adult; L29.8 Other pruritus; B96.5 Pseudomonas (aeruginosa) (mallei) (pseudomallei) as the cause of diseases classified elsewhere; B95.4 Other streptococcus as the cause of diseases classified elsewhere; B95.2 Enterococcus as the cause of diseases classified elsewhere; G89.29 Other chronic pain; R73.03 Prediabetes; I10 Essential (primary) hypertension; E78.00 Pure hypercholesterolemia, unspecified; E78.5 Hyperlipidemia, unspecified; F31.9 Bipolar disorder, unspecified; F41.9 Anxiety disorder, unspecified; K21.9 Gastro-esophageal reflux disease without esophagitis; J45.909 Unspecified asthma, uncomplicated; M06.9 Rheumatoid arthritis, unspecified; N89.8 Other specified noninflammatory disorders of vagina; F17.210 Nicotine dependence, cigarettes, uncomplicated; Z86.19 Personal history of other infectious and parasitic diseases; Z88.2 Allergy status to sulfonamides; Z88.1 Allergy status to other antibiotic agents; Z91.040 Latex allergy status
CPT/HCPCS: 36415; 36569; 71045; 80048; 80053; 80202; 81025; 85025; 85027; 85610; 85651; 87040; 87070; 87181; 93970; 96365; 96366; 96367; 96372; 96375; 99285; C1751; G0378; J1650; J1885; J2270; J2543

== ENCOUNTER 2018-08-30 11:57 | Observation (INO) | payer MEDICAID ==
[2018-08-30 11:57] VITALS: BMI 42.4
[2018-08-30] MEDS ORDERED: Sodium Chloride 0.9% 1,000 ML IV STA (12:22)
--- NOTE | 2018-08-30 12:22 | ED PDOC ---
Lower Extremity Pain/Injury Time Seen by Provider: 08/30/18 12:10 Chief Complaint (Nursing): Lower Extremity Problem/Injury Chief Complaint (Provider): Lower Extremity Problem/Injury History Per: Patient History/Exam Limitations: no limitations Current Symptoms Are (Timing): Still Present Additional Complaint(s): 48 year old female with a history of HTN and bipolar disorder presents to the ED with cellulitis on bilateral legs for the last 5 months. Patient recently left against medical advice when she was being treated for the same symptoms. Notes chills at home and returned for evaluation. States she had a picc line removed recently. She was initially advised to continue care at [facility] with antibiotics and has since failed to do so. Otherwise offers no other complaints. PMD: Dr. Donna Pelletier Past Medical History Reviewed: Historical Data, Nursing Documentation, Vital Signs Vital Signs: Last Vital Signs Temp 100.1 F H 08/30/18 12:01 Pulse 120 H 08/30/18 12:01 Resp 20 08/30/18 12:01 BP 138/92 H 08/30/18 12:01 Pulse Ox 96 08/30/18 12:01 - Medical History PMH: Anxiety, Arthritis, Asthma, Bipolar Disorder, Bronchitis, CAD, Depression, Gastritis, GERD, HTN, Hypercholesterolemia, Hyperlipidemia, Migraine, Personality Disorder, Rheumatoid Arthritis, Chronic Pain Denies: Deep Vein Thrombosis, Chronic Kidney Disease - Surgical History Surgical History: Denies: Pacemaker - Family History Family History: States: Unknown Family Hx, CAD - Immunization History Hx Tetanus Toxoid Vaccination: Yes (UTD) Hx Influenza Vaccination: Yes Hx Pneumococcal Vaccination: Yes (Not sure when she received it) - Home Medications Home Medications: Ambulatory Orders Medication Instructions Recorded ARIPiprazole [Abilify] 10 mg PO DAILY 08/20/18 Cholecalciferol [Vitamin D 1000 IU] 1,000 units PO DAILY 08/20/18 Escitalopram [Lexapro] 20 mg PO DAILY 08/20/18 Buprenorphine HCl/Naloxone HCl 1 tab SL DAILY 08/25/18 [Buprenorphin-Naloxon 8-2 mg Sl] Fluticasone/Salmeterol [Airduo 1 puff IH Q12 08/25/18 Respiclick [id number] Mcg] Gabapentin 300 mg PO Q12 08/25/18 Ibuprofen [Motrin Tab] 600 mg PO Q8 PRN 08/25/18 Montelukast [Singulair] 10 mg PO DAILY 08/25/18 Omeprazole 40 mg PO DAILY 08/25/18 Acetaminophen [Tylenol 325mg tab] 650 mg PO Q6 PRN tab 08/27/18 Ammonium Lactate 12% [Lac-Hydrin 12 % TOP BID tube 08/27/18 12% Cream (140 g)] DiphenhydrAMINE [Benadryl] 25 mg PO Q6 PRN cap 08/27/18 Enoxaparin [Lovenox] 40 mg SC DAILY syr 08/27/18 Hydrocortisone 1% Cream [Cortizone 1 applic TOP BID tube 08/27/18 1% Cream] Lactobacillus Acidophilus [Bacid 1 cap PO Q12H 10 Days cap 08/27/18 Acidophilus] Loratadine [Claritin] 10 mg PO DAILY tab 08/27/18 Piperacillin/Tazobact 3.375 gm 3.375 gm IVPB Q8 9 Days bag 08/27/18 [Zosyn 3.375 in NS 100ml] Vancomycin/0.9 % Sod Chloride 1 gm IV Q12 9 Days plast..bag 08/27/18 [Vancomycin 1 G/100Ml-0.9% NaCl] raNITIdine [Zantac Soln 5ml] 150 mg PO BID ml 08/27/18 - Allergies Allergies/Adverse Reactions: Allergies Allergy/AdvReac Type Severity Reaction Status Date / Time azithromycin Allergy RASH Verified 08/20/18 10:12 cyclobenzaprine HCl Allergy RASH Verified 08/20/18 10:12 [From Flexeril] latex Allergy RASH Verified 08/20/18 10:12 Sulfa (Sulfonamide Allergy RASH Verified 08/20/18 10:12 Antibiotics) bacitracin AdvReac RASH Verified 08/20/18 10:12 Review of Systems ROS Statement: Except As Marked, All Systems Reviewed And Found Negative Musculoskeletal: Positive for: Leg Pain (bilateral leg cellulitis) Physical Exam - Reviewed Nursing Documentation Reviewed: Yes Vital Signs Reviewed: Yes - Physical Exam Appears: Positive for: No Acute Distress Head Exam: Positive for: ATRAUMATIC, NORMAL INSPECTION, NORMOCEPHALIC Eye Exam: Positive for: Normal appearance, EOMI, PERRL Extremity: Positive for: Other (bilateral erythema to legs; pretibular wound on right leg with green discharge) - Laboratory Results Result Diagrams: 08/30/18 12:40 08/30/18 12:40 - ECG ECG: Positive for: Interpreted By Me, Viewed By Me ECG Rhythm: Positive for: Sinus Rhythm (normal ) Rate: 95 O2 Sat by Pulse Oximetry: 96 - Radiology X-Ray: Interpreted by Me, Viewed By Me X-Ray Interpretation: No Acute Disease - Progress ED Course And Treament: seen by podiatry resident zosyn 3.375 gm iv x 1 dose; vancomycin 1 gm iv x 1 dose TIB-FIB BILATERAL WNL Medical Decision Making Medical Decision Makin:21 Initial Plan: --VBG --EKG --CMP --CBC --CXR --[place] Fibula x-ray --Vancomycin 1 gm in 250 ml NS IVPB --Piperacillin 3.375 gm in 100 ml NS IVPB --Blood cx --Urine cx --UA Scribe Attestation: Documented by Kaya Medina, acting as a scribe for Lianne Gonzalez PA-C Provider Scribe Attestation: All medical record entries made by the Scribe were at my direction and personally dictated by me. I have reviewed the chart and agree that the record accurately reflects my personal performance of the history, physical exam, medical decision making, and the department course for this patient. I have also personally directed, reviewed, and agree with the discharge instructions and disposition. Disposition - Clinical Impression Clinical Impression: Cellulitis - Patient ED Disposition Is Patient to be Admitted: No - Disposition Disposition: Routine/Home Disposition Time: 13:37 Condition: FAIR Forms: [facility] ([place]) - Pt Status Changed To: Hospital Disposition Of: Inpatient - Admit Certification Admit to Inpatient:: After my assessment, the patient will require hospitalization for at least two midnights. This is because of the severity of symptoms shown, intensity of services needed, and/or the medical risk in this patient being treated as an outpatient.
[2018-08-30] MEDS ORDERED: Piperacillin/Tazobact 3.375 GM in Sodium Chloride 0.9% 100 ML IVPB STA (12:23)
[2018-08-30 12:50] LABS: BASO # 0.1 K/uL (0.0-0.2); BASO % 1.4 % (0.0-2.0); EOS # 0.4 K/uL (0.0-0.7); EOS % 4.1 % (0.0-4.0); HEMOGLOBIN 11.5 g/dL (12.0-16.0); LYMPH # 2.1 K/uL (1.0-4.3); LYMPH % 23.4 % (20.0-40.0); MEAN CELL VOLUME 89.8 fl (81.0-99.0); MEAN CORPUSCULAR HEMOGLOBIN 29.7 pg (27.0-31.0); MEAN CORPUSCULAR HGB CONC 33.1 g/dL (33.0-37.0); MEAN PLATELET VOLUME 7.3 fl (7.2-11.7); MONO # 0.8 K/uL (0.0-0.8); MONO % 8.9 % (0.0-10.0); NEUT # 5.6 K/uL (1.8-7.0); NEUT % 62.2 % (50.0-75.0); NRBC % 0.1 % (0.0-0.0); RBC 3.87 Mil/uL (3.80-5.20); RED CELL DISTRIBUTION WIDTH 13.4 % (11.5-14.5)
[2018-08-30] MEDS ORDERED: Piperacillin/Tazobact 3.375 gm Inj IVPB ONE (12:56)
[2018-08-30 13:02] LABS: VENOUS BLOOD GAS PCO2 46 mmHg (40-60); VENOUS BLOOD GAS PO2 48 mm/Hg (30-55)
[2018-08-30 13:05] LABS: ALBUMIN 3.5 g/dL (3.5-5.0); ALT/SGPT 29 U/L (9-52); AST/SGOT 30 U/L (14-36); BLOOD UREA NITROGEN 17 mg/dl (7-17); CALCIUM 8.6 mg/dL (8.4-10.2); GFR NON-AFRICAN AMERICAN 53
[2018-08-30] MEDS ORDERED: DiphenhydrAMINE 50 mg/ml Inj IVP STA (13:27)
[2018-08-30] MEDS ORDERED: DiphenhydrAMINE 50 mg/ml Inj ONE (13:33)
[2018-08-30 13:55] LABS: SQUAMOUS EPITHIAL 12 /hpf (0-5); URINE BILIRUBIN SMALL (NEGATIVE); URINE BLOOD NEGATIVE (NEGATIVE); URINE CLARITY CLOUDY (Clear); URINE COLOR AMBER (YELLOW); URINE GLUCOSE (UA) NEG (Normal); URINE LEUKOCYTE ESTERASE NEG Leu/uL (Negative); URINE PROTEIN 100 mg/dL (NEGATIVE)
--- NOTE | 2018-08-30 14:10 | RAD ---
Date of service: 08/30/2018 HISTORY: routine COMPARISON: 08/27/2018 FINDINGS: LUNGS: No active pulmonary disease. PLEURA: No significant pleural effusion identified, no pneumothorax apparent. CARDIOVASCULAR: No aortic atherosclerotic calcification present. Normal cardiac size. No pulmonary vascular congestion. OSSEOUS STRUCTURES: No significant abnormalities. VISUALIZED UPPER ABDOMEN: Normal. OTHER FINDINGS: None. IMPRESSION: No active disease.
--- NOTE | 2018-08-30 14:13 | RAD ---
Date of service: 08/30/2018 PROCEDURE: Bilateral Knee Radiographs. HISTORY: right leg erythema COMPARISON: None. FINDINGS: BONES: Right Knee: Normal. No fracture. Left Knee: Normal. No fracture. JOINTS: Right Knee: Normal. No osteoarthritis. Left knee: There is narrowing in the medial joint space of the left knee SOFT TISSUES: Right Knee: Normal. Left Knee: Normal. JOINT EFFUSION: Right Knee: None. Left Knee: None. OTHER FINDINGS: None. IMPRESSION: There narrowing in the medial joint space of the left knee. The right knee is unremarkable
--- NOTE | 2018-08-30 14:24 | CP.PCM.CON ---
History of Present Illness - History of Present Illness History of Present Illness: Podiatry consult note for Dr. Mahoney 48 y/o female patient with PMHx of depression, anxiety, Hep B, Hep C, seen and examined for RLE cellulitis and ulceration. Patient recently signed out AMA from [facility] 3 days ago . Patient was to be transferred to a [facility] IV Antibiotics. Patient states that her wounds worsened over the weekend. Patient states her helped her do the dressing changes daily, however, sh e noted increased drainage and came to the ED today. She reports new onset rash with itchiness to her both arms and legs. She denies any other pedal complaints at this time. Patient complains of chills and nausea. Patient denies CP/SOB PMHx: Anxiety, depression, Hep B, Hep C SHx: Social Hx: Tobacco use (5 cigarettes a day), denies alcohol use Review of Systems - Review of Systems All systems: reviewed and no additional remarkable complaints except Review of Systems: As per HPI Past Patient History - Infectious Disease Hx of Infectious Diseases: None - Past Medical History & Family History Past Medical History?: Yes - Past Social History Smoking Status: Light Smoker < 10 Cigarettes Daily - CARDIAC Hx Hypercholesterolemia: Yes Hx Hypertension: Yes Hx Pacemaker: No - PULMONARY Hx Asthma: Yes Hx Bronchitis: Yes - NEUROLOGICAL Hx Migraine: Yes - HEENT Hx HEENT Problems: No - RENAL Hx Chronic Kidney Disease: No - ENDOCRINE/METABOLIC Hx Endocrine Disorders: Yes - INTEGUMENTARY Hx Dermatological Problems: Yes Hx Cellulitis: Yes - MUSCULOSKELETAL/RHEUMATOLOGICAL Hx Arthritis: Yes Hx Rheumatoid Arthritis: Yes - GASTROINTESTINAL Hx Gastritis: Yes - PSYCHIATRIC Hx Anxiety: Yes Hx Bipolar Disorder: Yes Hx Depression: Yes - SURGICAL HISTORY Hx Mastectomy: No - ANESTHESIA Hx Anesthesia: Yes Hx Anesthesia Reactions: No Hx Malignant Hyperthermia: No Meds Allergies/Adverse Reactions: Allergies Allergy/AdvReac Type Severity Reaction Status Date / Time azithromycin Allergy RASH Verified 08/20/18 10:12 cyclobenzaprine HCl Allergy RASH Verified 08/20/18 10:12 [From Flexeril] latex Allergy RASH Verified 08/20/18 10:12 Sulfa (Sulfonamide Allergy RASH Verified 08/20/18 10:12 Antibiotics) bacitracin AdvReac RASH Verified 08/20/18 10:12 Physical Exam - Constitutional Appears: Well, Non-toxic, No Acute Distress - Head Exam Head Exam: ATRAUMATIC, NORMOCEPHALIC - Extremities Exam Additional comments: Bilateral Lower Extremity Exam: Vascular: DP/PT palpable 2/4 bilaterally, CFT < 3 seconds to all digits, TG warm to warm with increase warmth to R lower extremity, +2 pitting edema to RLE Ortho: Tenderness to palpation to anterior aspect of R leg, MMT 5/5 in all compartments Neuro: Gross sensation intact, protective sensation diminished bilaterally Derm: Linear ulceration with blisters appreciated to anterior aspect of R leg with underlying cellulitis also noted circumferentially, positive malodor appreciated, mild serous drainage, no probe to bone, no open wounds, angry-red erythema noted to RLE with edema, erythema also noted circumferentially to the LLE - Neurological Exam Neurological exam: Alert, Oriented x3 - Psychiatric Exam Psychiatric exam: Normal Affect, Normal Mood Results - Vital Signs Recent Vital Signs: Last Vital Signs Temp 100.1 F H 08/30/18 12:01 Pulse 95 H 08/30/18 13:28 Resp 20 08/30/18 12:01 BP 138/92 H 08/30/18 12:01 Pulse Ox 96 08/30/18 13:28 - Labs Result Diagrams: 08/30/18 12:40 08/30/18 12:40 Labs: Laboratory Results - last 24 hr 08/30/18 08/30/18 08/30/18 12:40 12:40 12:58 WBC 9.0 D RBC 3.87 Hgb 11.5 L Hct 34.8 MCV 89.8 D MCH 29.7 MCHC 33.1 RDW 13.4 Plt Count 236 MPV 7.3 Neut % (Auto) 62.2 Lymph % (Auto) 23.4 [place] % (Auto) 8.9 Eos % (Auto) 4.1 H Baso % (Auto) 1.4 Neut # (Auto) 5.6 Lymph # (Auto) 2.1 [place] # (Auto) 0.8 Eos # (Auto) 0.4 Baso # (Auto) 0.1 pO2 48 VBG pH 7.40 VBG pCO2 46 VBG HCO3 26.9 VBG Total CO2 29.9 H VBG O2 Sat (Calc) 87.9 H VBG Base Excess 3.0 H VBG Potassium 3.7 Glucose 123 H Lactate 1.2 FiO2 21.0 Sodium 140 138.0 Potassium 3.8 Chloride 107 104.0 Carbon Dioxide 26 Anion Gap 11 BUN 17 Creatinine 1.1 Est GFR ( Amer) > 60 Est GFR (Non-Af Amer) 53 Random Glucose 124 H Calcium 8.6 Total Bilirubin 0.8 AST 30 ALT 29 Alkaline Phosphatase 65 Total Protein 7.0 Albumin 3.5 Globulin 3.4 Albumin/Globulin Ratio 1.0 Venous Blood Potassium 3.7 Urine Color Urine Clarity Urine pH Ur Specific [place] Urine Protein Urine Glucose (UA) Urine Ketones Urine Blood Urine Nitrate Urine Bilirubin Urine Urobilinogen Ur Leukocyte Esterase Urine RBC (Auto) Urine Microscopic WBC Ur Squamous Epith Cells Hyaline Casts 08/30/18 13:15 WBC RBC Hgb Hct MCV MCH MCHC RDW Plt Count MPV Neut % (Auto) Lymph % (Auto) [place] % (Auto) Eos % (Auto) Baso % (Auto) Neut # (Auto) Lymph # (Auto) [place] # (Auto) Eos # (Auto) Baso # (Auto) pO2 VBG pH VBG pCO2 VBG HCO3 VBG Total CO2 VBG O2 Sat (Calc) VBG Base Excess VBG Potassium Glucose Lactate FiO2 Sodium Potassium Chloride Carbon Dioxide Anion Gap BUN Creatinine Est GFR ( Amer) Est GFR (Non-Af Amer) Random Glucose Calcium Total Bilirubin AST ALT Alkaline Phosphatase Total Protein Albumin Globulin Albumin/Globulin Ratio Venous Blood Potassium Urine Color Bryanna Urine Clarity Cloudy Urine pH 5.0 Ur Specific [place] 1.031 H Urine Protein 100 Urine Glucose (UA) Neg Urine Ketones Negative Urine Blood Negative Urine Nitrate Negative Urine Bilirubin Small Urine Urobilinogen 2.0 H Ur Leukocyte Esterase Neg Urine RBC (Auto) 29 H Urine Microscopic WBC 2 Ur Squamous Epith Cells 12 H Hyaline Casts 11-20 H Assessment & Plan - Assessment and Plan (Free Text) Assessment: 48 y/o female patients, with PMHx of depression, anxiety, Hep B, Hep C, seen and examined for RLE cellulitis and ulceration. Plan: Patient seen and evaluated, discussed with Dr. Mahoney Chart, labs and vitals reviewed- WBC 9.0, patient is febrile at this time Wound cultures from previous admission (08/26): Pseudo, enterococcus Faecalis New wound cultures ordered ID Consulted: recs appreciated C/w IV Antibiotics Local wound care to RLE- betadine, adapatic, DSD ABD Will continue to follow patient while in house Thank you for the consult - Date & Time Date: 08/30/18 Time: 14:29
--- NOTE | 2018-08-30 14:29 | CP.PCM.HP ---
<Tessa Diaz - Last Filed: 08/30/18 14:47> History of Present Illness - History of Present Illness History of Present Illness: 47 yo F with history of gastritis, GERD, depression, anxiety, asthma, who was recently discharged 3 days ago for purulent cellulites of the right leg. Pt stated that she was discharged with PICC line on 08/27 and was advised to go to [facility]. Patient states she had the PICC line removed, and has noticed that her right leg redness, swelling, and discharge has worsened. Additionally, she reports that she has developed worsening generalized pruritus extending over all her extremities. Of note, prior admission patient had wound cx completed that was positive for Pseudomonas and Group C Strep (resulted after discharge). She was treated with 3 days of Vanco and Zosyn and discharged with PICC line ROS: + Chills/Nausea/fever, denies cough, sob, v/d, calf pain. MD: Dr. Pelletier PMHx: Anxiety, Depression, Depression, OA, Hep B and Hep C (reports that it is inactive) SurgHx: x1 SH: Lives in [facility], staying with friends, current smoker (15+yrs) smokes 5 cigarettes daily, denies ETOH, smokes canniboids, denies injection drug use FH: Grandmother- "heart condition" Allergies: Sulfa drugs, Azithromycin, Bacitracin, latex- hives ED Course: Vitals: T 100.1, HR 95, BP 138/92, RR 20, O2 sat 96 CBC- no leukocytosis CMP wnl S/P Vancomycin and Zosyn S/P Morphine for pain Next of Kin (Parents) Brittany Tariq Too Tariq Present on Admission - Present on Admission Any Indicators Present on Admission: No Past Patient History - Infectious Disease Hx of Infectious Diseases: None - Past Medical History & Family History Past Medical History?: Yes - Past Social History Smoking Status: Light Smoker < 10 Cigarettes Daily - CARDIAC Hx Hypercholesterolemia: Yes Hx Hypertension: Yes Hx Pacemaker: No - PULMONARY Hx Asthma: Yes Hx Bronchitis: Yes - NEUROLOGICAL Hx Neurological Disorder: Yes - HEENT Hx HEENT Problems: No - RENAL Hx Chronic Kidney Disease: No - ENDOCRINE/METABOLIC Hx Endocrine Disorders: Yes - INTEGUMENTARY Hx Dermatological Problems: Yes Hx Cellulitis: Yes - MUSCULOSKELETAL/RHEUMATOLOGICAL Hx Arthritis: Yes Hx Rheumatoid Arthritis: Yes - GASTROINTESTINAL Hx Gastritis: Yes - PSYCHIATRIC Hx Anxiety: Yes Hx Bipolar Disorder: Yes Hx Depression: Yes - SURGICAL HISTORY Hx Mastectomy: No - ANESTHESIA Hx Anesthesia: Yes Hx Anesthesia Reactions: No Hx Malignant Hyperthermia: No Meds Allergies/Adverse Reactions: Allergies Allergy/AdvReac Type Severity Reaction Status Date / Time azithromycin Allergy RASH Verified 08/20/18 10:12 cyclobenzaprine HCl Allergy RASH Verified 08/20/18 10:12 [From Flexeril] latex Allergy RASH Verified 08/20/18 10:12 Sulfa (Sulfonamide Allergy RASH Verified 08/20/18 10:12 Antibiotics) bacitracin AdvReac RASH Verified 08/20/18 10:12 Physical Exam - Head Exam Head Exam: ATRAUMATIC - ENT Exam ENT Exam: Mucous Membranes Moist - Neck Exam Neck exam: Positive for: Full Rom - Respiratory Exam Respiratory Exam: Clear to Auscultation Bilateral. absent: Rales - Cardiovascular Exam Cardiovascular Exam: REGULAR RHYTHM, +S1, +S2 - GI/Abdominal Exam GI & Abdominal Exam: Normal Bowel Sounds, Soft. absent: Tenderness - Extremities Exam Extremities exam: Positive for: normal capillary refill, pedal pulses present. Negative for: calf tenderness Additional comments: Right lower extremity- erythema up to mid zendejas, circumferential, purulent discharge seen over zendejas, no areas of fluctuance, no foul odor, no palpable veins. Both LE extremities are mildly swollen but symmetrical Left lower extremity: minimal erythema noted distal leg - Neurological Exam Neurological exam: Normal Gait - Psychiatric Exam Psychiatric exam: Normal Affect - Skin Skin Exam: Normal Color Results - Vital Signs Recent Vital Signs: Last Vital Signs Temp 100.1 F H 08/30/18 12:01 Pulse 95 H 08/30/18 13:28 Resp 20 08/30/18 12:01 BP 138/92 H 08/30/18 12:01 Pulse Ox 96 08/30/18 13:28 - Labs Result Diagrams: 08/30/18 12:40 08/30/18 12:40 Labs: Laboratory Results - last 24 hr 08/30/18 08/30/18 08/30/18 12:40 12:40 12:58 WBC 9.0 D RBC 3.87 Hgb 11.5 L Hct 34.8 MCV 89.8 D MCH 29.7 MCHC 33.1 RDW 13.4 Plt Count 236 MPV 7.3 Neut % (Auto) 62.2 Lymph % (Auto) 23.4 [place] % (Auto) 8.9 Eos % (Auto) 4.1 H Baso % (Auto) 1.4 Neut # (Auto) 5.6 Lymph # (Auto) 2.1 [place] # (Auto) 0.8 Eos # (Auto) 0.4 Baso # (Auto) 0.1 pO2 48 VBG pH 7.40 VBG pCO2 46 VBG HCO3 26.9 VBG Total CO2 29.9 H VBG O2 Sat (Calc) 87.9 H VBG Base Excess 3.0 H VBG Potassium 3.7 Glucose 123 H Lactate 1.2 FiO2 21.0 Sodium 140 138.0 Potassium 3.8 Chloride 107 104.0 Carbon Dioxide 26 Anion Gap 11 BUN 17 Creatinine 1.1 Est GFR ( Amer) > 60 Est GFR (Non-Af Amer) 53 Random Glucose 124 H Calcium 8.6 Total Bilirubin 0.8 AST 30 ALT 29 Alkaline Phosphatase 65 Total Protein 7.0 Albumin 3.5 Globulin 3.4 Albumin/Globulin Ratio 1.0 Venous Blood Potassium 3.7 Urine Color Urine Clarity Urine pH Ur Specific [place] Urine Protein Urine Glucose (UA) Urine Ketones Urine Blood Urine Nitrate Urine Bilirubin Urine Urobilinogen Ur Leukocyte Esterase Urine RBC (Auto) Urine Microscopic WBC Ur Squamous Epith Cells Hyaline Casts 08/30/18 13:15 WBC RBC Hgb Hct MCV MCH MCHC RDW Plt Count MPV Neut % (Auto) Lymph % (Auto) [place] % (Auto) Eos % (Auto) Baso % (Auto) Neut # (Auto) Lymph # (Auto) [place] # (Auto) Eos # (Auto) Baso # (Auto) pO2 VBG pH VBG pCO2 VBG HCO3 VBG Total CO2 VBG O2 Sat (Calc) VBG Base Excess VBG Potassium Glucose Lactate FiO2 Sodium Potassium Chloride Carbon Dioxide Anion Gap BUN Creatinine Est GFR ( Amer) Est GFR (Non-Af Amer) Random Glucose Calcium Total Bilirubin AST ALT Alkaline Phosphatase Total Protein Albumin Globulin Albumin/Globulin Ratio Venous Blood Potassium Urine Color Bryanna Urine Clarity Cloudy Urine pH 5.0 Ur Specific [place] 1.031 H Urine Protein 100 Urine Glucose (UA) Neg Urine Ketones Negative Urine Blood Negative Urine Nitrate Negative Urine Bilirubin Small Urine Urobilinogen 2.0 H Ur Leukocyte Esterase Neg Urine RBC (Auto) 29 H Urine Microscopic WBC 2 Ur Squamous Epith Cells 12 H Hyaline Casts 11-20 H Assessment & Plan - Assessment and Plan (Free Text) Assessment: 47 YO Female with PMHx of gastritis, GERD, depression, anxiety, asthma admitted for purulent cellulitis failing outpatient PICC line treatment Plan: Cellulitis, purulent -No signs of sepsis: low grade fever, no leukocytosis -Bcx, urine culture and Wcx sent -IV Vanco and Zosyn; f/u Vanco Trough -Wound Care - ID consult ordered; recommendations appreciated - Podiatry consult ordered; recommendations appreciated. Asthma -Duonebs prn -Fluticasone inhaler -Monteleukast Depression -C/W home psych meds Obesity -Hga1c sent DVT ppx -Lovenox 40mg SC Diet -Regular Constipation ( chronic, possibly secondary to opioid abuse) -Colace 100 mg PO BID <Orlando Robles D - Last Filed: 08/30/18 19:49> Results - Vital Signs Recent Vital Signs: Last Vital Signs Temp 97.8 F 08/30/18 17:00 Pulse 72 08/30/18 17:00 Resp 18 08/30/18 17:00 BP 115/73 08/30/18 17:00 Pulse Ox 97 08/30/18 17:00 - Labs Result Diagrams: 08/30/18 12:40 08/30/18 12:40 Labs: Laboratory Results - last 24 hr 08/30/18 08/30/18 08/30/18 12:40 12:40 12:58 WBC 9.0 D RBC 3.87 Hgb 11.5 L Hct 34.8 MCV 89.8 D MCH 29.7 MCHC 33.1 RDW 13.4 Plt Count 236 MPV 7.3 Neut % (Auto) 62.2 Lymph % (Auto) 23.4 [place] % (Auto) 8.9 Eos % (Auto) 4.1 H Baso % (Auto) 1.4 Neut # (Auto) 5.6 Lymph # (Auto) 2.1 [place] # (Auto) 0.8 Eos # (Auto) 0.4 Baso # (Auto) 0.1 pO2 48 VBG pH 7.40 VBG pCO2 46 VBG HCO3 26.9 VBG Total CO2 29.9 H VBG O2 Sat (Calc) 87.9 H VBG Base Excess 3.0 H VBG Potassium 3.7 Glucose 123 H Lactate 1.2 FiO2 21.0 Sodium 140 138.0 Potassium 3.8 Chloride 107 104.0 Carbon Dioxide 26 Anion Gap 11 BUN 17 Creatinine 1.1 Est GFR ( Amer) > 60 Est GFR (Non-Af Amer) 53 Random Glucose 124 H Calcium 8.6 Total Bilirubin 0.8 AST 30 ALT 29 Alkaline Phosphatase 65 Total Protein 7.0 Albumin 3.5 Globulin 3.4 Albumin/Globulin Ratio 1.0 Venous Blood Potassium 3.7 Urine Color Urine Clarity Urine pH Ur Specific [place] Urine Protein Urine Glucose (UA) Urine Ketones Urine Blood Urine Nitrate Urine Bilirubin Urine Urobilinogen Ur Leukocyte Esterase Urine RBC (Auto) Urine Microscopic WBC Ur Squamous Epith Cells Hyaline Casts 08/30/18 13:15 WBC RBC Hgb Hct MCV MCH MCHC RDW Plt Count MPV Neut % (Auto) Lymph % (Auto) [place] % (Auto) Eos % (Auto) Baso % (Auto) Neut # (Auto) Lymph # (Auto) [place] # (Auto) Eos # (Auto) Baso # (Auto) pO2 VBG pH VBG pCO2 VBG HCO3 VBG Total CO2 VBG O2 Sat (Calc) VBG Base Excess VBG Potassium Glucose Lactate FiO2 Sodium Potassium Chloride Carbon Dioxide Anion Gap BUN Creatinine Est GFR ( Amer) Est GFR (Non-Af Amer) Random Glucose Calcium Total Bilirubin AST ALT Alkaline Phosphatase Total Protein Albumin Globulin Albumin/Globulin Ratio Venous Blood Potassium Urine Color Bryanna Urine Clarity Cloudy Urine pH 5.0 Ur Specific [place] 1.031 H Urine Protein 100 Urine Glucose (UA) Neg Urine Ketones Negative Urine Blood Negative Urine Nitrate Negative Urine Bilirubin Small Urine Urobilinogen 2.0 H Ur Leukocyte Esterase Neg Urine RBC (Auto) 29 H Urine Microscopic WBC 2 Ur Squamous Epith Cells 12 H Hyaline Casts 11-20 H Attending/Attestation - Attestation I have personally seen and examined this patient.: Yes I have fully participated in the care of the patient.: Yes I have reviewed all pertinent clinical information: Yes Notes (Text): 08/30/18 19:48 Patient seen and examined with resident. Case discussed and agreed with assessment and plan of management
--- NOTE | 2018-08-30 15:13 | CP.PCM.PN ---
Subjective - Date & Time of Evaluation Date of Evaluation: 08/30/18 Time of Evaluation: 15:11 - Subjective Subjective: Podiatry progress note for Dr. Jones 57 year old male patient seen and evaluated in [facility] for bilateral LE cellulitis and venous stasis ulceration; patient transferred to TCU for continuation of IV abx and physical therapy. At present, patient denies any pain in lower extremities and states he is able to ambulate w/o issues though complains of occasional SOB on exertion. Dressings to lower extremities clean/dry/intact. Patient states drainage from wounds has significantly improved. Denies n/v/f/d/c/stauffer/cp. Objective - Vital Signs/Intake and Output Vital Signs (last 24 hours): Temp Pulse Resp BP Pulse Ox 100.1 F H 95 H 20 138/92 H 96 08/30/18 12:01 08/30/18 13:28 08/30/18 12:01 08/30/18 12:01 08/30/18 13:28 - Medications Medications: Current Medications Acetaminophen (Tylenol 325mg Tab) 650 mg PO Q6 PRN PRN Reason: Pain, Mild (1-3) Aripiprazole (Abilify) 10 mg PO DAILY [facility] Cholecalciferol (Vitamin D) 1,000 intlu PO DAILY [facility] Diphenhydramine HCl (Benadryl) 25 mg PO Q6 PRN PRN Reason: Allergy symptoms Docusate Sodium (Colace) 100 mg PO BID [facility] Enoxaparin Sodium (Lovenox) 40 mg SC DAILY [facility]; Protocol Escitalopram Oxalate (Lexapro) 20 mg PO DAILY [facility] Gabapentin (Neurontin) 300 mg PO Q12 [facility] Home Med (Buprenorphine Hcl/Naloxone Hcl [Buprenorphin-Naloxon 8-2 Mg Sl]) 1 tab SL DAILY [facility] Home Med (Fluticasone/Salmeterol [Airduo Respiclick 232-14 Mcg]) 1 puff IH Q12 [facility] Vancomycin HCl 1 gm/ Sodium (Chloride) 250 mls @ 166.667 mls/hr IVPB Q12H [facility]; Protocol Piperacillin Sod/Tazobactam (Sod 3.375 gm/ Sodium Chloride) 100 mls @ 100 mls/hr IVPB Q6 [facility]; Protocol Ibuprofen (Motrin Tab) 600 mg PO Q8 PRN PRN Reason: Pain, Mild (1-3) Lactic Acid (Lac-Hydrin 12% Cream (140 G)) 1 ea TOP BID [facility] Lactobacillus Acidophilus (Bacid Acidophilus) 1 cap PO Q12H [facility] Loratadine (Claritin) 10 mg PO DAILY [facility] Montelukast Sodium (Singulair) 10 mg PO DAILY [facility] Pantoprazole Sodium (Protonix Ec Tab) 40 mg PO DAILY [facility] - Labs Labs: 08/30/18 12:40 08/30/18 12:40 - Constitutional Appears: Well, Non-toxic, No Acute Distress - Head Exam Head Exam: ATRAUMATIC, NORMOCEPHALIC - Extremities Exam Additional comments: MARBELLA JonesD present to bilateral LE appears clean/dry/intact Neurovascular status intact to digits b/l Muscle strength 5/5 for all dorsiflexors, plantarflexors, inverters, and everters. - Neurological Exam Neurological Exam: Alert, Awake, Oriented x3 - Psychiatric Exam Psychiatric exam: Normal Affect, Normal Mood Assessment and Plan - Assessment and Plan (Free Text) Assessment: 57 y/o male with b/l LE cellulits and venous stasis ulceration; resolving Plan: Patient seen and evaluated Discussed in detail with Dr. Jones Chart, labs and vitals reviewed Wound cultures reveal growth of psuedomonas ID recs appreciated - continue IV abx x1 week Rosetta roberts DSD left intact- plan to change 08/31 Continue PT/OT - FWB bilateral LE Podiatry plan: no surgical intervention Podiatry will continue to follow
[2018-08-30] MEDS ORDERED: Vancomycin 1 g Inj ONE (15:16)
[2018-08-30] MEDS: Lactobacillus Acidophilus 500 MU Cap PO SCH (16:33)
[2018-08-30] MEDS: Piperacillin/Tazobact 3.375 GM in Sodium Chloride 0.9% 100 ML IVPB SCH ×2 (18:02→21:02)
[2018-08-30] MEDS: Ammonium Lactate 12% Cream (140 g) TOP SCH (18:03)
[2018-08-30] MEDS ORDERED: SALMETEROL IH SCH (21:00)
[2018-08-30] MEDS ORDERED: FLUTICASONE IH SCH (21:00)
[2018-08-31] MEDS: Lactobacillus Acidophilus 500 MU Cap PO SCH ×2 (02:06→16:11)
[2018-08-31] MEDS: Piperacillin/Tazobact 3.375 GM in Sodium Chloride 0.9% 100 ML IVPB SCH ×3 (04:29→16:11)
[2018-08-31 06:20] LABS: BASO % 0.6 % (0.0-2.0); EOS # 0.5 K/uL (0.0-0.7); HEMOGLOBIN 11.2 g/dL (12.0-16.0); LYMPH # 1.4 K/uL (1.0-4.3); LYMPH % 20.5 % (20.0-40.0); MEAN CELL VOLUME 92.7 fl (81.0-99.0); MEAN CORPUSCULAR HEMOGLOBIN 29.8 pg (27.0-31.0); MEAN CORPUSCULAR HGB CONC 32.2 g/dL (33.0-37.0); MEAN PLATELET VOLUME 7.7 fl (7.2-11.7); MONO # 0.8 K/uL (0.0-0.8); MONO % 10.8 % (0.0-10.0); NEUT # 4.3 K/uL (1.8-7.0); NEUT % 61.1 % (50.0-75.0); RBC 3.74 Mil/uL (3.80-5.20); RED CELL DISTRIBUTION WIDTH 13.6 % (11.5-14.5)
[2018-08-31 06:37] LABS: BLOOD UREA NITROGEN 15 mg/dl (7-17); CALCIUM 8.1 mg/dL (8.4-10.2); GFR NON-AFRICAN AMERICAN 59
--- NOTE | 2018-08-31 06:41 | CP.PCM.PN ---
Subjective - Date & Time of Evaluation Date of Evaluation: 08/31/18 Time of Evaluation: 06:39 Objective - Vital Signs/Intake and Output Vital Signs (last 24 hours): Temp Pulse Resp BP Pulse Ox 99 F 87 18 117/70 95 08/30/18 23:52 08/30/18 23:52 08/30/18 23:52 08/30/18 23:52 08/30/18 23:52 - Medications Medications: Current Medications Acetaminophen (Tylenol 325mg Tab) 650 mg PO Q6 PRN PRN Reason: Pain, Mild (1-3) Aripiprazole (Abilify) 10 mg PO DAILY [facility] Cholecalciferol (Vitamin D) 1,000 intlu PO DAILY [facility] Diphenhydramine HCl (Benadryl) 25 mg PO Q6 PRN PRN Reason: Allergy symptoms Last Admin: 08/31/18 04:34 Dose: 25 mg Docusate Sodium (Colace) 100 mg PO BID [facility] Last Admin: 08/30/18 16:36 Dose: 100 mg Enoxaparin Sodium (Lovenox) 40 mg SC DAILY [facility]; Protocol Escitalopram Oxalate (Lexapro) 20 mg PO DAILY [facility] Gabapentin (Neurontin) 300 mg PO Q12 [facility] Last Admin: 08/30/18 21:00 Dose: 300 mg Home Med (Buprenorphine Hcl/Naloxone Hcl [Buprenorphin-Naloxon 8-2 Mg Sl]) 1 tab SL DAILY [facility] Home Med (Fluticasone/Salmeterol [Airduo Respiclick 232-14 Mcg]) 1 puff IH Q12 [facility] Vancomycin HCl 1 gm/ Sodium (Chloride) 250 mls @ 166.667 mls/hr IVPB Q12H [facility]; Protocol Last Admin: 08/31/18 02:06 Dose: 166.667 mls/hr Piperacillin Sod/Tazobactam (Sod 3.375 gm/ Sodium Chloride) 100 mls @ 100 mls/hr IVPB Q6 [facility]; Protocol Last Admin: 08/31/18 04:29 Dose: 100 mls/hr Ibuprofen (Motrin Tab) 600 mg PO Q8 PRN PRN Reason: Pain, Mild (1-3) Last Admin: 08/31/18 02:14 Dose: 600 mg Lactic Acid (Lac-Hydrin 12% Cream (140 G)) 1 ea TOP BID [facility] Last Admin: 08/30/18 18:03 Dose: 1 applic Lactobacillus Acidophilus (Bacid Acidophilus) 1 cap PO Q12H [facility] Last Admin: 08/31/18 02:06 Dose: 1 cap Loratadine (Claritin) 10 mg PO DAILY [facility] Montelukast Sodium (Singulair) 10 mg PO DAILY [facility] Pantoprazole Sodium (Protonix Ec Tab) 40 mg PO DAILY [facility] - Labs Labs: 08/31/18 05:35 08/31/18 05:35 - Constitutional Appears: Well, Non-toxic - Head Exam Head Exam: ATRAUMATIC - Respiratory Exam Respiratory Exam: Clear to Ausculation Bilateral. absent: Rales - Cardiovascular Exam Cardiovascular Exam: REGULAR RHYTHM, +S1, +S2 - GI/Abdominal Exam GI & Abdominal Exam: Soft, Normal Bowel Sounds. absent: Tenderness - Extremities Exam Extremities Exam: Normal Capillary Refill Additional comments: Right lower extremity- erythema up to mid zendejas, circumferential, purulent discharge seen over zendejas, no areas of fluctuance, no foul odor, no palpable veins. Both LE extremities are mildly swollen but symmetrical Left lower extremity: minimal erythema noted distal leg Dressings are noted to be clean, dry and intact Assessment and Plan - Assessment and Plan (Free Text) Assessment: 47 YO Female with PMHx of gastritis, GERD, depression, anxiety, asthma admitted for purulent cellulitis failing outpatient PICC line treatment Plan: Cellulitis, purulent -No signs of sepsis: low grade fever, no leukocytosis -Bcx, urine culture and Wcx sent -IV Vanco and Zosyn; f/u Vanco Trough -Wound Care - ID consult ordered; recommendations appreciated - Podiatry consult ordered; recommendations appreciated. Asthma -Duonebs prn -Fluticasone inhaler -Monteleukast Depression -C/W home psych meds Obesity -Hga1c sent DVT ppx -Lovenox 40mg SC Diet -Regular Constipation ( chronic, possibly secondary to opioid abuse) -Colace 100 mg PO BID
[2018-08-31] MEDS ORDERED: [UNRECOGNIZED DRUG - OTHER] SL SCH (09:00)
[2018-08-31] MEDS ORDERED: Cholecalciferol 1,000 INTLU TAB PO SCH (09:00)
[2018-08-31] MEDS ORDERED: Enoxaparin 40 mg Syringe SC SCH (09:00)
[2018-08-31] MEDS ORDERED: NALOXONE HCL SL SCH (09:00)
[2018-08-31] MEDS ORDERED: BUPRENORPHINE HCL SL SCH (09:00)
[2018-08-31] MEDS ORDERED: Pantoprazole 40 mg EC Tab PO SCH (09:00)
[2018-08-31] MEDS ORDERED: Cefepime 1 GM in Sodium Chloride 0.9% 100 ML IVPB SCH (09:00)
[2018-08-31] MEDS: Ammonium Lactate 12% Cream (140 g) TOP SCH ×2 (09:11→16:13)
[2018-08-31] MEDS ORDERED: Povidone Iodine Topical 10% Sol ONE (09:19)
--- NOTE | 2018-08-31 11:03 | CP.PCM.DIS ---
<DiazTessa - Last Filed: 08/31/18 11:45> Provider - Provider Date of Admission: 08/30/18 13:37 Attending physician: Orlando Robles MD Consults: 08/30/18 14:29 Infectious Disease Consult Stat Comment: Consulting Provider: Javed Kirby Consulting Physician: Javed Kirby Reason for Consult: RLE cellultis 08/30/18 14:45 Podiatry Consult Routine Comment: Consulting Provider: Toby Jones Consulting Physician: Toby Jones Reason for Consult: b/l cellulitis Time Spent in preparation of Discharge (in minutes): 30 Diagnosis - Discharge Diagnosis (1) Cellulitis Status: Acute Comment: acute. continue with IV antibiotics (vancomycin, zosyn, cefimpime) x 1 week in [facility] Hospital Course - Lab Results Lab Results: Micro Results 08/30/18 15:00 Leg - Right Gram Stain - Final Most Recent Lab Values WBC 7.0 K/uL (4.8-10.8) 08/31/18 05:35 RBC 3.74 Mil/uL (3.80-5.20) L 08/31/18 05:35 Hgb 11.2 g/dL (12.0-16.0) L 08/31/18 05:35 Hct 34.7 % (34.0-47.0) 08/31/18 05:35 MCV 92.7 fl (81.0-99.0) D 08/31/18 05:35 MCH 29.8 pg (27.0-31.0) 08/31/18 05:35 MCHC 32.2 g/dL (33.0-37.0) L 08/31/18 05:35 RDW 13.6 % (11.5-14.5) 08/31/18 05:35 Plt Count 234 K/uL (130-400) 08/31/18 05:35 MPV 7.7 fl (7.2-11.7) 08/31/18 05:35 Neut % (Auto) 61.1 % (50.0-75.0) 08/31/18 05:35 Lymph % (Auto) 20.5 % (20.0-40.0) 08/31/18 05:35 [place] % (Auto) 10.8 % (0.0-10.0) H 08/31/18 05:35 Eos % (Auto) 7.0 % (0.0-4.0) H 08/31/18 05:35 Baso % (Auto) 0.6 % (0.0-2.0) 08/31/18 05:35 Neut # (Auto) 4.3 K/uL (1.8-7.0) 08/31/18 05:35 Lymph # (Auto) 1.4 K/uL (1.0-4.3) 08/31/18 05:35 [place] # (Auto) 0.8 K/uL (0.0-0.8) 08/31/18 05:35 Eos # (Auto) 0.5 K/uL (0.0-0.7) 08/31/18 05:35 Baso # (Auto) 0.0 K/uL (0.0-0.2) 08/31/18 05:35 pO2 48 mm/Hg (30-55) 08/30/18 12:58 VBG pH 7.40 (7.32-7.43) 08/30/18 12:58 VBG pCO2 46 mmHg (40-60) 08/30/18 12:58 VBG HCO3 26.9 mmol/L 08/30/18 12:58 VBG Total CO2 29.9 mmol/L (22-28) H 08/30/18 12:58 VBG O2 Sat (Calc) 87.9 % (40-65) H 08/30/18 12:58 VBG Base Excess 3.0 mmol/L (0.0-2.0) H 08/30/18 12:58 VBG Potassium 3.7 mmol/L (3.6-5.2) 08/30/18 12:58 Sodium 138.0 mmol/L (132-148) 08/30/18 12:58 Chloride 104.0 mmol/L (98-107) 08/30/18 12:58 Glucose 123 mg/dL (65-105) H 08/30/18 12:58 Lactate 1.2 mmol/L (0.7-2.1) 08/30/18 12:58 FiO2 21.0 % 08/30/18 12:58 Sodium 140 mmol/l (132-148) 08/31/18 05:35 Potassium 4.0 MMOL/L (3.6-5.0) 08/31/18 05:35 Chloride 106 mmol/L (98-107) 08/31/18 05:35 Carbon Dioxide 27 mmol/L (22-30) 08/31/18 05:35 Anion Gap 11 (10-20) 08/31/18 05:35 BUN 15 mg/dl (7-17) 08/31/18 05:35 Creatinine 1.0 mg/dl (0.7-1.2) 08/31/18 05:35 Est GFR ( Amer) > 60 08/31/18 05:35 Est GFR (Non-Af Amer) 59 08/31/18 05:35 Random Glucose 106 mg/dL (65-105) H 08/31/18 05:35 Calcium 8.1 mg/dL (8.4-10.2) L 08/31/18 05:35 Total Bilirubin 0.8 mg/dl (0.2-1.3) 08/30/18 12:40 AST 30 U/L (14-36) 08/30/18 12:40 ALT 29 U/L (9-52) 08/30/18 12:40 Alkaline Phosphatase 65 U/L (38-126) 08/30/18 12:40 Total Protein 7.0 G/DL (6.3-8.2) 08/30/18 12:40 Albumin 3.5 g/dL (3.5-5.0) 08/30/18 12:40 Globulin 3.4 gm/dL (2.2-3.9) 08/30/18 12:40 Albumin/Globulin Ratio 1.0 (1.0-2.1) 08/30/18 12:40 Venous Blood Potassium 3.7 mmol/L (3.6-5.2) 08/30/18 12:58 Urine Color Bryanna (YELLOW) 08/30/18 13:15 Urine Clarity Cloudy (Clear) 08/30/18 13:15 Urine pH 5.0 (5.0-8.0) 08/30/18 13:15 Ur Specific [place] 1.031 (1.003-1.030) H 08/30/18 13:15 Urine Protein 100 mg/dL (NEGATIVE) 08/30/18 13:15 Urine Glucose (UA) Neg mg/dL (Normal) 08/30/18 13:15 Urine Ketones Negative mg/dL (NEGATIVE) 08/30/18 13:15 Urine Blood Negative (NEGATIVE) 08/30/18 13:15 Urine Nitrate Negative (NEGATIVE) 08/30/18 13:15 Urine Bilirubin Small (NEGATIVE) 08/30/18 13:15 Urine Urobilinogen 2.0 mg/dL (0.2-1.0) H 08/30/18 13:15 Ur Leukocyte Esterase Neg Radha/uL (Negative) 08/30/18 13:15 Urine RBC (Auto) 29 /hpf (0-3) H 08/30/18 13:15 Urine Microscopic WBC 2 /hpf (0-5) 08/30/18 13:15 Ur Squamous Epith Cells 12 /hpf (0-5) H 08/30/18 13:15 Hyaline Casts 11-20 /hpf (0-2) H 08/30/18 13:15 - Hospital Course Hospital Course: 47 YO Female with PMHx of gastritis, GERD, depression, anxiety, asthma admitted for purulent cellulitis failing outpatient PICC line treatment. Patient was seen in the ED 08/30 with purulent drainage from the leg. Patient states she will be compliant this visit. Podiatry was consulted, local wound care was recommended with betadine and DSD. Patient was put on vancomycom. zosyn, and cefipime. Patient will be discharge to [facility] for 1 week IV antibiotics and local wound care. Patient will follow up with podiatry and PCP upon discharge. Discharge Exam - Respiratory Exam Respiratory Exam: NORMAL BREATHING PATTERN - GI/Abdominal Exam GI & Abdominal Exam: Normal Bowel Sounds - Extremities Exam Extremities exam: normal capillary refill Additional comments: Right lower extremity- erythema up to mid zendejas, circumferential, purulent discharge seen over zendejas, no areas of fluctuance, no foul odor, no palpable veins. Both LE extremities are mildly swollen but symmetrical Left lower extremity: minimal erythema noted distal leg Dressings are noted to be clean, dry and intact - Neurological Exam Neurological exam: Alert, Oriented x3 Discharge Plan - Discharge Medications Prescriptions: Cefepime [Maxipime] 1 gm IV Q8 7 Days #21 vial Piperacill/Tazo 3.375gm in Dex [Zosyn 3.375 Gm IV Premix] 3.375 gm IV Q6 #28 bag - Follow Up Plan Condition: STABLE Disposition: TRANSF TO SNF Patient education suggested?: Yes Instructions: Cellulitis (DC), Cellulitis (GEN) Additional Instructions: d/c to [facility] ff up with Dr Jones in 1 wk Wound care with Betadine daily Referrals: Toby Jones, DPLorraine [Staff Provider] - Clinical Quality Measures - Date & Time of Discharge Summary Date of Discharge Summary: 08/31/18 Time of Discharge Summary: 11:04 <Nataliia Alvares - Last Filed: 08/31/18 17:58> Provider - Provider Date of Admission: 08/30/18 13:37 Attending physician: Orlando Robles MD Consults: 08/30/18 14:29 Infectious Disease Consult Stat Comment: Consulting Provider: Javed Kirby Consulting Physician: Javed Kirby Reason for Consult: RLE cellultis 08/30/18 14:45 Podiatry Consult Routine Comment: Consulting Provider: Toby Jones Consulting Physician: Toby Jones Reason for Consult: b/l cellulitis Hospital Course - Lab Results Lab Results: Micro Results 08/30/18 12:42 Blood Blood Culture - Preliminary NO GROWTH AFTER 24 HOURS 08/30/18 12:15 Blood Blood Culture - Preliminary NO GROWTH AFTER 24 HOURS 08/30/18 15:00 Leg - Right Gram Stain - Final Most Recent Lab Values WBC 7.0 K/uL (4.8-10.8) 08/31/18 05:35 RBC 3.74 Mil/uL (3.80-5.20) L 08/31/18 05:35 Hgb 11.2 g/dL (12.0-16.0) L 08/31/18 05:35 Hct 34.7 % (34.0-47.0) 08/31/18 05:35 MCV 92.7 fl (81.0-99.0) D 08/31/18 05:35 MCH 29.8 pg (27.0-31.0) 08/31/18 05:35 MCHC 32.2 g/dL (33.0-37.0) L 08/31/18 05:35 RDW 13.6 % (11.5-14.5) 08/31/18 05:35 Plt Count 234 K/uL (130-400) 08/31/18 05:35 MPV 7.7 fl (7.2-11.7) 08/31/18 05:35 Neut % (Auto) 61.1 % (50.0-75.0) 08/31/18 05:35 Lymph % (Auto) 20.5 % (20.0-40.0) 08/31/18 05:35 [place] % (Auto) 10.8 % (0.0-10.0) H 08/31/18 05:35 Eos % (Auto) 7.0 % (0.0-4.0) H 08/31/18 05:35 Baso % (Auto) 0.6 % (0.0-2.0) 08/31/18 05:35 Neut # (Auto) 4.3 K/uL (1.8-7.0) 08/31/18 05:35 Lymph # (Auto) 1.4 K/uL (1.0-4.3) 08/31/18 05:35 [place] # (Auto) 0.8 K/uL (0.0-0.8) 08/31/18 05:35 Eos # (Auto) 0.5 K/uL (0.0-0.7) 08/31/18 05:35 Baso # (Auto) 0.0 K/uL (0.0-0.2) 08/31/18 05:35 pO2 48 mm/Hg (30-55) 08/30/18 12:58 VBG pH 7.40 (7.32-7.43) 08/30/18 12:58 VBG pCO2 46 mmHg (40-60) 08/30/18 12:58 VBG HCO3 26.9 mmol/L 08/30/18 12:58 VBG Total CO2 29.9 mmol/L (22-28) H 08/30/18 12:58 VBG O2 Sat (Calc) 87.9 % (40-65) H 08/30/18 12:58 VBG Base Excess 3.0 mmol/L (0.0-2.0) H 08/30/18 12:58 VBG Potassium 3.7 mmol/L (3.6-5.2) 08/30/18 12:58 Sodium 138.0 mmol/L (132-148) 08/30/18 12:58 Chloride 104.0 mmol/L (98-107) 08/30/18 12:58 Glucose 123 mg/dL (65-105) H 08/30/18 12:58 Lactate 1.2 mmol/L (0.7-2.1) 08/30/18 12:58 FiO2 21.0 % 08/30/18 12:58 Sodium 140 mmol/l (132-148) 08/31/18 05:35 Potassium 4.0 MMOL/L (3.6-5.0) 08/31/18 05:35 Chloride 106 mmol/L (98-107) 08/31/18 05:35 Carbon Dioxide 27 mmol/L (22-30) 08/31/18 05:35 Anion Gap 11 (10-20) 08/31/18 05:35 BUN 15 mg/dl (7-17) 08/31/18 05:35 Creatinine 1.0 mg/dl (0.7-1.2) 08/31/18 05:35 Est GFR ( Amer) > 60 08/31/18 05:35 Est GFR (Non-Af Amer) 59 08/31/18 05:35 Random Glucose 106 mg/dL (65-105) H 08/31/18 05:35 Calcium 8.1 mg/dL (8.4-10.2) L 08/31/18 05:35 Total Bilirubin 0.8 mg/dl (0.2-1.3) 08/30/18 12:40 AST 30 U/L (14-36) 08/30/18 12:40 ALT 29 U/L (9-52) 08/30/18 12:40 Alkaline Phosphatase 65 U/L (38-126) 08/30/18 12:40 Total Protein 7.0 G/DL (6.3-8.2) 08/30/18 12:40 Albumin 3.5 g/dL (3.5-5.0) 08/30/18 12:40 Globulin 3.4 gm/dL (2.2-3.9) 08/30/18 12:40 Albumin/Globulin Ratio 1.0 (1.0-2.1) 08/30/18 12:40 Venous Blood Potassium 3.7 mmol/L (3.6-5.2) 12/03/18 12:58 Urine Color Bryanna (YELLOW) 08/30/18 13:15 Urine Clarity Cloudy (Clear) 08/30/18 13:15 Urine pH 5.0 (5.0-8.0) 08/30/18 13:15 Ur Specific [place] 1.031 (1.003-1.030) H 08/30/18 13:15 Urine Protein 100 mg/dL (NEGATIVE) 08/30/18 13:15 Urine Glucose (UA) Neg mg/dL (Normal) 08/30/18 13:15 Urine Ketones Negative mg/dL (NEGATIVE) 08/30/18 13:15 Urine Blood Negative (NEGATIVE) 08/30/18 13:15 Urine Nitrate Negative (NEGATIVE) 08/30/18 13:15 Urine Bilirubin Small (NEGATIVE) 08/30/18 13:15 Urine Urobilinogen 2.0 mg/dL (0.2-1.0) H 08/30/18 13:15 Ur Leukocyte Esterase Neg Radha/uL (Negative) 08/30/18 13:15 Urine RBC (Auto) 29 /hpf (0-3) H 08/30/18 13:15 Urine Microscopic WBC 2 /hpf (0-5) 08/30/18 13:15 Ur Squamous Epith Cells 12 /hpf (0-5) H 08/30/18 13:15 Hyaline Casts 11-20 /hpf (0-2) H 08/30/18 13:15 Attending/Attestation - Attestation I have personally seen and examined this patient.: Yes I have fully participated in the care of the patient.: Yes I have reviewed all pertinent clinical information, including history, physical exam and plan: Yes Notes (Text): Bilateral Lower Extremity Cellulitis ( pseudomonas and Enterococcus) Mild intermittent Asthma, chronic History of Rheumatoid Arthritis , unable to determine sites and associated conditions Obesity BMI 41.6 Major Depression - will d/c pt to [facility] for IV antibiotics - continue IV Zosyn and Cefepime x 1 more week - Wound care with Betadine, ff up with Dr Jones in 1 wk - cont Psych meds
--- NOTE | 2018-08-31 12:13 | CP.PCM.PN ---
Subjective - Date & Time of Evaluation Date of Evaluation: 08/31/18 Time of Evaluation: 12:10 - Subjective Subjective: Podiatry consult note for Dr. Mahoney 48 y/o female patient with PMHx of depression, anxiety, Hep B, Hep C, seen and examined for RLE cellulitis and ulceration. Patient is seen to be resting comfortably in bed, and denies any other pedal complaints. Patient states the pain and burning to her RLE have worsened overnight. She reports new onset rash with itchiness to her both arms and legs. She denies any other pedal complaints at this time. Patient complains of chills and nausea. Patient denies CP/SOB Objective - Vital Signs/Intake and Output Vital Signs (last 24 hours): Temp Pulse Resp BP Pulse Ox 98.2 F 72 20 107/59 L 97 08/31/18 08:13 08/31/18 08:13 08/31/18 08:13 08/31/18 08:13 08/31/18 08:13 - Medications Medications: Current Medications Acetaminophen (Tylenol 325mg Tab) 650 mg PO Q6 PRN PRN Reason: Pain, Mild (1-3) Aripiprazole (Abilify) 10 mg PO DAILY [facility] Last Admin: 08/31/18 09:10 Dose: 10 mg Cholecalciferol (Vitamin D) 1,000 intlu PO DAILY [facility] Last Admin: 08/31/18 09:12 Dose: 1,000 intlu Diphenhydramine HCl (Benadryl) 25 mg PO Q6 PRN PRN Reason: Allergy symptoms Last Admin: 08/31/18 04:34 Dose: 25 mg Docusate Sodium (Colace) 100 mg PO BID [facility] Last Admin: 08/30/18 16:36 Dose: 100 mg Enoxaparin Sodium (Lovenox) 40 mg SC DAILY [facility]; Protocol Last Admin: 08/31/18 09:11 Dose: 40 mg Escitalopram Oxalate (Lexapro) 20 mg PO DAILY [facility] Last Admin: 08/31/18 09:11 Dose: 20 mg Gabapentin (Neurontin) 300 mg PO Q12 [facility] Last Admin: 08/31/18 09:11 Dose: 300 mg Home Med (Buprenorphine Hcl/Naloxone Hcl [Buprenorphin-Naloxon 8-2 Mg Sl]) 1 tab SL DAILY [facility] Home Med (Fluticasone/Salmeterol [Airduo Respiclick 232-14 Mcg]) 1 puff IH Q12 [facility] Vancomycin HCl 1 gm/ Sodium (Chloride) 250 mls @ 166.667 mls/hr IVPB Q12H [facility]; Protocol Last Admin: 08/31/18 02:06 Dose: 166.667 mls/hr Piperacillin Sod/Tazobactam (Sod 3.375 gm/ Sodium Chloride) 100 mls @ 100 mls/hr IVPB Q6 [facility]; Protocol Last Admin: 08/31/18 09:12 Dose: 100 mls/hr Cefepime HCl 1 gm/ Sodium (Chloride) 100 mls @ 100 mls/hr IVPB Q8 [facility]; Protocol Last Admin: 08/31/18 10:47 Dose: 100 mls/hr Ibuprofen (Motrin Tab) 600 mg PO Q8 PRN PRN Reason: Pain, Mild (1-3) Last Admin: 08/31/18 02:14 Dose: 600 mg Lactic Acid (Lac-Hydrin 12% Cream (140 G)) 1 ea TOP BID [facility] Last Admin: 08/31/18 09:11 Dose: Not Given Lactobacillus Acidophilus (Bacid Acidophilus) 1 cap PO Q12H [facility] Last Admin: 08/31/18 02:06 Dose: 1 cap Loratadine (Claritin) 10 mg PO DAILY [facility] Last Admin: 08/31/18 09:11 Dose: 10 mg Montelukast Sodium (Singulair) 10 mg PO DAILY [facility] Last Admin: 08/31/18 09:12 Dose: 10 mg Pantoprazole Sodium (Protonix Ec Tab) 40 mg PO DAILY [facility] Last Admin: 08/31/18 09:11 Dose: 40 mg - Labs Labs: 08/31/18 05:35 08/31/18 05:35 - Constitutional Appears: Well, Non-toxic, No Acute Distress - Head Exam Head Exam: ATRAUMATIC, NORMOCEPHALIC - Extremities Exam Additional comments: Bilateral Lower Extremity Exam: Vascular: DP/PT palpable 2/4 bilaterally, CFT < 3 seconds to all digits, TG warm to warm with increase warmth to R lower extremity, +2 pitting edema to RLE Ortho: Tenderness to palpation to anterior aspect of R leg, MMT 5/5 in all compartments Neuro: Gross sensation intact, protective sensation diminished bilaterally Derm: Linear ulcerations with blisters appreciated to anterior aspect of R leg with underlying cellulitis also noted circumferentially, positive malodor appreciated, moderate serous drainage, no probe to bone, no open wounds, worseni ng angry-red erythema noted to RLE with edema, erythema also noted circumferentially to the LLE - Neurological Exam Neurological Exam: Alert, Awake, Oriented x3 - Psychiatric Exam Psychiatric exam: Normal Affect, Normal Mood Assessment and Plan - Assessment and Plan (Free Text) Assessment: 48 y/o female patients, with PMHx of depression, anxiety, Hep B, Hep C, seen and examined for RLE cellulitis and ulceration. Plan: Patient seen and evaluated, discussed with Dr. Mahoney Chart, labs and vitals reviewed- WBC 9.0, patient is febrile at this time Wound cultures from previous admission (08/26): Pseudo, enterococcus Faecalis New wound cultures ordered ID Consulted: recs appreciated C/w IV Antibiotics Local wound care to RLE- betadine wet to dry dressing to be changed daily due to drainage Patient to follow up with Dr. Mahoney in wound care clinic at [facility] Will continue to follow patient while in house
--- NOTE | 2018-08-31 14:29 | CARD ---
APPROVED REPORT Date of service: 08/30/2018 EKG Measurement Heart [id number] MD [id number] <Conclusion> Normal sinus rhythm Normal ECG
[2018-08-31 16:32] VITALS: BP 118/76; PULSE 91; RESP 18; TEMP 98.6; O2SAT 95
== END 2018-08-31 17:45 ==
LOC: H.ER 11:57 → INTOOBSV 13:37 → H.ERHOLD 13:37 → H.MEDSURG1 15:44
DX: L03.115 Cellulitis of right lower limb (principal); L97.919 Non-pressure chronic ulcer of unspecified part of right lower leg with unspecified severity; I87.8 Other specified disorders of veins; L03.116 Cellulitis of left lower limb; B96.5 Pseudomonas (aeruginosa) (mallei) (pseudomallei) as the cause of diseases classified elsewhere; B95.2 Enterococcus as the cause of diseases classified elsewhere; K29.70 Gastritis, unspecified, without bleeding; K21.9 Gastro-esophageal reflux disease without esophagitis; F41.9 Anxiety disorder, unspecified; F32.9 Major depressive disorder, single episode, unspecified; J45.20 Mild intermittent asthma, uncomplicated; M06.9 Rheumatoid arthritis, unspecified; E66.9 Obesity, unspecified; Z68.41 Body mass index [BMI] 40.0-44.9, adult; G89.29 Other chronic pain; I25.10 Atherosclerotic heart disease of native coronary artery without angina pectoris; I10 Essential (primary) hypertension; E78.00 Pure hypercholesterolemia, unspecified; E78.5 Hyperlipidemia, unspecified; F60.9 Personality disorder, unspecified; Z88.2 Allergy status to sulfonamides; Z88.1 Allergy status to other antibiotic agents; Z91.040 Latex allergy status; F17.210 Nicotine dependence, cigarettes, uncomplicated; Z86.19 Personal history of other infectious and parasitic diseases; K59.00 Constipation, unspecified
CPT/HCPCS: 36415; 71045; 73590; 80048; 80053; 81003; 81025; 82803; 85025; 87040; 87070; 87086; 93005; 96361; 96365; 96367; 96375; 99284; G0378; J0692; J1200; J1650; J1885; J2543; J7030

== ENCOUNTER 2018-09-13 13:33 | Emergency (ER) | payer MEDICAID ==
[2018-09-13 14:02] VITALS: BMI 41.5
[2018-09-13 14:03] VITALS: TEMP 98.6; O2SAT 97
[2018-09-13 15:11] VITALS: RESP 18
--- NOTE | 2018-09-13 15:32 | ED PDOC ---
HPI: Wound Care - HPI Time Seen by Provider: 09/13/18 15:08 Chief Complaint (Nursing): Wound Check Chief Complaint (Provider): Wound check History Per: Patient Exam Limitations: no limitations Onset/Duration Of Symptoms: Days (1x) Severity: Mild Additional Complaint(s): 48 year old female with a past medical history of cellulitis presents to the ED for an evaluation of a wound check. Patient was admitted here for cellulitis 2x weeks ago (08/30/2018), and discharged to a group home. Patient was discharged from group home 5x days ago (09/08/2018), and was reevaluated at a wound clinic 3x days ago (09/10/2018) where new dressing was applied to her lower legs. Today patient noticed that her right leg dressing was falling and is unsure why, which is what prompted her visit to the ED today. Patient denies having any other complaints. [facility]D: [facility] Past Medical History Reviewed: Historical Data, Nursing Documentation, Vital Signs Vital Signs: Last Vital Signs Temp 98.6 F 09/13/18 14:20 Pulse 104 H 09/13/18 14:20 Resp 18 09/13/18 14:20 BP 156/90 H 09/13/18 14:02 Pulse Ox 97 09/13/18 14:20 - Medical History PMH: Anxiety, Arthritis, Asthma, Bipolar Disorder, Bronchitis, CAD, Depression, Gastritis, GERD, HTN, Hypercholesterolemia, Hyperlipidemia, Migraine, Personality Disorder, Rheumatoid Arthritis, Chronic Pain Denies: Deep Vein Thrombosis, Chronic Kidney Disease - Surgical History Surgical History: Denies: Pacemaker - Family History Family History: States: CAD - Living Arrangements Living Arrangements: Other - Social History Current smoker - smoking cessation education provided: Yes Alcohol: None Drugs: Denies - Immunization History Hx Tetanus Toxoid Vaccination: Yes (UTD) Hx Influenza Vaccination: Yes Hx Pneumococcal Vaccination: Yes (Not sure when she received it) - Home Medications Home Medications: Ambulatory Orders Medication Instructions Recorded RX: ARIPiprazole [Abilify] 10 mg PO DAILY 08/20/18 RX: Cholecalciferol [Vitamin D 1,000 units PO DAILY 08/20/18 1000 IU] RX: Escitalopram [Lexapro] 20 mg PO DAILY 08/20/18 RX: Fluticasone/Salmeterol [Airduo 1 puff IH Q12 08/25/18 Respiclick 232-14 Mcg] RX: Gabapentin 300 mg PO Q12 08/25/18 RX: Ibuprofen [Motrin Tab] 600 mg PO Q8 PRN 08/25/18 RX: Montelukast [Singulair] 10 mg PO DAILY 08/25/18 RX: Omeprazole 40 mg PO DAILY 08/25/18 RX: Acetaminophen [Tylenol 325mg 650 mg PO Q6 PRN tab 08/27/18 tab] RX: Ammonium Lactate 12% 12 % TOP BID tube 08/27/18 [Lac-Hydrin 12% Cream (140 g)] RX: DiphenhydrAMINE [Benadryl] 25 mg PO Q6 PRN cap 08/27/18 RX: Enoxaparin [Lovenox] 40 mg SC DAILY syr 08/27/18 RX: Hydrocortisone 1% Cream 1 applic TOP BID tube 08/27/18 [Cortizone 1% Cream] RX: Lactobacillus Acidophilus 1 cap PO Q12H 10 Days cap 08/27/18 [Bacid Acidophilus] RX: Loratadine [Claritin] 10 mg PO DAILY tab 08/27/18 RX: raNITIdine [Zantac Soln 5ml] 150 mg PO BID ml 08/27/18 Piperacill/Tazo 3.375gm in Dex 3.375 gm IV Q6 #28 bag 08/31/18 [Zosyn 3.375 Gm IV Premix] RX: Cefepime [Maxipime] 1 gm IV Q8 7 Days #21 vial 08/31/18 Escitalopram [Lexapro] 10 mg PO DAILY #21 tab 09/13/18 - Allergies Allergies/Adverse Reactions: Allergies Allergy/AdvReac Type Severity Reaction Status Date / Time azithromycin Allergy RASH Verified 08/20/18 10:12 cyclobenzaprine HCl Allergy RASH Verified 08/20/18 10:12 [From Flexeril] latex Allergy RASH Verified 08/20/18 10:12 Sulfa (Sulfonamide Allergy RASH Verified 08/20/18 10:12 Antibiotics) bacitracin AdvReac RASH Verified 08/20/18 10:12 Review of Systems ROS Statement: Except As Marked, All Systems Reviewed And Found Negative Skin: Positive for: Other Physical Exam - Reviewed Nursing Documentation Reviewed: Yes Vital Signs Reviewed: Yes - Physical Exam Appears: Positive for: Well, Non-toxic, No Acute Distress Head Exam: Positive for: ATRAUMATIC, NORMOCEPHALIC Skin: Positive for: Normal Color, Warm, Dry Eye Exam: Positive for: Normal appearance ENT: Positive for: Normal ENT Inspection Neck: Positive for: Normal Cardiovascular/Chest: Positive for: Tachycardia (102) Respiratory: Negative for: Accessory Muscle Use, Respiratory Distress Extremity: Positive for: Normal ROM, Other (mild erythema of right lower extremity). Negative for: Calf Tenderness, Capillary Refill, Deformity, Swelling Neurologic/Psych: Positive for: Alert, Oriented (3x) - ECG O2 Sat by Pulse Oximetry: 97 (RA) Pulse Ox Interpretation: Normal Medical Decision Making Medical Decision Makin:08 Initial impression: 48 year old female in the ED for a wound check. Initial plan: * podiatry consult * reevaluation 14:30 Podiatry reapplied dressing to right lower extremity. 15:29 Patient states that she takes lexapro 10 mg daily, but has run out and is unable to make an appointment with her psychiatrist until 10/04/2018, and is unable to make an appointment with any other psychiatrists in the office. Patient is requesting a refill for lexapro 10 mg. Patient is feeling better, is medically stable, and requires no further treatment in the ED at this time. Patient will be discharged home with Rx for lexapro. Counseling was provided and all questions were answered regarding diagnosis. There is agreement to discharge plan. Return if symptoms persist or worsen. Scribe Attestation: Documented by Bibi Hastings, acting as a scribe for Rajni Edwards PA-C. Provider Scribe Attestation: All medical record entries made by the Scribe were at my direction and personal ly dictated by me. I have reviewed the chart and agree that the record accurately reflects my personal performance of the history, physical exam, medical decision making, and the department course for this patient. I have also personally directed, reviewed, and agree with the discharge instructions and disposition. Disposition - Clinical Impression Clinical Impression: Medication refill, Dressing change - Patient ED Disposition Is Patient to be Admitted: No Counseled Patient/Family Regarding: Diagnosis, Need For Followup - Disposition Referrals: Podiatry Clinic [Outside] Disposition: Routine/Home Disposition Time: 15:29 Condition: STABLE Prescriptions: Escitalopram [Lexapro] 10 mg PO DAILY #21 tab Instructions: How to Change a Wet to Dry Dressing, Where to Get Help Paying for Your Prescriptions Forms: [employer] (Chinese)
[2018-09-13 15:39] VITALS: BP 112/96; PULSE 102
--- NOTE | 2018-09-13 15:42 | CP.PCM.CON ---
History of Present Illness - History of Present Illness History of Present Illness: Podiatry consult note for Dr. Mahoney 48 y/o female patient with PMH of depression, anxiety, Hep B, Hep C, seen and evaluated in the ED for RLE dressing change for stasis edema. Patient states that she follows up with Dr. Mahoney at the wound care center where UNNA boots applied bilaterally to her LE. She states that last ana she got UNNA boots changed but the right one slipped down and it bothers her. Patient states that she is still having the rash with itchiness to her both arms and legs. She denies any other pedal complaints at this time. Patient denies any recent F/N/V/C or SOB. PMH: Anxiety, depression, Hep B, Hep C PSH: Allergies: Azithromycin, Cyclobenzoprine HCL, Latex Social Hx: Sulfa drugs, Azithromycin, Bacitracin, latex- hives Review of Systems - Review of Systems Review of Systems: As per HPI - Constitutional Constitutional: As Per HPI Past Patient History - Infectious Disease Hx of Infectious Diseases: None - Past Medical History & Family History Past Medical History?: Yes - Past Social History Smoking Status: Light Smoker < 10 Cigarettes Daily - CARDIAC Hx Cardiac Disorders: Yes - PULMONARY Hx Respiratory Disorders: Yes - NEUROLOGICAL Hx Migraine: Yes - HEENT Hx HEENT Problems: No - RENAL Hx Chronic Kidney Disease: No - ENDOCRINE/METABOLIC Hx Endocrine Disorders: Yes - INTEGUMENTARY Hx Dermatological Problems: Yes Hx Cellulitis: Yes - MUSCULOSKELETAL/RHEUMATOLOGICAL Hx Arthritis: Yes Hx Falls: No Hx Rheumatoid Arthritis: Yes - GASTROINTESTINAL Hx Gastritis: Yes - PSYCHIATRIC Hx Psychophysiologic Disorder: Yes Hx Substance Use: No - SURGICAL HISTORY Hx Mastectomy: No - ANESTHESIA Hx Anesthesia: Yes Hx Anesthesia Reactions: No Hx Malignant Hyperthermia: No Meds Allergies/Adverse Reactions: Allergies Allergy/AdvReac Type Severity Reaction Status Date / Time azithromycin Allergy RASH Verified 08/20/18 10:12 cyclobenzaprine HCl Allergy RASH Verified 08/20/18 10:12 [From Flexeril] latex Allergy RASH Verified 08/20/18 10:12 Sulfa (Sulfonamide Allergy RASH Verified 08/20/18 10:12 Antibiotics) bacitracin AdvReac RASH Verified 08/20/18 10:12 Physical Exam - Constitutional Appears: Well, Non-toxic, No Acute Distress - Head Exam Head Exam: ATRAUMATIC, NORMOCEPHALIC - Extremities Exam Additional comments: R Lower Extremity Exam: Vasc: DP/PT palpable 2/4 , Cap refill < 3 seconds to all digits, Temp gradient warm to warm from proximal to distal, Minimal pitting edema to RLE. Neuro: Gross sensation intact, protective sensation diminished bilaterally Derm: No open wounds, Minimal erythema noted to the LLE. Toew nails dystrophic to all digits. Prominant skin lines indicative of resolved edema. Diffuse dryness of the RLE with skin desquamation. Hyperkeratotic lesions at submetatarsal bone 1 and 5. MSK: No pain to palpation to anterior aspect of R leg, MMT 5/5 in all compartments - Neurological Exam Neurological exam: Alert, Oriented x3 Results - Vital Signs Recent Vital Signs: Last Vital Signs Temp 98.6 F 09/13/18 14:20 Pulse 104 H 09/13/18 14:20 Resp 18 09/13/18 14:20 BP 156/90 H 09/13/18 14:02 Pulse Ox 97 09/13/18 14:20 Assessment & Plan - Assessment and Plan (Free Text) Assessment: 48 y/o female patients seen and evaluated in the ED for RLE dressing change for stasis edema Plan: Patient seen and evaluated, discussed with Dr. Mahoney Chart,and vitals reviewed- Afebrile Wound cultures from previous admission (08/26): Pseudo, enterococcus Faecalis UNNA boot removed from the RLE R LE dressed using DSD, ABD and kerlix then James bandage applied then covered by stockinet. Thank you for the consult Patient to follow up at [facility]. - Date & Time Date: 09/13/18 Time: 15:28
== END 2018-09-13 15:42 | disposition home or self-care (01) ==
LOC: H.ER 13:33
DX: Z48.00 Encounter for change or removal of nonsurgical wound dressing (principal); Z76.0 Encounter for issue of repeat prescription; F17.210 Nicotine dependence, cigarettes, uncomplicated; Z86.59 Personal history of other mental and behavioral disorders; G89.29 Other chronic pain; I25.10 Atherosclerotic heart disease of native coronary artery without angina pectoris; J45.909 Unspecified asthma, uncomplicated; Z82.49 Family history of ischemic heart disease and other diseases of the circulatory system; I10 Essential (primary) hypertension

== ENCOUNTER 2018-10-27 10:25 | Emergency (ER) | payer MEDICAID ==
[2018-10-27 10:26] VITALS: BMI 41.5
[2018-10-27 10:42] VITALS: RESP 18
--- NOTE | 2018-10-27 12:04 | ED PDOC ---
HPI: Headache Time Seen by Provider: 10/27/18 11:00 Chief Complaint (Nursing): Headache Chief Complaint (Provider): headache History Per: Patient History/Exam Limitations: no limitations Onset/Duration Of Symptoms: Days (x14) Current Symptoms Are (Timing): Still Present Associated Symptoms: Nausea. denies: Vomiting Additional Complaint(s): 48 year old female with a past medical history of CAD, hypercholesterolemia, and hypertension who is presenting to the ED for evaluation of migraines associated with nausea ongoing for 2 weeks. Patient states that this feels like a typical migraine she used to have in the past. She denies any fevers or vomiting and reports that Motrin is not helping. PMD: Donna Pelletier Past Medical History Reviewed: Historical Data, Nursing Documentation, Vital Signs Vital Signs: Last Vital Signs Temp 98.8 F 10/27/18 10:41 Pulse 96 H 10/27/18 10:41 Resp 18 10/27/18 10:41 BP 137/85 10/27/18 10:41 Pulse Ox 97 10/27/18 10:41 - Medical History PMH: Anxiety, Arthritis, Asthma, Bipolar Disorder, Bronchitis, CAD, Depression, Gastritis, GERD, HTN, Hypercholesterolemia, Hyperlipidemia, Migraine, Personality Disorder, Rheumatoid Arthritis, Chronic Pain Denies: Deep Vein Thrombosis, Chronic Kidney Disease - Surgical History Surgical History: Denies: Pacemaker - Family History Family History: States: Unknown Family Hx, CAD - Social History Current smoker - smoking cessation education provided: No Alcohol: None Drugs: Cannabis - Immunization History Hx Tetanus Toxoid Vaccination: Yes (UTD) Hx Influenza Vaccination: Yes Hx Pneumococcal Vaccination: Yes (Not sure when she received it) - Home Medications Home Medications: Ambulatory Orders Medication Instructions Recorded RX: ARIPiprazole [Abilify] 10 mg PO DAILY 08/20/18 RX: Cholecalciferol [Vitamin D 1,000 units PO DAILY 08/20/18 1000 IU] RX: Escitalopram [Lexapro] 20 mg PO DAILY 08/20/18 RX: Fluticasone/Salmeterol [Airduo 1 puff IH Q12 08/25/18 Respiclick 232-14 Mcg] RX: Gabapentin 300 mg PO Q12 08/25/18 RX: Ibuprofen [Motrin Tab] 600 mg PO Q8 PRN 08/25/18 RX: Montelukast [Singulair] 10 mg PO DAILY 08/25/18 RX: Omeprazole 40 mg PO DAILY 08/25/18 RX: Acetaminophen [Tylenol 325mg 650 mg PO Q6 PRN tab 08/27/18 tab] RX: Ammonium Lactate 12% 12 % TOP BID tube 08/27/18 [Lac-Hydrin 12% Cream (140 g)] RX: DiphenhydrAMINE [Benadryl] 25 mg PO Q6 PRN cap 08/27/18 RX: Enoxaparin [Lovenox] 40 mg SC DAILY syr 08/27/18 RX: Hydrocortisone 1% Cream 1 applic TOP BID tube 08/27/18 [Cortizone 1% Cream] RX: Lactobacillus Acidophilus 1 cap PO Q12H 10 Days cap 08/27/18 [Bacid Acidophilus] RX: Loratadine [Claritin] 10 mg PO DAILY tab 08/27/18 RX: raNITIdine [Zantac Soln 5ml] 150 mg PO BID ml 08/27/18 Piperacill/Tazo 3.375gm in Dex 3.375 gm IV Q6 #28 bag 08/31/18 [Zosyn 3.375 Gm IV Premix] RX: Cefepime [Maxipime] 1 gm IV Q8 7 Days #21 vial 08/31/18 Escitalopram [Lexapro] 10 mg PO DAILY #21 tab 09/13/18 Ibuprofen [Motrin] 600 mg PO Q6H PRN #20 tab 10/27/18 - Allergies Allergies/Adverse Reactions: Allergies Allergy/AdvReac Type Severity Reaction Status Date / Time azithromycin Allergy RASH Verified 08/20/18 10:12 cyclobenzaprine HCl Allergy RASH Verified 08/20/18 10:12 [From Flexeril] latex Allergy RASH Verified 08/20/18 10:12 Sulfa (Sulfonamide Allergy RASH Verified 08/20/18 10:12 Antibiotics) bacitracin AdvReac RASH Verified 08/20/18 10:12 Review of Systems ROS Statement: Except As Marked, All Systems Reviewed And Found Negative Constitutional: Negative for: Fever Gastrointestinal: Positive for: Nausea. Negative for: Vomiting Neurological: Positive for: Headache Physical Exam - Reviewed Nursing Documentation Reviewed: Yes Vital Signs Reviewed: Yes - Physical Exam Appears: Positive for: Well, Non-toxic, No Acute Distress (pt resting appears to be in no distress) Head Exam: Positive for: ATRAUMATIC, NORMAL INSPECTION, NORMOCEPHALIC Skin: Positive for: Normal Color, Warm, DRY Eye Exam: Positive for: EOMI, Normal appearance, PERRL ENT: Positive for: Normal ENT Inspection Neck: Positive for: Normal, Painless ROM Cardiovascular/Chest: Positive for: Regular Rate, Rhythm. Negative for: Murmur Respiratory: Positive for: Normal Breath Sounds. Negative for: Respiratory Distress Gastrointestinal/Abdominal: Positive for: Normal Exam, Soft. Negative for: Tenderness Back: Positive for: Normal Inspection. Negative for: L CVA Tenderness, R CVA Tenderness Extremity: Positive for: Normal ROM. Negative for: Deformity, Swelling Neurologic/Psych: Positive for: Alert, bobbin cleaner hand II-XII, Oriented, Gait (stable). Negative for: Motor/Sensory Deficits, Aphasia, Facial Droop - Laboratory Results Result Diagrams: 10/27/18 12:30 10/27/18 12:30 - ECG O2 Sat by Pulse Oximetry: 97 (RA) Pulse Ox Interpretation: Normal Medical Decision Making Medical Decision Making: Time: 11:59 Plan: migraine, history of --CMP --CBC --Reglan 10 mg IVP --Toradol 15 mg IV 13:30 Labs were reviewed with no clinically significant abnormalities. Patient slept through entire ER stay and when reevaluated, notes improvement in symptoms. Upon provider evaluation patient is medically stable, and requires no further treatment in the ED at this time. Patient will be discharged home. Counseling was provided and all questions were answered regarding diagnosis and need for follow up with PMD at the Clinic. There is agreement to discharge plan. Return if symptoms persist or worsen. Scribe Attestation: Documented by Abida Khanna, acting as a scribe for Gracie White MD. Provider Scribe Attestation: All medical record entries made by the Scribe were at my direction and persona lly dictated by me. I have reviewed the chart and agree that the record accurately reflects my personal performance of the history, physical exam, medical decision making, and the department course for this patient. I have also personally directed, reviewed, and agree with the discharge instructions and disposition. Disposition - Clinical Impression Clinical Impression: Migraine - Patient ED Disposition Is Patient to be Admitted: No Counseled Patient/Family Regarding: Studies Performed, Diagnosis, Need For Followup - Disposition Referrals: [facility] [Outside] [facility] [Outside] Brett Ramos MD [Medical Doctor] - Disposition: Routine/Home Disposition Time: 13:30 Condition: IMPROVED Additional Instructions: follow up in the clinic in 1-2 days as well as with nuerologist return to the ED with any worsening or concerning symptoms Prescriptions: Ibuprofen [Motrin] 600 mg PO Q6H PRN #20 tab PRN Reason: Pain, Moderate (4-7) Instructions: Migraine Headache (DC) Forms: [employer] (Japanese)
[2018-10-27 12:59] LABS: BASO # 0.1 K/uL (0.0-0.2); BASO % 0.9 % (0.0-2.0); EOS # 0.2 K/uL (0.0-0.7); EOS % 2.3 % (0.0-4.0); HEMOGLOBIN 12.7 g/dL (12.0-16.0); LYMPH # 2.1 K/uL (1.0-4.3); LYMPH % 29.8 % (20.0-40.0); MEAN CELL VOLUME 91.5 fl (81.0-99.0); MEAN CORPUSCULAR HEMOGLOBIN 29.7 pg (27.0-31.0); MEAN CORPUSCULAR HGB CONC 32.4 g/dL (33.0-37.0); MEAN PLATELET VOLUME 8.1 fl (7.2-11.7); MONO # 0.5 K/uL (0.0-0.8); NEUT # 4.2 K/uL (1.8-7.0); NRBC % 0.1 % (0.0-0.0); RBC 4.28 Mil/uL (3.80-5.20); RED CELL DISTRIBUTION WIDTH 13.8 % (11.5-14.5)
[2018-10-27 13:20] LABS: ALB/GLOB RATIO 1.1 (1.0-2.1); ALBUMIN 4.1 g/dL (3.5-5.0); ALT/SGPT 38 U/L (9-52); AST/SGOT 36 U/L (14-36); BLOOD UREA NITROGEN 14 mg/dl (7-17); CALCIUM 9.5 mg/dL (8.4-10.2); GFR NON-AFRICAN AMERICAN > 60
[2018-10-27 14:22] VITALS: BP 126/78; PULSE 80; TEMP 97.8
[2018-10-28 23:34] VITALS: O2SAT 97
== END 2018-10-27 14:05 | disposition home or self-care (01) ==
LOC: H.ER 10:25
DX: G43.909 Migraine, unspecified, not intractable, without status migrainosus (principal); E78.00 Pure hypercholesterolemia, unspecified; F41.9 Anxiety disorder, unspecified; I10 Essential (primary) hypertension; I25.10 Atherosclerotic heart disease of native coronary artery without angina pectoris; Z88.2 Allergy status to sulfonamides
CPT/HCPCS: 80053; 81025; 85025; 96374; 99284; J1885; J2765

== ENCOUNTER 2018-11-01 08:49 | Emergency (ER) | payer MEDICAID ==
[2018-11-01 09:06] VITALS: BMI 40.2
[2018-11-01 09:07] VITALS: RESP 16
[2018-11-01] MEDS ORDERED: Naproxen 500 MG TAB PO STA (09:31)
[2018-11-01] MEDS ORDERED: Naproxen 500 MG TAB PO ONE (09:56)
--- NOTE | 2018-11-01 10:43 | ED PDOC ---
Lower Extremity Pain/Injury Time Seen by Provider: 11/01/18 09:28 Chief Complaint (Nursing): Lower Extremity Problem/Injury History Per: Patient History/Exam Limitations: no limitations Onset/Duration Of Symptoms: Hrs (woke up at 3am with severe left knee pain), Gradual Current Symptoms Are (Timing): Still Present Additional Complaint(s): Pt with history of arthritis in the knee. Woke up at 3am with worsened pain to the knee. No recent trauma. No fever, swelling, warmth. Pt states in the past, Naproxen has helped. Pt does not follow with a knee specialist/orthopedic doctor. - Hip Currently Unable To: Other (pain with movement and ambulation) - Knee Description Of Injury: Other (chronic, no acute injury) - Risk Factors DVT Risk Factors: Pos: None Past Medical History Vital Signs: Last Vital Signs Temp 98.7 F 11/01/18 09:05 Pulse 105 H 11/01/18 09:05 Resp 16 11/01/18 09:05 BP 126/73 11/01/18 09:05 Pulse Ox 97 11/01/18 09:05 - Medical History PMH: Anxiety, Arthritis, Asthma, Bipolar Disorder, Bronchitis, CAD, Depression, Gastritis, GERD, HTN, Hypercholesterolemia, Hyperlipidemia, Migraine, Personality Disorder, Rheumatoid Arthritis, Chronic Pain Denies: Deep Vein Thrombosis, Chronic Kidney Disease - Surgical History Surgical History: Denies: Pacemaker - Family History Family History: States: Unknown Family Hx, CAD - Immunization History Hx Tetanus Toxoid Vaccination: Yes (UTD) Hx Influenza Vaccination: Yes Hx Pneumococcal Vaccination: Yes (Not sure when she received it) - Home Medications Home Medications: Ambulatory Orders Medication Instructions Recorded RX: ARIPiprazole [Abilify] 10 mg PO DAILY 08/20/18 RX: Cholecalciferol [Vitamin D 1,000 units PO DAILY 08/20/18 1000 IU] RX: Escitalopram [Lexapro] 20 mg PO DAILY 08/20/18 RX: Fluticasone/Salmeterol [Airduo 1 puff IH Q12 08/25/18 Respiclick [id number] Mcg] RX: Gabapentin 300 mg PO Q12 08/25/18 RX: Ibuprofen [Motrin Tab] 600 mg PO Q8 PRN 08/25/18 RX: Montelukast [Singulair] 10 mg PO DAILY 08/25/18 RX: Omeprazole 40 mg PO DAILY 08/25/18 RX: Acetaminophen [Tylenol 325mg 650 mg PO Q6 PRN tab 08/27/18 tab] RX: Ammonium Lactate 12% 12 % TOP BID tube 08/27/18 [Lac-Hydrin 12% Cream (140 g)] RX: DiphenhydrAMINE [Benadryl] 25 mg PO Q6 PRN cap 08/27/18 RX: Enoxaparin [Lovenox] 40 mg SC DAILY syr 08/27/18 RX: Hydrocortisone 1% Cream 1 applic TOP BID tube 08/27/18 [Cortizone 1% Cream] RX: Lactobacillus Acidophilus 1 cap PO Q12H 10 Days cap 08/27/18 [Bacid Acidophilus] RX: Loratadine [Claritin] 10 mg PO DAILY tab 08/27/18 RX: raNITIdine [Zantac Soln 5ml] 150 mg PO BID ml 08/27/18 Piperacill/Tazo 3.375gm in Dex 3.375 gm IV Q6 #28 bag 08/31/18 [Zosyn 3.375 Gm IV Premix] RX: Cefepime [Maxipime] 1 gm IV Q8 7 Days #21 vial 08/31/18 Escitalopram [Lexapro] 10 mg PO DAILY #21 tab 09/13/18 Ibuprofen [Motrin] 600 mg PO Q6H PRN #20 tab 10/27/18 RX: Naproxen 500 mg PO BID #30 tab 11/01/18 - Allergies Allergies/Adverse Reactions: Allergies Allergy/AdvReac Type Severity Reaction Status Date / Time azithromycin Allergy RASH Verified 11/01/18 09:06 cyclobenzaprine HCl Allergy RASH Verified 11/01/18 09:06 [From Flexeril] latex Allergy RASH Verified 11/01/18 09:06 Sulfa (Sulfonamide Allergy RASH Verified 11/01/18 09:06 Antibiotics) bacitracin AdvReac RASH Verified 11/01/18 09:06 Wells Criteria for PE - Wells Criteria for Pulmonary Embolism Clinical Signs and Symptoms of DVT: No P.E is #1 Diagnosis, or Equally Likely: No Heart Rate >100: No Immobilization at least 3 days;Surgery previous 4 weeks: No Previous, objectively diagnosed PE or DVT: No Hemoptysis: No Malignancy w/treatment within 6 months, or palliative: No Total Score: 0 Review of Systems Constitutional: Negative for: Fever, Chills, Sweats Eyes: Negative for: Pain Cardiovascular: Negative for: Chest Pain, Palpitations, Edema Respiratory: Negative for: Cough, Shortness of Breath, Hemoptysis, SOB with Exertion Gastrointestinal: Negative for: Nausea, Vomiting, Abdominal Pain Genitourinary Female: Negative for: Dysuria Musculoskeletal: Positive for: Leg Pain. Negative for: Neck Pain, Shoulder Pain Skin: Negative for: Rash Neurological: Negative for: Weakness, Numbness, Incoordination, Headache Psych: Positive for: Depression (chronic and controlled at this time) Physical Exam - Physical Exam Appears: Positive for: Well, Non-toxic, No Acute Distress Head Exam: Positive for: ATRAUMATIC, NORMAL INSPECTION Skin: Positive for: Normal Color, Warm, Dry Eye Exam: Positive for: Normal appearance ENT: Positive for: Normal ENT Inspection Neck: Positive for: Normal Cardiovascular/Chest: Positive for: Regular Rate, Rhythm Respiratory: Positive for: Normal Breath Sounds Pulses-Dorsalis Pedis (L): 2+ Pulses-Dorsalis Pedis (R): 2+ Gastrointestinal/Abdominal: Positive for: Normal Exam Extremity: Positive for: Other (pain on movement of left knee. Lachmans and anterior drawer test negative. Popliteal pulse 2+. No pain on calf squeeze. No warmth, swelling, or erythema.) - ECG O2 Sat by Pulse Oximetry: 97 Medical Decision Making Medical Decision Makin yo F with known arthritis to the knees with acute exacerbation of pain to the left knee. -xray -Naproxen Most likely d/c home with referral to orthopedics. Xray unremarkable. Rx for Naproxen. Referral to orthopedic surgeon. Disposition - Clinical Impression Clinical Impression: Knee pain - Patient ED Disposition Is Patient to be Admitted: No - Disposition Referrals: Matty Brandon MD [Staff Provider] - Disposition Time: 11:40 Condition: STABLE Prescriptions: RX: Naproxen 500 mg PO BID #30 tab Instructions: Chronic Knee Pain Forms: [employer] (Polish) Print Language: CZECH
[2018-11-01 11:54] VITALS: BP 128/75; PULSE 86; TEMP 98.6
--- NOTE | 2018-11-01 16:46 | RAD ---
PROCEDURE: Left Knee Radiographs. HISTORY: left knee pain COMPARISON: None available. FINDINGS: BONES: No acute displaced fracture. Degenerative changes including tenting of the intercondylar notch and infrapatellar enthesophyte. JOINTS: No dislocation. Medial compartment joint space narrowing. JOINT EFFUSION: No significant joint effusion. OTHER FINDINGS: None. IMPRESSION: Degenerative changes. No acute displaced fracture, dislocation, or significant joint effusion identified. If symptoms persist, or if there is continued clinical concern, x-ray follow-up in 7-10 days should be considered.
[2018-11-03 20:32] VITALS: O2SAT 97
== END 2018-11-01 11:59 | disposition home or self-care (01) ==
LOC: H.ER 08:49
DX: M25.562 Pain in left knee (principal)